=== PATIENT | female | born 1955 | race Caucasian/White ===

== ENCOUNTER → 2016-11-04 | Outpatient (CLI) | payer OTHER ==
[~2016-11-04] MED LIST: AMLO-110 PO; ASPI81TA28 PO; ATOR10TA88 PO; ATV5X PO; AUG0.05C12 TOP; BACL10TA PO; BUPR-79 PO; CLBCRM30 EXT; CLOB-65 TOP; CYAN100048 PO; EFFSR150 PO; EMLA TOP; ESTR1CRE PV; FLUT0.15 NAE; GABA-113 PO; HYDR-3124 PO; IMD/2 PO; LORA-741 PO; LSN20 PO; MECL1TAB42 PO; MELA1TAB5 PO; MELA3TAB12 PO; MIRT15TA2 PO; MIRT15TA53 PO; NRN/300 PO; NRV/5 PO; OXYC1TAB3 PO; PENT100C6 PO; POTA20TA16 PO; PRMVC PV; PROM25TA16 PO; SIME1CAP37 PO; TRIA0.5C4 TOP; TRIA0.5C9 TOP; TYLOTC500 PO
[2016-11-04 11:40] LABS: ALKALINE PHOSPHATASE 136 U/L (45-117); ALT/SGPT 15 U/L (12-78); AST/SGOT 12 U/L (15-37)
== END | disposition home or self-care (01) ==
LOC: C.LAB 10:18
PROVIDERS: ATTEND Urology
DX: N30.10 Interstitial cystitis (chronic) without hematuria (principal)

== ENCOUNTER 2016-11-06 19:06 | Emergency (ER) | payer OTHER ==
[~2016-11-06] VITALS: Ht 175.3 cm; Wt 58.9 kg
[~2016-11-06 19:06] MED LIST changes: -AMLO-110 PO; -ASPI81TA28 PO; -CLBCRM30 EXT; -EMLA TOP; -GABA-113 PO; -MELA1TAB5 PO; -MIRT15TA53 PO; -PENT100C6 PO; -PRMVC PV; -SIME1CAP37 PO; -TRIA0.5C4 TOP
[2016-11-06 19:16] VITALS: TEMP 36.8; Ht 175.3 cm; Wt 58.9 kg
[2016-11-06] MEDS ORDERED: EMLA TOP (19:35)
[2016-11-06] MEDS ORDERED: SIME1CAP37 PO (19:35)
[2016-11-06] MEDS ORDERED: GABA-113 PO (19:35)
[2016-11-06] MEDS ORDERED: PROMETHAZINE HCL INJ 25 MG/ML 1 ML VIAL IM STA (19:40)
[2016-11-06] MEDS ORDERED: HYDROmorphone INJ 2 MG/ML SYR/VIAL IM STA (19:40)
[2016-11-06] MEDS ORDERED: KETOROLAC TROMETHAMINE 60 MG/2 ML VIAL IM STA (19:40)
[2016-11-06 20:10] VITALS: BP 131/63; PULSE 76; O2SAT 98
--- NOTE | 2016-11-07 00:34 | EMERGENCY ROOM VISIT NOTE ---
ED Visit Note First contact with patient: 19:23 CHIEF COMPLAINT: Migraine headache HISTORY OF PRESENT ILLNESS: This 61-year-old female patient presented to the emergency department with a gradual onset of a severe generalized headache that started earlier today. The patient states the migraine is similar to their typical migraines. There has been associated photophobia, phonophobia, nausea and vomiting. The patient denies fever or chills recently, and there is no weakness or numbness of the extremities. There is no difficulty with speech or vision. No trauma to the head and no neck pain. The pain is severe, constant, and it is slowly increasing in severity. The patient rates the pain as sharp and 8/10. The patient has taken oxycodone without relief. This is not the worst headache of the life and is similar to previous migraines. Previous imaging studies of the brain have been normal. REVIEW OF SYSTEMS: A review of systems was performed with positives and pertinent negatives listed in the history of present illness. All other systems were reviewed and are negative. ALLERGIES: See EMR MEDICATIONS: See EMR PMH: History of chronic migraines SOCIAL HISTORY: Lives locally PHYSICAL EXAM: Vital Signs: Reviewed Nurse's notes, vital signs stable. GENERAL: White female, who appears in pain, but non toxic in appearance and in no acute distress. MENTAL STATUS: Alert, oriented, and coherent. HEENT: Normocephalic. PERRLA. EOMI. Nares patent without nuchal rigidity. Tympanic membranes pearly min without erythema or effusion bilaterally. Mucous membranes moist. NECK: Supple, no nuchal rigidity, nontender, no lymphadenopathy. HEART: Regular rhythm and normal rate without murmurs, ectopy, gallops, or rubs. LUNGS: Clear to auscultation bilaterally without wheezes, rales or rhonchi. No dullness to percussion. No accessory muscle use. No retractions. SKIN: Normal. NEUROLOGICAL: Pupils are round, equal and react to light. The optic fundi are normal and the discs are flat. The patient moves all extremities well and the gait is normal. EMERGENCY DEPARTMENT COURSE: I examined the patient. The patient is on a 2 narcotic injection per month treatment plan for their migraines. Today is her first visit of the month for treatment. The patient was given 2 mg IM Dilaudid , 25 mg IM Phenergan, and 60 mg IM Toradol per their usual protocol. The differential diagnosis includes acute intracranial bleed, meningitis, encephalitis, mass or mass effect, sinusitis, infection, tumor, headache, temporal arteritis and carbon monoxide exposure, and migraine. The patient was discharged home in stable condition with a female electronics scale tester driving. Problem List Medical Problems: (1) Abdominal pain of unknown etiology Status: Resolved (2) Anxiety State Nos Status: Chronic (3) ARF (acute renal failure) Status: Resolved (4) Chronic Pain Syndrome Status: Chronic (5) CKD (chronic kidney disease), stage III Status: Chronic (6) Classical Migraine W/O Intractable Migraine Status: Chronic (7) Depression Status: Chronic (8) Depressive Disorder Nec Status: Chronic (9) Esophageal Reflux Status: Chronic (10) Foot pain Status: Resolved (11) Headache Status: Resolved (12) HTN (hypertension) Status: Chronic (13) Hypertension Nos Status: Chronic (14) Hypokalemia Status: Resolved (15) IBS (irritable bowel syndrome) Status: Chronic (16) lysis of adhesions Status: Chronic (17) Migraine Status: Resolved (18) Migraines Status: Chronic (19) OCD (obsessive compulsive disorder) Status: Chronic (20) Tobacco abuse Status: Chronic (21) UTI (urinary tract infection) Status: Resolved Surgical Problems: (1) H/O colonoscopy Status: Chronic (2) H/O hernia repair Status: Chronic (3) H/O sinus surgery Status: Chronic (4) History of back surgery Status: Chronic (5) History of hysterectomy Status: Resolved (6) History of total abdominal hysterectomy Status: Chronic Current/Historical Medications Scheduled Acetaminophen (Tylenol), 1,000 MG PO TID Amlodipine Besylate (Amlodipine Besylate), 5 MG PO DAILY Atorvastatin (Lipitor), 10 MG PO DAILY Baclofen (Lioresal), 10 MG PO TID Betamethasone Dipropionate Aug (Diprolene Af), 1 APPLN TOP tud Bupropion (Wellbutrin Sr), 150 MG PO DAILY Clobetasol Propionate 0.05% (Temovate 0.05%), 1 APPLN TOP UD Cyanocobalamin (Vitamin B-12), 1,000 MCG PO DAILY Estrogens, Conjugated Vaginal (Premarin), 0.5 GM PV 3XWK Fluticasone Propionate (Nasal) (Flonase Allergy Relief), 1 SPRAY GINA BID Gabapentin (Neurontin), 900 MG PO HS Gabapentin (Neurontin), 300 MG PO QAM Lisinopril (Lisinopril), 20 MG PO DAILY Loperamide Hcl (Imodium), 2 MG PO PRN/UD Lorazepam (Lorazepam), 0.5 MG PO AM/HS Lorazepam (Ativan), 0.25 MG PO AFTERNOON &EVENING Melatonin-Pyridoxine (Melatonin), 10 MG PO HS Mirtazapine Soltab (Remeron Soltab), 15 MG PO HS Potassium Ext Rel (Klor-Con), 20 MEQ PO DAILY Triamcinolone Acet 0.5% (Aristocort 0.5%), Unknown Dose TOP BID Venlafaxine Hcl (Effexor Extended Rel), 300 MG PO QAM [Emla], 1 APPLN TOP UD Scheduled PRN Hydroxyzine Hcl (Atarax), 25 MG PO Q6 PRN for Itching Meclizine Hcl (Meclizine Hcl), 25 MG PO TID PRN for Dizziness or Vertigo Oxycodone Immediate Rel Tab (Roxicodone Ir), 5 MG PO Q6H PRN for Pain Promethazine HCl (Promethazine HCl), 25 MG PO Q4-6HRS PRN for Nausea or Vomiting Simethicone (Simethicone Extra Strengt 125 mg), 1 CAP PO TID PRN for gas pain Allergies Coded Allergies: Barbiturates (Verified Allergy, Severe, 09/23/16) Replaces Belladonna (Verified Allergy, Severe, 09/23/16) Dicyclomine (Verified Allergy, Severe, 09/23/16) Azithromycin (Verified Allergy, Mild, 11/06/16) Penicillins (Verified Allergy, Mild, AMOXICILLIN, 09/23/16) Phenobarbital (Verified Allergy, Mild, 09/23/16) Replaces Quinolones (Verified Allergy, Mild, 09/23/16) Nitrates, Organic (Verified Allergy, Unknown, 09/23/16) Nitrofurantoin (Verified Allergy, Unknown, 09/23/16) Nitroglycerin (Verified Allergy, Unknown, 09/23/16) Sulfa Drugs (Verified Allergy, Unknown, 09/23/16) Uncoded Allergies: ANTICHOLINERGIC (Allergy, Severe, 11/27/09) Replaces Vital Signs Date Time Temp Pulse Resp B/P Pulse Ox O2 Delivery O2 Flow Rate FiO2 11/06/16 20:10 76 131/63 98 11/06/16 19:16 36.8 92 18 137/80 97 Room Air Medications Administered Medications (Trade) Dose Ordered Sig/Micki Route Start Time Stop Time Status Last Admin Dose Admin Hydromorphone HCl (Dilaudid Inj) 2 mg NOW STAT IM 11/06/16 19:40 11/06/16 19:41 DC 11/06/16 20:05 2 MG Promethazine HCl (Phenergan Inj) 25 mg NOW STAT IM 11/06/16 19:40 11/06/16 19:41 DC 11/06/16 20:05 25 MG Ketorolac Tromethamine (Toradol Inj) 60 mg NOW STAT IM 11/06/16 19:40 11/06/16 19:41 DC 11/06/16 20:05 60 MG Departure Information Impression Primary Impression: Migraine without aura Dispostion Home / Self-Care Condition GOOD Forms HOME CARE DOCUMENTATION FORM, IMPORTANT VISIT INFORMATION Patient Instructions [facility] Additional Instructions You were seen and evaluated today on an emergency basis only. This is not a substitute for, or an effort to provide, complete comprehensive medical care. It is not possible to recognize and treat all injuries or illnesses in a single emergency department visit. For this reason it is recommended that you followup with your primary care physician or neurologist this week for ongoing care and evaluation. DO NOT drive, drink alcohol, operate machinery, or perform dangerous activities today. You were given medications in the ER that can affect your ability to safely function or operate a vehicle. Rest today in a quiet, peaceful, dark environment and get a full 8-10 hrs of sleep tonight. Avoid loud noises, smoke/smoking, alcohol, bright lights, stress, or physical exertion today to minimize the chance the headache may return. Continue current medications. Ibuprofen(Motrin, Advil) may be used for fever or pain. Use 600mg every six hours as needed. Take with food. Avoid using more than 2400mg in a 24 hour period. Do not use 2400mg per day for more than three consecutive days without physician direction. Prolonged inappropriate use can lead to stomach upset or ulcers. (AND/OR) Acetaminophen(Tylenol) may be used for fever or pain. Use 1000mg every six hours as needed. Avoid using more than 4000mg in a 24 hour period. Return to the ER for passing out, worsening headache, vision problems, neck stiffness/pain, fevers, vomiting, worsening of your condition, or as needed.
[2016-12-06] MEDS ORDERED: MELA1TAB5 PO (11:04)
[2016-12-26] MEDS ORDERED: PENT100C6 PO (10:17)
== END 2016-11-06 20:10 | disposition home or self-care (01) ==
LOC: C.EDB 19:07 → C.EDD 20:10
DX: G43.709 Chronic migraine without aura, not intractable, without status migrainosus (principal); F41.9 Anxiety disorder, unspecified; G89.4 Chronic pain syndrome; N18.3 Chronic kidney disease, stage 3 (moderate); F32.9 Major depressive disorder, single episode, unspecified; K21.9 Gastro-esophageal reflux disease without esophagitis; I12.9 Hypertensive chronic kidney disease with stage 1 through stage 4 chronic kidney disease, or unspecified chronic kidney disease; K58.9 Irritable bowel syndrome, unspecified; F42.9 Obsessive-compulsive disorder, unspecified; F17.210 Nicotine dependence, cigarettes, uncomplicated; Z87.440 Personal history of urinary (tract) infections; Z79.899 Other long term (current) drug therapy

== ENCOUNTER → 2016-11-15 | Outpatient (CLI) | payer OTHER ==
[~2016-11-15] MED LIST changes: +AMLO-110 PO; +ASPI81TA28 PO; +CLBCRM30 EXT; +EMLA TOP; +GABA-113 PO; +MELA1TAB5 PO; +MIRT15TA53 PO; +PENT100C6 PO; +PRMVC PV; +SIME1CAP37 PO; +TRIA0.5C4 TOP
== END | disposition home or self-care (01) ==
LOC: C.LAB 14:08
PROVIDERS: ATTEND Nurse Practitioner Family
DX: R39.9 Unspecified symptoms and signs involving the genitourinary system (principal); G43.709 Chronic migraine without aura, not intractable, without status migrainosus; M54.6 Pain in thoracic spine

== ENCOUNTER → 2016-11-28 | Outpatient (CLI) | payer OTHER ==
[~2016-11-28] MED LIST changes: +GADAVIST IV PRN
--- NOTE | 2016-11-28 13:35 | DIAGNOSTIC IMAGING REPORT ---
MRI THORACIC SPINE COMBO CLINICAL HISTORY: Chronic thoracic back pain. History of cord stimulator which has been removed. COMPARISON STUDY: Radiographs of the thoracic spine dated 09/06/2007. Abdominal CT dated 04/10/2006 and 06/09/2016. TECHNIQUE: MRI of the thoracic spine is performed utilizing various T1 and T2-weighted sequences in the axial and sagittal planes. Contrast-enhanced sequences are acquired following the IV administration of 6 cc of Gadavist. FINDINGS: There are mild superior endplate compression deformities seen involving T3, T5, and T7. Vertebral body height is otherwise maintained. Alignment is preserved. No retropulsed fragments are identified. Marrow signal intensity is slightly heterogeneous. No destructive bony lesion is identified. The spinous processes appear intact. No significant neural foraminal stenosis is seen throughout the thoracic spine. Small pseudomeningoceles versus nerve sheath cysts are present bilaterally at T11-T12. There is degenerative disc desiccation and mild loss of height seen throughout the thoracic spine. No disc herniation is identified. The thoracic spinal cord is normal in morphology and signal intensity. The conus medullaris terminates at the level of L1. There is T1 and T2 hypointense smoothly marginated nonenhancing material seen involving the posterior epidural space which extends from the inferior endplate of T8 to the body of T10. This measures 3.5 cm in length and causes acquired compromise of the central canal at these levels. The minimum AP canal diameter measures 7 mm. The remainder of the central canal is widely patent. The paraspinous soft tissues are within normal limits. No pleural effusion is identified. IMPRESSION: 1. No acute bony abnormality is identified. Mild chronic compression deformities are detailed above. 2. The thoracic spinal cord is normal in morphology and signal intensity. 3. There is smoothly marginated abnormal soft tissue identified involving the posterior epidural space from T8 to T10 as detailed above. This likely represents scarring/fibrosis, and causes acquired compromise of the central canal at these levels. This is likely related to the previous neurostimulator device, as the stimulator was located at this level on the 2005 examination. See above discussion. Dictated: 11/28/2016 12:13 PM Transcribed: 11/28/2016 1:34 PM Clarisa Electronically signed by: Tony Hunt M.D. 11/28/2016 1:41 PM Dictated Date/Time: 11/28/2016 12:13 PM
== END | disposition home or self-care (01) ==
LOC: C.MRI 10:27
PROVIDERS: ATTEND Anesthesiology
DX: M54.6 Pain in thoracic spine (principal); G89.29 Other chronic pain

== ENCOUNTER 2016-12-02 18:28 | Emergency (ER) | payer OTHER ==
[~2016-12-02] VITALS: Ht 176.5 cm; Wt 58.8 kg
[~2016-12-02 18:28] MED LIST changes: -AMLO-110 PO; -ASPI81TA28 PO; -CLBCRM30 EXT; -GADAVIST IV PRN; -MELA1TAB5 PO; -MIRT15TA53 PO; -PENT100C6 PO; -PRMVC PV; -TRIA0.5C4 TOP
[2016-12-02 18:47] VITALS: TEMP 37.2; Ht 176.5 cm; Wt 58.8 kg
[2016-12-02] MEDS ORDERED: HYDROmorphone INJ 2 MG/ML SYR/VIAL IM STA (19:42)
[2016-12-02] MEDS ORDERED: KETOROLAC TROMETHAMINE 60 MG/2 ML VIAL IM STA (19:42)
[2016-12-02] MEDS ORDERED: PROMETHAZINE HCL INJ 25 MG/ML 1 ML VIAL IM STA (19:42)
--- NOTE | 2016-12-02 19:49 | EMERGENCY ROOM VISIT NOTE ---
ED Visit Note First contact with patient: 19:14 CHIEF COMPLAINT: Migraine headache 2 days HISTORY OF PRESENT ILLNESS: Patient is a 61-year-old white female with past medical history significant for migraine headaches, and on a treatment plan at our facility restricting her to 2 narcotic injections per month, who presents the emergency department for evaluation of a migraine that started yesterday morning. She reports that she woke with a severe migraine around 4:00 yesterday morning. She tried Tylenol, ibuprofen and oxycodone without relief. She later noted a sore throat and swollen glands in her neck. The sister with whom she lives was diagnosed with strep throat last week. The headache persisted today, prompting her to come to the emergency department. She is states that she is scheduled for another round of Botox migraine protocol. She states she couldn't receive the injections as scheduled due to an infection. She is followed by pain management for her migraines and chronic back pain. She presently rates her discomfort a 9/10. She notes a throbbing frontal and bitemporal headache with associated nausea, photo and phonophobia. She states that this is typical of her usual migraine phenomenon. She denies any other cold or upper respiratory symptoms. No fever or chills recently. No weakness or numbness of the extremities. There is no difficulty with balance, coordination, speech or vision. No trauma to the head. No posterior neck pain or stiffness. No rashes. REVIEW OF SYSTEMS: Review of systems as per HPI. All other systems reviewed were negative. 10 systems reviewed. PMH: Electronic medical records are reviewed and summarized as above/below. See Problem List. SOCIAL HISTORY: Patient lives at home. Smoker. PHYSICAL EXAM: Vital Signs: Reviewed Nurse's notes. General Appearance: Patient is an uncomfortable-appearing 61-year-old white female who is awake and alert and laying in a darkened room in moderate distress due to her migraine. HEENT: Normocephalic, atraumatic. Pupils equal, round, reactive to light and accommodation. EOMs intact without nystagmus. Sclera are anicteric. Mild photophobia. Tympanic membranes intact, with normal landmarks. External canals are clear. Nasopharynx is clear. No sinus or dental tenderness. Examination of the posterior pharynx show no tonsillar erythema, swelling, exudate or uvular deviation. Airways pain. Mucous membranes are moist. Neck: Supple, no cervical lymphadenopathy, no meningismus Heart: Regular rate and rhythm, S1 and S2 Lungs: Clear to auscultation bilaterally, no wheezes Rales or rhonchi, no increased work of breathing Abdomen: Soft nontender nondistended. Normal active bowel sounds. No rebound. No guarding. Back: No midline tenderness to palpation. : No CVA tenderness to palpation. Skin: Warm, no diaphoresis, no rashes. Extremities: No cyanosis, clubbing, or edema Neurologic: Patient is awake alert, and oriented x 3. Cranial nerves 2-12 are grossly intact. Motor 5 out of 5 strength bilateral upper extremities and lower extremities. No gross sensory deficits. Reflexes are 2+ throughout. EMERGENCY DEPARTMENT COURSE: Rapid strep was performed and was negative. The patient was seen and evaluated as above. Her old records are reviewed. She was given Toradol 60 mg, Phenergan 25 mg and Dilaudid 2 mg IM, consistent with the treatment plan. She was told about her rapid strep, and that a backup culture is pending. She can use her [id number] medications as needed for her throat pain. This is her first injection for the month of November. She was discharged home with her sister driving. She rated her pain a 6/10 at discharge. Differential includes: acute intracranial bleed, meningitis, encephalitis, mass or mass effect, sinusitis, infection, migraine, tumor, headache, temporal arteritis, strep versus viral pharyngitis, retropharyngeal or peritonsillar abscess, among others. Problem List Medical Problems: (1) Abdominal pain of unknown etiology Status: Resolved (2) Anxiety State Nos Status: Chronic (3) ARF (acute renal failure) Status: Resolved (4) Chronic Pain Syndrome Status: Chronic (5) CKD (chronic kidney disease), stage III Status: Chronic (6) Classical Migraine W/O Intractable Migraine Status: Chronic (7) Depression Status: Chronic (8) Depressive Disorder Nec Status: Chronic (9) Esophageal Reflux Status: Chronic (10) Foot pain Status: Resolved (11) Headache Status: Resolved (12) HTN (hypertension) Status: Chronic (13) Hypertension Nos Status: Chronic (14) Hypokalemia Status: Resolved (15) IBS (irritable bowel syndrome) Status: Chronic (16) lysis of adhesions Status: Chronic (17) Migraine Status: Resolved (18) Migraines Status: Chronic (19) OCD (obsessive compulsive disorder) Status: Chronic (20) Tobacco abuse Status: Chronic (21) UTI (urinary tract infection) Status: Resolved Surgical Problems: (1) H/O colonoscopy Status: Chronic (2) H/O hernia repair Status: Chronic (3) H/O sinus surgery Status: Chronic (4) History of back surgery Status: Chronic (5) History of hysterectomy Status: Resolved (6) History of total abdominal hysterectomy Status: Chronic Current/Historical Medications Scheduled Acetaminophen (Tylenol), 1,000 MG PO TID Amlodipine Besylate (Amlodipine Besylate), 5 MG PO DAILY Atorvastatin (Lipitor), 10 MG PO DAILY Baclofen (Lioresal), 10 MG PO BID Betamethasone Dipropionate May (Diprolene Af), 1 APPLN TOP tud Bupropion (Wellbutrin Sr), 150 MG PO DAILY Clobetasol Propionate (Clobetasol Propionate Cream 0.05%), 1 APPLN EXT UD Cyanocobalamin (Vitamin B-12), 1,000 MCG PO DAILY Estrogens, Conjugated (Premarin), 1 APPLN PV 3XWK Fluticasone Propionate (Nasal) (Flonase Allergy Relief), 1 SPRAY GINA BID Gabapentin (Neurontin), 600 MG PO HS Gabapentin (Neurontin), 300 MG PO QAM Lisinopril (Lisinopril), 20 MG PO DAILY Loperamide Hcl (Imodium), 2 MG PO PRN/UD Lorazepam (Lorazepam), 0.5 MG PO AM/HS Lorazepam (Ativan), 0.25 MG PO AFTERNOON &EVENING Melatonin-Pyridoxine (Melatonin), 10 MG PO HS Potassium Ext Rel (Klor-Con), 20 MEQ PO DAILY Venlafaxine Hcl (Effexor Extended Rel), 300 MG PO QAM Scheduled PRN Hydroxyzine Hcl (Atarax), 25 MG PO Q6 PRN for Itching Meclizine Hcl (Meclizine Hcl), 25 MG PO TID PRN for Dizziness or Vertigo Oxycodone Immediate Rel Tab (Roxicodone Ir), 5 MG PO Q6H PRN for Pain Promethazine HCl (Promethazine HCl), 25 MG PO Q4-6HRS PRN for Nausea or Vomiting Simethicone (Simethicone Extra Strengt 125 mg), 1 CAP PO TID PRN for gas pain Allergies Coded Allergies: Barbiturates (Verified Allergy, Severe, 12/02/16) Replaces Belladonna (Verified Allergy, Severe, 12/02/16) Dicyclomine (Verified Allergy, Severe, 12/02/16) Azithromycin (Verified Allergy, Mild, 12/02/16) Penicillins (Verified Allergy, Mild, AMOXICILLIN, 12/02/16) Phenobarbital (Verified Allergy, Mild, 12/02/16) Replaces Quinolones (Verified Allergy, Mild, 12/02/16) Amoxicillin (Unverified Allergy, Unknown, rash, 12/02/16) Nitrates, Organic (Verified Allergy, Unknown, 12/02/16) Nitrofurantoin (Verified Allergy, Unknown, 12/02/16) Nitroglycerin (Verified Allergy, Unknown, 12/02/16) Sulfa Antibiotics (Unverified Allergy, Unknown, sulfa, 12/02/16) Sulfa Drugs (Verified Allergy, Unknown, 12/02/16) Uncoded Allergies: ANTICHOLINERGIC (Allergy, Severe, 11/27/09) Replaces PB-HYOC (Allergy, Unknown, unknown, 12/02/16) Vital Signs Date Time Temp Pulse Resp B/P Pulse Ox O2 Delivery O2 Flow Rate FiO2 12/02/16 20:24 72 18 131/71 95 12/02/16 18:47 37.2 92 18 138/59 98 Room Air Medications Administered Medications (Trade) Dose Ordered Sig/Micki Route Start Time Stop Time Status Last Admin Dose Admin Ketorolac Tromethamine (Toradol Inj) 60 mg NOW STAT IM 12/02/16 19:42 12/02/16 19:44 DC 12/02/16 20:04 60 MG Hydromorphone HCl (Dilaudid Inj) 2 mg NOW STAT IM 12/02/16 19:42 12/02/16 19:44 DC 12/02/16 20:04 2 MG Promethazine HCl (Phenergan Inj) 25 mg NOW STAT IM 12/02/16 19:42 12/02/16 19:44 DC 12/02/16 20:03 25 MG Departure Information Impression Primary Impression: Migraine Additional Impression: Acute pharyngitis Referrals Oesterling, Nate,M.D. (PCP) Patient Instructions My [facility] Additional Instructions DO NOT drive, drink alcohol, operate machinery, or perform dangerous activities today. You were given medications in the ER that can affect your ability to safely function or operate a vehicle. Rest today in a quiet, peaceful, dark environment and get a full 8-10 hrs of sleep tonight. Avoid loud noises, smoke/smoking, alcohol, bright lights, stress, or physical exertion today to minimize the chance the headache may return. Continue current medications. Tylenol and ibuprofen can help with her throat pain. Ibuprofen(Motrin, Advil) may be used for fever or pain. Use 600mg every six hours as needed. Take with food. Avoid using more than 2400mg in a 24 hour period. Do not use 2400mg per day for more than three consecutive days without physician direction. Prolonged inappropriate use can lead to stomach upset or ulcers. (AND/OR) Acetaminophen(Tylenol) may be used for fever or pain. Use 1000mg every six hours as needed. Avoid using more than 3000mg in a 24 hour period. Return to the ER for passing out, worsening headache, vision problems, neck stiffness/pain, fevers, vomiting, worsening of your condition, or as needed. Follow up with your primary physician in 2-3 days for a recheck of your current condition. We will contact you if your throat culture is positive and requires treatment with antibiotics. Problem Qualifiers
--- NOTE | 2016-12-02 19:56 | EMERGENCY ROOM VISIT NOTE ---
ED Visit Note First contact with patient: 19:14 I have seen and examined this patient with Talat Terrazas and generally agree with the treatment plan as discussed. Problem List Medical Problems: (1) Abdominal pain of unknown etiology Status: Resolved (2) Anxiety State Nos Status: Chronic (3) ARF (acute renal failure) Status: Resolved (4) Chronic Pain Syndrome Status: Chronic (5) CKD (chronic kidney disease), stage III Status: Chronic (6) Classical Migraine W/O Intractable Migraine Status: Chronic (7) Depression Status: Chronic (8) Depressive Disorder Nec Status: Chronic (9) Esophageal Reflux Status: Chronic (10) Foot pain Status: Resolved (11) Headache Status: Resolved (12) HTN (hypertension) Status: Chronic (13) Hypertension Nos Status: Chronic (14) Hypokalemia Status: Resolved (15) IBS (irritable bowel syndrome) Status: Chronic (16) lysis of adhesions Status: Chronic (17) Migraine Status: Resolved (18) Migraines Status: Chronic (19) OCD (obsessive compulsive disorder) Status: Chronic (20) Tobacco abuse Status: Chronic (21) UTI (urinary tract infection) Status: Resolved Surgical Problems: (1) H/O colonoscopy Status: Chronic (2) H/O hernia repair Status: Chronic (3) H/O sinus surgery Status: Chronic (4) History of back surgery Status: Chronic (5) History of hysterectomy Status: Resolved (6) History of total abdominal hysterectomy Status: Chronic Current/Historical Medications Scheduled Acetaminophen (Tylenol), 1,000 MG PO TID Amlodipine Besylate (Amlodipine Besylate), 5 MG PO DAILY Atorvastatin (Lipitor), 10 MG PO DAILY Baclofen (Lioresal), 10 MG PO TID Betamethasone Dipropionate Aug (Diprolene Af), 1 APPLN TOP tud Bupropion (Wellbutrin Sr), 150 MG PO DAILY Clobetasol Propionate 0.05% (Temovate 0.05%), 1 APPLN TOP UD Cyanocobalamin (Vitamin B-12), 1,000 MCG PO DAILY Estrogens, Conjugated Vaginal (Premarin), 0.5 GM PV 3XWK Fluticasone Propionate (Nasal) (Flonase Allergy Relief), 1 SPRAY GINA BID Gabapentin (Neurontin), 900 MG PO HS Gabapentin (Neurontin), 300 MG PO QAM Lisinopril (Lisinopril), 20 MG PO DAILY Loperamide Hcl (Imodium), 2 MG PO PRN/UD Lorazepam (Lorazepam), 0.5 MG PO AM/HS Lorazepam (Ativan), 0.25 MG PO AFTERNOON &EVENING Melatonin-Pyridoxine (Melatonin), 10 MG PO HS Mirtazapine Soltab (Remeron Soltab), 15 MG PO HS Potassium Ext Rel (Klor-Con), 20 MEQ PO DAILY Triamcinolone Acet 0.5% (Aristocort 0.5%), Unknown Dose TOP BID Venlafaxine Hcl (Effexor Extended Rel), 300 MG PO QAM [Emla], 1 APPLN TOP UD Scheduled PRN Hydroxyzine Hcl (Atarax), 25 MG PO Q6 PRN for Itching Meclizine Hcl (Meclizine Hcl), 25 MG PO TID PRN for Dizziness or Vertigo Oxycodone Immediate Rel Tab (Roxicodone Ir), 5 MG PO Q6H PRN for Pain Promethazine HCl (Promethazine HCl), 25 MG PO Q4-6HRS PRN for Nausea or Vomiting Simethicone (Simethicone Extra Strengt 125 mg), 1 CAP PO TID PRN for gas pain Allergies Coded Allergies: Barbiturates (Verified Allergy, Severe, 09/23/16) Replaces Belladonna (Verified Allergy, Severe, 09/23/16) Dicyclomine (Verified Allergy, Severe, 09/23/16) Azithromycin (Verified Allergy, Mild, 11/06/16) Penicillins (Verified Allergy, Mild, AMOXICILLIN, 09/23/16) Phenobarbital (Verified Allergy, Mild, 09/23/16) Replaces Quinolones (Verified Allergy, Mild, 09/23/16) Nitrates, Organic (Verified Allergy, Unknown, 09/23/16) Nitrofurantoin (Verified Allergy, Unknown, 09/23/16) Nitroglycerin (Verified Allergy, Unknown, 09/23/16) Sulfa Drugs (Verified Allergy, Unknown, 09/23/16) Uncoded Allergies: ANTICHOLINERGIC (Allergy, Severe, 11/27/09) Replaces Vital Signs Date Time Temp Pulse Resp B/P Pulse Ox O2 Delivery O2 Flow Rate FiO2 12/02/16 18:47 37.2 92 18 138/59 98 Room Air Departure Information Impression Primary Impression: Migraine Additional Impression: Acute pharyngitis Referrals Nate Shrestha M.D. (PCP) Patient Instructions [facility] Additional Instructions DO NOT drive, drink alcohol, operate machinery, or perform dangerous activities today. You were given medications in the ER that can affect your ability to safely function or operate a vehicle. Rest today in a quiet, peaceful, dark environment and get a full 8-10 hrs of sleep tonight. Avoid loud noises, smoke/smoking, alcohol, bright lights, stress, or physical exertion today to minimize the chance the headache may return. Continue current medications. Tylenol and ibuprofen can help with her throat pain. Ibuprofen(Motrin, Advil) may be used for fever or pain. Use 600mg every six hours as needed. Take with food. Avoid using more than 2400mg in a 24 hour period. Do not use 2400mg per day for more than three consecutive days without physician direction. Prolonged inappropriate use can lead to stomach upset or ulcers. (AND/OR) Acetaminophen(Tylenol) may be used for fever or pain. Use 1000mg every six hours as needed. Avoid using more than 3000mg in a 24 hour period. Return to the ER for passing out, worsening headache, vision problems, neck stiffness/pain, fevers, vomiting, worsening of your condition, or as needed. Follow up with your primary physician in 2-3 days for a recheck of your current condition. We will contact you if your throat culture is positive and requires treatment with antibiotics. Problem Qualifiers
[2016-12-02] MEDS ORDERED: PRMVC PV (19:59)
[2016-12-02] MEDS ORDERED: CLBCRM30 EXT (19:59)
[2016-12-02 20:24] VITALS: BP 131/71; PULSE 72; O2SAT 95
[2016-12-06] MEDS ORDERED: MELA1TAB5 PO (11:04)
[2016-12-26] MEDS ORDERED: PENT100C6 PO (10:17)
== END 2016-12-02 20:26 | disposition home or self-care (01) ==
LOC: C.EDB 18:29 → C.EDD 20:26
DX: G43.909 Migraine, unspecified, not intractable, without status migrainosus (principal); J02.9 Acute pharyngitis, unspecified; F17.200 Nicotine dependence, unspecified, uncomplicated; F41.9 Anxiety disorder, unspecified; F32.9 Major depressive disorder, single episode, unspecified; G89.4 Chronic pain syndrome; K21.9 Gastro-esophageal reflux disease without esophagitis; I10 Essential (primary) hypertension; K58.9 Irritable bowel syndrome, unspecified

== ENCOUNTER 2017-01-05 15:12 | Emergency (ER) | payer OTHER ==
[~2017-01-05] VITALS: Ht 175.3 cm; Wt 57.1 kg
[~2017-01-05 15:12] MED LIST changes: +CLBCRM30 EXT; -CLOB-65 TOP; -EMLA TOP; -ESTR1CRE PV; +MELA1TAB5 PO; -MIRT15TA2 PO; -NRV/5 PO; +PENT100C6 PO; +PRMVC PV; -TRIA0.5C9 TOP
[2017-01-05 15:16] VITALS: TEMP 36.9; Ht 175.3 cm; Wt 57.1 kg
[2017-01-05] MEDS ORDERED: PROMETHAZINE HCL INJ 25 MG/ML 1 ML VIAL IM STA (15:39)
[2017-01-05] MEDS ORDERED: KETOROLAC TROMETHAMINE 60 MG/2 ML VIAL IM STA (15:39)
--- NOTE | 2017-01-05 15:44 | EMERGENCY ROOM VISIT NOTE ---
ED Visit Note First contact with patient: 15:30 CHIEF COMPLAINT: Migraine headache HISTORY OF PRESENT ILLNESS: This 61-year-old female patient presented to the emergency department this afternoon with a gradual onset of a severe generalized headache that started yesterday morning. The patient states the migraine is similar to their typical migraines. There has been associated photophobia, phonophobia, nausea without vomiting. The patient denies fever or chills recently, and there is no weakness or numbness of the extremities. There is no difficulty with speech or vision. No trauma to the head and no neck pain. The pain is severe, constant, and it is slowly increasing in severity. The patient rates the pain as constant and 9/10. The patient has taken one OxyIR at 11 AM without relief of symptoms. This is not the worst headache of the life and is similar to previous migraines. Previous imaging studies of the brain have been normal. REVIEW OF SYSTEMS: A review of systems was performed with positives and pertinent negatives listed in the history of present illness. All other systems were reviewed and are negative. ALLERGIES: Multiple allergies listed above MEDICATIONS: Reviewed and discussed with the patient. PMH: Migraine headaches SOCIAL HISTORY: Patient is a 61-year-old female who lives locally. PHYSICAL EXAM: VITAL SIGNS - Vital signs and nursing notes were reviewed. GENERAL - 61-year-old female appearing her stated age who is in no acute distress. Communicates well with provider and answers questions appropriately. HEAD - Normocephalic, Atraumatic. No Harp's Sign or Raccoon's Eyes. No depressed skull fractures palpable. EYES - PERRL with EOMI bilaterally. Sclera anicteric. Palpebral conjunctiva pink and moist with no injection noted. EARS - No deformities of external structures noted on gross examination bilaterally. No pain elicited with palpation of the tragus bilaterally. External auditory canals without discharge or otorrhea. Tympanic membranes pearly min without retraction or bulging. NOSE - Midline and without cyanosis. No epistaxis or purulent drainage noted. Septum midline without deviation or septal hematoma noted. MOUTH/OROPHARYNX - Without perioral cyanosis. Buccal mucosa pink and moist and without leukoplakia. Tongue midline with equal elevation of palate bilaterally. No tonsillar hypertrophy, erythema, or exudates noted. NECK - Neck with FROM. Supple to palpation. No lymphadenopathy noted. No nuchal rigidity. LUNGS - Chest wall symmetric without accessory muscle use, intercostals retractions, or central cyanosis. Normal vesicular breath sounds CTA B/L. No wheezes, rales, or rhonchi appreciated. CARDIAC - RRR with S1/S2. No murmur, rubs, or gallops appreciated. EXTREMITIES - No pretibial edema present. +3/5 radial and dorsalis pedis pulses palpated throughout. FROM with no tremors, fasciculations, or clonus noted on PROM throughout. +5/5 strength noted in UE/LE bilaterally. NEUROLOGIC - Cranial nerves II through XII grossly intact. Sensory intact to light touch throughout. Patellar reflexes +2/4. Patient able to perform rapid alternating movements appropriately. Negative Pronator Drift. Negative finger-to -nose. PSYCH - A&Ox3 and cooperates fully with examiner. Pt is very pleasant and interacts well with examiner. EMERGENCY DEPARTMENT COURSE: I examined the patient. The patient is on a narcotic injection per month treatment plan for their migraines. The patient was given 2 mg Dilaudid, 25 mg Phenergan, and 60 mg Toradol intramuscularly per their usual protocol. The differential diagnosis includes acute intracranial bleed, meningitis, encephalitis, mass or mass effect, sinusitis, infection, tumor, headache, temporal arteritis and carbon monoxide exposure, and migraine. The patient was discharged home in stable condition with her friend driving. DIAGNOSIS: Migraine headache DISCHARGE INSTRUCTIONS & TREATMENT: You have been treated in the Emergency Department for a Headache. You have received pain medicine in the emergency department which impairs your ability to operate a vehicle. It is illegal for you to drive after receiving these medicines. For pain control, you can use the following [id number] medicines (if >12 yo): - Regular strength (325mg/tab) Tylenol (acetaminophen) 2 tabs every 4-6 hours as needed. Do not exceed 12 tablets in a 24 hour period. Avoid taking more than 4 grams (4000 mg) of Tylenol per day. This includes any other sources of acetaminophen you may take on a regular basis. - Regular strength (200 mg/tab) Advil (ibuprofen) 1-2 tabs every 4-6 hours as needed. Do not exceed a dose of 3200 mg per day. You should relax in a quiet, dark place for the rest of the day. Avoid any possible triggers including: cigarette smoke, caffeine, nicotine, chocolate, wine, beer, loud noises or music, or bright lights. You should schedule a follow-up appointment in 2-3 days with your Primary Care Provider or established Neurologist for further evaluation and treatment of your Headache. Return to the Emergency Department if your current symptoms worsen despite treatment course outlined above, or if you develop any of the following symptoms : intractable pain despite aforementioned treatment course, visual disturbances , loss of vision, unilateral weakness or facial drooping, slurring of speech, loss of coordination, or loss of consciousness. Problem List Medical Problems: (1) Abdominal pain of unknown etiology Status: Resolved (2) Anxiety State Nos Status: Chronic (3) ARF (acute renal failure) Status: Resolved (4) Chronic Pain Syndrome Status: Chronic (5) CKD (chronic kidney disease), stage III Status: Chronic (6) Classical Migraine W/O Intractable Migraine Status: Chronic (7) Depression Status: Chronic (8) Depressive Disorder Nec Status: Chronic (9) Esophageal Reflux Status: Chronic (10) Foot pain Status: Resolved (11) Headache Status: Resolved (12) HTN (hypertension) Status: Chronic (13) Hypertension Nos Status: Chronic (14) Hypokalemia Status: Resolved (15) IBS (irritable bowel syndrome) Status: Chronic (16) lysis of adhesions Status: Chronic (17) Migraine Status: Resolved (18) Migraines Status: Chronic (19) OCD (obsessive compulsive disorder) Status: Chronic (20) Tobacco abuse Status: Chronic (21) UTI (urinary tract infection) Status: Resolved Surgical Problems: (1) H/O colonoscopy Status: Chronic (2) H/O hernia repair Status: Chronic (3) H/O sinus surgery Status: Chronic (4) History of back surgery Status: Chronic (5) History of hysterectomy Status: Resolved (6) History of total abdominal hysterectomy Status: Chronic Current/Historical Medications Scheduled Acetaminophen (Tylenol), 1,000 MG PO TID Atorvastatin (Lipitor), 10 MG PO DAILY Baclofen (Lioresal), 10 MG PO BID Betamethasone Dipropionate Aug (Diprolene Af), 1 APPLN TOP tud Bupropion (Wellbutrin Sr), 150 MG PO DAILY Clobetasol Propionate (Clobetasol Propionate Cream 0.05%), 1 APPLN EXT UD Cyanocobalamin (Vitamin B-12), 1,000 MCG PO DAILY Estrogens, Conjugated (Premarin), 1 APPLN PV 3XWK Fluticasone Propionate (Nasal) (Flonase Allergy Relief), 1 SPRAY GINA BID Gabapentin (Neurontin), 600 MG PO HS Gabapentin (Neurontin), 300 MG PO QAM Lisinopril (Lisinopril), 20 MG PO DAILY Loperamide Hcl (Imodium), 2 MG PO PRN/UD Lorazepam (Lorazepam), 0.5 MG PO AM/HS Lorazepam (Ativan), 0.25 MG PO AFTERNOON &EVENING Melatonin (Kp Melatonin), 1 TAB PO HS Melatonin-Pyridoxine (Melatonin), 10 MG PO HS Pentosan Polysulfate Sodium (Elmiron), 100 MG PO BID Potassium Ext Rel (Klor-Con), 20 MEQ PO DAILY Venlafaxine Hcl (Effexor Extended Rel), 300 MG PO QAM Scheduled PRN Hydroxyzine Hcl (Atarax), 25 MG PO Q6 PRN for Itching Meclizine Hcl (Meclizine Hcl), 25 MG PO TID PRN for Dizziness or Vertigo Oxycodone Immediate Rel Tab (Roxicodone Ir), 5 MG PO Q6H PRN for Pain Promethazine HCl (Promethazine HCl), 25 MG PO Q4-6HRS PRN for Nausea or Vomiting Simethicone (Simethicone Extra Strengt 125 mg), 1 CAP PO TID PRN for gas pain Allergies Coded Allergies: Barbiturates (Verified Allergy, Severe, 12/26/16) Replaces Belladonna (Verified Allergy, Severe, 12/26/16) Dicyclomine (Verified Allergy, Severe, 12/26/16) Azithromycin (Verified Allergy, Mild, 12/26/16) Penicillins (Verified Allergy, Mild, AMOXICILLIN, 12/26/16) Phenobarbital (Verified Allergy, Mild, 12/26/16) Replaces Quinolones (Verified Allergy, Mild, 12/26/16) Amoxicillin (Unverified Allergy, Unknown, rash, 12/26/16) Nitrates, Organic (Verified Allergy, Unknown, 12/26/16) Nitrofurantoin (Verified Allergy, Unknown, 12/26/16) Nitroglycerin (Verified Allergy, Unknown, 12/26/16) Sulfa Antibiotics (Unverified Allergy, Unknown, sulfa, 12/26/16) Sulfa Drugs (Verified Allergy, Unknown, 12/26/16) Uncoded Allergies: ANTICHOLINERGIC (Allergy, Severe, 11/27/09) Replaces PB-HYOC (Allergy, Unknown, unknown, 12/02/16) Vital Signs Date Time Temp Pulse Resp B/P Pulse Ox O2 Delivery O2 Flow Rate FiO2 01/05/17 16:17 86 18 144/68 96 01/05/17 15:16 36.9 111 18 159/85 95 Room Air Medications Administered Medications (Trade) Dose Ordered Sig/Micki Route Start Time Stop Time Status Last Admin Dose Admin Hydromorphone HCl (Dilaudid Inj) 2 mg NOW ONCE IM 01/05/17 15:45 01/05/17 15:46 DC 01/05/17 16:09 2 MG Ketorolac Tromethamine (Toradol Inj) 60 mg NOW STAT IM 01/05/17 15:39 01/05/17 15:41 DC 01/05/17 16:09 60 MG Promethazine HCl (Phenergan Inj) 25 mg NOW STAT IM 01/05/17 15:39 01/05/17 15:41 DC 01/05/17 16:08 25 MG Departure Information Impression Primary Impression: Migraine Dispostion Home / Self-Care Condition GOOD Referrals Nate Shrestha M.D. (PCP) Patient Instructions ED Headache Migraine, [facility] Additional Instructions You have been treated in the Emergency Department for a Headache. You have received pain medicine in the emergency department which impairs your ability to operate a vehicle. It is illegal for you to drive after receiving these medicines. For pain control, you can use the following [id number] medicines (if >12 yo): - Regular strength (325mg/tab) Tylenol (acetaminophen) 2 tabs every 4-6 hours as needed. Do not exceed 12 tablets in a 24 hour period. Avoid taking more than 4 grams (4000 mg) of Tylenol per day. This includes any other sources of acetaminophen you may take on a regular basis. - Regular strength (200 mg/tab) Advil (ibuprofen) 1-2 tabs every 4-6 hours as needed. Do not exceed a dose of 3200 mg per day. You should relax in a quiet, dark place for the rest of the day. Avoid any possible triggers including: cigarette smoke, caffeine, nicotine, chocolate, wine, beer, loud noises or music, or bright lights. You should schedule a follow-up appointment in 2-3 days with your Primary Care Provider or established Neurologist for further evaluation and treatment of your Headache. Return to the Emergency Department if your current symptoms worsen despite treatment course outlined above, or if you develop any of the following symptoms : intractable pain despite aforementioned treatment course, visual disturbances , loss of vision, unilateral weakness or facial drooping, slurring of speech, loss of coordination, or loss of consciousness. Problem Qualifiers Primary Impression: Migraine Migraine type: other Status migrainosus presence: without status migrainosus Intractability: not intractable Qualified Codes: G43.809 - Other migraine, not intractable, without status migrainosus
[2017-01-05] MEDS ORDERED: HYDROmorphone INJ 2 MG/ML SYR/VIAL IM ONE (15:45)
[2017-01-05 16:17] VITALS: BP 144/68; PULSE 86; O2SAT 96
== END 2017-01-05 16:19 | disposition home or self-care (01) ==
LOC: C.EDB 15:14 → C.EDD 16:19
DX: G43.809 Other migraine, not intractable, without status migrainosus (principal); F17.200 Nicotine dependence, unspecified, uncomplicated; F41.9 Anxiety disorder, unspecified; G89.4 Chronic pain syndrome; N18.3 Chronic kidney disease, stage 3 (moderate); F32.9 Major depressive disorder, single episode, unspecified; K21.9 Gastro-esophageal reflux disease without esophagitis; I10 Essential (primary) hypertension; F42.9 Obsessive-compulsive disorder, unspecified

== ENCOUNTER 2017-01-20 03:40 | Emergency (ER) | payer OTHER ==
[~2017-01-20] VITALS: Ht 175.3 cm; Wt 54.0 kg
[~2017-01-20 03:40] MED LIST changes: +ATOR10TA82 PO; -ATOR10TA88 PO
[2017-01-20 03:53] VITALS: TEMP 36.6; Ht 175.3 cm; Wt 54.0 kg
[2017-01-20] MEDS ORDERED: ONDANSETRON INJ 2 MG/ML 2 ML VIAL ONE (03:57)
[2017-01-20] MEDS ORDERED: HYDROmorphone INJ 2 MG/ML SYR/VIAL IV STA (04:18)
[2017-01-20] MEDS ORDERED: SODIUM CHLORIDE 0.9% 500ML 500 ML IV STA (04:19)
[2017-01-20] MEDS ORDERED: SODIUM CHLORIDE 0.9% 1000ML 1,000 ML IV STA (04:19)
--- NOTE | 2017-01-20 04:21 | EMERGENCY ROOM VISIT NOTE ---
History Report prepared by Marcelle: Delmy Layne Under the Supervision of: Dr. Alisa Hairston D.O. First contact with patient: 03:51 Chief Complaint: ABDOMINAL PAIN Stated Complaint: ABDOMINAL PAIN Nursing Triage Summary: Patient arrives to ED via ALS transport with complaints of abdominal pain that began last night at 1900. Patient reports that she vomited twice, once at 2000 and once at 2100. Patient states that she has a history of small bowel obstruction and partial obstruction. Patient has not had a BM since noon yesterday and normally has diarrhea multiple times a day. Patient takes oxycodone/tylenol 3 times a day and has at times taken other pain medications PRN. History of Present Illness The patient is a 61 year old female who presents to the Emergency Room with complaints of constant abdominal pain for the past 11 hours. She has been experiencing nausea and has had 2 episodes of vomiting. She is vomiting liquid because she has been too nauseous to eat. She states that her abdomen feels distended and she notes diffuse abdominal pain that she rates as a 9/10 in severity. The patient states "it feels like nothing is really moving." She typically has chronic diarrhea and goes to the bathroom a lot. She has not had a bowel movement since noon yesterday. She has a history of a bowel obstruction and partial bowel obstruction. She has had multiple abdominal surgeries. The patient denies fevers and chills. She was brought to the ED by ambulance. 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 A total of 10 systems reviewed and were otherwise negative. Past Medical & Surgical Medical Problems: (1) Abdominal pain of unknown etiology (2) Anxiety State Nos (3) ARF (acute renal failure) (4) Chronic Pain Syndrome (5) CKD (chronic kidney disease), stage III (6) Classical Migraine W/O Intractable Migraine (7) Depression (8) Depressive Disorder Nec (9) Esophageal Reflux (10) Foot pain (11) Headache (12) HTN (hypertension) (13) Hypertension Nos (14) Hypokalemia (15) IBS (irritable bowel syndrome) (16) lysis of adhesions (17) Migraine (18) Migraines (19) OCD (obsessive compulsive disorder) (20) Tobacco abuse (21) UTI (urinary tract infection) Surgical Problems: (1) H/O colonoscopy (2) H/O hernia repair (3) H/O sinus surgery (4) History of back surgery (5) History of hysterectomy (6) History of total abdominal hysterectomy Family History Hypertension Social History Smoking Status: Current Every Day Smoker Alcohol Use: none Drug Use: none Marital Status: Housing Status: lives with family Occupation Status: disabled Current/Historical Medications Scheduled Acetaminophen (Tylenol), 1,000 MG PO TID Atorvastatin (Lipitor), 10 MG PO DAILY Baclofen (Lioresal), 10 MG PO BID Betamethasone Dipropionate Aug (Diprolene Af), 1 APPLN TOP tud Bupropion (Wellbutrin Sr), 150 MG PO DAILY Clobetasol Propionate (Clobetasol Propionate Cream 0.05%), 1 APPLN EXT UD Cyanocobalamin (Vitamin B-12), 1,000 MCG PO DAILY Estrogens, Conjugated (Premarin), 1 APPLN PV 3XWK Fluticasone Propionate (Nasal) (Flonase Allergy Relief), 1 SPRAY GINA BID Gabapentin (Neurontin), 600 MG PO HS Gabapentin (Neurontin), 300 MG PO QAM Lisinopril (Lisinopril), 20 MG PO DAILY Loperamide Hcl (Imodium), 2 MG PO PRN/UD Lorazepam (Lorazepam), 0.5 MG PO AM/HS Lorazepam (Ativan), 0.25 MG PO AFTERNOON &EVENING Melatonin (Kp Melatonin), 1 TAB PO HS Melatonin-Pyridoxine (Melatonin), 10 MG PO HS Pentosan Polysulfate Sodium (Elmiron), 100 MG PO BID Potassium Ext Rel (Klor-Con), 20 MEQ PO DAILY Venlafaxine Hcl (Effexor Extended Rel), 300 MG PO QAM Scheduled PRN Hydroxyzine Hcl (Atarax), 25 MG PO Q6 PRN for Itching Meclizine Hcl (Meclizine Hcl), 25 MG PO TID PRN for Dizziness or Vertigo Oxycodone Immediate Rel Tab (Roxicodone Ir), 5 MG PO Q6H PRN for Pain Promethazine HCl (Promethazine HCl), 25 MG PO Q4-6HRS PRN for Nausea or Vomiting Simethicone (Simethicone Extra Strengt 125 mg), 1 CAP PO TID PRN for gas pain Allergies Coded Allergies: Barbiturates (Verified Allergy, Severe, 01/20/17) Replaces Belladonna (Verified Allergy, Severe, 01/20/17) Dicyclomine (Verified Allergy, Severe, 01/20/17) Azithromycin (Verified Allergy, Mild, 01/20/17) Penicillins (Verified Allergy, Mild, AMOXICILLIN, 01/20/17) Phenobarbital (Verified Allergy, Mild, 01/20/17) Replaces Quinolones (Verified Allergy, Mild, 01/20/17) Amoxicillin (Unverified Allergy, Unknown, rash, 01/20/17) Nitrates, Organic (Verified Allergy, Unknown, 01/20/17) Nitrofurantoin (Verified Allergy, Unknown, 01/20/17) Nitroglycerin (Verified Allergy, Unknown, 01/20/17) Sulfa Antibiotics (Unverified Allergy, Unknown, sulfa, 01/20/17) Sulfa Drugs (Verified Allergy, Unknown, 01/20/17) Uncoded Allergies: ANTICHOLINERGIC (Allergy, Severe, 11/27/09) Replaces PB-HYOC (Allergy, Unknown, unknown, 12/02/16) Physical Exam Vital Signs Date Time Temp Pulse Resp B/P Pulse Ox O2 Delivery O2 Flow Rate FiO2 01/20/17 07:30 76 16 162/77 96 01/20/17 06:47 93 Nasal Cannula 2.0 01/20/17 06:45 76 16 141/71 89 Room Air 01/20/17 05:58 76 142/68 93 Room Air 01/20/17 03:53 36.6 104 19 188/107 99 Room Air Physical Exam HEENT: Head - normocephalic and atraumatic Pupils are equal, round, and reactive to light. Extraocular eye muscles are intact, and sclera are anicteric. Nose - moist nasal mucosa without discharge. Mouth - buccal mucosa extremely dry. Oropharynx is nonerythematous and there is no tonsillar exudate or edema noted. Neck: Supple; no JVD, nuchal rigidity, cervical lymphadenopathy. Heart: Regular rate and rhythm. There is a normal S1 and S2 with no murmurs, clicks, or gallops appreciated. Lungs: Clear to auscultation bilaterally with no wheezes, rales, or rhonchi. Abdomen: Soft, slight suprapubic abdominal pain with palpation, nondistended, with good bowel sounds. There are no palpable pulsatile masses or hepatosplenomegaly. There is no guarding, rigidity, or rebound noted. Extremities: No evidence of cyanosis, clubbing, or edema. There are easily palpable peripheral pulses. Skin: Pale, warm and dry with good turgor and no rashes. Medical Decision & Procedures ER Provider Diagnostic Interpretation: Obstruction series as interpreted by myself reveals dilated loops of small bowel , small air fluid levels concerning for a partial small bowel obstruction. CT ABDOMEN & PELVIS: Comparison 06/09/16 Prominent fluid in bowel. There are segments of mild to moderately distended small bowel and colon but no obstruction is appreciated. Other segments of bowel underdistended limiting evaluation for wall thickening. Equivocal wall thickening in the colon and small bowel versus underdistention. No perienteric inflammatory changes. Correlate for enteritis and/or colitis. Nonvisualized appendix. No right lower quadrant inflammatory process appreciated. Radiologist: Zenon Abreu MD. Laboratory Results 01/20/17 03:45 Red Blood Count 3.80, Mean Corpuscular Volume 88.2, Mean Corpuscular Hemoglobin 29.5, Mean Corpuscular Hemoglobin Concent 33.4, Mean Platelet Volume 9.7, Neutrophils (%) (Auto) 76.2, Lymphocytes (%) (Auto) 12.4, Monocytes (%) (Auto) 8.5, Eosinophils (%) (Auto) 2.2, Basophils (%) (Auto) 0.4, Neutrophils # (Auto) 10.94, Lymphocytes # (Auto) 1.78, Monocytes # (Auto) 1.22, Eosinophils # (Auto) 0.32, Basophils # (Auto) 0.06 01/20/17 03:45 Test 01/20/17 03:45 White Blood Count 14.37 K/uL (4.8-10.8) Red Blood Count 3.80 M/uL (4.2-5.4) Hemoglobin 11.2 g/dL (12.0-16.0) Hematocrit 33.5 % (37-47) Mean Corpuscular Volume 88.2 fL (80-100) Mean Corpuscular Hemoglobin 29.5 pg (25-34) Mean Corpuscular Hemoglobin Concent 33.4 g/dl (32-36) Platelet Count 605 K/uL (130-400) Mean Platelet Volume 9.7 fL (7.4-10.4) Neutrophils (%) (Auto) 76.2 % Lymphocytes (%) (Auto) 12.4 % Monocytes (%) (Auto) 8.5 % Eosinophils (%) (Auto) 2.2 % Basophils (%) (Auto) 0.4 % Neutrophils # (Auto) 10.94 K/uL (1.4-6.5) Lymphocytes # (Auto) 1.78 K/uL (1.2-3.4) Monocytes # (Auto) 1.22 K/uL (0.11-0.59) Eosinophils # (Auto) 0.32 K/uL (0-0.5) Basophils # (Auto) 0.06 K/uL (0-0.2) RDW Standard Deviation 48.5 fL (36.4-46.3) RDW Coefficient of Variation 15.0 % (11.5-14.5) Immature Granulocyte % (Auto) 0.3 % Immature Granulocyte # (Auto) 0.05 K/uL (0.00-0.02) Urine Color YELLOW Urine Appearance CLEAR (CLEAR) Urine pH 5.0 (4.5-7.5) Urine Specific Mchenry 1.005 (1.000-1.030) Urine Protein NEG (NEG) Urine Glucose (UA) NEG (NEG) Urine Ketones NEG (NEG) Urine Occult Blood NEG (NEG) Urine Nitrite NEG (NEG) Urine Bilirubin NEG (NEG) Urine Urobilinogen NEG (NEG) Urine Leukocyte Esterase NEG (NEG) Anion Gap 8.0 mmol/L (3-11) Est Creatinine Clear Calc Drug Dose 50.7 ml/min Estimated GFR () 71.7 Estimated GFR (Non- 61.8 BUN/Creatinine Ratio 9.2 (10-20) Calcium Level 8.8 mg/dl (8.5-10.1) Total Bilirubin 0.2 mg/dl (0.2-1) Direct Bilirubin < 0.1 mg/dl (0-0.2) Aspartate Amino Transf (AST/SGOT) 18 U/L (15-37) Alanine Aminotransferase (ALT/SGPT) 19 U/L (12-78) Alkaline Phosphatase 111 U/L (45-117) Total Protein 6.9 gm/dl (6.4-8.2) Albumin 3.2 gm/dl (3.4-5.0) Lipase 140 U/L (73-393) Laboratory results per my review. Medications Administered Medications (Trade) Dose Ordered Sig/Micki Route Start Time Stop Time Status Last Admin Dose Admin Hydromorphone HCl 2 mg 2 mg NOW STAT IV 01/20/17 04:18 01/20/17 04:19 DC 01/20/17 04:23 2 MG Sodium Chloride 500 ml @ 999 mls/hr Q31M STAT IV 01/20/17 04:19 01/20/17 04:49 DC 01/20/17 04:23 999 MLS/HR Sodium Chloride (Nss 1000ml) 1,000 ml @ 250 mls/hr Q4H STAT IV 01/20/17 04:19 01/20/17 08:06 DC 01/20/17 04:23 250 MLS/HR Hydromorphone HCl (Dilaudid Inj) 1 mg NOW STAT IV 01/20/17 05:50 01/20/17 05:51 DC 01/20/17 05:56 1 MG Procedure Medications Administered: Dilaudid 2 mg IV NSS 1000 ml @ 250 mls/hr IV NSS 500 ml @ 999 mls/hr IV Dilaudid 1 mg IV ED Course 0404: Past medical records reviewed. The patient was evaluated in room B2. A complete history and physical exam was performed. IV lock was initiated and labs are drawn as above. 0418: Dilaudid 2 mg IV. The patient had an obstruction series as described above. 0419: NSS 1000 ml @ 250 mls/hr IV, NSS 500 ml @ 999 mls/hr IV 0454: I reassessed the patient.. She is more comfortable after the Dilaudid. I discussed the results of her obstruction series with her and she will be going for a CT. 0550: She had recurrent discomfort. Dilaudid 1 mg IV 0632: I updated the patient on the results and treatment plan. She is feeling much better. She is going to try to eat and drink something. 0700: the patient feels much better at this time. She states that she has passed some gas. She was able to eat and drink without any difficulty. She had no further vomiting. Medical Decision The patient is a 61 year old female who presents to the ED with abdominal pain. Differential diagnosis includes SBO, closed loop bowel obstruction, colitis. Laboratory Interpretations: White count 14.3 Hemoglobin 11.2 Potassium 3.3 Normal renal function Normal LFTs Glucose 112 Lipase 140 Urine is negative The patient has a long-standing history of episodes of abdominal pain per she has had previous partial and complete bowel obstructions. Physical exam, the patient's abdomen was soft and she had bowel sounds but she was concerned about the possibility of a bowel obstruction. X-ray showed some small air-fluid levels. CT scan showed a moderate amount of fluid but no obvious obstruction. Her symptoms improved significantly. She was able to eat and drink without difficulty. Vitals were stable. Pelvic patient will be discharged home to take a bland diet. She was told to return to the emergency department if symptoms worsen. Impression Primary Impression: Diffuse abdominal pain Additional Impression: Vomiting Scribe Attestation The scribe's documentation has been prepared under my direction and personally reviewed by me in its entirety. I confirm that the note above accurately reflects all work, treatment, procedures, and medical decision making performed by me. Departure Information Referrals Nate Shrestha M.D. (PCP) Patient Instructions [facility] Problem Qualifiers Additional Impression: Vomiting Vomiting type: unspecified Vomiting Intractability: non-intractable Nausea presence: with nausea Qualified Codes: R11.2 - Nausea with vomiting, unspecified
[2017-01-20 04:41] LABS: URINE APPEARANCE CLEAR (CLEAR); URINE BILIRUBIN NEG (NEG); URINE COLOR YELLOW; URINE NITRITE NEG (NEG); URINE SPECIFIC GRAVITY 1.005 (1.000-1.030); UROBILINOGEN NEG (NEG)
[2017-01-20 04:55] LABS: MANUAL MICROSCOPIC REQUIRED? NO; REVIEW REQ? NO
[2017-01-20 04:59] LABS: ALT/SGPT 19 U/L (12-78); AST/SGOT 18 U/L (15-37); BLOOD UREA NITROGEN 9 mg/dl (7-18); BUN/CREATININE RATIO 9.2 (10-20); CALCIUM 8.8 mg/dl (8.5-10.1); CARBON DIOXIDE 22 mmol/L (21-32); CHLORIDE 110 mmol/L (98-107); CREATININE 0.98 mg/dl (0.60-1.20); GLUCOSE 112 mg/dl (70-99); POTASSIUM 3.3 mmol/L (3.5-5.1); SODIUM 140 mmol/L (136-145)
[2017-01-20 05:02] LABS: ALKALINE PHOSPHATASE 111 U/L (45-117)
[2017-01-20 05:06] LABS: BASO % 0.4 %; BASO ABS # 0.06 K/uL (0-0.2); COMPLETE YES; EOS % 2.2 %; HEMATOCRIT 33.5 % (37-47); IG% 0.3 %; LYMPH % 12.4 %; LYMPH ABS # 1.78 K/uL (1.2-3.4); MEAN CELL VOLUME 88.2 fL (80-100); MEAN CORPUSCULAR HEMOGLOBIN 29.5 pg (25-34); MEAN CORPUSCULAR HGB CONC 33.4 g/dl (32-36); MEAN PLATELET VOLUME 9.7 fL (7.4-10.4); MONO % 8.5 %; NEUT % 76.2 %; PLATELET COUNT 605 K/uL (130-400); WHITE BLOOD COUNT 14.37 K/uL (4.8-10.8)
[2017-01-20] MEDS ORDERED: OPTIRAY 320 IV PRN (05:15)
[2017-01-20] MEDS ORDERED: HYDROmorphone INJ 1 MG/ML SYR IV STA (05:50)
[2017-01-20 06:47] VITALS: O2SAT 93
[2017-01-20 07:30] VITALS: BP 162/77; PULSE 76; O2SAT 96
--- NOTE | 2017-01-20 07:34 | DIAGNOSTIC IMAGING REPORT ---
ABDOMEN 2VIEW W/PA CHEST RTN CLINICAL HISTORY: eval for sob pain. Obstruction. COMPARISON STUDY: 07/07/2016 FINDINGS: Chronic fibrotic change of the pulmonary apices. Lungs otherwise are clear. Bowel pattern is considered nonobstructive. IMPRESSION: 1. Nonobstructive abdominal bowel pattern. 2. Chronic change pulmonary apices. 3. No acute process of the chest. Electronically signed by: Alex Howe M.D. 01/20/2017 7:33 AM Dictated Date/Time: 01/20/2017 7:32 AM
--- NOTE | 2017-01-20 07:44 | DIAGNOSTIC IMAGING REPORT ---
CT SCAN OF THE ABDOMEN AND PELVIS WITH IV CONTRAST CLINICAL HISTORY: Generalized abdominal pain. COMPARISON STUDY: Abdominal CT dated 06/09/2016. TECHNIQUE: Following the IV administration of 92 cc of Optiray 320, CT scan of the abdomen and pelvis is performed from the lung bases to the proximal femora. Images are reviewed in the axial, sagittal, and coronal planes. IV contrast was administered without complication. Automated dose control exposure was utilized. CT DOSE: 367.38 mGycm FINDINGS: Lung bases: The heart is normal in size and without pericardial effusion. Advanced emphysema is noted at the lung bases. There is no airspace consolidation or pleural effusion. Dependent atelectasis is observed. Liver: The contrast-enhanced liver is normal in size, contour, and attenuation. There is no intrahepatic biliary ductal dilatation. The hepatic veins and portal veins are patent. Gallbladder: Unremarkable. Spleen: Normal in size and attenuation. Pancreas: Moderately atrophic. Adrenal glands: Unremarkable. Kidneys: The contrast enhanced kidneys are atrophic and without hydronephrosis. The kidneys enhance symmetrically. There is a truncated renal collecting system bilaterally. 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 Abdominal vasculature: The abdominal aorta is normal in course and caliber noting advanced atherosclerotic calcification. Bowel: The small bowel and colon are normal in course and caliber. There is moderate colonic fecal retention. The appendix is not clearly visualized. Peritoneum: There is no intraperitoneal free air or abdominal ascites. Lymphadenopathy: None. Pelvic viscera: The bladder is normal in appearance. The uterus is surgically absent. No adnexal lesion is seen. Skeletal structures: The skeletal structures are osteopenic. No lytic or blastic lesions are seen. IMPRESSION: 1. There are no acute infectious or inflammatory findings in the abdomen or pelvis. 2. Moderate colonic fecal retention. No bowel obstruction is seen. 3. Advanced emphysema. 4. Additional findings as above. Electronically signed by: Tony Hunt M.D. 01/20/2017 7:43 AM Dictated Date/Time: 01/20/2017 7:37 AM
== END 2017-01-20 07:30 | disposition home or self-care (01) ==
LOC: EDBD 03:40 → C.EDB 03:41
DX: R10.84 Generalized abdominal pain (principal); R11.2 Nausea with vomiting, unspecified; R19.7 Diarrhea, unspecified; F41.9 Anxiety disorder, unspecified; N18.3 Chronic kidney disease, stage 3 (moderate); G89.4 Chronic pain syndrome; F32.9 Major depressive disorder, single episode, unspecified; K21.9 Gastro-esophageal reflux disease without esophagitis; I12.9 Hypertensive chronic kidney disease with stage 1 through stage 4 chronic kidney disease, or unspecified chronic kidney disease; F42.9 Obsessive-compulsive disorder, unspecified; F17.210 Nicotine dependence, cigarettes, uncomplicated; Z87.440 Personal history of urinary (tract) infections; Z90.710 Acquired absence of both cervix and uterus; Z82.49 Family history of ischemic heart disease and other diseases of the circulatory system; Z79.899 Other long term (current) drug therapy

== ENCOUNTER 2017-01-30 21:32 | Emergency (ER) | payer OTHER ==
[~2017-01-30] VITALS: Ht 175.3 cm; Wt 56.0 kg
[2017-01-30] MEDS ORDERED: HYDROmorphone INJ 2 MG/ML SYR/VIAL IV STA (21:50)
[2017-01-30] MEDS ORDERED: ONDANSETRON INJ 2 MG/ML 2 ML VIAL IV STA (21:50)
[2017-01-30] MEDS ORDERED: SODIUM CHLORIDE 0.9% 1000ML 1,000 ML IV STA (21:50)
[2017-01-30] MEDS ORDERED: SODIUM CHLORIDE 0.9% 250ML 250 ML IV STA (21:50)
[2017-01-30 21:56] VITALS: TEMP 37.1; O2SAT 96; Ht 175.3 cm; Wt 56.0 kg
[2017-01-30] MEDS ORDERED: MIRT15TA53 PO (22:10)
[2017-01-30] MEDS ORDERED: TRIA0.5C4 TOP (22:10)
--- NOTE | 2017-01-30 22:15 | EMERGENCY ROOM VISIT NOTE ---
ED Visit Note First contact with patient: 21:35 I have seen and examined this patient with Genet Sorto and generally agree with the treatment plan as discussed. Problem List Medical Problems: (1) Abdominal pain of unknown etiology Status: Resolved (2) Anxiety State Nos Status: Chronic (3) ARF (acute renal failure) Status: Resolved (4) Chronic Pain Syndrome Status: Chronic (5) CKD (chronic kidney disease), stage III Status: Chronic (6) Classical Migraine W/O Intractable Migraine Status: Chronic (7) Depression Status: Chronic (8) Depressive Disorder Nec Status: Chronic (9) Esophageal Reflux Status: Chronic (10) Foot pain Status: Resolved (11) Headache Status: Resolved (12) HTN (hypertension) Status: Chronic (13) Hypertension Nos Status: Chronic (14) Hypokalemia Status: Resolved (15) IBS (irritable bowel syndrome) Status: Chronic (16) lysis of adhesions Status: Chronic (17) Migraine Status: Resolved (18) Migraines Status: Chronic (19) OCD (obsessive compulsive disorder) Status: Chronic (20) Tobacco abuse Status: Chronic (21) UTI (urinary tract infection) Status: Resolved Surgical Problems: (1) H/O colonoscopy Status: Chronic (2) H/O hernia repair Status: Chronic (3) H/O sinus surgery Status: Chronic (4) History of back surgery Status: Chronic (5) History of hysterectomy Status: Resolved (6) History of total abdominal hysterectomy Status: Chronic Current/Historical Medications Scheduled Atorvastatin (Lipitor), 10 MG PO DAILY Baclofen (Lioresal), 10 MG PO BID Betamethasone Dipropionate Aug (Diprolene Af), 1 APPLN TOP tud Bupropion (Wellbutrin Sr), 150 MG PO DAILY Clobetasol Propionate (Clobetasol Propionate Cream 0.05%), 1 APPLN EXT UD Cyanocobalamin (Vitamin B-12), 1,000 MCG PO DAILY Estrogens, Conjugated (Premarin), 1 APPLN PV 3XWK Gabapentin (Neurontin), 600 MG PO HS Gabapentin (Neurontin), 300 MG PO BID Lisinopril (Lisinopril), 20 MG PO DAILY Loperamide Hcl (Imodium), 2 MG PO PRN/UD Lorazepam (Lorazepam), 0.5 MG PO AM/HS Lorazepam (Ativan), 0.25 MG PO AFTERNOON &EVENING Melatonin-Pyridoxine (Melatonin), 10 MG PO HS Mirtazapine (Mirtazapine), 15 MG PO DAILY Pentosan Polysulfate Sodium (Elmiron), 100 MG PO BID Potassium Ext Rel (Klor-Con), 20 MEQ PO DAILY Triamcinolone Acet (Triamcinolone Acetonide), 1 APPLN TOP BID Venlafaxine Hcl (Effexor Extended Rel), 300 MG PO QAM Scheduled PRN Hydroxyzine Hcl (Atarax), 25 MG PO Q6 PRN for Itching Meclizine Hcl (Meclizine Hcl), 25 MG PO TID PRN for Dizziness or Vertigo Oxycodone Immediate Rel Tab (Roxicodone Ir), 5 MG PO Q6H PRN for Pain Promethazine HCl (Promethazine HCl), 25 MG PO Q4-6HRS PRN for Nausea or Vomiting Simethicone (Simethicone Extra Strengt 125 mg), 1 CAP PO TID PRN for gas pain Allergies Coded Allergies: Barbiturates (Verified Allergy, Severe, 01/20/17) Replaces Belladonna (Verified Allergy, Severe, 01/20/17) Dicyclomine (Verified Allergy, Severe, 01/20/17) Azithromycin (Verified Allergy, Mild, 01/20/17) Penicillins (Verified Allergy, Mild, AMOXICILLIN, 01/20/17) Phenobarbital (Verified Allergy, Mild, 01/20/17) Replaces Quinolones (Verified Allergy, Mild, 01/20/17) Amoxicillin (Unverified Allergy, Unknown, rash, 01/20/17) Nitrates, Organic (Verified Allergy, Unknown, 01/20/17) Nitrofurantoin (Verified Allergy, Unknown, 01/20/17) Nitroglycerin (Verified Allergy, Unknown, 01/20/17) Sulfa Antibiotics (Unverified Allergy, Unknown, sulfa, 01/20/17) Sulfa Drugs (Verified Allergy, Unknown, 01/20/17) Uncoded Allergies: ANTICHOLINERGIC (Allergy, Severe, 11/27/09) Replaces PB-HYOC (Allergy, Unknown, unknown, 12/02/16) Vital Signs Date Time Temp Pulse Resp B/P Pulse Ox O2 Delivery O2 Flow Rate FiO2 01/30/17 21:56 96 Room Air 01/30/17 21:56 37.1 95 18 178/107 96 Room Air Laboratory Results Test 01/30/17 21:42 Departure Information Referrals Nate Shrestha M.D. (PCP) Patient Instructions [facility]
[2017-01-30] MEDS ORDERED: TYLOTC500 PO (22:27)
[2017-01-30] MEDS ORDERED: ASPI81TA28 PO (22:28)
[2017-01-30 22:31] LABS: HEMATOCRIT 30.4 % (37-47); MEAN CELL VOLUME 88.1 fL (80-100); MEAN CORPUSCULAR HEMOGLOBIN 29.3 pg (25-34); MEAN CORPUSCULAR HGB CONC 33.2 g/dl (32-36); MEAN PLATELET VOLUME 9.1 fL (7.4-10.4); PLATELET COUNT 638 K/uL (130-400); RED BLOOD COUNT 3.45 M/uL (4.2-5.4); WHITE BLOOD COUNT 14.35 K/uL (4.8-10.8)
[2017-01-30 22:49] LABS: BUN/CREATININE RATIO 11.5 (10-20); CALCIUM 8.3 mg/dl (8.5-10.1); CREATININE 1.2 mg/dl (0.60-1.20); POTASSIUM 3.7 mmol/L (3.5-5.1)
[2017-01-30 22:54] LABS: ALB/GLOB RATIO 0.9 (0.9-2)
--- NOTE | 2017-01-30 22:56 | DIAGNOSTIC IMAGING REPORT ---
ABDOMEN 2VIEW W/PA CHEST RTN CLINICAL HISTORY: abd pain, ? SBO pain. Obstruction. COMPARISON STUDY: 01/20/2017 FINDINGS: The soft tissues, psoas shadows, renal outlines and intestinal gas pattern appear normal. There is no evidence for bowel obstruction. There is no evidence for free intraperitoneal air. No abnormal abdominal calcifications are seen. A frontal view of the chest was performed and is unremarkable. IMPRESSION: No acute process. No change from the prior exam. Electronically signed by: Alex Howe M.D. 01/30/2017 10:54 PM Dictated Date/Time: 01/30/2017 10:53 PM
[2017-01-30] MEDS ORDERED: HYDROmorphone INJ 0.5 MG/0.5 ML SYR IV STA (22:59)
[2017-01-30] MEDS ORDERED: SOAP SUDS ENEMA PR STA (22:59)
[2017-01-30 23:11] LABS: BASO % 0.4 %; BASO ABS # 0.06 K/uL (0-0.2); COMPLETE YES; EOS % 1.7 %; IG% 0.3 %; LYMPH % 13.9 %; MONO % 9.3 %; NEUT % 74.4 %
[2017-01-31] MEDS ORDERED: MAGNESIUM CITRATE 296 ML/BTL PO ONE (02:00)
[2017-01-31 02:08] VITALS: BP 185/112; PULSE 92; O2SAT 97
--- NOTE | 2017-01-31 04:10 | EMERGENCY ROOM VISIT NOTE ---
History First contact with patient: 21:35 Chief Complaint: ABDOMINAL PAIN Stated Complaint: AB PAIN Nursing Triage Summary: arrived via bls. ems reports patient at home today developed left lower quadrant abdominal pain. patient reports less frequent bowel movements for two days. patient has history of constipation showed on a ctr done january 20. patient is not taking any medication at home for constipation. History of Present Illness The patient is a 61 year old female who presents to the Emergency Room with complaints of left lower quadrant pain for the past few days who feels constipated. Patient is not really tried anything for her constipation. She describes the pain as cramping, ranging in severity 5 out of 10 to the lower abdomen. Patient had bowel obstructions before. Patient denies chest pain, dyspnea, fever, chills, nausea, vomiting, diarrhea, back pain, urinary symptoms. She is tolerating fluids and food. Review of Systems See HPI for pertinent positives & negatives. A total of 10 systems reviewed and were otherwise negative. Past Medical/Surgical History Medical Problems: (1) Abdominal pain of unknown etiology (2) Anxiety State Nos (3) ARF (acute renal failure) (4) Chronic Pain Syndrome (5) CKD (chronic kidney disease), stage III (6) Classical Migraine W/O Intractable Migraine (7) Depression (8) Depressive Disorder Nec (9) Esophageal Reflux (10) Foot pain (11) Headache (12) HTN (hypertension) (13) Hypertension Nos (14) Hypokalemia (15) IBS (irritable bowel syndrome) (16) lysis of adhesions (17) Migraine (18) Migraines (19) OCD (obsessive compulsive disorder) (20) Tobacco abuse (21) UTI (urinary tract infection) Surgical Problems: (1) H/O colonoscopy (2) H/O hernia repair (3) H/O sinus surgery (4) History of back surgery (5) History of hysterectomy (6) History of total abdominal hysterectomy Family History Hypertension Social History Smoking Status: Former Smoker Alcohol Use: none Drug Use: none Marital Status: Housing Status: lives with family Occupation Status: disabled Current/Historical Medications Scheduled Acetaminophen (Tylenol), 1,000 MG PO TID Aspirin (Aspirin Ec), 81 MG PO QAM Atorvastatin (Lipitor), 10 MG PO DAILY Baclofen (Lioresal), 20 MG PO QAM Betamethasone Dipropionate Aug (Diprolene Af), 1 APPLN TOP tud Bupropion (Wellbutrin Sr), 150 MG PO DAILY Clobetasol Propionate (Clobetasol Propionate Cream 0.05%), 1 APPLN EXT UD Cyanocobalamin (Vitamin B-12), 1,000 MCG PO DAILY Estrogens, Conjugated (Premarin), 1 APPLN PV 3XWK Gabapentin (Neurontin), 600 MG PO HS Gabapentin (Neurontin), 300 MG PO QAM Lisinopril (Lisinopril), 20 MG PO DAILY Loperamide Hcl (Imodium), 2 MG PO PRN/UD Lorazepam (Lorazepam), 0.5 MG PO AM/HS Lorazepam (Ativan), 0.25 MG PO AFTERNOON &EVENING Melatonin-Pyridoxine (Melatonin), 10 MG PO HS Mirtazapine (Mirtazapine), 15 MG PO DAILY Pentosan Polysulfate Sodium (Elmiron), 100 MG PO BID Potassium Ext Rel (Klor-Con), 20 MEQ PO DAILY Triamcinolone Acet (Triamcinolone Acetonide), 1 APPLN TOP BID Venlafaxine Hcl (Effexor Extended Rel), 300 MG PO QAM Scheduled PRN Hydroxyzine Hcl (Atarax), 25 MG PO Q6 PRN for Itching Meclizine Hcl (Meclizine Hcl), 25 MG PO TID PRN for Dizziness or Vertigo Oxycodone Immediate Rel Tab (Roxicodone Ir), 5 MG PO Q6H PRN for Pain Promethazine HCl (Promethazine HCl), 25 MG PO Q4-6HRS PRN for Nausea or Vomiting Simethicone (Simethicone Extra Strengt 125 mg), 1 CAP PO TID PRN for gas pain Allergies Coded Allergies: Barbiturates (Verified Allergy, Severe, 01/30/17) Replaces Belladonna (Verified Allergy, Severe, 01/30/17) Dicyclomine (Verified Allergy, Severe, 01/30/17) Azithromycin (Verified Allergy, Mild, 01/30/17) Penicillins (Verified Allergy, Mild, AMOXICILLIN, 01/30/17) Phenobarbital (Verified Allergy, Mild, 01/30/17) Replaces Quinolones (Verified Allergy, Mild, 01/30/17) Amoxicillin (Unverified Allergy, Unknown, rash, 01/30/17) Nitrates, Organic (Verified Allergy, Unknown, 01/30/17) Nitrofurantoin (Verified Allergy, Unknown, 01/30/17) Nitroglycerin (Verified Allergy, Unknown, 01/30/17) Sulfa Antibiotics (Unverified Allergy, Unknown, sulfa, 01/30/17) Sulfa Drugs (Verified Allergy, Unknown, 01/30/17) Uncoded Allergies: ANTICHOLINERGIC (Allergy, Severe, 11/27/09) Replaces PB-HYOC (Allergy, Unknown, unknown, 12/02/16) Physical Exam Vital Signs Date Time Temp Pulse Resp B/P Pulse Ox O2 Delivery O2 Flow Rate FiO2 01/31/17 02:08 92 22 185/112 97 01/30/17 23:38 78 16 147/96 96 Room Air 01/30/17 21:56 96 Room Air 01/30/17 21:56 37.1 95 18 178/107 96 Room Air Pain Rating (0-10): 5.0 Physical Exam VITALS: Vitals are noted on the nurse's note and reviewed by myself. Vital signs hypertensive GENERAL: White female, in no acute distress, nondiaphoretic, well-developed well -nourished. SKIN: The skin was without rashes, erythema, edema, or bruising. There is no tenting of the skin. Capillary reflex less than 2 seconds. HEAD: Normocephalic atraumatic. EARS: External auditory canals clear, tympanic membranes pearly min without erythema or effusion bilaterally. EYES: Pupils equal round and reactive to light and accommodation. Conjunctivae without injection, sclerae without icterus. Extraocular movements intact. NOSE: Patent, turbinates without inflammation or discharge. MOUTH: Mucous membranes moist. Pharynx without erythema or exudate. Uvula midline. Airway patent. Tongue does not deviate. NECK: Supple without nuchal rigidity. No lymphadenopathy. No thyromegaly. Cervical spine is nontender. No JVD. HEART: Regular rate and rhythm LUNGS: Clear to auscultation bilaterally without wheezes, rales or rhonchi. No dullness to percussion. No retractions or accessory muscle use. ABDOMEN: Positive bowel sounds x 4. Normal tympanic percussion. Soft, minimal tenderness to the left lower quadrant, no CVA tenderness, without masses or organomegaly. Bazzi sign negative. No guarding or rebound tenderness. MUSCULOSKELETAL: No muscle atrophy, erythema, or edema noted. NEURO: Patient was alert and oriented to person place and time. Normal sensation to light and sharp touch. No focal neurological deficits. Medical Decision & Procedures Laboratory Results 01/30/17 22:12 Red Blood Count 3.45, Mean Corpuscular Volume 88.1, Mean Corpuscular Hemoglobin 29.3, Mean Corpuscular Hemoglobin Concent 33.2, Mean Platelet Volume 9.1, Neutrophils (%) (Auto) 74.4, Lymphocytes (%) (Auto) 13.9, Monocytes (%) (Auto) 9.3, Eosinophils (%) (Auto) 1.7, Basophils (%) (Auto) 0.4, Neutrophils # (Auto) 10.66, Lymphocytes # (Auto) 2.00, Monocytes # (Auto) 1.34, Eosinophils # (Auto) 0.25, Basophils # (Auto) 0.06 01/30/17 22:12 Test 01/30/17 21:42 01/30/17 22:12 01/30/17 22:18 White Blood Count 14.35 K/uL (4.8-10.8) Red Blood Count 3.45 M/uL (4.2-5.4) Hemoglobin 10.1 g/dL (12.0-16.0) Hematocrit 30.4 % (37-47) Mean Corpuscular Volume 88.1 fL (80-100) Mean Corpuscular Hemoglobin 29.3 pg (25-34) Mean Corpuscular Hemoglobin Concent 33.2 g/dl (32-36) Platelet Count 638 K/uL (130-400) Mean Platelet Volume 9.1 fL (7.4-10.4) Neutrophils (%) (Auto) 74.4 % Lymphocytes (%) (Auto) 13.9 % Monocytes (%) (Auto) 9.3 % Eosinophils (%) (Auto) 1.7 % Basophils (%) (Auto) 0.4 % Neutrophils # (Auto) 10.66 K/uL (1.4-6.5) Lymphocytes # (Auto) 2.00 K/uL (1.2-3.4) Monocytes # (Auto) 1.34 K/uL (0.11-0.59) Eosinophils # (Auto) 0.25 K/uL (0-0.5) Basophils # (Auto) 0.06 K/uL (0-0.2) RDW Standard Deviation 49.3 fL (36.4-46.3) RDW Coefficient of Variation 15.2 % (11.5-14.5) Immature Granulocyte % (Auto) 0.3 % Immature Granulocyte # (Auto) 0.04 K/uL (0.00-0.02) Anion Gap 10.0 mmol/L (3-11) Est Creatinine Clear Calc Drug Dose 43.0 ml/min Estimated GFR () 56.1 Estimated GFR (Non- 48.4 BUN/Creatinine Ratio 11.5 (10-20) Calcium Level 8.3 mg/dl (8.5-10.1) Magnesium Level 2.0 mg/dl (1.8-2.4) Total Bilirubin 0.1 mg/dl (0.2-1) Aspartate Amino Transf (AST/SGOT) 16 U/L (15-37) Alanine Aminotransferase (ALT/SGPT) 17 U/L (12-78) Alkaline Phosphatase 106 U/L (45-117) Troponin I 0.042 ng/ml (0-0.045) Total Protein 6.0 gm/dl (6.4-8.2) Albumin 2.9 gm/dl (3.4-5.0) Globulin 3.1 gm/dl (2.5-4.0) Albumin/Globulin Ratio 0.9 (0.9-2) Bedside Lactic Acid Venous 0.75 mmol/L (0.90-1.70) Medications Administered Medications (Trade) Dose Ordered Sig/Micki Route Start Time Stop Time Status Last Admin Dose Admin Hydromorphone HCl (Dilaudid Inj) 1 mg ONE STAT IV 01/30/17 21:50 01/30/17 21:51 DC 01/30/17 22:31 1 MG Ondansetron HCl 4 mg 4 mg NOW STAT IV 01/30/17 21:50 01/30/17 21:51 DC 01/30/17 22:31 4 MG Sodium Chloride 1,000 ml @ 125 mls/hr Q8H STAT IV 01/30/17 21:50 01/31/17 02:26 DC 01/30/17 21:50 125 MLS/HR Sodium Chloride (Nss 250ml) 250 ml @ 999 mls/hr Q16M STAT IV 01/30/17 21:50 01/30/17 22:05 DC 01/30/17 21:50 999 MLS/HR Miscellaneous (Soap Suds Enema) 1 ea NOW STAT AL 01/30/17 22:59 01/30/17 23:00 DC 01/30/17 22:59 1 EA Hydromorphone HCl (Dilaudid Inj) 0.5 mg NOW STAT IV 01/30/17 22:59 01/30/17 23:00 DC 01/30/17 23:16 0.5 MG Magnesium Citrate (Citrate Of Magnesia Soln) 300 ml NOW ONCE PO 01/31/17 02:00 01/31/17 02:01 DC 01/31/17 02:03 300 ML ED Course Prior records/ancillary studies reviewed. Triage Nursing notes reviewed. Additional history obtained from EMS. The patient's history was concerning for abdominal pain. Differential diagnosis: Etiologies such as appendicitis, diverticulitis, PUD, biliary pathology, UTI, pancreatitis, obstruction, mesenteric ischemia, aortic pathology, infections, inflammatory bowel disease, renal colic, as well as others were entertained. Physical examination findings: As above. ER treatment provided: Dilaudid, Zofran, soap vikas enema, magnesium citrate On reassessment the patient felt better. Diagnostics interpreted by me: ECG: Normal sinus, normal intervals, no acute ST-T wave changes. Impression normal sinus rhythm interpreted by myself The labs revealed mild leukocytosis, stable per chart review., Mild anemia. Negative lactic acid Imaging studies: Acute abdominal series and no bowel traction per my interpretation Exam and history seem consistent with constipation. Patient had copious amounts of stool after the enema. She felt better. She is given magnesium citrate. She is advised to take this as directed. She is advised follow-up with her family care doctor in a few days or here in the ER sooner for abdominal pain, fevers, vomiting, worsening signs or symptoms or as needed. Patient had no bowel traction on x-ray imaging. She was CT scan 2 weeks ago that was unremarkable. By the evaluation outlined above emergent etiologies such as appendicitis, diverticulitis, PUD, biliary pathology, UTI, pancreatitis, obstruction, mesenteric ischemia, aortic pathology, infections, inflammatory bowel disease, renal colic, as well as others were deemed relatively unlikely. The pt informed about the findings as listed above. All questions were answered and pleased with the treatment. Return instructions were outlined and the patient was discharged in stable condition. Outpatient prescription management: Magnesium citrate Referral: The patient was referred back to their primary care physician for follow-up in 2 to 3 days for a recheck of the current condition. Medical Decision As above Impression Primary Impression: Constipation Additional Impression: Left lower quadrant pain Departure Information Dispostion Home / Self-Care Condition FAIR Forms HOME CARE DOCUMENTATION FORM, IMPORTANT VISIT INFORMATION Patient Instructions Constipation, My [facility] Additional Instructions Magnesium citrate: Drink half the bottle when you get home. If you did not have a bowel movement within 6 hours then drink the rest. Stay near a toilet. Increase your fluid and fiber intake. Rest and drink plenty of fluids as tolerated. Continue current medications. Avoid strenuous activities and anything that worsens your pain. Resume normal activities once your symptoms resolve. Return to the ER immediately for worsening or persistent abdominal pain, vomiting, fevers, chest pains, difficulty breathing, worsening of your condition , or as needed. Follow up with your primary physician in 2-3 days for a recheck of your current condition. Problem Qualifiers Primary Impression: Constipation Constipation type: unspecified constipation type Qualified Codes: K59.00 - Constipation, unspecified
== END 2017-01-31 02:08 | disposition home or self-care (01) ==
LOC: EDBD 21:32 → C.EDC 21:33
DX: K59.00 Constipation, unspecified (principal); R10.32 Left lower quadrant pain; N17.9 Acute kidney failure, unspecified; F41.9 Anxiety disorder, unspecified; G89.4 Chronic pain syndrome; G43.909 Migraine, unspecified, not intractable, without status migrainosus; F32.9 Major depressive disorder, single episode, unspecified; K21.9 Gastro-esophageal reflux disease without esophagitis; I10 Essential (primary) hypertension; K58.9 Irritable bowel syndrome, unspecified; E87.6 Hypokalemia; F42.9 Obsessive-compulsive disorder, unspecified; Z82.49 Family history of ischemic heart disease and other diseases of the circulatory system; Z87.891 Personal history of nicotine dependence; Z79.82 Long term (current) use of aspirin; Z79.899 Other long term (current) drug therapy

== ENCOUNTER 2017-04-02 17:27 | Emergency (ER) | payer OTHER ==
[~2017-04-02] VITALS: Ht 175.3 cm; Wt 57.5 kg
[~2017-04-02 17:27] MED LIST changes: +ASPI81TA28 PO; -FLUT0.15 NAE; -MELA1TAB5 PO; +MIRT15TA53 PO; +TRIA0.5C4 TOP
[2017-04-02 17:37] VITALS: TEMP 37; Ht 175.3 cm; Wt 57.5 kg
[2017-04-02] MEDS ORDERED: KETOROLAC TROMETHAMINE 60 MG/2 ML VIAL IM STA (17:51)
[2017-04-02] MEDS ORDERED: PROMETHAZINE HCL INJ 25 MG/ML 1 ML VIAL IM STA (17:51)
[2017-04-02] MEDS ORDERED: HYDROmorphone INJ 2 MG/ML SYR/VIAL IM STA (17:51)
[2017-04-02] MEDS ORDERED: FLUT0.15 NAE (18:26)
[2017-04-02] MEDS ORDERED: AMLO-110 PO (18:26)
--- NOTE | 2017-04-02 18:51 | EMERGENCY ROOM VISIT NOTE ---
ED Visit Note First contact with patient: 17:48 I have personally evaluated and examined this patient. I agree with assessment and plan of Kimberli Howe PA-C.
--- NOTE | 2017-04-02 18:52 | EMERGENCY ROOM VISIT NOTE ---
History First contact with patient: 17:48 Chief Complaint: HEADACHE Stated Complaint: MIGRAINE History of Present Illness The patient is a 62 year old female who presents to the Emergency Room with complaints of migraine headache which started approximately 6 PM last evening. The patient states that the pain is behind both eyes and in the temporal region. The patient denies any visual changes except for photosensitivity. She denies any dizziness. The patient also admits to nausea but denies any vomiting. The patient states this is typical for her migraine headaches. The patient states this is not the worst headache of her life. Review of Systems 10 system review was performed and was negative unless stated otherwise history of present illness. Past Medical/Surgical History Medical Problems: (1) Abdominal pain of unknown etiology (2) Anxiety State Nos (3) ARF (acute renal failure) (4) Chronic Pain Syndrome (5) CKD (chronic kidney disease), stage III (6) Classical Migraine W/O Intractable Migraine (7) Depression (8) Depressive Disorder Nec (9) Esophageal Reflux (10) Foot pain (11) Headache (12) HTN (hypertension) (13) Hypertension Nos (14) Hypokalemia (15) IBS (irritable bowel syndrome) (16) lysis of adhesions (17) Migraine (18) Migraines (19) OCD (obsessive compulsive disorder) (20) Tobacco abuse (21) UTI (urinary tract infection) Surgical Problems: (1) H/O colonoscopy (2) H/O hernia repair (3) H/O sinus surgery (4) History of back surgery (5) History of hysterectomy (6) History of total abdominal hysterectomy Family History Hypertension Social History Smoking Status: Current Every Day Smoker Alcohol Use: none Drug Use: none Marital Status: Housing Status: lives with family Occupation Status: disabled Current/Historical Medications Scheduled Acetaminophen (Tylenol), 1,000 MG PO TID Amlodipine (Norvasc), 5 MG PO DAILY Aspirin (Aspirin Ec), 81 MG PO QAM Atorvastatin (Lipitor), 10 MG PO DAILY Baclofen (Lioresal), 20 MG PO QAM Betamethasone Dipropionate Aug (Diprolene Af), 1 APPLN TOP tud Bupropion (Wellbutrin Sr), 150 MG PO DAILY Clobetasol Propionate (Clobetasol Propionate Cream 0.05%), 1 APPLN EXT UD Cyanocobalamin (Vitamin B-12), 1,000 MCG PO DAILY Estrogens, Conjugated (Premarin), 1 APPLN PV 3XWK Fluticasone Propionate (Nasal) (Flonase Allergy Relief), 2 SPRAYS GINA BID Gabapentin (Neurontin), 600 MG PO HS Gabapentin (Neurontin), 300 MG PO QAM Lisinopril (Lisinopril), 20 MG PO DAILY Loperamide Hcl (Imodium), 2 MG PO PRN/UD Lorazepam (Lorazepam), 0.5 MG PO AM/HS Lorazepam (Ativan), 0.25 MG PO AFTERNOON &EVENING Melatonin-Pyridoxine (Melatonin), 10 MG PO HS Mirtazapine (Mirtazapine), 15 MG PO HS Pentosan Polysulfate Sodium (Elmiron), 100 MG PO BID Potassium Ext Rel (Klor-Con), 20 MEQ PO DAILY Triamcinolone Acet (Triamcinolone Acetonide), 1 APPLN TOP BID Venlafaxine Hcl (Effexor Extended Rel), 300 MG PO QAM Scheduled PRN Hydroxyzine Hcl (Atarax), 25 MG PO Q6 PRN for Itching Oxycodone Immediate Rel Tab (Roxicodone Ir), 5 MG PO Q6H PRN for Pain Promethazine HCl (Promethazine HCl), 25 MG PO Q4-6HRS PRN for Nausea or Vomiting Simethicone (Simethicone Extra Strengt 125 mg), 1 CAP PO TID PRN for gas pain Allergies Coded Allergies: Barbiturates (Verified Allergy, Severe, 02/15/17) Replaces Belladonna (Verified Allergy, Severe, 02/15/17) Dicyclomine (Verified Allergy, Severe, 02/15/17) Azithromycin (Verified Allergy, Mild, 02/15/17) Penicillins (Verified Allergy, Mild, AMOXICILLIN, 02/15/17) Phenobarbital (Verified Allergy, Mild, 02/15/17) Replaces Quinolones (Verified Allergy, Mild, 02/15/17) Amoxicillin (Unverified Allergy, Unknown, rash, 02/15/17) Nitrates, Organic (Verified Allergy, Unknown, 02/15/17) Nitrofurantoin (Verified Allergy, Unknown, 02/15/17) Nitroglycerin (Verified Allergy, Unknown, 02/15/17) Sulfa Antibiotics (Unverified Allergy, Unknown, sulfa, 02/15/17) Sulfa Drugs (Verified Allergy, Unknown, 02/15/17) Uncoded Allergies: ANTICHOLINERGIC (Allergy, Severe, 11/27/09) Replaces PB-HYOC (Allergy, Unknown, unknown, 12/02/16) Physical Exam Vital Signs Date Time Temp Pulse Resp B/P (MAP) Pulse Ox O2 Delivery O2 Flow Rate FiO2 04/02/17 17:37 37.0 95 20 180/92 96 Room Air Physical Exam GENERAL: 62-year-old white female appears lying in a darkened room in no acute distress. MENTAL STATUS: Patient is alert and oriented x3 EYES: PERRLA. EOMs intact. EARS: Canals clear. TMs without fluid level noted. NECK: Supple, no lymphadenopathy noted. No carotid bruits noted. LUNGS: Clear auscultation without wheezes rales or rhonchi. CARDIAC: Regular rate and rhythm without murmur. Pulses is full and equal throughout. ABDOMEN: Positive bowel sounds all 4 quadrants. Soft, nontender to palpation without organomegaly or masses. NEURO:Cranial nerves two through 12 intact. Cerebellar function intact with [id number]. Fine motor intact with alternating finger motions. Medical Decision & Procedures Medications Administered Medications (Trade) Dose Ordered Sig/Micki Route Start Time Stop Time Status Last Admin Dose Admin Hydromorphone HCl (Dilaudid Inj) 2 mg NOW STAT IM 04/02/17 17:51 04/02/17 17:53 DC 04/02/17 18:02 2 MG Promethazine HCl (Phenergan Inj) 25 mg NOW STAT IM 04/02/17 17:51 04/02/17 17:53 DC 04/02/17 18:03 25 MG Ketorolac Tromethamine (Toradol Inj) 60 mg NOW STAT IM 04/02/17 17:51 04/02/17 17:53 DC 04/02/17 18:03 60 MG ED Course The patient was evaluated. The patient's EMR and medication list were reviewed. The patient's blood pressure initially was 180/92. She admitted to me that she was in her family physician's office on Monday and it was 160 over something she said and they are watching her blood pressure closely to see if they need to adjust her medications. The patient today thinks that her blood pressure is elevated due to the pain. The patient was given her normal treatment regimen for her migraines. Phenergan 25 mg IM, Toradol 30 mg IM and Dilaudid 2 mg IM. The patient was reevaluated and her blood pressure was rechecked and was 149/69. She was feeling much better. The patient was independently evaluated by Dr. Jaimes who agrees with treatment plan. The patient was discharged home in stable condition with a family member driving. Medical Decision Differential includes: Acute intracranial bleed, trauma, meningitis, encephalitis, increased intracranial pressure, mass or mass effect, facial or dental infection, temporal arteritis, CVA, TIA, acute hypertensive emergency, sinusitis, carbon monoxide exposure. The patient presented with her typical migraine headache symptoms therefore no additional diagnostic imaging was performed. Impression Primary Impression: Migraine Additional Impression: HTN (hypertension) Departure Information Dispostion Home / Self-Care Condition GOOD Referrals Nate Shrestha M.D. (PCP) Forms HOME CARE DOCUMENTATION FORM, IMPORTANT VISIT INFORMATION Patient Instructions ED Headache Migraine, [facility] Additional Instructions Go home and rest in a dark room. Follow-up in 2 days with your family physician for blood pressure recheck. Continue all medications as prescribed. Problem Qualifiers
[2017-04-02 18:58] VITALS: BP 149/69; PULSE 95; O2SAT 95
== END 2017-04-02 18:58 | disposition home or self-care (01) ==
LOC: C.EDB 17:28 → C.EDD 18:58
DX: G43.909 Migraine, unspecified, not intractable, without status migrainosus (principal); I10 Essential (primary) hypertension; F41.9 Anxiety disorder, unspecified; N19 Unspecified kidney failure; N18.3 Chronic kidney disease, stage 3 (moderate); E87.6 Hypokalemia; K58.9 Irritable bowel syndrome, unspecified; F42.9 Obsessive-compulsive disorder, unspecified; Z82.49 Family history of ischemic heart disease and other diseases of the circulatory system; F17.200 Nicotine dependence, unspecified, uncomplicated; Z79.82 Long term (current) use of aspirin; F33.41 Major depressive disorder, recurrent, in partial remission

== ENCOUNTER → 2017-05-03 | Outpatient (CLI) | payer OTHER ==
[~2017-05-03] MED LIST changes: +AMLO-110 PO; -ATOR10TA82 PO; +ATOR10TA88 PO; +FLUT0.15 NAE; -MECL1TAB42 PO
== END | disposition home or self-care (01) ==
LOC: C.PATHSPEC 15:28
PROVIDERS: ATTEND Obstetrics & Gynecology
DX: L90.0 Lichen sclerosus et atrophicus (principal)

== ENCOUNTER → 2017-05-03 | Outpatient (CLI) | payer OTHER ==
[2017-05-03 16:23] LABS: URINE APPEARANCE CLEAR (CLEAR); URINE BILIRUBIN NEG (NEG); URINE COLOR YELLOW; URINE NITRITE NEG (NEG); URINE SPECIFIC GRAVITY 1.016 (1.000-1.030); UROBILINOGEN NEG (NEG)
[2017-05-03 16:24] LABS: MANUAL MICROSCOPIC REQUIRED? NO; REVIEW REQ? NO
== END | disposition home or self-care (01) ==
LOC: C.LABSPEC 15:31
PROVIDERS: ATTEND Obstetrics & Gynecology
DX: R10.2 Pelvic and perineal pain (principal)

== ENCOUNTER 2017-05-19 13:34 | Emergency (ER) | payer OTHER ==
[~2017-05-19] VITALS: Ht 175.3 cm; Wt 56.6 kg
[2017-05-19 13:37] VITALS: Ht 175.3 cm; Wt 56.6 kg
[2017-05-19] MEDS ORDERED: PROMETHAZINE HCL INJ 25 MG/ML 1 ML VIAL IM STA (13:44)
[2017-05-19] MEDS ORDERED: KETOROLAC TROMETHAMINE 60 MG/2 ML VIAL IM STA (13:44)
[2017-05-19] MEDS ORDERED: HYDROmorphone INJ 1 MG/ML SYR IM STA (13:44)
[2017-05-19 13:56] VITALS: BP 175/95; PULSE 96; TEMP 36.6; O2SAT 96
--- NOTE | 2017-05-19 13:58 | EMERGENCY ROOM VISIT NOTE ---
History First contact with patient: 13:37 Chief Complaint: HEADACHE Stated Complaint: MIGRAINE, NAUSEA History of Present Illness The patient is a 62 year old female who presents to the Emergency Room with complaints of a migraine headache since Monday morning. The patient is well- known to our emergency department with history of chronic migraines. The patient recently completed a series of Botox injections with the [facility] without any relief. Her neurologist has also referred her to Debbie Salazar neurologist [facility] [place]. Her appointment is scheduled for October 2017. The patient reports that her migraine is frontal in nature, causing significant photophobia and phonophobia. She will usually have sensitivity to light and smell prior to migraine onset. She has had nausea and dry heaving as well. She denies any pain extending into the neck. She denies any recent head injuries, upper respiratory infections or risk of carbon monoxide exposure. Her headache is similar to all prior migraines, and this is not the worse headache of her life. She rates her discomfort a 9 out of 10. The patient reports that she usually alternates Advil and Tylenol, and also has a prescription for oxycodone 5 mg every 8 hours as needed for additional relief. The patient reports that when she gets to this stage of her migraine, the oxycodone does not help. Review of Systems 10 system review was performed and was negative except for pertinent positives and negatives as indicated in history of present illness Past Medical/Surgical History Medical Problems: (1) Abdominal pain of unknown etiology (2) Anxiety State Nos (3) ARF (acute renal failure) (4) Chronic Pain Syndrome (5) CKD (chronic kidney disease), stage III (6) Classical Migraine W/O Intractable Migraine (7) Depression (8) Depressive Disorder Nec (9) Esophageal Reflux (10) Foot pain (11) Headache (12) HTN (hypertension) (13) Hypertension Nos (14) Hypokalemia (15) IBS (irritable bowel syndrome) (16) lysis of adhesions (17) Migraine (18) Migraines (19) OCD (obsessive compulsive disorder) (20) Tobacco abuse (21) UTI (urinary tract infection) Surgical Problems: (1) H/O colonoscopy (2) H/O hernia repair (3) H/O sinus surgery (4) History of back surgery (5) History of hysterectomy (6) History of total abdominal hysterectomy Family History Hypertension Social History Smoking Status: Current Every Day Smoker Alcohol Use: none Drug Use: none Marital Status: Housing Status: lives with family Occupation Status: disabled Current/Historical Medications Scheduled Acetaminophen (Tylenol), 1,000 MG PO TID Amlodipine (Norvasc), 5 MG PO DAILY Aspirin (Aspirin Ec), 81 MG PO QAM Atorvastatin (Lipitor), 10 MG PO DAILY Baclofen (Lioresal), 20 MG PO QAM Betamethasone Dipropionate Aug (Diprolene Af), 1 APPLN TOP tud Bupropion (Wellbutrin Sr), 150 MG PO DAILY Clobetasol Propionate (Clobetasol Propionate Cream 0.05%), 1 APPLN EXT UD Cyanocobalamin (Vitamin B-12), 1,000 MCG PO DAILY Estrogens, Conjugated (Premarin), 1 APPLN PV 3XWK Fluticasone Propionate (Nasal) (Flonase Allergy Relief), 2 SPRAYS GINA BID Gabapentin (Neurontin), 600 MG PO HS Gabapentin (Neurontin), 300 MG PO QAM Lisinopril (Lisinopril), 20 MG PO DAILY Loperamide Hcl (Imodium), 2 MG PO PRN/UD Lorazepam (Lorazepam), 0.5 MG PO AM/HS Lorazepam (Ativan), 0.25 MG PO AFTERNOON &EVENING Melatonin-Pyridoxine (Melatonin), 10 MG PO HS Mirtazapine (Mirtazapine), 15 MG PO HS Pentosan Polysulfate Sodium (Elmiron), 100 MG PO BID Potassium Ext Rel (Klor-Con), 20 MEQ PO DAILY Triamcinolone Acet (Triamcinolone Acetonide), 1 APPLN TOP BID Venlafaxine Hcl (Effexor Extended Rel), 300 MG PO QAM Scheduled PRN Hydroxyzine Hcl (Atarax), 25 MG PO Q6 PRN for Itching Oxycodone Immediate Rel Tab (Roxicodone Ir), 5 MG PO Q6H PRN for Pain Promethazine HCl (Promethazine HCl), 25 MG PO Q4-6HRS PRN for Nausea or Vomiting Simethicone (Simethicone Extra Strengt 125 mg), 1 CAP PO TID PRN for gas pain Physical Exam Vital Signs Date Time Temp Pulse Resp B/P (MAP) Pulse Ox O2 Delivery O2 Flow Rate FiO2 05/19/17 13:37 36.6 96 18 175/95 96 Room Air Physical Exam CONSTITUTIONAL: Healthy and well nourished. Alert and oriented X 3 with positive affect. Patient is resting in a darkened room with sunglasses in place. HEENT: Normocephalic, atraumatic. Pupils equal, round and reactive. She is photophobic, precluding funduscopic exam. NECK: Full active range of motion without discomfort. No JVD or carotid bruits. No nuchal rigidity. RESPIRATORY: Clear to auscultation bilaterally with no wheezing, crackles, rhonchi or stridor. CARDIOVASCULAR: Regular rate and rhythm with no murmurs, rubs or gallops. MUSCULOSKELETAL: Full range of motion of all joints without discomfort. INTEGUMENTARY: No rash or other significant dermatologic conditions noted. NEUROLOGIC: No focal neurologic deficits noted. No ataxia with ambulation. Negative pronator drift. Medical Decision & Procedures ED Course Patient history and physical exam were performed. Nurse's notes were reviewed. Vital signs were reviewed, showing an elevated blood pressure 175/95. Review medical records shows that the patient is currently on a treatment plan of 2 narcotic injections per month. This is her first visit of the month. According to her usual protocol, she was administered Dilaudid 2 mg, Toradol 60 mg and Phenergan 25 mg IM. The patient requested immediate discharge home. She was instructed to rest and remain well-hydrated. She was also instructed to follow-up with her family doctor, pain clinic or Dr. Ordaz's office for further migraine management. The patient voiced understanding of all discharge instructions, and rated her headache a 7 out of 10 at the conclusion of my exam. Medical Decision She presents to the emergency department with complaint of her typical migraine headache. Based on history and physical exam, I do not suspect meningitis, CVA/ TIA, abscess, intracranial bleed, carbon monoxide poisoning or infection. Medication Reconcilliation Current Medication List: was personally reviewed by me Blood Pressure Screening Patient's blood pressure: Elevated blood pressure Blood pressure disposition: Referred to PCP Impression Primary Impression: Migraine Departure Information Dispostion Home / Self-Care Referrals Nate Shrestha M.D. (PCP) Forms HOME CARE DOCUMENTATION FORM, IMPORTANT VISIT INFORMATION Patient Instructions My [facility] Additional Instructions Rest and remain well-hydrated. Follow-up with your family doctor, pain management or Dr. Ordaz for further migraine management. Problem Qualifiers Primary Impression: Migraine Migraine type: unspecified Status migrainosus presence: without status migrainosus Intractability: not intractable Qualified Codes: G43.909 - Migraine, unspecified, not intractable, without status migrainosus
== END 2017-05-19 13:57 | disposition home or self-care (01) ==
LOC: C.EDB 13:36 → C.EDD 13:57
DX: G43.909 Migraine, unspecified, not intractable, without status migrainosus (principal); F41.9 Anxiety disorder, unspecified; N17.9 Acute kidney failure, unspecified; N18.3 Chronic kidney disease, stage 3 (moderate); F32.9 Major depressive disorder, single episode, unspecified; K21.9 Gastro-esophageal reflux disease without esophagitis; I10 Essential (primary) hypertension; E87.6 Hypokalemia; K58.9 Irritable bowel syndrome, unspecified; F42.9 Obsessive-compulsive disorder, unspecified; Z82.49 Family history of ischemic heart disease and other diseases of the circulatory system; F17.200 Nicotine dependence, unspecified, uncomplicated; Z79.82 Long term (current) use of aspirin; N30.10 Interstitial cystitis (chronic) without hematuria

== ENCOUNTER → 2017-05-19 | Outpatient (CLI) | payer OTHER ==
[2017-05-19 15:12] LABS: ALKALINE PHOSPHATASE 135 U/L (45-117); ALT/SGPT 18 U/L (12-78); AST/SGOT 15 U/L (15-37)
== END | disposition home or self-care (01) ==
LOC: C.LAB 13:16
PROVIDERS: ATTEND Urology
DX: N30.10 Interstitial cystitis (chronic) without hematuria (principal)

== ENCOUNTER 2017-06-06 19:45 | Emergency (ER) | payer OTHER ==
[~2017-06-06] VITALS: Ht 176.5 cm; Wt 59.3 kg
[2017-06-06 19:56] VITALS: TEMP 36.9; Ht 176.5 cm; Wt 59.3 kg
[2017-06-06] MEDS ORDERED: HYDROmorphone INJ 2 MG/ML SYR/VIAL IM STA (20:15)
[2017-06-06] MEDS ORDERED: PROMETHAZINE HCL INJ 25 MG/ML 1 ML VIAL IM STA (20:15)
[2017-06-06] MEDS ORDERED: KETOROLAC TROMETHAMINE 60 MG/2 ML VIAL IM STA (20:15)
--- NOTE | 2017-06-06 20:20 | EMERGENCY ROOM VISIT NOTE ---
ED Visit Note First contact with patient: 20:07 CHIEF COMPLAINT: Migraine headache HISTORY OF PRESENT ILLNESS: This 62-year-old female patient presented to the emergency department, via taxi, with a gradual onset of a severe generalized headache that started approximately 6 AM this morning. The patient states the migraine is similar to their typical migraines. There has been associated photophobia, phonophobia, nausea and vomiting. The patient denies fever or chills recently, and there is no weakness or numbness of the extremities. There is no difficulty with speech or vision. No trauma to the head and no neck pain. The pain is severe, constant, and it is slowly increasing in severity. The patient rates the pain as throbbing and 9/10. The patient has taken 15 mg oxycodone, Advil, and Tylenol without relief of the migraine. This is not the worst headache of the life and is similar to previous migraines. Previous imaging studies of the brain have been normal. REVIEW OF SYSTEMS: A 6-system review of systems was performed with positives and pertinent negatives listed in the history of present illness. All other systems were reviewed and are negative. ALLERGIES: Please see list, I did personally review the medication list with the patient. MEDICATIONS: Please see list, I did personally review the medication list with the patient. PMH: Hypertension, coronary artery disease, hyperlipidemia, anxiety, depression , migraines, allergic rhinitis, hypokalemia SOCIAL HISTORY: Lives locally with family. She denies drug, alcohol, tobacco use. PHYSICAL EXAM: Vital Signs: Reviewed Nurse's notes, vital signs stable. GENERAL : This is a 62-year-old female, who appears in pain, but non toxic in appearance and in no acute distress. MENTAL STATUS: Alert, oriented, and coherent. HEENT: Normocephalic. PERRLA. EOMI. Nares patent without nuchal rigidity. Tympanic membranes pearly min without erythema or effusion bilaterally. Mucous membranes moist. NECK: Supple, no nuchal rigidity, nontender, no lymphadenopathy. HEART: Regular rhythm and normal rate without murmurs, ectopy, gallops, or rubs. LUNGS: Clear to auscultation bilaterally without wheezes, rales or rhonchi. No dullness to percussion. No accessory muscle use. No retractions. SKIN: Normal. NEUROLOGICAL: Pupils are round, equal and react to light. The optic fundi are normal and the discs are flat. The patient moves all extremities well and the gait is normal. EMERGENCY DEPARTMENT COURSE: I examined the patient. The patient is on a 2 narcotic injection per month treatment plan for their migraines. This is the patient's first visit this month. The patient was given 60 mg Toradol IM, 25 mg Phenergan IM, 2 mg Dilaudid IM per their usual protocol. The differential diagnosis includes acute intracranial bleed, meningitis, encephalitis, mass or mass effect, sinusitis, infection, tumor, headache, temporal arteritis and carbon monoxide exposure, and migraine. The patient was discharged home in stable condition with a taxicab driving. DIAGNOSIS: Migraine headache DISCHARGE INSTRUCTIONS & TREATMENT: DO NOT drive, drink alcohol, operate machinery, or perform dangerous activities today. You were given medications in the ER that can affect your ability to safely function or operate a vehicle. Rest today in a quiet, peaceful, dark environment and get a full 8-10 hrs of sleep tonight. Avoid loud noises, smoke/smoking, alcohol, bright lights, stress, or physical exertion today to minimize the chance the headache may return. Continue current medications as prescribed. Ibuprofen(Motrin, Advil) may be used for fever or pain. Use 600mg every six hours as needed. Take with food. Avoid using more than 2400mg in a 24 hour period. Do not use 2400mg per day for more than three consecutive days without physician direction. Prolonged inappropriate use can lead to stomach upset or ulcers. (AND/OR) Acetaminophen(Tylenol) may be used for fever or pain. Use 1000mg every six hours as needed. Avoid using more than 4000mg in a 24 hour period. Return to the ER for passing out, worsening headache, vision problems, neck stiffness/pain, fevers, vomiting, worsening of your condition, or as needed. Follow-up with your neurologist and consider repeat visits with pain management for control of your migraines. Follow up with your primary physician in 2-3 days for a recheck of your current condition. Problem List Medical Problems: (1) Abdominal pain of unknown etiology Status: Resolved (2) Anxiety State Nos Status: Chronic (3) ARF (acute renal failure) Status: Resolved (4) Chronic Pain Syndrome Status: Chronic (5) CKD (chronic kidney disease), stage III Status: Chronic (6) Classical Migraine W/O Intractable Migraine Status: Chronic (7) Depression Status: Chronic (8) Depressive Disorder Nec Status: Chronic (9) Esophageal Reflux Status: Chronic (10) Foot pain Status: Resolved (11) Headache Status: Resolved (12) HTN (hypertension) Status: Chronic (13) Hypertension Nos Status: Chronic (14) Hypokalemia Status: Resolved (15) IBS (irritable bowel syndrome) Status: Chronic (16) lysis of adhesions Status: Chronic (17) Migraine Status: Resolved (18) Migraines Status: Chronic (19) OCD (obsessive compulsive disorder) Status: Chronic (20) Tobacco abuse Status: Chronic (21) UTI (urinary tract infection) Status: Resolved Surgical Problems: (1) H/O colonoscopy Status: Chronic (2) H/O hernia repair Status: Chronic (3) H/O sinus surgery Status: Chronic (4) History of back surgery Status: Chronic (5) History of hysterectomy Status: Resolved (6) History of total abdominal hysterectomy Status: Chronic Current/Historical Medications Scheduled Acetaminophen (Tylenol), 1,000 MG PO TID Amlodipine (Norvasc), 5 MG PO DAILY Aspirin (Aspirin Ec), 81 MG PO QAM Atorvastatin (Lipitor), 10 MG PO DAILY Baclofen (Lioresal), 20 MG PO QAM Betamethasone Dipropionate Aug (Diprolene Af), 1 APPLN TOP tud Bupropion (Wellbutrin Sr), 150 MG PO DAILY Clobetasol Propionate (Clobetasol Propionate Cream 0.05%), 1 APPLN EXT UD Cyanocobalamin (Vitamin B-12), 1,000 MCG PO DAILY Estrogens, Conjugated (Premarin), 1 APPLN PV 3XWK Fluticasone Propionate (Nasal) (Flonase Allergy Relief), 2 SPRAYS GINA BID Gabapentin (Neurontin), 600 MG PO HS Gabapentin (Neurontin), 300 MG PO QAM Lisinopril (Lisinopril), 20 MG PO DAILY Loperamide Hcl (Imodium), 2 MG PO PRN/UD Lorazepam (Lorazepam), 0.5 MG PO AM/HS Lorazepam (Ativan), 0.25 MG PO AFTERNOON &EVENING Melatonin-Pyridoxine (Melatonin), 10 MG PO HS Mirtazapine (Mirtazapine), 15 MG PO HS Pentosan Polysulfate Sodium (Elmiron), 100 MG PO BID Potassium Ext Rel (Klor-Con), 20 MEQ PO DAILY Triamcinolone Acet (Triamcinolone Acetonide), 1 APPLN TOP BID Venlafaxine Hcl (Effexor Extended Rel), 300 MG PO QAM Scheduled PRN Hydroxyzine Hcl (Atarax), 25 MG PO Q6 PRN for Itching Oxycodone Immediate Rel Tab (Roxicodone Ir), 5 MG PO Q6H PRN for Pain Promethazine HCl (Promethazine HCl), 25 MG PO Q4-6HRS PRN for Nausea or Vomiting Simethicone (Simethicone Extra Strengt 125 mg), 1 CAP PO TID PRN for gas pain Allergies Coded Allergies: Barbiturates (Verified Allergy, Severe, 02/15/17) Replaces Belladonna (Verified Allergy, Severe, 02/15/17) Dicyclomine (Verified Allergy, Severe, 02/15/17) Azithromycin (Verified Allergy, Mild, 02/15/17) Penicillins (Verified Allergy, Mild, AMOXICILLIN, 02/15/17) Phenobarbital (Verified Allergy, Mild, 02/15/17) Replaces Quinolones (Verified Allergy, Mild, 02/15/17) Amoxicillin (Unverified Allergy, Unknown, rash, 02/15/17) Nitrates, Organic (Verified Allergy, Unknown, 02/15/17) Nitrofurantoin (Verified Allergy, Unknown, 02/15/17) Nitroglycerin (Verified Allergy, Unknown, 02/15/17) Sulfa Antibiotics (Unverified Allergy, Unknown, sulfa, 02/15/17) Sulfa Drugs (Verified Allergy, Unknown, 02/15/17) Uncoded Allergies: ANTICHOLINERGIC (Allergy, Severe, 11/27/09) Replaces PB-HYOC (Allergy, Unknown, unknown, 12/02/16) Vital Signs Date Time Temp Pulse Resp B/P (MAP) Pulse Ox O2 Delivery O2 Flow Rate FiO2 06/06/17 19:56 36.9 76 16 148/75 97 Room Air Medications Administered Medications (Trade) Dose Ordered Sig/Micki Route Start Time Stop Time Status Last Admin Dose Admin Ketorolac Tromethamine (Toradol Inj) 60 mg NOW STAT IM 06/06/17 20:15 8/15/17 20:17 DC 06/06/17 20:48 60 MG Hydromorphone HCl (Dilaudid Inj) 2 mg NOW STAT IM 06/06/17 20:15 06/06/17 20:17 DC 06/06/17 20:48 2 MG Promethazine HCl (Phenergan Inj) 25 mg STK-MED ONCE .ROUTE 06/06/17 20:35 06/06/17 20:36 DC 06/06/17 20:48 25 MG Departure Information Impression Primary Impression: Migraine Dispostion Home / Self-Care Condition GOOD Referrals Nate Shrestha M.D. (PCP) Dede Ordaz M.D. Patient Instructions ED Headache Migraine, My [facility] Additional Instructions DO NOT drive, drink alcohol, operate machinery, or perform dangerous activities today. You were given medications in the ER that can affect your ability to safely function or operate a vehicle. Rest today in a quiet, peaceful, dark environment and get a full 8-10 hrs of sleep tonight. Avoid loud noises, smoke/smoking, alcohol, bright lights, stress, or physical exertion today to minimize the chance the headache may return. Continue current medications as prescribed. Ibuprofen(Motrin, Advil) may be used for fever or pain. Use 600mg every six hours as needed. Take with food. Avoid using more than 2400mg in a 24 hour period. Do not use 2400mg per day for more than three consecutive days without physician direction. Prolonged inappropriate use can lead to stomach upset or ulcers. (AND/OR) Acetaminophen(Tylenol) may be used for fever or pain. Use 1000mg every six hours as needed. Avoid using more than 4000mg in a 24 hour period. Return to the ER for passing out, worsening headache, vision problems, neck stiffness/pain, fevers, vomiting, worsening of your condition, or as needed. Follow-up with your neurologist and consider repeat visits with pain management for control of your migraines. Follow up with your primary physician in 2-3 days for a recheck of your current condition. Problem Qualifiers Primary Impression: Migraine Migraine type: with aura Status migrainosus presence: with status migrainosus Intractability: intractable Qualified Codes: G43.111 - Migraine with aura, intractable, with status migrainosus
[2017-06-06] MEDS ORDERED: PROMETHAZINE HCL INJ 25 MG/ML 1 ML VIAL ONE (20:35)
[2017-06-06 21:10] VITALS: BP 149/72; PULSE 70; O2SAT 93
== END 2017-06-06 21:10 | disposition home or self-care (01) ==
LOC: C.EDB 19:46 → C.EDD 21:10
DX: G43.111 Migraine with aura, intractable, with status migrainosus (principal); I25.10 Atherosclerotic heart disease of native coronary artery without angina pectoris; E78.5 Hyperlipidemia, unspecified; F41.1 Generalized anxiety disorder; F32.9 Major depressive disorder, single episode, unspecified; N18.3 Chronic kidney disease, stage 3 (moderate); I12.9 Hypertensive chronic kidney disease with stage 1 through stage 4 chronic kidney disease, or unspecified chronic kidney disease; Z87.440 Personal history of urinary (tract) infections; Z90.710 Acquired absence of both cervix and uterus; Z98.890 Other specified postprocedural states; Z79.82 Long term (current) use of aspirin; Z79.899 Other long term (current) drug therapy

== ENCOUNTER → 2017-07-21 | Outpatient (CLI) | payer OTHER ==
--- NOTE | 2017-07-21 12:13 | DIAGNOSTIC IMAGING REPORT ---
GI W/AIR SMALL BOWEL ROUTINE CLINICAL HISTORY: R10.9 abdominal pain COMPARISON STUDY: None FLUOROSCOPY TIME: 2.4 minutes. NUMBER OF FLUOROSCOPIC IMAGES: 40 FINDINGS: The patient swallowed effervescent granules and barium without difficulty. No mass lesions or ulcerations were evident within the esophagus. The gastric mucosa demonstrates prominent nodularity. This is nonspecific but may indicate lymphoid hyperplasia. Tiny polyps could appear similar. No annular gastric masses are visualized. There are no destructive lesions. The duodenal bulb appears normal. There is a duodenal diverticulum. Ligament Treitz is located in the normal anatomical position. The patient was administered Enterovue a small bowel follow-through was performed. Contrast reached the cecum within 20 minutes. There are no abnormally dilated loops of large or small bowel. There is no evidence for abnormal loop separation. Fluoroscopic spot images of the terminal ileum reveal no abnormalities. IMPRESSION: Nonspecific diffuse nodularity of the gastric mucosa. Otherwise normal study. No small bowel abnormalities identified. Electronically signed by: Gio [place] M.D. 07/21/2017 11:20 AM Dictated Date/Time: 07/21/2017 11:11 AM
== END | disposition home or self-care (01) ==
LOC: C.RAD 09:54
PROVIDERS: ATTEND Surgery
DX: R10.9 Unspecified abdominal pain (principal)

== ENCOUNTER 2017-09-07 11:10 | Emergency (ER) | payer OTHER ==
[~2017-09-07] VITALS: Ht 168.9 cm; Wt 60.1 kg
[~2017-09-07 11:10] MED LIST changes: +ATOR10TA82 PO; -ATOR10TA88 PO
[2017-09-07 11:14] VITALS: Ht 168.9 cm; Wt 60.1 kg
[2017-09-07] MEDS ORDERED: METOCLOPRAMIDE HCL INJ 5 MG/ML 2 ML VIAL IV STA (11:30)
[2017-09-07] MEDS ORDERED: DiphenhydrAMINE HCL 50 MG/ML VIAL IV STA (11:30)
[2017-09-07] MEDS ORDERED: KETOROLAC TROMETHAMINE 30 MG/ML VIAL IV STA (11:30)
[2017-09-07] MEDS ORDERED: LACTATED RINGER'S 1000ML 1,000 ML IV ONE (11:30)
[2017-09-07] MEDS ORDERED: VALPROATE SOD IV 500 MG in DEXTROSE 5% 50ML 50 ML IV ONE (12:45)
[2017-09-07] MEDS ORDERED: DEXAMETHASONE INJ 8 MG in SYRINGE 0 ML IV ONE (12:45)
[2017-09-07] MEDS ORDERED: MECL1TAB42 PO (13:31)
[2017-09-07] MEDS ORDERED: BUPR300T43 PO (13:33)
[2017-09-07] MEDS ORDERED: MAGNESIUM SULFATE 1GM / D5W 1 GM in PREMIXED IN D5W 100 ML IV STA (13:47)
[2017-09-07] MEDS ORDERED: SUMATRIPTAN SUCCINATE 6 MG/0.5 ML VIAL SQ ONE (14:00)
[2017-09-07 14:34] VITALS: BP 139/62; PULSE 73; TEMP 37.3; O2SAT 96
--- NOTE | 2017-09-07 20:08 | EMERGENCY ROOM VISIT NOTE ---
ED Visit Note First contact with patient: 11:22 CHIEF COMPLAINT: I have a migraine headache. HISTORY OF PRESENT ILLNESS: Ms. Patrick is a 62 year-old white female who ambulates into the ED accompanied by her sister complaining of a migraine headache. Historically patient reports she has a history of migraine headaches and chronic pain syndromes. She reports a gradual onset of a severe migraine headache that started approximately proximately 25 hours ago. The pain is constant and it is slowly increasing in severity. This is not the worst headache of the life and is similar to previous migraines. Currently she describes the headache as a pressure sensation/pain he'll aspect of the upper orbits. She rates the pain a 9/10. The pain is radiating back into behind the eyes. Her pain is worsened with exposure to bright lights. She has not identified any alleviating factors related to her pain. She reports she has been taking her promethazine for her associated nausea, OxyIR for her pain. Associated with her headache she reports she is very light sensitive and has been nauseated and has had 3 or 4 episodes of vomiting. She denies fevers, chills, sweats, skin eruptions, skin color changes, visual changes, hearing changes, difficulty speaking, difficulty swallowing, difficulty ambulating, coordinating body movements, upper respiratory tract symptoms, sore throats, neck pain/stiffness, cough, wheezing, shortness of breath, chest pain, abdominal pain, diarrhea, constipation, urinary symptoms, back/flank pain, extremity weakness/numbness/tingling. REVIEW OF SYSTEMS: As noted above in History of Present Illness; all body systems were reviewed with the patient and found to be negative unless noted above otherwise. PAST MEDICAL HISTORY: Chronic abdominal pain, anxiety, eczema, chronic kidney disease, depression, esophageal reflux, hypertension, hypokalemia, irritable bowel syndrome, obsessive compulsive disorder, urinary tract infections, status post unspecified hernia repair, sinus surgery, back surgery, hysterectomy. CURRENT MEDICATIONS: Medications Dose Route/Sig Max Daily Dose Days Date Category Dose Instructions Bupropion Hcl Xl (Bupropion Hcl) 300 Mg Tab 300 Mg PO DAILY 30 09/07/17 Reported Meclizine Hcl 25 Mg Tab 25 Mg PO TID 10 09/07/17 Reported Aspirin Ec (Aspirin) 81 Mg Tab 81 Mg PO QAM 01/30/17 Reported Mirtazapine 15 Mg Tab 15 Mg PO HS 01/30/17 Reported Elmiron (Pentosan Polysulfate Sodium) 100 Mg Cap 100 Mg PO BID 12/26/16 Reported Premarin (Estrogens, Conjugated) 14 Appln/30 Gm Cr 1 Appln PV 3XWK 12/02/16 Reported Clobetasol Propionate Cream 0.05% (Clobetasol Propionate) 90 Appln/30 Gm Cr 1 Appln EXT UD 12/02/16 Reported Neurontin (Gabapentin) 300 Mg Cap 300 Mg PO QAM 11/06/16 Reported Lipitor (Atorvastatin Calcium) 10 Mg Tab 10 Mg PO DAILY 09/10/16 Reported Imodium (Loperamide HCl) 2 Mg Cap 2 Mg PO PRN/UD 09/10/16 Reported TAKE 2 TABS WITH FIRST DIARRHEA EPISODE,THEN ONE TABLET AFTER EACH LOOSE BM, NO MORE THAN 8 TABLETS DAILY. Klor-Con (Potassium Chloride) 20 Meq Tabcr 20 Meq PO DAILY 06/09/16 Reported Vitamin B-12 (Cyanocobalamin) 1,000 Mcg Sub 1,000 Mcg PO DAILY 06/09/16 Reported Lioresal (Baclofen) 10 Mg Tab 20 Mg PO BID PRN 03/30/16 Reported Neurontin (Gabapentin) 300 Mg Cap 600 Mg PO HS 09/21/15 Reported Atarax (Hydroxyzine Hcl) 25 Mg Tab 25 Mg PO Q6 PRN 09/21/15 Reported Roxicodone Ir (Oxycodone HCl) 5 Mg Tab 5 Mg PO Q6H PRN 09/21/15 Reported Melatonin (Melatonin-Pyridoxine) 1 Tab Tab 10 Mg PO HS 03/13/15 Reported Promethazine HCl 25 Mg Tab 25 Mg PO Q4-6HRS PRN 06/11/14 Reported Lorazepam 0.5 Mg Tab 0.5 Mg PO TID PRN 06/11/14 Reported Effexor Extended Rel (Venlafaxine Hcl) 150 Mg Capcr 300 Mg PO QAM 06/11/14 Reported Lisinopril 20 Mg Tab 20 Mg PO DAILY 06/11/14 Reported ALLERGIES TO MEDICATIONS: Anticholinergic medications, amoxicillin, azithromycin , barbiturates, belladonna, nitrates, dicyclomine, nitrofurantoin, nitroglycerin , phenobarbital, sulfa, quinolones, nitrates,. SOCIAL HISTORY: Patient is not employed; she feels safe in her home environment ; she admits to tobacco use and denies alcohol use. PHYSICAL EXAM: Vital Signs: Date Time Temp Pulse Resp B/P (MAP) Pulse Ox O2 Delivery O2 Flow Rate FiO2 09/07/17 14:34 37.3 73 18 139/62 96 17 14:27 73 18 139/62 96 Room Air 09/07/17 11:14 37.3 80 15 161/83 98 Room Air GENERAL: 62 year-old white female in moderate distress due to pain, afebrile and hemodynamically stable. Found lying in a darkened room with sunglasses on. NEUROLOGIC: Awake, alert and oriented to person place and time. Answering questions appropriately and following commands. Her motor gait. Good hand eye coordination. Cranial nerves II through XII grossly intact. No focal motor sensory deficits. SKIN: Warm, dry and pink. No rashes, lesions or soft tissue trauma noted. HEENT: Normocephalic, atraumatic. No tenderness over the skull or face. No erythema or tenderness over the frontal or maxillary sinuses. PERRLA. EOMI without nystagmus. Sclerae white and conjunctiva pink without drainage. Funduscopic examination deferred to light sensitivity. Oral cavity is moist and pink. No obvious dental trauma or infection. Airway patent. Speech is normal and clear. No JVD. Trachea midline. NECK: Soft and supple. No tenderness through the central cervical region or cervical musculature. Meningismus or rigidity. Full range of motion of the cervical spine. THORAX: Lungs clear to auscultation and equal bilaterally with no wheezing, crackles, rhonchi or stridor and equal chest wall movements. HEART: Regular rate and rhythm with no murmurs, rubs or gallops. ABDOMEN: Soft and nontender with bowel sounds present in all quadrants; no rigidity, rebound tenderness, organomegaly or guarding. MUSCULOSKELETAL: Full range of motion of all joints without any significant discomfort and moves all extremities well on command with purpose. Distal neurovascular statuses are intact and equal bilaterally. ED COURSE: Patient is assessed as noted above. Patient's medication list was reviewed. Patient was hydrated with lactated Ringer's and initially received 30 mg of Toradol IV for pain, 10 mg of Reglan IV. On reassessment she reports her pain went from a 9/10-7/10 and she received 8 mg of Decadron and 500 mg of valproic acid. Patient was reassessed. Patient was educated about her condition and instructed on her treatment plan; she verbalized understanding and agreement with this plan. CLINICAL IMPRESSION: Migraine headache. DECISION MAKIN-year-old female who presents for evaluation of headache. She is afebrile, well appearing, and hemodynamically stable. She has no signs of a sinus, dental , or ear infection and no evidence of meningismus. She is neurologically intact. I do not suspect a headache to be secondary to a subarachnoid hemorrhage, meningitis, encephalitis, or intracranial mass lesion. DISPOSITION: Patient was discharged to home in stable condition accompanied by by her sister; prior to departure she was reassessed and subjectively reported she was feeling much better and rated her discomfort 5/10. DISCHARGE INSTRUCTIONS: Rest at home, in a quiet darkened room and allow the medication to work for the pain. Continue to follow up current treatment plan prescribed by your physician for your migraine headaches. See your own doctor in follow-up this week for continued care and treatment. Return to the emergency department as needed for worsening/uncontrolled pain, fevers, abnormal neurological symptoms, any new/concerning symptoms.
== END 2017-09-07 14:35 | disposition home or self-care (01) ==
LOC: C.EDB 11:11 → C.EDD 14:35
DX: G43.909 Migraine, unspecified, not intractable, without status migrainosus (principal); N18.9 Chronic kidney disease, unspecified; I12.9 Hypertensive chronic kidney disease with stage 1 through stage 4 chronic kidney disease, or unspecified chronic kidney disease; F32.9 Major depressive disorder, single episode, unspecified; F41.9 Anxiety disorder, unspecified; Z72.0 Tobacco use; Z87.440 Personal history of urinary (tract) infections; Z90.710 Acquired absence of both cervix and uterus; Z98.890 Other specified postprocedural states; Z79.82 Long term (current) use of aspirin; Z79.899 Other long term (current) drug therapy

== ENCOUNTER 2018-12-29 12:15 | Observation (INO) ==
[2018-12-29] MEDS ORDERED: ONDANSETRON INJ 2 MG/ML 2 ML VIAL IV STA (12:56)
[2018-12-29] MEDS ORDERED: SODIUM CHLORIDE 0.9% 1000ML 1,000 ML IV STA (12:58)
[2018-12-29 13:09] LABS: Basophils # (auto) 0.03 K/uL (0-0.2); Basophils % (auto) 0.4 %; Eosinophils # (auto) 0.13 K/uL (0-0.5); Eosinophils % (auto) 1.9 %; Hemoglobin 9.2 g/dL (12.0-16.0); Immature Granulocytes # (auto) 0.01 K/uL (0.00-0.02); Immature Granulocytes % (auto) 0.1 %; Lymphocytes # (auto) 1.59 K/uL (1.2-3.4); Lymphocytes % (auto) 23.7 %; Mean Corpuscular Hgb Conc 32.9 g/dL (32-36); Mean Corpuscular Volume 88.3 fL (80-100); Mean Platelet Volume 9.4 fL (7.4-10.4); Monocytes # (auto) 0.78 K/uL (0.11-0.59); Monocytes % (auto) 11.6 %; Neutrophils # (auto) 4.17 K/uL (1.4-6.5); Neutrophils % (auto) 62.3 %; Platelet Count 413 K/uL (130-400); RDW Coefficient of Variation 14.8 % (11.5-14.5); RDW Standard Deviation 48.6 fL (36.4-46.3); Red Blood Count 3.17 M/uL (4.2-5.4); White Blood Count 6.71 K/uL (4.8-10.8)
[2018-12-29] MEDS: HYDROmorphone INJ 1 MG/ML SYRINGE IV PRN ×2 (13:09→13:47)
[2018-12-29 13:16] LABS: Appearance Urine Clear (Clear); Color Urine Orange
[2018-12-29 13:17] LABS: Albumin Level 3.1 gm/dl (3.4-5.0); BUN Creatinine Ratio 14.4 (10-20); Calcium 8.1 mg/dl (8.5-10.1); Creatinine Clr Calc Pharmacy 46.1 ml/min; Est GFR (Non-African American) 56.1; Potassium 4.4 mmol/L (3.5-5.1)
[2018-12-29 13:18] LABS: Specific Gravity Urine 1.006 (1.000-1.030)
[2018-12-29 13:19] LABS: Protein Urine Negative (Negative)
[2018-12-29 13:20] LABS: Albumin Globulin Ratio 0.9 (0.9-2); Bilirubin,Total 0.2 mg/dl (0.2-1); Globulin 3.3 gm/dl (2.5-4.0); Total Protein 6.4 gm/dl (6.4-8.2)
[2018-12-29 13:21] LABS: Bacteria Urine Negative (Negative); RBC Urine 0-4 /hpf (0-4); WBC Urine 0-5 /hpf (0-5)
--- NOTE | 2018-12-29 13:36 | CT Scan Report ---
ABDOMEN AND PELVIS CT WITHOUT CONTRAST CT DOSE: 284.36 mGy.cm HISTORY: Generalized abdominal pain. TECHNIQUE: Multiaxial CT images of the abdomen and pelvis were performed without contrast. A dose lo wering technique was utilized adhering to the principles of ALARA. COMPARISON STUDY: Abdomen and pelvis CT 01/20/2017. FINDINGS: Emphysema within the lung bases. No pneumoperitoneum. No pneumatosis. No suspicious lytic o r blastic osseous lesions. Prior laminectomy at T11. Trace pericardial effusion. The unenhanced liver , spleen, pancreas, gallbladder, and adrenal glands are unremarkable. Duplicated bilateral renal genaro ecting systems. No renal stones. No hydronephrosis. Calcification within the left renal sinus is vasc ular. Calcified plaque within the normal caliber abdominal aorta. No retroperitoneal lymphadenopathy. The bladder is distended. Prior hysterectomy. Suboptimal evaluation for bowel pathology due to the l ack of intravenous and oral contrast. However, there is no bowel wall thickening identified. Multiple mildly dilated gas and fluid-filled loops of small bowel seen throughout the abdomen. However, no tr ansition point identified to suggest a bowel obstruction. Moderate to large amount of stool seen thro ughout the colon. The splenic flexure of the colon is gas-filled and mildly distended. IMPRESSION: 1. Moderate to large amount well-formed stool seen throughout the majority of the colon. 2. Mildly dilated gas and fluid-filled loops of small bowel. No transition point to suggest an obstru ction. The colon is also slightly distended. Therefore, this may be secondary to an ileus or possibly a gastroenteritis. 3. Distended bladder. 4. Emphysema. 5. Additional findings as described above. Electronically signed by: Festus Osman M.D. 12/29/2018 1:34 PM
--- NOTE | 2018-12-29 15:57 | History & Physical Report ---
Date of Service December 29, 2018 Assessment & Plan (1) Ileus: Likely ileus secondary to narcotic use abdominal pain and vomiting from ileus -In the ER on CT imaging: Multiple mildly dilated gas and fluid-filled loops of small bowel seen throughout the abdomen. However, no transition point identified to suggest a bowel obstruction. Moderate to large amount of stool seen throughout the colon. The splenic flexure of the colon is gas-filled and mildly distended -have discussed with patient about removing or minimizing narcotic pain medications including the 5 mg TID doses of oxycodone that she takes at home -will give senna, miralax. will give Lactulose x 1 and tap water enema -encourage ambulation as tolerated, PT/OT evaluations -keep NPO except meds and sips of water for now Chronic pain syndrome (Musculoskeletal) -have discussed with patient about removing or minimizing narcotic pain medications including the 5 mg TID doses of oxycodone that she takes at home -will substitute pain medications with IV acetaminophen 1000 mg q8 hours prn for mild pain, Toradol 15 mg IV q 6 hours for moderate pain -continue home dose or prn baclofen Mood disorders (anxiety, depression) continue venlafaxine, bupropion, gabapentin History of Migraine headache -monitor Underweight with BMI of 17.5 in adult -at this time, will not give oral nutritional supplements while NPO status -will start IV D5 1/2 normal saline for hydration and calories Hyponatremia mild hyponatremia with serum sodium 131, monitor Anemia (chronic) monitor Hgb Hypertension continue lisinopril hold off aspirin and atorvastatin while NPO Emphysema noted on CT abdomen imaging may be from prior tobacco use on awake counselor against smoking breathing on room air and no wheezing DVT ppx: SCDs Full Code Status Daughter [phone] History of Present Illness Primary Care Provider: Nate Shrestha 63 year old Female sent to Emergency Room by primary doctor office because of abdominal pain which started Monday12/26/18 during which patient had 2 episodes of vomiting with 1 episode on Monday and second episode on and since that time patient has not made a bowel movement. Patient has history of multiple abdominal surgeries in the past including hysterectomy, lysis of adhesions and takes oxycodone 3 tablets daily for chronic pain symptoms In the ER on CT imaging: Multiple mildly dilated gas and fluid-filled loops of small bowel seen throughout the abdomen. However, no transition point identified to suggest a bowel obstruction. Moderate to large amount of stool seen throughout the colon. The splenic flexure of the colon is gas-filled and mildly distended. Patient denies shortness of breath or chest pain or palpitations. denies dysuria. reports history of migraines and musculoskeletal pain. denies lightheadedness or changes in mood. denies changes in vision Denies family History of health problems Allergies Allergy/AdvReac Type Severity Reaction Status Date / Time Barbiturates Allergy Severe Verified 12/29/18 13:31 belladonna alkaloids Allergy Severe Verified 12/29/18 13:31 dicyclomine Allergy Severe Verified 12/29/18 13:31 azithromycin Allergy Mild Hives Unverified 12/29/18 13:31 mivacurium Allergy Mild Verified 12/29/18 13:31 Penicillins Allergy Mild AMOXICILLIN Verified 12/29/18 13:31 phenobarbital Allergy Mild Verified 12/29/18 13:31 Quinolones Allergy Mild Verified 12/29/18 13:31 amoxicillin Allergy Unknown rash Unverified 12/29/18 13:31 Nitrate Analogues Allergy Unknown Verified 12/29/18 13:31 nitrofurantoin Allergy Unknown Verified 12/29/18 13:31 nitroglycerin Allergy Unknown Verified 12/29/18 13:31 Sulfa (Sulfonamide Allergy Unknown sulfa Verified 12/29/18 13:31 Antibiotics) Home Medications Home Medications Medication Instructions Recorded Confirmed Type aspirin 81 mg PO DAILY 12/29/18 12/29/18 History atorvastatin [Lipitor] 10 mg PO QAM 12/29/18 12/29/18 History baclofen 20 mg PO BID PRN 12/29/18 12/29/18 History bupropion HCl [Wellbutrin XL] 300 mg PO QAM 12/29/18 12/29/18 History clobetasol 1 applic TOPICAL UD 12/29/18 12/29/18 History conjugated estrogens [Premarin] 1 applic TOPICAL 3XWK PRN 12/29/18 12/29/18 History gabapentin 300 mg PO HS 12/29/18 12/29/18 History lisinopril 20 mg PO DAILY 12/29/18 12/29/18 History loperamide 2 mg PO Q3H PRN 12/29/18 12/29/18 History lorazepam [Ativan] 0.5 mg PO TID PRN 12/29/18 12/29/18 History meclizine 25 mg PO TID 12/29/18 12/29/18 History melatonin 10 mg PO HS 12/29/18 12/29/18 History oxycodone [Roxicodone] 5 mg PO TID PRN 12/29/18 12/29/18 History pediatric multivitamin no.30 2 tab PO DAILY 12/29/18 12/29/18 History [Gummies Children Multivitamin] pentosan polysulfate sodium 100 mg PO BID 12/29/18 12/29/18 History [Elmiron] potassium chloride [Klor-Con M20] 20 meq PO DAILY 12/29/18 12/29/18 History promethazine 25 mg PO Q4H PRN 12/29/18 12/29/18 History venlafaxine [Effexor XR] 300 mg PO DAILY 12/29/18 12/29/18 History Past Med/Surg History Medical History Depression (Chronic) Migraines (Chronic) Tobacco abuse (Chronic) OCD (obsessive compulsive disorder) (Chronic) CKD (chronic kidney disease), stage III (Chronic) IBS (irritable bowel syndrome) (Chronic) HTN (hypertension) (Chronic) Surgical History History of total abdominal hysterectomy (Chronic) H/O hernia repair (Chronic) History of back surgery (Chronic) H/O colonoscopy (Chronic) H/O sinus surgery (Chronic) Family History Other Diabetes Hypertension Social History Preferred Language: Kitt[place] Feels Safe at Home: Yes Smoking Status: Current every day smoker Review of Systems All systems reviewed & are unremarkable except as noted in HPI & below Respiratory: as per Subjective / HPI Cardiovascular: as per Subjective / HPI Gastrointestinal: + abdominal pain, + bloating and + vomiting Musculoskeletal: as per Subjective / HPI Physical Exam Vital Signs (Past 24 Hours): Last Vital Signs Temp 36.9 C 12/29/18 12:19 Pulse 84 12/29/18 14:31 Resp 19 12/29/18 14:31 BP 121/61 03/09/19 14:31 Pulse Ox 93 12/29/18 14:31 Constitutional: + thin Eyes: PERRL, conjunctivae normal, anicteric sclerae EOM intact bilaterally Neck: trachea midline, no thyromegaly normal visual inspection Respiratory: normal respiratory effort, lungs clear to auscultation Cardiovascular: RRR, no murmur, no edema Gastrointestinal (Abdomen): abdomen is soft, bowel sounds are audible, no acute area of tenderness to palpation Musculoskeletal: Head/Neck/Chest: normocephalic and head atraumatic Neurologic: PERRL, EOMI, accommodation nl, no face palsy, no dysarthria CN's II-XI intact bilaterally Psychiatric: A+Ox3, euthymic affect
[2018-12-29] MEDS ORDERED: LACTULOSE SYRUP 30 GM/45 ML UDP PO STA (16:56)
[2018-12-29] MEDS ORDERED: ACETAMINOPHEN 1,000 MG/100 ML VIAL IV PRN (16:56)
[2018-12-29] MEDS ORDERED: TAP WATER ENEMA PR ONE (16:56)
[2018-12-29] MEDS ORDERED: BACLOFEN 20 MG TAB PO PRN (16:56)
[2018-12-29] MEDS: LORazepam 1 MG TAB PO PRN (18:01)
[2018-12-29] MEDS: KETOROLAC TROMETHAMINE 15 MG/ML VIAL IV PRN (18:01)
[2018-12-29] MEDS: D5W AND 1/2NSS 1,000 ML IV SCH (18:06)
--- NOTE | 2018-12-29 18:22 | Emergency Department Note ---
Entered by Solomon Garcia acting as a scribe for Porfirio Bundy MD ED Provider Note CHIEF COMPLAINT: abdominal pain HISTORY OF PRESENT ILLNESS: The patient is a 63 year old female with a history of partial and complete bowel obstruction who presents to the Emergency Room with complaints of generalized abdominal pain beginning three days ago. The patient rates her pain at 9/10. She reports that three nights ago she vomited and had diarrhea, and she has not had a bowel movement since that time. The patients recent outpatient blood work reportedly showed hemoglobin of 8.0. She reports that earlier today she took her regular oxycodone for chronic back pain and migraines. She states that she has had multiple abdominal surgeries, including one for a prior bowel obstruction. She notes that her other obstructions resolved without surgical intervention. She notes chronic right shoulder pain and knee pain from a fall last year. Pt denies LOC, headache, fevers, chills, diaphoresis, visual changes, neck pain, chest pain, breathing difficulties, melena, hematochezia, urinary symptoms, numbness, weakness, lymphadenopathy, rash, or other complaints. REVIEW OF SYSTEMS: See HPI for pertinent positives and negatives. A total of ten systems were reviewed and were otherwise negative. PMHx/PSHx: partial and complete bowel obstruction, IBS, CKD, hypertension, s/p hysterectomy, hernia repair SOCIAL HISTORY: Patient lives at home. PHYSICAL EXAM: GENERAL: Awake, alert, uncomfortable-appearing, in no distress HENT: Normocephalic, atraumatic. Oropharynx unremarkable. EYES: Normal conjunctiva. Sclera non-icteric. NECK: Inspection normal. Non-tender. Supple. No nuchal rigidity. FROM. No masses. RESPIRATORY: Clear to auscultation. No wheezes. No rales. Normal respiratory effort. CARDIAC: Normal rate. Normal rhythm. No murmurs. No rubs. Extremities warm and well perfused. Pulses equal. No JVD. GI: Soft, non-distended. Mid and upper abdominal tenderness to palpation. No rebound or guarding. No masses. RECTAL: Deferred. MUSCULOSKELETAL: Atraumatic. Chest examination reveals no tenderness. The back is symmetrical on inspection without obvious abnormality. There is no CVA ten derness to palpation. No joint edema. LOWER EXTREMITIES: Calves are equal size bilaterally and non-tender. No edema. No discoloration. NEURO: Normal sensorium. No sensory or motor deficits noted. SKIN: No rash or jaundice noted. EMERGENCY DEPARTMENT COURSE: 1255: Past medical records reviewed. The patient was evaluated in room A9A, and a complete history and physical examination were performed. 1428: I updated the patient on results and the plan for hospitalization. 1435: I consulted Jonelle Blum PA-C: [facility] Hospitalist with Dr. Murray. The patient will be reevaluated for hospitalization. MEDICAL DECISION MAKING: Prior records/ancillary studies reviewed. Triage Nursing notes reviewed and agree them. Additional history obtained from family. The patient's history was concerning for abdominal pain. Differential diagnosis: Etiologies such as obstruction, PSBO, ileus, appendicitis, diverticulitis, PUD, biliary pathology, UTI, pancreatitis, mesenteric ischemia, aortic pathology, infections, inflammatory bowel disease, renal colic, as well as others were entertained. Physical examination findings: As above. ER treatment provided: IV Zofran IV normal saline IV Dilaudid N.p.o. On reassessment the patient felt somewhat better. Diagnostics interpreted by me: The labs revealed a mild anemia on CBC. No leukocytosis. Chemistry panel was unremarkable except for borderline hypoglycemia. Imaging studies: CT scan of the abdomen pelvis revealed ileus versus P SBO. Moderate colonic stool noted. The patient has a history of partial small bowel obstruction as well as bowel obstruction. This is concerning given the findings on CT imaging. I discussed further management in the hospital. The patient was in agreement. Consultation: A consultation was placed with the [facility] hospitalist. The case was discussed and diagnostics were reviewed. The patient was evaluated in the ER for further treatment. IMPRESSION: partial small bowel obstruction, ileus PLAN: being evaluated by hospitalist ATTESTATION: The scribe's documentation has been prepared under my direction and personally reviewed by me in its entirety. I confirm that the note above accurately reflects all work, treatment, procedures, and medical decision making performed by me. Impression & Plan Partial small bowel obstruction, Ileus Past Med/Surg History Medical History Depression (Chronic) Migraines (Chronic) Tobacco abuse (Chronic) OCD (obsessive compulsive disorder) (Chronic) CKD (chronic kidney disease), stage III (Chronic) IBS (irritable bowel syndrome) (Chronic) HTN (hypertension) (Chronic) Surgical History History of total abdominal hysterectomy (Chronic) H/O hernia repair (Chronic) History of back surgery (Chronic) H/O colonoscopy (Chronic) H/O sinus surgery (Chronic) Family History Other Diabetes Hypertension Social History Preferred Language: Armenian Communication Ability: Effective 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 Beliefs That Will Affect Care: None Current Living Situation: Family Current Living Situation Comment: with daughter Other Information That Helps Us Care for You: No Feels Safe at Home: Yes Safety Concerns: Feels Safe At This Time Smoking Status: Current every day smoker Hx Alcohol Use: Yes Hx Substance Use: No Results & Data Vital Signs Vital Signs - 24 hr 12/29/18 12:19 12/29/18 13:10 12/29/18 13:56 Temperature 36.9 C Temperature Source Oral Sepsis Recent Fever Within 48 Hours No Sepsis New/Unexplained Change in Mental Status No Sepsis Action Taken by Nursing No Action Required Pulse Rate 92 H 92 H 76 Pulse Rate [Right Finger] Pulse Rate from SpO2 Sensor 80 Pulse Rhythm Regular Respiratory Rate 18 18 17 Respiratory Effort / Characteristics Non-Labored Respiratory Depth Normal Respiratory Pattern Regular Blood Pressure 147/85 H 116/61 Blood Pressure [Right Arm] Blood Pressure Mean 105 79 Blood Pressure Mean [Right Arm] Blood Pressure Position Sitting Pulse Oximetry 96 96 93 Oxygen Delivery Method Nasal Cannula Nasal Cannula Room Air 12/29/18 14:01 12/29/18 14:31 12/29/18 14:32 Temperature Temperature Source Sepsis Recent Fever Within 48 Hours Sepsis New/Unexplained Change in Mental Status Sepsis Action Taken by Nursing Pulse Rate 86 84 84 Pulse Rate [Right Finger] Pulse Rate from SpO2 Sensor 86 84 84 Pulse Rhythm Respiratory Rate 12 19 17 Respiratory Effort / Characteristics Respiratory Depth Respiratory Pattern Blood Pressure 114/68 121/61 Blood Pressure [Right Arm] Blood Pressure Mean 83 81 Blood Pressure Mean [Right Arm] Blood Pressure Position Pulse Oximetry 92 93 93 Oxygen Delivery Method Room Air Room Air 12/29/18 15:00 12/29/18 15:01 12/29/18 15:06 Temperature Temperature Source Sepsis Recent Fever Within 48 Hours Sepsis New/Unexplained Change in Mental Status Sepsis Action Taken by Nursing Pulse Rate 90 88 96 H Pulse Rate [Right Finger] Pulse Rate from SpO2 Sensor 90 87 96 H Pulse Rhythm Respiratory Rate 18 16 22 Respiratory Effort / Characteristics Respiratory Depth Respiratory Pattern Blood Pressure 139/75 143/95 H Blood Pressure [Right Arm] Blood Pressure Mean 96 111 Blood Pressure Mean [Right Arm] Blood Pressure Position Pulse Oximetry 93 91 94 Oxygen Delivery Method 12/29/18 15:30 12/29/18 15:31 12/29/18 16:00 Temperature Temperature Source Sepsis Recent Fever Within 48 Hours Sepsis New/Unexplained Change in Mental Status Sepsis Action Taken by Nursing Pulse Rate 91 H 89 87 Pulse Rate [Right Finger] Pulse Rate from SpO2 Sensor 90 89 86 Pulse Rhythm Respiratory Rate 19 17 14 Respiratory Effort / Characteristics Respiratory Depth Respiratory Pattern Blood Pressure 158/81 H Blood Pressure [Right Arm] Blood Pressure Mean 106 Blood Pressure Mean [Right Arm] Blood Pressure Position Pulse Oximetry 94 91 Oxygen Delivery Method 12/29/18 16:01 12/29/18 16:41 Temperature 36.7 C Temperature Source Oral Sepsis Recent Fever Within 48 Hours Sepsis New/Unexplained Change in Mental Status Sepsis Action Taken by Nursing Pulse Rate 86 Pulse Rate [Right Finger] 100 H Pulse Rate from SpO2 Sensor 86 Pulse Rhythm Respiratory Rate 23 18 Respiratory Effort / Characteristics Non-Labored Spontaneous Respiratory Depth Normal Respiratory Pattern Regular Blood Pressure 137/65 Blood Pressure [Right Arm] 161/71 H Blood Pressure Mean 89 Blood Pressure Mean [Right Arm] 101 Blood Pressure Position Pulse Oximetry 92 91 Oxygen Delivery Method Room Air Home Medications Current Medication List: was personally reviewed by me Laboratory Data Attestation: I reviewed the patient's lab results. Result diagrams: 12/29/18 12:45 12/29/18 12:45 Lab Results 12/29/18 12/29/18 12/29/18 Range/Units 12:45 12:45 12:45 WBC 6.71 (4.8-10.8) K/uL RBC 3.17 L (4.2-5.4) M/uL Hgb 9.2 L (12.0-16.0) g/dL Hct 28.0 L (37-47) % MCV 88.3 (80-100) fL MCH 29.0 (25-34) pg MCHC 32.9 (32-36) g/dL RDW Std Deviation 48.6 H (36.4-46.3) fL RDW Coeff of [place] 14.8 H (11.5-14.5) % Plt Count 413 H (130-400) K/uL MPV 9.4 (7.4-10.4) fL Immature Gran % (Auto) 0.1 % Neut % (Auto) 62.3 % Lymph % (Auto) 23.7 % [place] % (Auto) 11.6 % Eos % (Auto) 1.9 % Baso % (Auto) 0.4 % Immature Gran # (Auto) 0.01 (0.00-0.02) K/uL Neut # (Auto) 4.17 (1.4-6.5) K/uL Lymph # (Auto) 1.59 (1.2-3.4) K/uL [place] # (Auto) 0.78 H (0.11-0.59) K/uL Eos # (Auto) 0.13 (0-0.5) K/uL Baso # (Auto) 0.03 (0-0.2) K/uL Sodium 131 L (136-145) mmol/L Potassium 4.4 (3.5-5.1) mmol/L Chloride 103 (98-107) mmol/L Carbon Dioxide 21 (21-32) mmol/L Anion Gap 7.0 (3-11) BUN 15 (7-18) mg/dl Creatinine 1.05 (0.6-1.2) mg/dl Est Cr Clr Drug Dosing 46.1 ml/min Est GFR ( Amer) 65.0 Est GFR (Non-Af Amer) 56.1 BUN/Creatinine Ratio 14.4 (10-20) Glucose 68 L (70-99) mg/dl Calcium 8.1 L (8.5-10.1) mg/dl Total Bilirubin 0.2 (0.2-1) mg/dl AST 15 (15-37) U/L ALT 15 (12-78) U/L Alkaline Phosphatase 83 (45-117) U/L Total Protein 6.4 (6.4-8.2) gm/dl Albumin 3.1 L (3.4-5.0) gm/dl Globulin 3.3 (2.5-4.0) gm/dl Albumin/Globulin Ratio 0.9 (0.9-2) Lipase 151 (73-393) U/L Urine Color [place] Urine Appearance Clear (Clear) Urine pH (4.5-7.5) Ur Specific [place] 1.006 (1.000-1.030) Urine Protein Negative (Negative) Urine Glucose (UA) (Negative) Urine Ketones (Negative) Urine Blood (Negative) Urine Nitrite (Negative) Urine Bilirubin (Negative) Urine Urobilinogen (Negative) Ur Leukocyte Esterase (Negative) Urine RBC 0-4 (0-4) /hpf Urine WBC 0-5 (0-5) /hpf Ur Epithelial Cells 10-20 H (0-5) /lpf Urine Bacteria Negative (Negative) Administered Medications Dextrose/Sodium Chloride (D5w And 1/2nss) 1,000 mls @ 80 mls/hr IV .[id number] KANDACE Stop: 01/28/19 16:55 Last Admin: 12/29/18 18:06 Dose: 80 mls/hr Documented by: [id number] Ketorolac Tromethamine (Toradol) 15 mg IV Q6H PRN PRN Reason: Moderate Pain Stop: 01/03/19 16:55 Last Admin: 12/29/18 18:01 Dose: 15 mg Documented by: [id number] Lorazepam (Ativan) 0.5 mg PO TID PRN PRN Reason: Anxiety Stop: 01/28/19 16:55 Last Admin: 12/29/18 18:01 Dose: 0.5 mg Documented by: [id number] Discontinued Medications Hydromorphone HCl (Dilaudid) 1 mg IV Q15M PRN PRN Reason: Pain Stop: 01/12/19 12:55 Last Admin: 12/29/18 13:47 Dose: 1 mg Documented by: [id number] Admin: 12/29/18 13:09 Dose: 1 mg Documented by: [id number] Sodium Chloride (Nss 1000ml) 1,000 mls @ 125 mls/hr IV .Q8H STA Stop: 12/29/18 20:57 Last Admin: 12/29/18 13:09 Dose: 125 mls/hr Documented by: [id number] Ondansetron HCl (Zofran) 4 mg IV NOW STA Stop: 12/29/18 12:57 Last Admin: 12/29/18 13:09 Dose: 4 mg Documented by: [id number] Imaging Data Radiologist's Impression: Radiology results as stated below per my review and the radiologist's interpretation: ABDOMEN AND PELVIS CT WITHOUT CONTRAST CT DOSE: 284.36 mGy.cm HISTORY: Generalized abdominal pain. TECHNIQUE: Multiaxial CT images of the abdomen and pelvis were performed without contrast. A dose lowering technique was utilized adhering to the principles of ALARA. COMPARISON STUDY: Abdomen and pelvis CT 01/20/2017. FINDINGS: Emphysema within the lung bases. No pneumoperitoneum. No pneumatosis. No suspicious lytic or blastic osseous lesions. Prior laminectomy at T11. Trace pericardial effusion. The unenhanced liver, spleen, pancreas, gallbladder, and adrenal glands are unremarkable. Duplicated bilateral renal collecting systems. No renal stones. No hydronephrosis. Calcification within the left renal sinus is vascular. Calcified plaque within the normal caliber abdominal aorta. No retroperitoneal lymphadenopathy. The bladder is distended. Prior hysterectomy. Suboptimal evaluation for bowel pathology due to the lack of intravenous and oral contrast. However, there is no bowel wall thickening identified. Multiple mildly dilated gas and fluid-filled loops of small bowel seen throughout the abdomen. However, no transition point identified to suggest a bowel obstruction. Moderate to large amount of stool seen throughout the colon. The splenic flexure of the colon is gas-filled and mildly distended. IMPRESSION: 1. Moderate to large amount well-formed stool seen throughout the majority of the colon. 2. Mildly dilated gas and fluid-filled loops of small bowel. No transition point to suggest an obstruction. The colon is also slightly distended. Therefore, this may be secondary to an ileus or possibly a gastroenteritis. 3. Distended bladder. 4. Emphysema. 5. Additional findings as described above. Electronically signed by: Festus Osman M.D. 12/29/2018 1:34 PM Blood Pressure Blood Pressure Findings: Normal blood pressure Blood Pressure Disposition: did not require urgent referral Discharge Plan Visit Data *Final* Discharge Date/Time: 12/29/18 17:14 Chief Complaint: Abdominal Pain Stated Complaint: STOMACH PAIN - BLOATING ED Provider: Porfirio Bundy Discharge Problem: Partial small bowel obstruction, Ileus Patient Disposition: Admitted As Inpatient Discharge Instructions Interventions: ED Discharge Assessment Last Done: 12/29/18 17:14 The scribe's documentation has been prepared under my direction and personally reviewed by me in its entirety. I confirm that the note above accurately reflects all work, treatment, procedures, and medical decision making performed by me.
[2018-12-29] MEDS: POLYETHYLENE (MIRALAX) 17 GM PACK PO SCH (18:35)
[2018-12-29] MEDS: SENNA 17.6 MG/10 ML UDP PO SCH (18:36)
[2018-12-29] MEDS ORDERED: GABAPENTIN 300 MG CAP PO SCH (21:00)
[2018-12-29] MEDS: NICOTINE 21 MG/24 HR TDSY TD SCH (21:06)
[2018-12-30] MEDS: KETOROLAC TROMETHAMINE 15 MG/ML VIAL IV PRN ×2 (00:02→07:50)
[2018-12-30 07:09] LABS: Basophils # (auto) 0.04 K/uL (0-0.2); Basophils % (auto) 0.8 %; Eosinophils # (auto) 0.15 K/uL (0-0.5); Eosinophils % (auto) 2.9 %; Hematocrit (blood only) 28.3 % (37-47); Hemoglobin 9.1 g/dL (12.0-16.0); Lymphocytes # (auto) 1.19 K/uL (1.2-3.4); Lymphocytes % (auto) 22.8 %; Mean Corpuscular Hgb Conc 32.2 g/dL (32-36); Mean Corpuscular Volume 88.2 fL (80-100); Mean Platelet Volume 9.2 fL (7.4-10.4); Monocytes # (auto) 0.68 K/uL (0.11-0.59); Monocytes % (auto) 13.1 %; Neutrophils # (auto) 3.15 K/uL (1.4-6.5); Neutrophils % (auto) 60.4 %; Platelet Count 403 K/uL (130-400); RDW Standard Deviation 48.9 fL (36.4-46.3); Red Blood Count 3.21 M/uL (4.2-5.4); White Blood Count 5.21 K/uL (4.8-10.8)
[2018-12-30 07:23] LABS: Albumin Level 2.7 gm/dl (3.4-5.0); BUN Creatinine Ratio 12.9 (10-20); Calcium 7.7 mg/dl (8.5-10.1); Creatinine Clr Calc Pharmacy 57.6 ml/min; Est GFR (African American) 85.1; Est GFR (Non-African American) 73.4; Potassium 3.6 mmol/L (3.5-5.1)
[2018-12-30 07:33] LABS: Albumin Globulin Ratio 0.9 (0.9-2); Bilirubin,Total 0.2 mg/dl (0.2-1); Globulin 2.9 gm/dl (2.5-4.0); Total Protein 5.6 gm/dl (6.4-8.2)
[2018-12-30] MEDS: D5W AND 1/2NSS 1,000 ML IV SCH (07:50)
[2018-12-30] MEDS ORDERED: LISINOPRIL 20 MG TAB PO SCH (09:00)
[2018-12-30] MEDS ORDERED: BuPROPion XL 300 MG TABCR PO SCH (09:00)
[2018-12-30] MEDS ORDERED: VENLAFAXINE HCL XR 150 MG CAPXR PO SCH (09:00)
[2018-12-30] MEDS: POLYETHYLENE (MIRALAX) 17 GM PACK PO SCH (10:25)
[2018-12-30] MEDS: SENNA 17.6 MG/10 ML UDP PO SCH (10:26)
[2018-12-30] MEDS: NICOTINE 21 MG/24 HR TDSY TD SCH (10:26)
[2018-12-30] MEDS: LORazepam 1 MG TAB PO PRN (10:31)
[2018-12-30] MEDS ORDERED: LISINOPRIL 20 MG TAB PO STA (12:07)
--- NOTE | 2018-12-30 12:16 | XRay Report ---
XR abdomen 2V w PA chest CLINICAL HISTORY: rule out excess stool burden COMPARISON STUDY: 01/30/2017 FINDINGS: The soft tissues, psoas shadows, renal outlines and intestinal gas pattern appear normal. T here is no evidence for bowel obstruction. There is no evidence for free intraperitoneal air. No abno rmal abdominal calcifications are seen. A frontal view of the chest was performed and is unremarkable . Moderate stable emphysematous change. Chronic apical pleural thickening. Minimal nonobstructive ile us. IMPRESSION: 1. No acute process of the chest. 2. Minimal nonobstructive ileus. The above report was generated using voice recognition software. It may contain grammatical, syntax or spelling errors. Electronically signed by: Alex Howe M.D. 12/30/2018 12:15 PM
--- NOTE | 2018-12-30 13:56 | Hospitalist Progress Note ---
Date of Service December 30, 2018 Assessment & Plan (1) Ileus: Likely ileus secondary to narcotic use abdominal pain and vomiting from ileus -In the ER on CT imaging: Multiple mildly dilated gas and fluid-filled loops of small bowel seen throughout the abdomen. However, no transition point identified to suggest a bowel obstruction. Moderate to large amount of stool seen throughout the colon. The splenic flexure of the colon is gas-filled and mildly distended -have discussed with patient about removing or minimizing narcotic pain medications including the 5 mg TID doses of oxycodone that she takes at home -on medical bennett patient was given will give senna, miralax. Lactulose 30 ml x 1 and tap water enema; patient was NPO and on IV fluids -patient able to make bowel movements between 12/30/18 to 12/31/18; abdominal X ray shows improvement -patient can take full liquid diet for the next 2 days at home -Patient should limit or stop taking oxycodone at home to prevent ileus/constipation from recurring Patient should take bowel regimen medications of senna daily and/or with polyethylene glycol Miralax daily as needed to prevent ileus/constipation from recurring Chronic pain syndrome (Musculoskeletal) -Patient should limit or stop taking oxycodone at home to prevent ileus/constipation from recurring -continue home dose or prn baclofen -was evaluated by physical therapy and no acute mobility issues -discussed with patient that she should follow up with primary care doctor for non-narcotic pain management Mood disorders (anxiety, depression) continue venlafaxine, bupropion, gabapentin History of Migraine headache -no acute headaches Underweight with BMI of 17.5 in adult - IV D5 1/2 normal saline for hydration and calories while in hospital -Patient should take liquid diet for the next 2 days. 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 use risk reduction counselor against smoking, started on nicotine patch, and given prescription for nicotine patches breathing on room air and no wheezing DVT ppx: SCDs Full Code Status Daughter [phone] Discharge Diagnosis ileus secondary to narcotic use for chronic pain syndrome , Hypertension, Mood disorders (on medications for anxiety, depression), Underweight with BMI of 17.5 in adult, Emphysema noted on CT abdomen imaging from Tobacco use, Hyponatremia (resolved) Discharge Instructions Patient should limit or stop taking oxycodone at home to prevent ileus/constipation from recurring Patient should take bowel regimen medications of senna daily and/or with polyethylene glycol Miralax daily as needed to prevent ileus/constipation from recurring Patient should take liquid diet for the next 2 days. Patient may take BOOST nutritional supplements (can be purchased from [employer] or pharmacy) with meals to increase calories and weight gain Patient should avoid smoking and use nicotine patch instead. Patient should increase lisinopril from 20 mg daily to 40 mg daily for hypertension Follow up primary care doctor appointment 01/03/2019 2:00 PM Provider Santiago Talbot MD Department [facility] Subjective Patient was able to make bowl movements. reports that abdominal pain and bloating from before is now gone. no vomiting. no acute pain elsewhere. denies shortness of breath or headache of lightheadedness. has been ambulatory Physical Exam Vital Signs (Past 24 Hours): Last Vital Signs Temp 36.8 C 12/30/18 11:06 Pulse 101 H 12/30/18 11:06 Resp 18 12/30/18 11:06 BP 151/78 H 12/30/18 11:06 Pulse Ox 96 12/30/18 11:06 Constitutional: + thin Eyes: PERRL, conjunctivae normal, anicteric sclerae EOM intact bilaterally Neck: trachea midline, no thyromegaly normal visual inspection Respiratory: normal respiratory effort, lungs clear to auscultation Cardiovascular: RRR, no murmur, no edema Musculoskeletal: Head/Neck/Chest: normocephalic and head atraumatic Neurologic: PERRL, EOMI, accommodation nl, no face palsy, no dysarthria CN's II-XI intact bilaterally Psychiatric: A+Ox3, euthymic affect
--- NOTE | 2018-12-30 14:07 | Discharge Summary ---
Date of Service December 30, 2018 Admission HPI Per Admitting Provider 63 year old Female sent to Emergency Room by primary doctor office because of abdominal pain which started Monday12/26/18 during which patient had 2 episodes of vomiting with 1 episode on Monday and second episode on and since that time patient has not made a bowel movement. Patient has history of multiple abdominal surgeries in the past including hysterectomy, lysis of adhesions and takes oxycodone 3 tablets daily for chronic pain symptoms In the ER on CT imaging: Multiple mildly dilated gas and fluid-filled loops of small bowel seen throughout the abdomen. However, no transition point identified to suggest a bowel obstruction. Moderate to large amount of stool seen throughout the colon. The splenic flexure of the colon is gas-filled and mildly distended. Patient denies shortness of breath or chest pain or palpitations. denies dysuria. reports history of migraines and musculoskeletal pain. denies lightheadedness or changes in mood. denies changes in vision Denies family History of health problems Admission Exam Per Admitting Provider Constitutional: + thin Eyes: PERRL, conjunctivae normal, anicteric sclerae EOM intact bilaterally Neck: trachea midline, no thyromegaly normal visual inspection Respiratory: normal respiratory effort, lungs clear to auscultation Cardiovascular: RRR, no murmur, no edema Gastrointestinal (Abdomen): abdomen is soft, bowel sounds are audible, no acute area of tenderness to palpation Musculoskeletal: Head/Neck/Chest: normocephalic and head atraumatic Neurologic: PERRL, EOMI, accommodation nl, no face palsy, no dysarthria CN's II-XI intact bilaterally Psychiatric: A+Ox3, euthymic affect Principal Diagnosis ileus secondary to narcotic use for chronic pain syndrome , Hypertension, Mood disorders (on medications for anxiety, depression), Underweight with BMI of 17.5 in adult, Emphysema noted on CT abdomen imaging from Tobacco use, Hyponatremia (resolved) Discharge Exam Constitutional + thin Eyes PERRL, conjunctivae normal, anicteric sclerae EOM intact bilaterally Neck trachea midline, no thyromegaly normal visual inspection Respiratory normal respiratory effort, lungs clear to auscultation Cardiovascular RRR, no murmur, no edema Musculoskeletal Head/Neck/Chest: normocephalic and head atraumatic Neurologic PERRL, EOMI, accommodation nl, no face palsy, no dysarthria CN's II-XI intact bilaterally Psychiatric A+Ox3, euthymic affect Discharge Data Allergies Allergy/AdvReac Type Severity Reaction Status Date / Time Barbiturates Allergy Severe Verified 12/29/18 13:31 belladonna alkaloids Allergy Severe Verified 12/29/18 13:31 dicyclomine Allergy Severe Verified 12/29/18 13:31 azithromycin Allergy Mild Hives Unverified 12/29/18 13:31 mivacurium Allergy Mild Verified 12/29/18 13:31 Penicillins Allergy Mild AMOXICILLIN Verified 12/29/18 13:31 phenobarbital Allergy Mild Verified 12/29/18 13:31 Quinolones Allergy Mild Verified 12/29/18 13:31 amoxicillin Allergy Unknown rash Unverified 12/29/18 13:31 Nitrate Analogues Allergy Unknown Verified 12/29/18 13:31 nitrofurantoin Allergy Unknown Verified 12/29/18 13:31 nitroglycerin Allergy Unknown Verified 12/29/18 13:31 Sulfa (Sulfonamide Allergy Unknown sulfa Verified 12/29/18 13:31 Antibiotics) Consultations 12/29/18 14:43 ED Decision to Admit Stat Ordered Studies 12/29/18 12:56 CT abd pelvis wo con Stat Hospital Course (1) Ileus: Likely ileus secondary to narcotic use abdominal pain and vomiting from ileus -In the ER on CT imaging: Multiple mildly dilated gas and fluid-filled loops of small bowel seen throughout the abdomen. However, no transition point identified to suggest a bowel obstruction. Moderate to large amount of stool seen throughout the colon. The splenic flexure of the colon is gas-filled and mildly distended -have discussed with patient about removing or minimizing narcotic pain medications including the 5 mg TID doses of oxycodone that she takes at home -on medical bennett patient was given will give senna, miralax. Lactulose 30 ml x 1 and tap water enema; patient was NPO and on IV fluids -patient able to make bowel movements between 12/30/18 to 12/31/18; abdominal X ray shows improvement -patient can take full liquid diet for the next 2 days at home -Patient should limit or stop taking oxycodone at home to prevent ileus/constipation from recurring Patient should take bowel regimen medications of senna daily and/or with polyethylene glycol Miralax daily as needed to prevent ileus/constipation from recurring Chronic pain syndrome (Musculoskeletal) -Patient should limit or stop taking oxycodone at home to prevent ileus/constipation from recurring -continue home dose or prn baclofen -was evaluated by physical therapy and no acute mobility issues -discussed with patient that she should follow up with primary care doctor for non-narcotic pain management Mood disorders (anxiety, depression) continue venlafaxine, bupropion, gabapentin History of Migraine headache -no acute headaches Underweight with BMI of 17.5 in adult - IV D5 1/2 normal saline for hydration and calories while in hospital -Patient should take liquid diet for the next 2 days. 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, started on nicotine patch, and given prescription for nicotine patches breathing on room air and no wheezing DVT ppx: SCDs Full Code Status Daughter [phone] Discharge Diagnosis ileus secondary to narcotic use for chronic pain syndrome , Hypertension, Mood disorders (on medications for anxiety, depression), Underweight with BMI of 17.5 in adult, Emphysema noted on CT abdomen imaging from Tobacco use, Hyponatremia (resolved) Discharge Instructions Patient should limit or stop taking oxycodone at home to prevent ileus/constipation from recurring Patient should take bowel regimen medications of senna daily and/or with polyethylene glycol Miralax daily as needed to prevent ileus/constipation from recurring Patient should take liquid diet for the next 2 days. Patient may take BOOST nutritional supplements (can be purchased from [employer] or pharmacy) with meals to increase calories and weight gain Patient should avoid smoking and use nicotine patch instead. Patient should increase lisinopril from 20 mg daily to 40 mg daily for hypertension Follow up primary care doctor appointment 01/03/2019 2:00 PM Provider Santiago Talbot MD [facility] Total Time Total Time Spent Total Time Spent (In Minutes): 40 minutes Total Time Includes: Examination of the Patient, Discharge Planning and Medication Reconciliation Discharge Plan Discharge Items Patient Disposition: Home - Self-Care Reason For Visit: ILEUS Discharge Diagnosis: ileus secondary to narcotic use for chronic pain syndrome , Hypertension, Mood disorders (on medications for anxiety, depression), Underweight with BMI of 17.5 in adult, Emphysema noted on CT abdomen imaging from Tobacco use, Hyponatremia (resolved) Condition: Good Discharge Goals: Improve disease control Activity: Resume your previous activity Non-emergency contact: Primary Care Provider Call non-emergency contact if: you have any medication questions Follow-up/Referrals: Nate Shrestha [Primary Care Provider] - Diet: Full liquid Addtl Provider Instructions: Discharge Instructions Patient should limit or stop taking oxycodone at home to prevent ileus/constipation from recurring Patient should take bowel regimen medications of senna daily and/or with polyethylene glycol Miralax daily as needed to prevent ileus/constipation from recurring Patient should take liquid diet for the next 2 days. Patient may take BOOST nutritional supplements (can be purchased from supermarket or pharmacy) with meals to increase calories and weight gain Patient should avoid smoking and use nicotine patch instead. Patient should increase lisinopril from 20 mg daily to 40 mg daily for hyperten edilberto Follow up primary care doctor appointment 01/03/2019 2:00 PM Provider Santiago Talbot MD [facility] Prescriptions: New polyethylene glycol 3350 [Miralax] 17 gram Powder In Packet 17 g PO DAILY PRN (Reason: constipation) 30 Days Qty: 30 RF: 0 sennosides 8.6 mg tablet 1 tab PO DAILY 30 Days Qty: 30 RF: 0 lisinopril 20 mg Tablet 40 mg PO DAILY 30 Days Qty: 60 RF: 0 nicotine [Nicoderm CQ] 21 mg/24 hr Patch 24 Hour 21 mg Transdermal DAILY 30 Days Qty: 30 RF: 0 Continued Elmiron 100 mg capsule 100 mg PO BID RF: 0 atorvastatin [Lipitor] 10 mg tablet 10 mg PO QAM RF: 0 lisinopril 20 mg Tablet 20 mg PO DAILY RF: 0 clobetasol 0.05 % Cream 1 applic TOPICAL UD RF: 0 venlafaxine [Effexor XR] 150 mg Capsule,Extended Release 24hr 300 mg PO DAILY RF: 0 aspirin 81 mg Tablet,Delayed Release (Dr/Ec) 81 mg PO DAILY RF: 0 baclofen 20 mg Tablet 20 mg PO BID PRN (Reason: Muscle Spasm) RF: 0 potassium chloride [Klor-Con M20] 20 mEq tablet,ER particles/crystals 20 meq PO DAILY RF: 0 meclizine 25 mg tablet 25 mg PO TID RF: 0 Premarin 0.625 mg/gram Cream 1 applic topical 3XWK PRN (Reason: Skin Irritation) RF: 0 promethazine 25 mg Tablet 25 mg PO Q4H PRN (Reason: Nausea) RF: 0 gabapentin 300 mg Capsule 300 mg PO HS RF: 0 lorazepam [Ativan] 1 mg tablet 0.5 mg PO TID PRN (Reason: Anxiety) RF: 0 bupropion HCl [Wellbutrin XL] 300 mg tablet extended release 24 hr 300 mg PO QAM RF: 0 Gummies Children Multivitamin Tablet,Chewable 2 tab PO DAILY RF: 0 melatonin 10 mg Tablet 10 mg PO HS RF: 0 Discontinued loperamide 2 mg Capsule 2 mg PO Q3H PRN (Reason: Diarrhea) RF: 0 oxycodone [Roxicodone] 5 mg tablet 5 mg PO TID PRN (Reason: Pain) RF: 0 Stand-Alone Forms: Call Back Authorization, [facility] Discharge Orders: Discharge Order (Routine); Ordered 12/30/18 Ordered By: Ricardo Murrya Admission Data Admit Date/Time: 12/29/18 16:50 Attending Provider: Ricardo Murray Admit Provider: Ricardo Murray Primary Care Provider: Nate Shrestha Other Providers: Ricardo Murray Service: Medical
== END 2018-12-30 16:04 | disposition home or self-care (01) ==
LOC: 3W 12:15 → ED 12:15 → 3W 17:14

== ENCOUNTER 2019-06-24 15:40 | Inpatient (IN) ==
[2019-06-24] MEDS ORDERED: ONDANSETRON INJ 2 MG/ML 2 ML VIAL IV STA (16:00)
[2019-06-24] MEDS ORDERED: fentaNYL citrate 100 MCG/2 ML VIAL IV STA (16:00)
[2019-06-24] MEDS ORDERED: SODIUM CHLORIDE 0.9% 1000ML 1,000 ML IV ONE (16:00)
[2019-06-24 16:36] LABS: Basophils # (auto) 0.04 K/uL (0-0.2); Basophils % (auto) 0.5 %; Eosinophils # (auto) 0.04 K/uL (0-0.5); Eosinophils % (auto) 0.5 %; Hematocrit (blood only) 29.4 % (37-47); Hemoglobin 9.7 g/dL (12.0-16.0); Immature Granulocytes # (auto) 0.02 K/uL (0.00-0.02); Immature Granulocytes % (auto) 0.2 %; Lymphocytes # (auto) 1.51 K/uL (1.2-3.4); Lymphocytes % (auto) 17.6 %; Mean Corpuscular Hemoglobin 26.4 pg (25-34); Mean Corpuscular Volume 79.9 fL (80-100); Mean Platelet Volume 8.9 fL (7.4-10.4); Monocytes # (auto) 0.69 K/uL (0.11-0.59); Monocytes % (auto) 8.1 %; Neutrophils # (auto) 6.27 K/uL (1.4-6.5); Neutrophils % (auto) 73.1 %; Platelet Count 655 K/uL (130-400); RDW Standard Deviation 43.8 fL (36.4-46.3); Red Blood Count 3.68 M/uL (4.2-5.4); White Blood Count 8.57 K/uL (4.8-10.8)
[2019-06-24 16:53] LABS: BUN Creatinine Ratio 16.2 (10-20); Calcium 8.3 mg/dl (8.5-10.1); Creatinine Clr Calc Pharmacy 69.5 ml/min; Est GFR (African American) 101.9; Est GFR (Non-African American) 87.9; Magnesium 1.6 mg/dl (1.8-2.4); Potassium 4.4 mmol/L (3.5-5.1)
[2019-06-24 17:03] LABS: Troponin I 0.055 ng/ml (0-0.045)
[2019-06-24] MEDS ORDERED: HYDROmorphone INJ 1 MG/ML SYRINGE IV STA (17:08)
--- NOTE | 2019-06-24 17:30 | CT Scan Report ---
CT pelvis wo con CLINICAL HISTORY: 64 years-old Female presenting with persistent pelvic pain s/p fall 2 weeks ago. TECHNIQUE: Multidetector CT of the pelvis was performed without the use of intravenous contrast. IV c ontrast: None. One or more dose lowering techniques were used consistent with the principles of ALARA (as low as reasonably achievable), including automatic exposure control, mA or kV adjustment to christin vidual patient size, and/or use of iterative reconstruction. COMPARISON: 12/29/2018. CT DOSE (mGy.cm): The estimated cumulative dose is 660.85 mGy.cm. FINDINGS: Battery Tester Field topogram: Gaseous distended bowel. Bilateral acute appearing sacral alar fractures greater on the right. These are lateral to the neural foramina. Severe underlying osteopenia. Sacroiliac joints remain congruent. Hip joints congruent. Co mminuted fracture of the right superior and inferior pubic rami in a parasymphyseal location. This is intra-articular at the symphysis pubis articulation. No femoral neck fracture. There is also acute angulation of the sacrum in the AP direction at the level of S3 indicating a miranda sverse component of the sacral fracture. Bilateral transverse process fractures of L5 also noted. Limited evaluation of the soft tissues demonstrates gas and fluid distended small bowel. The colon is decompressed. No free fluid or gas. Atherosclerosis. No gross lymphadenopathy. Nonspecific body wall edema. No evidence of an extraperitoneal pelvic hematoma. IMPRESSION: 1. Bilateral sacral alar fractures. 2. Bilateral transverse process fractures of L5. 3. Comminuted parasymphyseal fractures of the right inferior and superior pubic rami. Electronically signed by: Erick Ribera M.D. 06/24/2019 5:29 PM
--- NOTE | 2019-06-24 17:36 | CT Scan Report ---
CT lumbar spine wo con CLINICAL HISTORY: 64 years-old Female presenting with persistent low back pain s/p fall 2 weeks ago. TECHNIQUE: Multidetector CT of the lumbar spine was performed without the use of intravenous contrast . IV contrast: None. One or more dose lowering techniques were used consistent with the principles of ALARA (as low as reasonably achievable), including automatic exposure control, mA or kV adjustment t o individual patient size, and/or use of iterative reconstruction. COMPARISON: None. CT DOSE (mGy.cm): The estimated cumulative dose is 660.85. FINDINGS: Utility Repairer topogram: Gaseous distended bowel. Normal lumbar lordosis. Osteopenia present. Vertebral bodies maintain normal height and alignment. In tervertebral disc heights preserved. Disc bulge suggested at L4-5 with mild effacement of the spinal canal. No other significant degenerative change. No evidence of osseous neural foraminal narrowing. Bilateral transverse process fractures of L5. Partially visualized bilateral sacral alar fractures. Paraspinal musculature within normal limits. Nonspecific body wall edema. Mild distention of small ana wel with fluid and gas. Atherosclerosis. IMPRESSION: 1. Bilateral transverse process fractures of L5. 2. Osteopenia. 3. Minimal degenerative change. Electronically signed by: Erick Ribera M.D. 06/24/2019 5:35 PM
[2019-06-24] MEDS ORDERED: ONDANSETRON INJ 2 MG/ML 2 ML VIAL IV PRN (19:03)
[2019-06-24] MEDS ORDERED: ACETAMINOPHEN 1,000 MG/100 ML VIAL IV SCH (19:15)
[2019-06-24] MEDS ORDERED: ACETAMINOPHEN 1000 MG/100 ML IV IV ONE (19:16)
[2019-06-24] MEDS ORDERED: KETOROLAC 30 MG/ML VIAL ONE (19:16)
--- NOTE | 2019-06-24 20:13 | History & Physical Report ---
Date of Service June 24, 2019 Assessment & Plan (1) Pelvic fracture: Bilateral sacral alar fractures Will order Toradol 30 mg every 6 hours as needed, Ofirmev 1000 mg every 8 hours Orthopedic consultation Physical therapy consultation Pain management service consultation given recent history of ileus related to chronic oxycodone use Bilateral transverse process fracture L5 Will order orthopedic spine consultation Hyponatremia, likely secondary to dehydration We will give IV normal saline next Check PRP every 6 hours Mild troponin elevation Patient no signs of ischemia or infarct Check troponins serially Echocardiogram Hypertension Continue lisinopril Chronic pain syndrome Oxycodone 5 mg every X hours as needed at home Continue this for now, pain management consultation placed Depression and anxiety Continue usual medications Including lorazepam as needed Anemia , chronic Stable, hemoglobin at baseline DVT prophylaxis Lovenox when okay with surgery CODE STATUS full code per patient Disposition May need inpatient rehab History of Present Illness 64-year-old female with history of hypertension, chronic pain syndrome, depression anxiety, hyponatremia, anemia, emphysema presenting with pelvic pain. Patient was recently admitted to [facility] on December 2018 for ileus secondary to narcotics. Patient reports that she had one twice around 10 days ago while walking in her house in the middle of the night. Able to get up after falling but then developed pelvic pain mostly in bilateral groin region. She reports to have had an x-ray performed through her primary care physician which did not reveal any fractures. She uses her usual PRN oxycodone, Advil, Tylenol with no significant relief. She returns to the ER for persistent, progressive pain. At the ER, CAT scan of the pelvis did reveal bilateral sacroiliac fractures. Also showed bilateral transverse process fractures of L5 Sodium 127 Troponin 0 0.055 She has received fentanyl, and Dilaudid at the ED. On exam patient still having significant pain mostly in bilateral inguinal region. Denies chest pain shortness of breath palpitations dizziness headaches. Denies other symptoms Primary Care Provider: Nate Shrestha MD Allergies Allergy/AdvReac Type Severity Reaction Status Date / Time Barbiturates Allergy Severe Verified 12/29/18 13:31 belladonna alkaloids Allergy Severe Verified 12/29/18 13:31 dicyclomine Allergy Severe Verified 12/29/18 13:31 azithromycin Allergy Mild Hives Unverified 12/29/18 13:31 mivacurium Allergy Mild Verified 12/29/18 13:31 Penicillins Allergy Mild AMOXICILLIN Verified 12/29/18 13:31 phenobarbital Allergy Mild Verified 12/29/18 13:31 Quinolones Allergy Mild Verified 12/29/18 13:31 amoxicillin Allergy Unknown rash Unverified 12/29/18 13:31 Nitrate Analogues Allergy Unknown Verified 12/29/18 13:31 nitrofurantoin Allergy Unknown Verified 12/29/18 13:31 nitroglycerin Allergy Unknown Verified 12/29/18 13:31 Sulfa (Sulfonamide Allergy Unknown sulfa Verified 12/29/18 13:31 Antibiotics) Home Medications Home Medications Medication Instructions Recorded Confirmed Type Elmiron 100 mg PO BID 12/29/18 06/24/19 History Premarin 1 applic TOPICAL 3XWK PRN 12/29/18 06/24/19 History aspirin 81 mg PO DAILY 12/29/18 06/24/19 History atorvastatin [Lipitor] 10 mg PO QAM 12/29/18 06/24/19 History bupropion HCl [Wellbutrin XL] 300 mg PO QAM 12/29/18 06/24/19 History gabapentin 300 mg PO HS 12/29/18 06/24/19 History lorazepam [Ativan] 0.5 mg PO Q8H PRN 12/29/18 06/24/19 History meclizine 25 mg PO TID PRN 12/29/18 06/24/19 History melatonin 10 mg PO HS 12/29/18 06/24/19 History potassium chloride [Klor-Con M20] 20 meq PO DAILY 12/29/18 06/24/19 History promethazine 25 mg PO .Q4-6HRS PRN 12/29/18 06/24/19 History venlafaxine [Effexor XR] 300 mg PO QAM 12/29/18 06/24/19 History baclofen 10 mg PO BID PRN 06/24/19 06/24/19 History benzonatate 100 mg PO TID PRN 06/24/19 06/24/19 History diclofenac sodium 4 g TOPICAL QID PRN 06/24/19 06/24/19 History lisinopril 40 mg PO DAILY 06/24/19 06/24/19 History loperamide See Rx Instructions .ROUTE 06/24/19 06/24/19 History .COMPLEX PRN MDD 16 MG/DAY oxycodone 5 mg PO Q6H PRN 06/24/19 06/24/19 History ropinirole 0.25 mg PO HS 06/24/19 06/24/19 History simethicone 125 mg PO TID PRN 06/24/19 06/24/19 History Past Med/Surg History Medical History Depression (Chronic) Migraines (Chronic) Tobacco abuse (Chronic) OCD (obsessive compulsive disorder) (Chronic) CKD (chronic kidney disease), stage III (Chronic) IBS (irritable bowel syndrome) (Chronic) HTN (hypertension) (Chronic) Surgical History History of total abdominal hysterectomy (Chronic) H/O hernia repair (Chronic) History of back surgery (Chronic) H/O colonoscopy (Chronic) H/O sinus surgery (Chronic) Family History Other Diabetes Hypertension Social History Preferred Language: Croatian Communication Ability: Effective Gold Plater Required: No Beliefs That Will Affect Care: None Current Living Situation: Family Current Living Situation Comment: with daughter Feels Safe at Home: Yes Smoking Status: Current every day smoker Tobacco Type: cigarettes ; Cigarettes Per Day: 20 ; Hx Alcohol Use: Yes Alcohol type: wine Hx Substance Use: No Review of Systems Review of Systems: All systems reviewed & are unremarkable except as noted in HPI & below Physical Exam Physical Exam: General- oriented x 3, uncomfortable secondary to pain, speaks in sentences with no effort or accessory muscle use Head- atraumatic Eyes- PERRL, EOMI, anicteric ENT- oropharynx clear Neck- supple, no JVD, no adenopathy, no thyromegaly; carotids +2/2, no bruits appreciated Lungs- clear to auscultation bilaterally, no rales/wheezes Heart- normal rate, regular rhythm; no murmur, no gallop, no rub appreciated Abdomen- normal bowel sounds, nondistended, soft, nontender, no masses or hepatosplenomegaly Back-no erythema/hematoma/warmth/tenderness Extremities- no pretibial edema, no calf tenderness; peripheral pulses intact Neuro- alert, oriented x 3; CN 2-12 grossly intact; motor 5/5 bilaterally;sensation 100% on all extremities; no other gross focal neurologic deficits Skin- warm & dry Results & Data Vital Signs (Past 12 Hours) Vital Signs Temp Pulse Resp BP Pulse Ox 06/24/19 18:30 110 H 13 131/78 91 06/24/19 18:00 110 H 13 148/90 H 93 06/24/19 17:30 111 H 16 135/75 91 06/24/19 15:40 36.9 C 115 H 18 141/78 H 99 Laboratory Results Laboratory Results - last 24 hr 06/24/19 06/24/19 16:28 16:28 WBC 8.57 RBC 3.68 L Hgb 9.7 L Hct 29.4 L MCV 79.9 L MCH 26.4 MCHC 33.0 RDW Std Deviation 43.8 RDW Coeff of Rock 15.0 H Plt Count 655 H MPV 8.9 Immature Gran % (Auto) 0.2 Neut % (Auto) 73.1 Lymph % (Auto) 17.6 [place] % (Auto) 8.1 Eos % (Auto) 0.5 Baso % (Auto) 0.5 Immature Gran # (Auto) 0.02 Neut # (Auto) 6.27 Lymph # (Auto) 1.51 [place] # (Auto) 0.69 H Eos # (Auto) 0.04 Baso # (Auto) 0.04 Sodium 127 L Potassium 4.4 Chloride 98 Carbon Dioxide 20 L Anion Gap 10.0 BUN 12 Creatinine 0.72 Est Cr Clr Drug Dosing 69.5 Est GFR ( Amer) 101.9 Est GFR (Non-Af Amer) 87.9 BUN/Creatinine Ratio 16.2 Glucose 87 Calcium 8.3 L Magnesium 1.6 L Troponin I 0.055 H* Code Status & VTE Plan Code Status Full code per patient VTE Prophylaxis Plan VTE Prophylaxis will be ordered: Yes (1) Pelvic fracture Encounter type: initial encounter Fracture alignment: without disruption of pelvic ring Fracture type: closed Pelvic bone location: multiple parts Qualified Code(s): S32.82XA - Multiple fractures of pelvis without disruption of pelvic ring, initial encounter for closed fracture
[2019-06-24] MEDS ORDERED: MECLIZINE HCL 25 MG TAB PO PRN (21:02)
[2019-06-24] MEDS ORDERED: BENZONATATE 100 MG CAPSULE PO PRN (21:02)
[2019-06-24] MEDS ORDERED: KETOROLAC 30 MG/ML VIAL IV PRN (21:02)
[2019-06-24] MEDS ORDERED: BACLOFEN 10 MG TAB PO PRN (21:02)
[2019-06-24] MEDS ORDERED: OXYCODONE HCL IR 5 MG TAB (IMMEDIATE RELEASE) PO PRN (21:02)
[2019-06-24] MEDS ORDERED: KETOROLAC 30 MG/ML VIAL IV STA (21:02)
[2019-06-24] MEDS: PROMETHAZINE HCL 25 MG TAB PO PRN (21:56)
[2019-06-24] MEDS: PENTOSAN POLYSULFATE SODIUM 100 MG CAP PO SCH (21:56)
[2019-06-24] MEDS: SODIUM CHLORIDE 0.9% 1000ML 1,000 ML IV SCH (21:57)
[2019-06-24] MEDS: GABAPENTIN 300 MG CAP PO SCH (21:57)
[2019-06-24] MEDS ORDERED: CALCIUM CARBONATE 500 MG CHEWABLE TAB PO PRN (22:23)
[2019-06-24] MEDS: MoRPHine SULFATE 4 MG/ML 1 ML CARP\\VIAL IV PRN (23:07)
[2019-06-25 00:19] LABS: BUN Creatinine Ratio 14.8 (10-20); Calcium 7.5 mg/dl (8.5-10.1); Creatinine Clr Calc Pharmacy 59.6 ml/min; Est GFR (African American) 84.5; Est GFR (Non-African American) 72.9
[2019-06-25 00:25] LABS: Troponin I 0.076 ng/ml (0-0.045)
[2019-06-25] MEDS: LORazepam 1 MG TAB PO PRN (00:28)
[2019-06-25] MEDS ORDERED: MAGNESIUM SULFATE / D5W 1 GM/100 ML BAG IV ONE (00:34)
[2019-06-25] MEDS: MAGNESIUM SULFATE / D5W 1 GM/100 ML BAG IV SCH ×2 (01:07→02:06)
[2019-06-25] MEDS: CALCIUM CARBONATE 500 MG CHEWABLE TAB PO PRN ×3 (03:27→16:56)
[2019-06-25] MEDS: PROMETHAZINE HCL 25 MG TAB PO PRN ×3 (04:36→17:00)
[2019-06-25] MEDS: HYDROCODONE/ACETAMOPHEN 5/325MG TAB PO PRN ×4 (05:29→21:40)
[2019-06-25 06:40] LABS: BUN Creatinine Ratio 18.1 (10-20); Calcium 8.3 mg/dl (8.5-10.1); Creatinine Clr Calc Pharmacy 65.8 ml/min; Est GFR (African American) 93.9; Potassium 4.1 mmol/L (3.5-5.1)
[2019-06-25 06:47] LABS: Troponin I 0.058 ng/ml (0-0.045)
[2019-06-25 06:51] LABS: Appearance Urine Clear (Clear); Bilirubin Urine Negative (Negative); Blood Urine Negative (Negative); Color Urine Yellow; Glucose Urine UA Negative (Negative); Ketones Urine Negative (Negative); Leukocyte Esterase Urine Negative (Negative); Nitrite Urine Negative (Negative); Protein Urine Negative (Negative); Specific Gravity Urine 1.023 (1.000-1.030); Urobilinogen Urine Negative (Negative); pH Urine 5.5 (4.5-7.5)
--- NOTE | 2019-06-25 07:16 | Emergency Department Note ---
Entered by Dorota Dumas acting as a scribe for ED Provider Note Name: Nena Patrick Age: 64 Arrives Via: Ambulance Informant: Patient CC: Fall HPI: A 64 year old female arrives for evaluation of a fall beginning 2.5 weeks ago. The patient reports she has had multiple falls beginning 2.5 weeks ago the the most recent being 1.5 weeks ago. Pt saw PCP for falls and had an xray done which showed a possible sacral fracture. Pt states she is unable to control pain with current medications at home. She takes oxycodone for chronic back pain. She last took 5 mg oxycodone and Ativan at 0600 this morning. She has nausea and difficulty sleeping but denies any chest pain, SOB, vomiting, diarrhea, fevers, or chills. ROS: See above HPI for pertinent positives & negatives. A total of 10 systems reviewed and were otherwise negative. Past Medical History: Depression. Migraines. Tobacco abuse. OCD. CKD. IBS. HTN. Past Surgical History: Total abdominal hysterectomy. Hernia repair. Back surgery. Colonscopy. Family History: Diabetes. HTN Social History: Lives with daughter. Current every day smoker Home Medications: 81 mg aspirin. Lipitor. Baclofen. Wellbutrin. Elmiron. Gabapentin. Meclizine. Melatonin. Potassium chloride. Premarin. Promethazine. Effexor. Allergies Barbiturates. Belladonna alkaloids. Dicyclomine. Azithromycin. Mivacurium. Penicillins. Phenobarbital. Quinolones. Amoxicillin. Nitrate analogues. Nitrofurantoin. Nitroglycerin. Sulfa Physical: Vitals: BP 141/78, P 115, R 18, O2 99%, Temp 98.4 Exam: GENERAL: Patient is tired and chronically unwell appearing and in moderate distress. Cachectic. Anxious appearing. EYES: No scleral icterus, unremarkable pupils. ENT: Mucous membranes moist, no nasal congestion. NECK: No masses appreciated, no meningismus, trachea is midline. RESPIRATORY: No dyspnea. Clear to auscultation and equal bilaterally. No wheeze, no rhonchi. CARDIOVASCULAR: Tachy. No murmurs, rubs, gallops appreciated. GASTROINTESTINAL: Abdomen soft, non-tender, no peritonitis. Bowel sounds positive. No masses appreciated. BACK: No midline tenderness, no CVA tenderness EXTREMITIES: Normal motion all extremities, no cyanosis, no edema. NEUROLOGIC: Alert and oriented, no acute motor or sensory deficits, no focal weakness, cranial nerves grossly intact. SKIN: No rash, no jaundice, no diaphoresis. ED Course: Prior Medical Record, Triage/Nursing Notes, Medications, Allergies reviewed by Me Vital Signs: reviewed and remarkable for tachycardia Labs: Reviewed and remarkable for hyponatremia, elevated trop Interventions: saline lock, nss bolus 1 L IV, fentanyl 75mcg IV, dilaudid 1mg IV Imaging: Radiology results as stated below per my review and the radiologist's interpretation: CT lumbar spine wo con CLINICAL HISTORY: 64 years-old Female presenting with persistent low back pain s/p fall 2 weeks ago. TECHNIQUE: Multidetector CT of the lumbar spine was performed without the use of intravenous contrast. IV contrast: None. One or more dose lowering techniques were used consistent with the principles of ALARA (as low as reasonably achievable), including automatic exposure control, mA or kV adjustment to in dividual patient size, and/or use of iterative reconstruction. COMPARISON: None. CT DOSE (mGy.cm): The estimated cumulative dose is 660.85. FINDINGS: [employer] topogram: Gaseous distended bowel. Normal lumbar lordosis. Osteopenia present. Vertebral bodies maintain normal height and alignment. Intervertebral disc heights preserved. Disc bulge suggested at L4-5 with mild effacement of the spinal canal. No other significant degenerative change. No evidence of osseous neural foraminal narrowing. Bilateral transverse process fractures of L5. Partially visualized bilateral sacral alar fractures. Paraspinal musculature within normal limits. Nonspecific body wall edema. Mild distention of small bowel with fluid and gas. Atherosclerosis. IMPRESSION: 1. Bilateral transverse process fractures of L5. 2. Osteopenia. 3. Minimal degenerative change. Electronically signed by: Erick Ribera M.D. 06/24/2019 5:[address] pelvis wo con CLINICAL HISTORY: 64 years-old Female presenting with persistent pelvic pain s/p fall 2 weeks ago. TECHNIQUE: Multidetector CT of the pelvis was performed without the use of intravenous contrast. IV contrast: None. One or more dose lowering techniques were used consistent with the principles of ALARA (as low as reasonably achievable), including automatic exposure control, mA or kV adjustment to individual patient size, and/or use of iterative reconstruction. COMPARISON: 12/29/2018. CT DOSE (mGy.cm): The estimated cumulative dose is 660.85 mGy.cm. FINDINGS: [employer] topogram: Gaseous distended bowel. Bilateral acute appearing sacral alar fractures greater on the right. These are lateral to the neural foramina. Severe underlying osteopenia. Sacroiliac joints remain congruent. Hip joints congruent. Comminuted fracture of the right superior and inferior pubic rami in a parasymphyseal location. This is intra- articular at the symphysis pubis articulation. No femoral neck fracture. There is also acute angulation of the sacrum in the AP direction at the level of S3 indicating a transverse component of the sacral fracture. Bilateral transverse process fractures of L5 also noted. Limited evaluation of the soft tissues demonstrates gas and fluid distended small bowel. The colon is decompressed. No free fluid or gas. Atherosclerosis. No gross lymphadenopathy. Nonspecific body wall edema. No evidence of an extraperitoneal pelvic hematoma. IMPRESSION: 1. Bilateral sacral alar fractures. 2. Bilateral transverse process fractures of L5. 3. Comminuted parasymphyseal fractures of the right inferior and superior pubic rami. Electronically signed by: Erick Ribera M.D. 06/24/2019 5:29 PM EKG: Per My Interpretation: Indication Weakness: Sinus tach 113 bpm qtc 474 without ectopy nor ischemia. Similar to EKG Jan 30, 2017 Blood pressure: 141/78 Elevated - Further management by hospitalist Course: 1556: Past medical records reviewed. The patient was evaluated in room C1. A complete history and physical exam was performed. 1708: I checked on the patient at this time. She did not have improvement of her pain with fentanyl. She is requesting a stronger pain medication. 1800: I checked on the patient at this time. She is doing well and agreeable to the treatment plan. Consults: 1745: I discussed the patients case with Dr. Zepeda, [facility] Hospitalist. He will further evaluate the patient. Disposition: Being evaluated by hospitalist Prescriptions: none. Differentials: Contusion, sciatica, fracture, dislocation, electrolyte abnormality, infection, amongst others. Medical Decision Making: Frail/cachectic 64 yr old female with persistent pelvic and hip pain following multiple falls over last few weeks. She relates fals to weakness and problems with her feet. She is clearly dehydrated on arrival with tachycardia and admits poor oral intake recently. Given 1 L NSS bolus. Na is 127 down from 137 previous time she was here which explains weakness. Already has had outpatient imaging without clear cause of pelvic pain thus went ahead with CT lumbar/pelvis revealing multiple TP, pelvic fractures. No clear indication for emergent surgery and given she has been walking on this for last few days/weeks I doubt that she requires emergent transfer to trauma center. She was kept comfortable with IV narcotics. Given multiple issues, persistent weakness and these findings I feel that she would benefit from hospitalization and medical service consulted. Patient agreeable to plan and feeling much better at this time. Impression: Pelvic fracture Lumbar transverse process fracture Generalized weakness Hyponatremia Dehydration The scribe's documentation has been prepared under my direction and personally reviewed by me in its entirety. I confirm that the note above accurately reflects all work, treatment, procedures, and medical decision making performed by me. Silverio Jaimes MD Impression & Plan Pelvic fracture, Lumbar transverse process fracture, Generalized weakness, Hyponatremia, Dehydration Past Med/Surg History Medical History Depression (Chronic) Migraines (Chronic) Tobacco abuse (Chronic) OCD (obsessive compulsive disorder) (Chronic) CKD (chronic kidney disease), stage III (Chronic) IBS (irritable bowel syndrome) (Chronic) HTN (hypertension) (Chronic) Surgical History History of total abdominal hysterectomy (Chronic) H/O hernia repair (Chronic) History of back surgery (Chronic) H/O colonoscopy (Chronic) H/O sinus surgery (Chronic) Family History Other Diabetes Hypertension Social History Preferred Language: Egyptian Communication Ability: Effective 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: No Beliefs That Will Affect Care: None Current Living Situation: Family Current Living Situation Comment: daughter Feels Safe at Home: Yes Safety Concerns: Feels Safe At This Time Smoking Status: Current every day smoker Tobacco Type: cigarettes ; Cigarettes Per Day: 1 pack ; Hx Alcohol Use: Yes Alcohol type: wine Hx Substance Use: No Results & Data Vital Signs Vital Signs - 24 hr 06/24/19 15:40 06/24/19 17:30 06/24/19 18:00 Temperature 36.9 C Temperature Source Oral Sepsis Recent Fever Within 48 Hours No Sepsis New/Unexplained Change in Mental Status No Sepsis Action Taken by Nursing No Action Required Pulse Rate 115 H 111 H 110 H Pulse Rate from SpO2 Sensor 112 H 110 H Pulse Rhythm Regular Respiratory Rate 18 16 13 Respiratory Effort / Characteristics Non-Labored Respiratory Depth Normal Respiratory Pattern Regular Blood Pressure 141/78 H 135/75 148/90 H Blood Pressure Mean 99 95 109 Pulse Oximetry 99 91 93 Oxygen Delivery Method Room Air Room Air Room Air 06/24/19 18:30 Temperature Temperature Source Sepsis Recent Fever Within 48 Hours Sepsis New/Unexplained Change in Mental Status Sepsis Action Taken by Nursing Pulse Rate 110 H Pulse Rate from SpO2 Sensor 111 H Pulse Rhythm Respiratory Rate 13 Respiratory Effort / Characteristics Respiratory Depth Respiratory Pattern Blood Pressure 131/78 Blood Pressure Mean 95 Pulse Oximetry 91 Oxygen Delivery Method Room Air Home Medications Current Medication List: was personally reviewed by me Laboratory Data Attestation: I reviewed the patient's lab results. Result diagrams: 06/24/19 16:28 06/25/19 05:53 Lab Results 06/24/19 06/24/19 Range/Units 16:28 16:28 WBC 8.57 (4.8-10.8) K/uL RBC 3.68 L (4.2-5.4) M/uL Hgb 9.7 L (12.0-16.0) g/dL Hct 29.4 L (37-47) % MCV 79.9 L (80-100) fL MCH 26.4 (25-34) pg MCHC 33.0 (32-36) g/dL RDW Std Deviation 43.8 (36.4-46.3) fL RDW Coeff of [place] 15.0 H (11.5-14.5) % Plt Count 655 H (130-400) K/uL MPV 8.9 (7.4-10.4) fL Immature Gran % (Auto) 0.2 % Neut % (Auto) 73.1 % Lymph % (Auto) 17.6 % [place] % (Auto) 8.1 % Eos % (Auto) 0.5 % Baso % (Auto) 0.5 % Immature Gran # (Auto) 0.02 (0.00-0.02) K/uL Neut # (Auto) 6.27 (1.4-6.5) K/uL Lymph # (Auto) 1.51 (1.2-3.4) K/uL [place] # (Auto) 0.69 H (0.11-0.59) K/uL Eos # (Auto) 0.04 (0-0.5) K/uL Baso # (Auto) 0.04 (0-0.2) K/uL Sodium 127 L (136-145) mmol/L Potassium 4.4 (3.5-5.1) mmol/L Chloride 98 (98-107) mmol/L Carbon Dioxide 20 L (21-32) mmol/L Anion Gap 10.0 (3-11) BUN 12 (7-18) mg/dl Creatinine 0.72 (0.6-1.2) mg/dl Est Cr Clr Drug Dosing 69.5 ml/min Est GFR ( Amer) 101.9 Est GFR (Non-Af Amer) 87.9 BUN/Creatinine Ratio 16.2 (10-20) Glucose 87 (70-99) mg/dl Calcium 8.3 L (8.5-10.1) mg/dl Magnesium 1.6 L (1.8-2.4) mg/dl Troponin I 0.055 H* (0-0.045) ng/ml Administered Medications Hydrocodone Bitart/Acetaminophen ([place] 5/325) 1 tab PO Q4H PRN PRN Reason: Pain Stop: 07/08/19 22:20 Last Admin: 06/25/19 05:29 Dose: 1 tab Documented by: [id number] Calcium Carbonate (Tums) 500 mg PO QID PRN PRN Reason: Heartburn Stop: 07/25/19 07:59 Last Admin: 06/25/19 03:27 Dose: 500 mg Documented by: [id number] Gabapentin (Neurontin) 300 mg PO HS KANDACE Stop: 07/24/19 21:01 Last Admin: 06/24/19 21:57 Dose: 300 mg Documented by: [id number] Sodium Chloride (Nss 1000ml) 1,000 mls @ 60 mls/hr IV .[id number] KANDACE Stop: 07/24/19 21:01 Last Infusion: 06/25/19 00:26 Dose: 50 mls/hr Documented by: [id number] Admin: 06/24/19 21:57 Dose: 80 mls/hr Documented by: [id number] Ketorolac Tromethamine (Toradol) 30 mg IV Q6H PRN PRN Reason: Pain Stop: 06/29/19 21:01 Last Admin: 06/24/19 21:52 Dose: 30 mg Documented by: [id number] Lorazepam (Ativan) 0.5 mg PO Q8H PRN PRN Reason: Anxiety Stop: 07/24/19 21:01 Last Admin: 06/25/19 00:28 Dose: 0.5 mg Documented by: [id number] Morphine Sulfate (Morphine Sulfate) 4 mg IV Q4H PRN PRN Reason: Pain Stop: 07/08/19 22:20 Last Admin: 06/24/19 23:07 Dose: 4 mg Documented by: [id number] Pentosan Polysulfate Sodium (Elmiron) 100 mg PO BID KANDACE Stop: 07/24/19 21:01 Last Admin: 06/24/19 21:56 Dose: 100 mg Documented by: [id number] Promethazine HCl (Phenergan) 25 mg PO .Q4-6HRS PRN PRN Reason: Nausea And Vomiting Stop: 07/24/19 21:01 Last Admin: 06/25/19 04:36 Dose: 25 mg Documented by: [id number] Admin: 06/24/19 21:56 Dose: 25 mg Documented by: [id number] Discontinued Medications Acetaminophen (Ofirmev) Confirm Administered Dose 1,000 mg IV .STK-MED ONE Stop: 06/24/19 19:17 Last Admin: 06/24/19 19:22 Dose: 1,000 mg Documented by: [id number] Calcium Carbonate (Tums) 500 mg PO Q6H PRN PRN Reason: Heartburn Stop: 07/24/19 22:22 Last Admin: 06/24/19 23:18 Dose: 500 mg Documented by: [id number] Fentanyl Citrate (Fentanyl Citrate) 75 mcg IV NOW STA Stop: 06/24/19 16:01 Last Admin: 06/24/19 16:36 Dose: 75 mcg Documented by: [id number] Hydromorphone HCl (Dilaudid) 1 mg IV NOW STA Stop: 06/24/19 17:09 Last Admin: 06/24/19 17:12 Dose: 1 mg Documented by: [id number] Sodium Chloride (Nss 1000ml) 1,000 mls @ 999 mls/hr IV .Q1H1M ONE Stop: 06/24/19 17:00 Last Infusion: 06/24/19 17:39 Dose: 0 mls/hr Documented by: [id number] Admin: 06/24/19 16:35 Dose: 999 mls/hr Documented by: [id number] Acetaminophen (Ofirmev) 1,000 mg in 100 mls @ 400 mls/hr IV Q8H KANDACE Stop: 07/24/19 19:14 Last Admin: 06/24/19 21:37 Dose: Not Given Documented by: [id number] Magnesium Sulfate/Dextrose (Magnesium Sulfate / D5w) 1 gm in 100 mls @ 100 mls/hr IV ONE ONE Stop: 06/25/19 01:33 Last Admin: 06/25/19 00:58 Dose: Not Given Documented by: [id number] Magnesium Sulfate/Dextrose (Magnesium Sulfate / D5w) 1 gm in 100 mls @ 100 mls/hr IV Q1H KANDACE Stop: 06/25/19 02:35 Last Infusion: 06/25/19 03:07 Dose: 0 mls/hr Documented by: [id number] Admin: 06/25/19 02:06 Dose: 100 mls/hr Documented by: [id number] Infusion: 06/25/19 02:06 Dose: 100 mls/hr Documented by: [id number] Admin: 06/25/19 01:07 Dose: 100 mls/hr Documented by: [id number] Ketorolac Tromethamine (Toradol) Confirm Administered Dose 30 mg .ROUTE .STK-MED ONE Stop: 06/24/19 19:17 Last Admin: 06/24/19 19:21 Dose: 30 mg Documented by: [id number] Ondansetron HCl (Zofran) 4 mg IV NOW STA Stop: 06/24/19 16:01 Last Admin: 06/24/19 16:36 Dose: 4 mg Documented by: [id number] Imaging Data Radiologist's Impression: Radiology results as stated below per my review and the radiologist's interpretation: CT lumbar spine wo con CLINICAL HISTORY: 64 years-old Female presenting with persistent low back pain s/p fall 2 weeks ago. TECHNIQUE: Multidetector CT of the lumbar spine was performed without the use of intravenous contrast. IV contrast: None. One or more dose lowering techniques were used consistent with the principles of ALARA (as low as reasonably achievable), including automatic exposure control, mA or kV adjustment to individual patient size, and/or use of iterative reconstruction. COMPARISON: None. CT DOSE (mGy.cm): The estimated cumulative dose is 660.85. FINDINGS: [employer] Driver topogram: Gaseous distended bowel. Normal lumbar lordosis. Osteopenia present. Vertebral bodies maintain normal height and alignment. Intervertebral disc heights preserved. Disc bulge suggested at L4-5 with mild effacement of the spinal canal. No other significant degenerative change. No evidence of osseous neural foraminal narrowing. Bilateral transverse process fractures of L5. Partially visualized bilateral sacral alar fractures. Paraspinal musculature within normal limits. Nonspecific body wall edema. Mild distention of small bowel with fluid and gas. Atherosclerosis. IMPRESSION: 1. Bilateral transverse process fractures of L5. 2. Osteopenia. 3. Minimal degenerative change. Electronically signed by: Erick Ribera M.D. 06/24/2019 5:[address] pelvis wo con CLINICAL HISTORY: 64 years-old Female presenting with persistent pelvic pain s/p fall 2 weeks ago. TECHNIQUE: Multidetector CT of the pelvis was performed without the use of intravenous contrast. IV contrast: None. One or more dose lowering techniques were used consistent with the principles of ALARA (as low as reasonably a chievable), including automatic exposure control, mA or kV adjustment to individual patient size, and/or use of iterative reconstruction. COMPARISON: 12/29/2018. CT DOSE (mGy.cm): The estimated cumulative dose is 660.85 mGy.cm. FINDINGS: [employer] Driver topogram: Gaseous distended bowel. Bilateral acute appearing sacral alar fractures greater on the right. These are lateral to the neural foramina. Severe underlying osteopenia. Sacroiliac joints remain congruent. Hip joints congruent. Comminuted fracture of the right superior and inferior pubic rami in a parasymphyseal location. This is intra-articular at the symphysis pubis articulation. No femoral neck fracture. There is also acute angulation of the sacrum in the AP direction at the level of S3 indicating a transverse component of the sacral fracture. Bilateral transverse process fractures of L5 also noted. Limited evaluation of the soft tissues demonstrates gas and fluid distended small bowel. The colon is decompressed. No free fluid or gas. Atherosclerosis. No gross lymphadenopathy. Nonspecific body wall edema. No evidence of an extrap eritoneal pelvic hematoma. IMPRESSION: 1. Bilateral sacral alar fractures. 2. Bilateral transverse process fractures of L5. 3. Comminuted parasymphyseal fractures of the right inferior and superior pubic rami. Electronically signed by: Erick Ribera M.D. 06/24/2019 5:29 PM Blood Pressure Blood Pressure Findings: Elevated blood pressure Blood Pressure Disposition: elevated BP felt to be situational Discharge Plan Visit Data *Final* Discharge Date/Time: 06/24/19 20:40 Chief Complaint: Fall Stated Complaint: LOWER BACK PAIN, HIP PAIN ED Provider: Silverio Jaimes Discharge Problem: Pelvic fracture, Lumbar transverse process fracture, Generalized weakness, Hyponatremia, Dehydration Patient Disposition: Admitted As Inpatient Discharge Instructions Interventions: ED Discharge Assessment Last Done: 06/24/19 20:40 Discharge Problem: Pelvic fracture Qualifiers: Encounter type: initial encounter Pelvic bone location: multiple parts Fracture type: closed Fracture alignment: without disruption of pelvic ring Qualified Code(s): S32.82XA - Multiple fractures of pelvis without disruption of pelvic ring, initial encounter for closed fracture Lumbar transverse process fracture Qualifiers: Encounter type: initial encounter Fracture type: closed Qualified Code(s): S32.009A - Unspecified fracture of unspecified lumbar vertebra, initial encounter for closed fracture The scribe's documentation has been prepared under my direction and personally reviewed by me in its entirety. I confirm that the note above accurately reflects all work, treatment, procedures, and medical decision making performed by me.
[2019-06-25] MEDS: MoRPHine SULFATE 4 MG/ML 1 ML CARP\\VIAL IV PRN ×4 (07:44→20:51)
[2019-06-25] MEDS: PENTOSAN POLYSULFATE SODIUM 100 MG CAP PO SCH ×2 (07:44→20:55)
[2019-06-25] MEDS: LISINOPRIL 40 MG TAB PO SCH (07:45)
[2019-06-25] MEDS: ATORVASTATIN 10 MG TAB PO SCH (07:45)
[2019-06-25] MEDS: VENLAFAXINE HCL XR 150 MG CAPXR PO SCH (07:46)
[2019-06-25] MEDS: DOCUSATE SODIUM/SENNA 50/8.6MG TAB PO SCH (07:46)
[2019-06-25] MEDS: POTASSIUM CHLORIDE 20 MEQ TABCR PO SCH (07:46)
[2019-06-25] MEDS: BuPROPion XL 300 MG TABCR PO SCH (07:46)
[2019-06-25] MEDS ORDERED: Nursing to Pharmacy Communication ONE (08:42)
[2019-06-25] MEDS ORDERED: BACLOFEN 10 MG TAB PO PRN (09:42)
[2019-06-25] MEDS ORDERED: METHYLNALTREXONE BROMIDE 12 MG/0.6 ML VIAL SQ PRN (10:00)
[2019-06-25] MEDS: SODIUM CHLORIDE 0.9% 1000ML 1,000 ML IV SCH (11:58)
[2019-06-25 12:28] LABS: BUN Creatinine Ratio 17.7 (10-20); Creatinine Clr Calc Pharmacy 71.3 ml/min; Est GFR (African American) 103.6; Est GFR (Non-African American) 89.4; Potassium 4.6 mmol/L (3.5-5.1)
--- NOTE | 2019-06-25 16:03 | Pain Management Consultation ---
Date of Consultation June 25, 2019 Assessment & Plan (1) Pelvic fracture: 1. Recommend utilization of an LSO brace while out of bed. Consult was placed for orthotics 2. No changes to opiate medication regimen were made. Patient may continue to receive her chronic opiates through her outpatient prescriber and appears comfortable on exam. 3. Recommend increase of baclofen to every 6 hours. Orders are written 4. Recommend utilization of Dulcolax, Colace, MiraLAX as primary bowel regimen. Consider utilization of Relistor every 2 days should these measures fail. 5. Thank you for this consult. please call with any questions Encounter type: initial encounter Fracture alignment: without disruption of pelvic ring Fracture type: closed Pelvic bone location: multiple parts Qualified Code(s): S32.82XA - Multiple fractures of pelvis without disruption of pelvic ring, initial encounter for closed fracture (2) Lumbar transverse process fracture: Encounter type: initial encounter Fracture type: closed Qualified Code(s): S32.009A - Unspecified fracture of unspecified lumbar vertebra, initial encounter for closed fracture (3) Generalized weakness: (4) OCD (obsessive compulsive disorder): (5) Depression: History of Present Illness Attending Physician: Farooq Zepeda MD History of Present Illness 64-year-old female status post a fall with bilateral L5 transverse process fractures and pubic rami fractures. Patient states she was walking in her dining room and fell backwards. She denies any significant discomfort while lying in bed but reports that she has pain with any activity. She denies any bowel or bladder incontinence, motor weakness, footdrop, fever, chills, and or night sweats. Pain is predominantly over bilateral buttock with radiation into the groin characterized as sharp and stabbing.. She denies significant pain at her lumbosacral junction. Pain is 8 out of 10 constant and alleviated somewhat with her chronic opiate dosing. Consult for orthopedics has been placed but have not yet seen the patient. Patient denies having an LSO brace at home. The patient has a long-standing history of opiate dependence and was admitted in December 2018 for ileus. She denies other side effects from her medication including current constipation or mental sedation. Allergies Allergy/AdvReac Type Severity Reaction Status Date / Time Barbiturates Allergy Severe Unknown Verified 06/25/19 09:47 belladonna alkaloids Allergy Severe Unknown Verified 06/25/19 09:47 dicyclomine Allergy Severe Unknown Verified 06/25/19 09:47 azithromycin Allergy Mild Hives Unverified 12/29/18 13:31 mivacurium Allergy Mild Unknown Verified 06/25/19 09:47 Penicillins Allergy Mild AMOXICILLIN Verified 12/29/18 13:31 phenobarbital Allergy Mild Unknown Verified 06/25/19 09:47 Quinolones Allergy Mild Unknown Verified 06/25/19 09:47 amoxicillin Allergy Unknown rash Unverified 12/29/18 13:31 Nitrate Analogues Allergy Unknown Unknown Verified 06/25/19 09:47 nitrofurantoin Allergy Unknown Unknown Verified 06/25/19 09:47 nitroglycerin Allergy Unknown Unknown Verified 06/25/19 09:47 Sulfa (Sulfonamide Allergy Unknown sulfa Verified 12/29/18 13:31 Antibiotics) Home Medications Home Medications Medication Instructions Recorded Confirmed Type Elmiron 100 mg PO BID 12/29/18 06/24/19 History Premarin 1 applic TOPICAL 3XWK PRN 12/29/18 06/24/19 History aspirin 81 mg PO DAILY 12/29/18 06/24/19 History atorvastatin [Lipitor] 10 mg PO QAM 12/29/18 06/24/19 History bupropion HCl [Wellbutrin XL] 300 mg PO QAM 12/29/18 06/24/19 History gabapentin 300 mg PO 12/29/18 06/24/19 History lorazepam [Ativan] 0.5 mg PO Q8H PRN 12/29/18 06/24/19 History meclizine 25 mg PO TID PRN 12/29/18 06/24/19 History melatonin 10 mg PO 12/29/18 06/24/19 History potassium chloride [Klor-Con M20] 20 meq PO DAILY 12/29/18 06/24/19 History promethazine 25 mg PO .Q4-6HRS PRN 12/29/18 06/24/19 History venlafaxine [Effexor XR] 300 mg PO QAM 12/29/18 06/24/19 History baclofen 10 mg PO BID PRN 06/24/19 06/24/19 History benzonatate 100 mg PO TID PRN 06/24/19 06/24/19 History diclofenac sodium 4 g TOPICAL QID PRN 06/24/19 06/24/19 History lisinopril 40 mg PO DAILY 06/24/19 06/24/19 History loperamide See Rx Instructions .ROUTE 06/24/19 06/24/19 History .COMPLEX PRN MDD 16 MG/DAY oxycodone 5 mg PO Q6H PRN 06/24/19 06/24/19 History ropinirole 0.25 mg PO HS 06/24/19 06/24/19 History simethicone 125 mg PO TID PRN 06/24/19 06/24/19 History Patient History Medical History Depression (Chronic) Migraines (Chronic) Tobacco abuse (Chronic) OCD (obsessive compulsive disorder) (Chronic) CKD (chronic kidney disease), stage III (Chronic) IBS (irritable bowel syndrome) (Chronic) HTN (hypertension) (Chronic) Surgical History History of total abdominal hysterectomy (Chronic) H/O hernia repair (Chronic) History of back surgery (Chronic) H/O colonoscopy (Chronic) H/O sinus surgery (Chronic) Family History Other Diabetes Hypertension Social History Preferred Language: Polish Communication Ability: Effective Cottrell Operator Required: No Beliefs That Will Affect Care: None Current Living Situation: Family Current Living Situation Comment: daughter Feels Safe at Home: Yes Safety Concerns: Feels Safe At This Time Smoking Status: Current every day smoker Tobacco Type: cigarettes ; Cigarettes Per Day: 1 pack ; Hx Alcohol Use: Yes Alcohol type: wine Hx Substance Use: No Physical Exam Physical Exam: Constitutional: Well-developed, well-nourished, healthy- appearing, thin and slightly frail Psych: Awake, alert, and oriented 3 with normal affect and mood. Recent memory appears grossly intact Eyes: Pupils are equally round and reactive to light with normal size pupils, eyelids appear normal Ear, nose, mouth, and throat: Moist nasal and oral membranes, lips and tongues appear normal, no external ear abnormalities are noted Neck: The trachea is midline without deviation and no thyromegaly is noted Respiratory: Normal respiratory effort without distress, no audible wheezes or rhonchi CV: Normal S1 and S2 Chest: Deferred GI/abdomen: Non-tender and soft Musculoskeletal: Head is normocephalic and atraumatic, gait was not observed Lumbar: Lordotic curve: Slight decrease of lumbar lordosis Range of motion is decreased in all planes secondary to pain Tenderness: Minimally tender over the axial midline and only noted at the lumbosacral junction Facet provocation: Negative bilaterally Straight leg raise: Negative bilaterally Step-off injuries: None Strength: Strength is equal bilaterally with 5 out of 5 strength in all planes Sensation of lower extremities: Intact bilaterally Deep tendon reflexes: Rated at 1+ in bilateral L4 and S1 Myofascial spasm: Moderate appreciable spasm. No discrete trigger points noted Greater trochanters: Nontender bilaterally Sacroiliac joints: Moderately tender bilaterally left equal to right Fabere and Gaens[place]: Did not test secondary to sacral insufficiency fractures Pathologic reflexes noted: None Skin: No rashes, lesions, ulcers, or induration noted Neuro: No nystagmus noted, the tongue is midline, the patient is able to rotate their head bilaterally : Deferred Results Diagnostic Review CT: reports reviewed and findings discussed with patient CT Findings: [place], [place] [phone] CT Scan Report Patient: MAGI URBINA Date: 06/24/19 MR#: [id number]: OLIVER BAJWA 622 Acct ID:[id number]: Date: [address] [place] [address] Zip: [place] [address] Age: 64Location: ED Sex: F Room/Bed: Att Phy: Diagnosis: LOWER BACK PAIN, HIP PAIN Nory Phy: Nate Shrestha MDService Date: 06/24/19 Fam Phy: Interpreting Phy: Erick Ribera MD Admit Phy: Ordering Phy: Silverio Jaimes M.D. cc: ~ CT pelvis wo con CLINICAL HISTORY: 64 years-old Female presenting with persistent pelvic pain s/p fall 2 weeks ago. TECHNIQUE: Multidetector CT of the pelvis was performed without the use of intravenous contrast. IV contrast: None. One or more dose lowering techniques were used consistent with the principles of ALARA (as low as reasonably achievable), including automatic exposure control, mA or kV adjustment to individual patient size, and/or use of iterative reconstruction. COMPARISON: 12/29/2018. CT DOSE (mGy.cm): The estimated cumulative dose is 660.85 mGy.cm. FINDINGS: Manager Nuclear topogram: Gaseous distended bowel. Bilateral acute appearing sacral alar fractures greater on the right. These are lateral to the neural foramina. Severe underlying osteopenia. Sacroiliac joints remain congruent. Hip joints congruent. Comminuted fracture of the right superior and inferior pubic rami in a parasymphyseal location. This is intra- articular at the symphysis pubis articulation. No femoral neck fracture. There is also acute angulation of the sacrum in the AP direction at the level of S3 indicating a transverse component of the sacral fracture. Bilateral transverse process fractures of L5 also noted. Limited evaluation of the soft tissues demonstrates gas and fluid distended small bowel. The colon is decompressed. No free fluid or gas. Atherosclerosis. No gross lymphadenopathy. Nonspecific body wall edema. No evidence of an extraperitoneal pelvic hematoma. IMPRESSION: 1. Bilateral sacral alar fractures. 2. Bilateral transverse process fractures of L5. 3. Comminuted parasymphyseal fractures of the right inferior and superior pubic rami. Patient: MAGI URBINA RAdmit Date: 06/24/19 MR#: [id number]: [address] Acct ID:[id number]: Date: [address] [place] [address] Zip: [place] [address] Age: 64Location: ED Sex: F Room/Bed: Att Phy: Diagnosis: LOWER BACK PAIN, HIP PAIN Nory Phy: Nate Shrestha MDService Date: 06/24/19 Fam Phy: Interpreting Phy: Erick Ribera MD Admit Phy: Ordering Phy: Silverio Jaimes M.D. cc: ~ CT lumbar spine wo con CLINICAL HISTORY: 64 years-old Female presenting with persistent low back pain s/p fall 2 weeks ago. TECHNIQUE: Multidetector CT of the lumbar spine was performed without the use of intravenous contrast. IV contrast: None. One or more dose lowering techniques were used consistent with the principles of ALARA (as low as reasonably achievable), including automatic exposure control, mA or kV adjustment to individual patient size, and/or use of iterative reconstruction. COMPARISON: None. CT DOSE (mGy.cm): The estimated cumulative dose is 660.85. FINDINGS: Manager Nuclear topogram: Gaseous distended bowel. Normal lumbar lordosis. Osteopenia present. Vertebral bodies maintain normal height and alignment. Intervertebral disc heights preserved. Disc bulge suggested at L4-5 with mild effacement of the spinal canal. No other significant degenerative change. No evidence of osseous neural foraminal narrowing. Bilateral transverse process fractures of L5. Partially visualized bilateral sacral alar fractures. Paraspinal musculature within normal limits. Nonspecific body wall edema. Mild distention of small bowel with fluid and gas. Atherosclerosis. IMPRESSION: 1. Bilateral transverse process fractures of L5. 2. Osteopenia. 3. Minimal degenerative change.
--- NOTE | 2019-06-25 17:15 | Nephrology Consultation ---
Date of Consultation June 25, 2019 Assessment & Plan (1) Hyponatremia: -for 1800 labs >> added serum osms, urine osms, rd urine Na, mag, TSH; suspect she may have multifactorial hyponatremia and may have more SIADH type picture in setting of nsaid and other meds like venlafaxine, bupropion. 1800 labs show unchanged sNa at 127; then with serum osms 258, urine osms similar and Saurav 15; also with mild elevation in tsh -NS rate now 50 mL hourly>>based on these labs will stop NS -FR 1.8L for now -strict I/O -recheck bmp w/ am labs along free t4 -goal sNa for AM is 132 -work where possible to minimize nsaids in pain mgt; follow pain mgt recs Present on Admission?: Yes (2) Pelvic fracture: multiple fractures including BL sacral alar frxs, L5 BL transverse process fractures -per ortho and pain mgt Present on Admission?: Yes History of Present Illness Reason for Consultation: hyponatremia Requesting Physician: Dr Zepeda Attending Physician: Farooq Zpeeda MD History of Present Illness 64 y/o F admitted last evening w/ BL sacral alar fractures whom I'm asked to see for hyponatremia. PMH includes HTN, chronic hyponatremia, chronic pain syndrome, depression/anxiety/OCD, CKD 3, active tobacco abuse, interstitial cystitis, emphysema; [facility] admission 12/2018 for ileus from narcotics. no hyponatremia noted on OP labs from spring 2016-spring 2018, though she has had mild hyponatremia as low as sNa high 120s/low 130s intermittently on [facility] labs. baseline creatinine is 1.1-1.2, for eGFR 45-55 generally. however in [facility] including today no renal insufficiency. She was walking around her house in the dark about a week back and fell; then had BL groin pain immediatley on getting up. her presenting sodium was 127 yesterday at 1630; improved to 130 by [place] but then dropped again to 127 this am. She has had 2.2 L fluid in, including 2L IV; and 430 mL UOP. She is not currently on FR. She is getting NS at 80 ml/hr which was dropped early today to 50 mL /hr. Denies pain or N; struggling to eat her supper. Allergies Allergy/AdvReac Type Severity Reaction Status Date / Time Barbiturates Allergy Severe Unknown Verified 06/25/19 09:47 belladonna alkaloids Allergy Severe Unknown Verified 06/25/19 09:47 dicyclomine Allergy Severe Unknown Verified 06/25/19 09:47 azithromycin Allergy Mild Hives Unverified 12/29/18 13:31 mivacurium Allergy Mild Unknown Verified 06/25/19 09:47 Penicillins Allergy Mild AMOXICILLIN Verified 12/29/18 13:31 phenobarbital Allergy Mild Unknown Verified 06/25/19 09:47 Quinolones Allergy Mild Unknown Verified 06/25/19 09:47 amoxicillin Allergy Unknown rash Unverified 12/29/18 13:31 Nitrate Analogues Allergy Unknown Unknown Verified 06/25/19 09:47 nitrofurantoin Allergy Unknown Unknown Verified 06/25/19 09:47 nitroglycerin Allergy Unknown Unknown Verified 06/25/19 09:47 Sulfa (Sulfonamide Allergy Unknown sulfa Verified 12/29/18 13:31 Antibiotics) Home Medications Home Medications Medication Instructions Recorded Confirmed Type Elmiron 100 mg PO BID 12/29/18 06/24/19 History Premarin 1 applic TOPICAL 3XWK PRN 12/29/18 06/24/19 History aspirin 81 mg PO DAILY 12/29/18 06/24/19 History atorvastatin [Lipitor] 10 mg PO QAM 12/29/18 06/24/19 History bupropion HCl [Wellbutrin XL] 300 mg PO QAM 12/29/18 06/24/19 History gabapentin 300 mg PO HS 12/29/18 06/24/19 History lorazepam [Ativan] 0.5 mg PO Q8H PRN 12/29/18 06/24/19 History meclizine 25 mg PO TID PRN 12/29/18 06/24/19 History melatonin 10 mg PO HS 12/29/18 06/24/19 History potassium chloride [Klor-Con M20] 20 meq PO DAILY 12/29/18 06/24/19 History promethazine 25 mg PO .Q4-6HRS PRN 12/29/18 06/24/19 History venlafaxine [Effexor XR] 300 mg PO QAM 12/29/18 06/24/19 History baclofen 10 mg PO BID PRN 06/24/19 06/24/19 History benzonatate 100 mg PO TID PRN 06/24/19 06/24/19 History diclofenac sodium 4 g TOPICAL QID PRN 06/24/19 06/24/19 History lisinopril 40 mg PO DAILY 06/24/19 06/24/19 History loperamide See Rx Instructions .ROUTE 06/24/19 06/24/19 History .COMPLEX PRN MDD 16 MG/DAY oxycodone 5 mg PO Q6H PRN 06/24/19 06/24/19 History ropinirole 0.25 mg PO HS 06/24/19 06/24/19 History simethicone 125 mg PO TID PRN 06/24/19 06/24/19 History Patient History Medical History Depression (Chronic) Migraines (Chronic) Tobacco abuse (Chronic) OCD (obsessive compulsive disorder) (Chronic) CKD (chronic kidney disease), stage III (Chronic) IBS (irritable bowel syndrome) (Chronic) HTN (hypertension) (Chronic) Surgical History History of total abdominal hysterectomy (Chronic) H/O hernia repair (Chronic) History of back surgery (Chronic) H/O colonoscopy (Chronic) H/O sinus surgery (Chronic) Family History Other Diabetes Hypertension Social History Preferred Language: Tajik Communication Ability: Effective Milk 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 Beliefs That Will Affect Care: None Current Living Situation: Family Current Living Situation Comment: daughter Feels Safe at Home: Yes Safety Concerns: Feels Safe At This Time Smoking Status: Current every day smoker Tobacco Type: cigarettes ; Cigarettes Per Day: 1 pack ; Hx Alcohol Use: Yes Alcohol type: wine Hx Substance Use: No Review of Systems Review of Systems: All systems reviewed & are unremarkable except as noted in HPI & below Gastrointestinal: no abdominal pain and no vomiting Neurologic: as per Subjective / HPI and + gait abnormality; no generalized weakness, no seizure-like activity and no confusion Physical Exam Constitutional: well developed and + thin; no acute distress Eyes: EOM intact bilaterally ENMT: Ears: no external ear abnormality Nose: no external nose abnormality Mouth: + dry oral mucous membranes lip licking/ dry mouth frequently moistens/clenches lips Neck: no nuchal rigidity Respiratory: normal respiratory effort Auscultation: + diminished lung sounds Cardiovascular: Rate/Rhythm: regular rhythm and + tachycardic Extremities: no edema Gastrointestinal (Abdomen): Inspection/Auscultation: normal bowel sounds Percussion/Palpation: abdomen soft; abdomen nontender Musculoskeletal: Extremities: strength 5/5 throughout Skin: no rashes, warm and dry Neurologic: ceja, fluent speech, no tremor Psychiatric: A+Ox3, euthymic affect Results & Data Vital Signs (Past 12 Hours) Vital Signs Temp Pulse Pulse Resp BP Pulse Ox 06/25/19 15:11 36.4 C L 93 H 18 113/72 90 06/25/19 11:32 36.7 C 74 18 132/87 95 06/25/19 09:48 107 H 06/25/19 07:04 36.5 C 107 H 16 150/86 H 90 Laboratory Results Abnormal lab results 06/24/19 06/25/19 06/25/19 Range/Units 23:43 05:53 11:51 Sodium 130 L 129 L 127 L (136-145) mmol/L Chloride 97 L (98-107) mmol/L Carbon Dioxide 20 L (21-32) mmol/L Calcium 7.5 L 8.3 L 8.0 L (8.5-10.1) mg/dl Troponin I 0.076 H* 0.058 H* (0-0.045) ng/ml Diagnostic Findings CT pelvis non con 1. Bilateral sacral alar fractures. 2. Bilateral transverse process fractures of L5. 3. Comminuted parasymphyseal fractures of the right inferior and superior pubic rami. CT L spine non con 1. Bilateral transverse process fractures of L5. 2. Osteopenia. 3. Minimal degenerative change. (1) Pelvic fracture Encounter type: initial encounter Fracture alignment: without disruption of pelvic ring Fracture type: closed Pelvic bone location: multiple parts Qualified Code(s): S32.82XA - Multiple fractures of pelvis without disruption of pelvic ring, initial encounter for closed fracture
--- NOTE | 2019-06-25 17:17 | Hospitalist Progress Note ---
Date of Service June 25, 2019 Assessment & Plan (1) Pelvic fracture: Bilateral sacral alar fractures Toradol 30 mg every 6 hours as needed, Ofirmev 1000 mg every 8 hours Orthopedic consultation: Pending Physical therapy consultation: Pending Pain management service consultation given recent history of ileus related to chronic oxycodone use: Recommend to continue usual oxycodone, LSO brace, daily bowel regimen, may use Relistor if needed Bilateral transverse process fracture L5 orthopedic spine consultation ordered Hyponatremia, likely secondary to dehydration Multifactorial, secondary to volume depletion, SIADH from pain, question from psych meds Sodium on admission is 127 IV fluid NSS given Sodium remains at 127 Repeat PRP at 6 PM, will consult nephrology for further recommendations Mild troponin elevation Patient without signs of ischemia or infarct Troponin remained flat 0.05- 0.07 - 0.05 Echocardiogram ordered Hypertension Continue lisinopril Chronic pain syndrome Oxycodone 5 mg every X hours as needed at home Continue this for now, pain management consultation placed Management per #1 Depression and anxiety Continue usual medications Including lorazepam as needed Anemia , chronic Stable, hemoglobin at baseline DVT prophylaxis Lovenox 40mg hines CODE STATUS full code per patient Disposition May need inpatient rehab Subjective Follow-up for bilateral sacral alar fractures, ambulatory dysfunction Seen resting in bed, comfortable, no distress States she still has significant pain on pelvic area today, relieved with PRN analgesics Denies any other pain in her body No problems with bowel movement, episodes of urinary retention observed by staff certified nurse midwife Denies headache, dizziness, shortness of breath, chest pain, palpitations, dizziness Denies any symptoms Review of Systems Review of Systems: All systems reviewed & are unremarkable except as noted in HPI & below Physical Exam Physical Exam: General- oriented x 2, not in distress, speaks in sentences with no effort or accessory muscle use Eyes- anicteric Neck- no JVD Lungs- clear breath sounds bilaterally, no rales/wheezes Heart- normal rate, regular rhythm; no murmurs Abdomen- normal bowel sounds, nondistended, soft, nontender Extremities- no pretibial edema, no calf tenderness Neuro- alert, oriented x 3; no gross focal neurologic deficits Skin- warm & dry Results & Data Vital Signs (Past 12 Hours) Vital Signs Temp Pulse Pulse Resp BP Pulse Ox 06/25/19 15:11 36.4 C L 93 H 18 113/72 90 06/25/19 11:32 36.7 C 74 18 132/87 95 06/25/19 09:48 107 H 06/25/19 07:04 36.5 C 107 H 16 150/86 H 90 Laboratory Results Laboratory Results - last 24 hr 06/24/19 06/25/19 06/25/19 23:43 05:53 06:21 Sodium 130 L 129 L Potassium 4.0 4.1 Chloride 97 L 99 Carbon Dioxide 24 22 Anion Gap 9.0 8.0 BUN 12 14 Creatinine 0.84 0.77 Est Cr Clr Drug Dosing 59.6 65.8 Est GFR ( Amer) 84.5 93.9 Est GFR (Non-Af Amer) 72.9 81.0 BUN/Creatinine Ratio 14.8 18.1 Glucose 86 96 Calcium 7.5 L 8.3 L Total Creatine Kinase 82 Troponin I 0.076 H* 0.058 H* Urine Color Yellow Urine Appearance Clear Urine pH 5.5 Ur Specific [place] 1.023 Urine Protein Negative Urine Glucose (UA) Negative Urine Ketones Negative Urine Blood Negative Urine Nitrite Negative Urine Bilirubin Negative Urine Urobilinogen Negative Ur Leukocyte Esterase Negative 06/25/19 11:51 Sodium 127 L Potassium 4.6 Chloride 98 Carbon Dioxide 20 L Anion Gap 9.0 BUN 13 Creatinine 0.71 Est Cr Clr Drug Dosing 71.3 Est GFR ( Amer) 103.6 Est GFR (Non-Af Amer) 89.4 BUN/Creatinine Ratio 17.7 Glucose 91 Calcium 8.0 L Total Creatine Kinase Troponin I Urine Color Urine Appearance Urine pH Ur Specific [place] Urine Protein Urine Glucose (UA) Urine Ketones Urine Blood Urine Nitrite Urine Bilirubin Urine Urobilinogen Ur Leukocyte Esterase (1) Pelvic fracture Encounter type: initial encounter Fracture alignment: without disruption of pelvic ring Fracture type: closed Pelvic bone location: multiple parts Qualified Code(s): S32.82XA - Multiple fractures of pelvis without disruption of pelvic ring, initial encounter for closed fracture
--- NOTE | 2019-06-25 17:23 | Orthopedic Consultation ---
Date of Consultation June 25, 2019 History of Present Illness Reason for Consultation: Low back and pelvic pain Attending Physician: Farooq Zepeda MD History of Present Illness This is a 64-year-old female that apparently fell at home several days ago and had incapacitating pelvic and back pain. She been using a walker to ambulate about her home. Denies any radicular pain denies any numbness or tingling to the lower extremities. She states the pain is quite limiting in nature though since she is been admitted it has improved. Allergies Allergy/AdvReac Type Severity Reaction Status Date / Time Barbiturates Allergy Severe Unknown Verified 06/25/19 09:47 belladonna alkaloids Allergy Severe Unknown Verified 06/25/19 09:47 dicyclomine Allergy Severe Unknown Verified 06/25/19 09:47 azithromycin Allergy Mild Hives Unverified 12/29/18 13:31 mivacurium Allergy Mild Unknown Verified 06/25/19 09:47 Penicillins Allergy Mild AMOXICILLIN Verified 12/29/18 13:31 phenobarbital Allergy Mild Unknown Verified 06/25/19 09:47 Quinolones Allergy Mild Unknown Verified 06/25/19 09:47 amoxicillin Allergy Unknown rash Unverified 12/29/18 13:31 Nitrate Analogues Allergy Unknown Unknown Verified 06/25/19 09:47 nitrofurantoin Allergy Unknown Unknown Verified 06/25/19 09:47 nitroglycerin Allergy Unknown Unknown Verified 06/25/19 09:47 Sulfa (Sulfonamide Allergy Unknown sulfa Verified 12/29/18 13:31 Antibiotics) Home Medications Home Medications Medication Instructions Recorded Confirmed Type Elmiron 100 mg PO BID 12/29/18 06/24/19 History Premarin 1 applic TOPICAL 3XWK PRN 12/29/18 06/24/19 History aspirin 81 mg PO DAILY 12/29/18 06/24/19 History atorvastatin [Lipitor] 10 mg PO QAM 12/29/18 06/24/19 History bupropion HCl [Wellbutrin XL] 300 mg PO QAM 12/29/18 06/24/19 History gabapentin 300 mg PO HS 12/29/18 06/24/19 History lorazepam [Ativan] 0.5 mg PO Q8H PRN 12/29/18 06/24/19 History meclizine 25 mg PO TID PRN 12/29/18 06/24/19 History melatonin 10 mg PO HS 12/29/18 06/24/19 History potassium chloride [Klor-Con M20] 20 meq PO DAILY 12/29/18 06/24/19 History promethazine 25 mg PO .Q4-6HRS PRN 12/29/18 06/24/19 History venlafaxine [Effexor XR] 300 mg PO QAM 12/29/18 06/24/19 History baclofen 10 mg PO BID PRN 06/24/19 06/24/19 History benzonatate 100 mg PO TID PRN 06/24/19 06/24/19 History diclofenac sodium 4 g TOPICAL QID PRN 06/24/19 06/24/19 History lisinopril 40 mg PO DAILY 06/24/19 06/24/19 History loperamide See Rx Instructions .ROUTE 06/24/19 06/24/19 History .COMPLEX PRN MDD 16 MG/DAY oxycodone 5 mg PO Q6H PRN 06/24/19 06/24/19 History ropinirole 0.25 mg PO HS 06/24/19 06/24/19 History simethicone 125 mg PO TID PRN 06/24/19 06/24/19 History Patient History Medical History Depression (Chronic) Migraines (Chronic) Tobacco abuse (Chronic) OCD (obsessive compulsive disorder) (Chronic) CKD (chronic kidney disease), stage III (Chronic) IBS (irritable bowel syndrome) (Chronic) HTN (hypertension) (Chronic) Surgical History History of total abdominal hysterectomy (Chronic) H/O hernia repair (Chronic) History of back surgery (Chronic) H/O colonoscopy (Chronic) H/O sinus surgery (Chronic) Family History Other Diabetes Hypertension Social History Preferred Language: Bangladeshi Communication Ability: Effective Product Safety Technician Required: No Beliefs That Will Affect Care: None Current Living Situation: Family Current Living Situation Comment: daughter Feels Safe at Home: Yes Safety Concerns: Feels Safe At This Time Smoking Status: Current every day smoker Tobacco Type: cigarettes ; Cigarettes Per Day: 1 pack ; Hx Alcohol Use: Yes Alcohol type: wine Hx Substance Use: No Physical Exam Physical Exam: On exam she is able to sit up in bed with relative comfort. She is regional strength testing. Sensory is intact to the lower extremities. Results & Data Vital Signs (Past 12 Hours) Vital Signs Temp Pulse Pulse Resp BP Pulse Ox 06/25/19 15:11 36.4 C L 93 H 18 113/72 90 06/25/19 11:32 36.7 C 74 18 132/87 95 06/25/19 09:48 107 H 06/25/19 07:04 36.5 C 107 H 16 150/86 H 90
[2019-06-25] MEDS ORDERED: POLYETHYLENE (MIRALAX) 17 GM PACK PO SCH (17:30)
[2019-06-25] MEDS: ENOXAPARIN INJ 40 MG/0.4 ML SYR SQ SCH (18:09)
[2019-06-25] MEDS: POLYETHYLENE (MIRALAX) 17 GM PACK PO SCH (18:10)
[2019-06-25 18:54] LABS: Calcium 8.2 mg/dl (8.5-10.1); Creatinine Clr Calc Pharmacy 68.4 ml/min; Est GFR (African American) 98.5; Magnesium 2.1 mg/dl (1.8-2.4); Potassium 4.3 mmol/L (3.5-5.1)
[2019-06-25 19:05] LABS: Thyroid Stimulating Hormone 6.52 uIu/ml (0.300-4.500)
--- NOTE | 2019-06-25 19:28 | Orthopedic Consultation ---
Date of Consultation June 25, 2019 Assessment & Plan (1) Pelvic fracture: No surgical intervention indicated at this time. Conservative treatment including partial WB RLE, ambulatory assist with walker, pain control, PT/OT, will need follow up XRs in 2 weeks, please call the office to schedule appt with myself, . Thank you for the consultation. History of Present Illness Reason for Consultation: B/L sacral and right inf/sup pubic rami fx Attending Physician: Farooq Zepeda MD History of Present Illness The patient is a 64 year old female with recent history of mechanical fall 10 days prior to today's encounter. The patient was seen at [facility] ED secondary to increasing persistent pain with ambulation. On CT pelvis it she was noted to have b/l sacral ala fx and right sup/inf pubic rami fx. The patient was admitted for further inpatient observation and mgnt for ambulatory dysfunction and pain control. The patient denies hitting head or LOC. Denies numbness or tingling to b/L LE. Currently complaining of right groin pain and generalized pain in her back with ambulation. Allergies Allergy/AdvReac Type Severity Reaction Status Date / Time Barbiturates Allergy Severe Unknown Verified 06/25/19 09:47 belladonna alkaloids Allergy Severe Unknown Verified 06/25/19 09:47 dicyclomine Allergy Severe Unknown Verified 06/25/19 09:47 azithromycin Allergy Mild Hives Unverified 12/29/18 13:31 mivacurium Allergy Mild Unknown Verified 06/25/19 09:47 Penicillins Allergy Mild AMOXICILLIN Verified 12/29/18 13:31 phenobarbital Allergy Mild Unknown Verified 06/25/19 09:47 Quinolones Allergy Mild Unknown Verified 06/25/19 09:47 amoxicillin Allergy Unknown rash Unverified 12/29/18 13:31 Nitrate Analogues Allergy Unknown Unknown Verified 06/25/19 09:47 nitrofurantoin Allergy Unknown Unknown Verified 06/25/19 09:47 nitroglycerin Allergy Unknown Unknown Verified 06/25/19 09:47 Sulfa (Sulfonamide Allergy Unknown sulfa Verified 12/29/18 13:31 Antibiotics) Home Medications Home Medications Medication Instructions Recorded Confirmed Type Elmiron 100 mg PO BID 12/29/18 06/24/19 History Premarin 1 applic TOPICAL 3XWK PRN 12/29/18 06/24/19 History aspirin 81 mg PO DAILY 12/29/18 06/24/19 History atorvastatin [Lipitor] 10 mg PO QAM 12/29/18 06/24/19 History bupropion HCl [Wellbutrin XL] 300 mg PO QAM 12/29/18 06/24/19 History gabapentin 300 mg PO HS 12/29/18 06/24/19 History lorazepam [Ativan] 0.5 mg PO Q8H PRN 12/29/18 06/24/19 History meclizine 25 mg PO TID PRN 12/29/18 06/24/19 History melatonin 10 mg PO HS 12/29/18 06/24/19 History potassium chloride [Klor-Con M20] 20 meq PO DAILY 12/29/18 06/24/19 History promethazine 25 mg PO .Q4-6HRS PRN 12/29/18 06/24/19 History venlafaxine [Effexor XR] 300 mg PO QAM 12/29/18 06/24/19 History baclofen 10 mg PO BID PRN 06/24/19 06/24/19 History benzonatate 100 mg PO TID PRN 06/24/19 06/24/19 History diclofenac sodium 4 g TOPICAL QID PRN 06/24/19 06/24/19 History lisinopril 40 mg PO DAILY 06/24/19 06/24/19 History loperamide See Rx Instructions .ROUTE 06/24/19 06/24/19 History .COMPLEX PRN MDD 16 MG/DAY oxycodone 5 mg PO Q6H PRN 06/24/19 06/24/19 History ropinirole 0.25 mg PO HS 06/24/19 06/24/19 History simethicone 125 mg PO TID PRN 06/24/19 06/24/19 History Patient History Medical History Depression (Chronic) Migraines (Chronic) Tobacco abuse (Chronic) OCD (obsessive compulsive disorder) (Chronic) CKD (chronic kidney disease), stage III (Chronic) IBS (irritable bowel syndrome) (Chronic) HTN (hypertension) (Chronic) Surgical History History of total abdominal hysterectomy (Chronic) H/O hernia repair (Chronic) History of back surgery (Chronic) H/O colonoscopy (Chronic) H/O sinus surgery (Chronic) Family History Other Diabetes Hypertension Social History Preferred Language: Pashto Communication Ability: Effective Environmental Permitting Specialist Required: No Beliefs That Will Affect Care: None Current Living Situation: Family Current Living Situation Comment: daughter Feels Safe at Home: Yes Safety Concerns: Feels Safe At This Time Smoking Status: Current every day smoker Tobacco Type: cigarettes ; Cigarettes Per Day: 1 pack ; Hx Alcohol Use: Yes Alcohol type: wine Hx Substance Use: No Review of Systems Review of Systems: All systems reviewed & are unremarkable except as noted in HPI & below Constitutional: as per Subjective / HPI Physical Exam Physical Exam: RLE NVSI +EHL/FHL/TA/GS SILT grossly, +2 DP pulse, compartments soft NT, pain in growin with ROM of hip. LLE NVSI +EHL/FHL/TA/GS SILT grossly, +2 DP pulse, compartments soft NT Constitutional: WD/WN, vitals as above Results & Data Vital Signs (Past 12 Hours) Vital Signs Temp Pulse Pulse Resp BP BP Pulse Ox 06/25/19 19:08 36.5 C 104 H 18 116/71 97 06/25/19 15:11 36.4 C L 93 H 18 113/72 90 06/25/19 11:32 36.7 C 74 18 132/87 95 06/25/19 09:[address] pelvis wo con CLINICAL HISTORY: 64 years-old Female presenting with persistent pelvic pain s/p fall 2 weeks ago. TECHNIQUE: Multidetector CT of the pelvis was performed without the use of intravenous contrast. IV contrast: None. One or more dose lowering techniques were used consistent with the principles of ALARA (as low as reasonably achievable), including automatic exposure control, mA or kV adjustment to individual patient size, and/or use of iterative reconstruction. COMPARISON: 12/29/2018. CT DOSE (mGy.cm): The estimated cumulative dose is 660.85 mGy.cm. FINDINGS: Rn Cardiovascular topogram: Gaseous distended bowel. Bilateral acute appearing sacral alar fractures greater on the right. These are lateral to the neural foramina. Severe underlying osteopenia. Sacroiliac joints remain congruent. Hip joints congruent. Comminuted fracture of the right superior and inferior pubic rami in a parasymphyseal location. This is intra- articular at the symphysis pubis articulation. No femoral neck fracture. There is also acute angulation of the sacrum in the AP direction at the level of S3 indicating a transverse component of the sacral fracture. Bilateral transverse process fractures of L5 also noted. Limited evaluation of the soft tissues demonstrates gas and fluid distended small bowel. The colon is decompressed. No free fluid or gas. Atherosclerosis. No gross lymphadenopathy. Nonspecific body wall edema. No evidence of an extraperitoneal pelvic hematoma. IMPRESSION: 1. Bilateral sacral alar fractures. 2. Bilateral transverse process fractures of L5. 3. Comminuted parasymphyseal fractures of the right inferior and superior pubic rami. (1) Pelvic fracture Encounter type: initial encounter Fracture alignment: without disruption of pelvic ring Fracture type: closed Pelvic bone location: multiple parts Qualified Code(s): S32.82XA - Multiple fractures of pelvis without disruption of pelvic ring, initial encounter for closed fracture
[2019-06-25] MEDS: GABAPENTIN 300 MG CAP PO SCH (20:54)
[2019-06-26] MEDS: MoRPHine SULFATE 4 MG/ML 1 ML CARP\\VIAL IV PRN ×5 (01:31→18:52)
[2019-06-26] MEDS: LORazepam 1 MG TAB PO PRN (01:34)
[2019-06-26 08:18] LABS: Calcium 7.8 mg/dl (8.5-10.1); Creatinine Clr Calc Pharmacy 76.4 ml/min; Est GFR (African American) 106.9; Est GFR (Non-African American) 92.2
[2019-06-26 08:21] LABS: T4 Free Thyroxine 1.06 ng/dl (0.8-1.6)
[2019-06-26] MEDS: VENLAFAXINE HCL XR 150 MG CAPXR PO SCH (08:52)
[2019-06-26] MEDS: LISINOPRIL 40 MG TAB PO SCH (08:52)
[2019-06-26] MEDS: BuPROPion XL 300 MG TABCR PO SCH (08:53)
[2019-06-26] MEDS: ATORVASTATIN 10 MG TAB PO SCH (08:53)
[2019-06-26] MEDS: DOCUSATE SODIUM/SENNA 50/8.6MG TAB PO SCH (08:53)
[2019-06-26] MEDS: PENTOSAN POLYSULFATE SODIUM 100 MG CAP PO SCH ×2 (08:53→20:13)
[2019-06-26] MEDS: POTASSIUM CHLORIDE 20 MEQ TABCR PO SCH (08:54)
[2019-06-26] MEDS: POLYETHYLENE (MIRALAX) 17 GM PACK PO SCH (08:55)
[2019-06-26] MEDS: HYDROCODONE/ACETAMOPHEN 5/325MG TAB PO PRN ×3 (08:57→20:52)
[2019-06-26] MEDS ORDERED: POLYETHYLENE (MIRALAX) 17 GM PACK PO SCH (09:00)
--- NOTE | 2019-06-26 14:46 | Hospitalist Progress Note ---
Date of Service June 26, 2019 Assessment & Plan (1) Pelvic fracture: Bilateral sacral alar fractures Toradol 30 mg every 6 hours as needed, IV Tylenol 1000 mg every 8 hours Orthopedic consultation: Appreciate input and recommendation. 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, question from psych meds Sodium on admission is 127 IV fluid NSS given Sodium remains at 127 Sodium level went up to 131 today that is 06/26 Mild troponin elevation Patient without signs of ischemia or infarct Troponin remained flat 0.05- 0.07 - 0.05 Echocardiogram : Mildly dilated LV chamber size with mild concentric LVH, severely reduced LV systolic function with severe global hypokinesis with EF of 15 to 20%, grade 2 diastolic dysfunction, right ventricular cavity is normal with reduced RV systolic function by TA PSC, moderate mitral regurgitation, mild tricuspid regurgitation and a small circumferential peritoneal effusion without hemodynamic significance Toradol has been discontinued Cardiology consulted Hypertension Continue lisinopril Chronic pain syndrome Oxycodone 5 mg every X hours as needed at home Continue this for now, pain management consultation placed Management per #1 Depression and anxiety Continue usual medications Including lorazepam as needed Anemia , chronic Stable, hemoglobin at baseline DVT prophylaxis Lovenox 40mg hines CODE STATUS full code per patient Disposition May need inpatient rehab Subjective 06/26 Patient was seen and examined in medical telemetry She has been complaining of more pain in the pelvis especially during physical therapy She wants to have more pain medications He denies any symptoms of shortness of breath and/or chest pain at rest Review of Systems Review of Systems: All systems reviewed and are unremarkable except as noted below Cardiovascular: no chest pain and no dyspnea Musculoskeletal: Pain in the pelvis with movements of the hip joints and lower extremities Physical Exam Physical Exam: Lying in bed with some pain in the pelvis Constitutional: well developed, well nourished, + acute distress (Pain in the right groin and pelvisc area) and + thin Eyes: PERRL, conjunctivae normal, anicteric sclerae EOM intact bilaterally ENMT: external ear and nose normal, oropharynx normal Ears: no external ear abnormality Nose: no external nose abnormality Mouth: + dry oral mucous membranes Neck: trachea midline, no thyromegaly no nuchal rigidity Respiratory: normal respiratory effort; no respiratory distress Auscultation: + diminished lung sounds Cardiovascular: Rate/Rhythm: regular rhythm and + tachycardic Extremities: no edema Gastrointestinal (Abdomen): Inspection/Auscultation: normal bowel sounds Percussion/Palpation: abdomen soft; abdomen nontender Musculoskeletal: Extremities: strength 5/5 throughout Pelvic pain with movement of the hip joints Skin: no rashes, warm and dry Neurologic: moves all extremities; no focal motor deficits Psychiatric: A+Ox3, euthymic affect Results & Data Vital Signs (Past 12 Hours) Vital Signs Temp Pulse Pulse Resp BP BP Pulse Ox 06/26/19 11:43 36.8 C 101 H 18 107/64 90 06/26/19 07:36 36.8 C 74 18 102/69 93 06/26/19 07:07 90 06/26/19 04:11 36.6 C 91 H 18 113/72 94 Laboratory Results BMP 06/25/19 06/26/19 18:00 07:12 Sodium 127 L 131 L Potassium 4.3 4.0 Chloride 98 104 Carbon Dioxide 21 21 BUN 13 11 Creatinine 0.74 0.67 Glucose 77 71 Calcium 8.2 L 7.8 L Medications Administered Current Inpatient Medications Hydrocodone Bitart/Acetaminophen ([place]re[place] 5/325) 1 tab PO Q4H PRN PRN Reason: Pain Stop: 07/08/19 22:20 Last Admin: 06/26/19 08:57 Dose: 1 tab Documented by: Atorvastatin Calcium (Lipitor) 10 mg PO [facility] Stop: 07/25/19 08:59 Last Admin: 06/26/19 08:53 Dose: 10 mg Documented by: Baclofen (Lioresal) 10 mg PO Q6H PRN PRN Reason: Muscle Spasm Stop: 07/24/19 21:01 Last Admin: 06/25/19 16:22 Dose: 10 mg Documented by: Benzonatate (Tessalon Perle) 100 mg PO TID PRN PRN Reason: Cough Stop: 07/24/19 21:01 Bupropion HCl (Well[facility]Xl) [facility] Stop: 07/25/19 08:59 Last Admin: 06/26/19 08:53 Dose: 300 mg Documented by: Calcium Carbonate (Tums) 500 mg PO QID PRN PRN Reason: Heartburn Stop: 07/25/19 07:59 Last Admin: 06/25/19 16:56 Dose: 500 mg Documented by: Enoxaparin Sodium (Lovenox) 40 mg SQ Q24H [facility]ACE Stop: 07/25/19 17:29 Last Admin: 06/25/19 18:09 Dose: 40 mg Documented by: Gabapentin (Neurontin) 300 mg PO HS K[facility]ACE Stop: 07/24/19 21:01 Last Admin: 06/25/19 20:54 Dose: 300 mg Documented by: Ketorolac Tromethamine (Toradol) 30 mg IV Q6H PRN PRN Reason: Pain Stop: 06/29/19 21:01 Last Admin: 06/24/19 21:52 Dose: 30 mg Documented by: Lisinopril (Zestril) 40 mg PO DAILY K[facility]ACE Stop: 07/25/19 08:59 Last Admin: 06/26/19 08:52 Dose: 40 mg Documented by: Lorazepam (Ativan) 0.5 mg PO Q8H PRN PRN Reason: Anxiety Stop: 07/24/19 21:01 Last Admin: 06/26/19 01:34 Dose: 0.5 mg Documented by: Meclizine HCl (Antivert) 25 mg PO TID PRN PRN Reason: Dizziness Stop: 07/24/19 21:01 Methylnaltrexone Alcalde (Relistor) 12 mg SQ Q2D PRN; Protocol PRN Reason: Constipation Stop: 07/25/19 09:59 Morphine Sulfate (Morphine Sulfate) 4 mg IV Q4H PRN PRN Reason: Pain Stop: 07/08/19 22:20 Last Admin: 06/26/19 14:45 Dose: 4 mg Documented by: Pentosan Polysulfate Sodium (Elmiron) 100 mg PO BID K[facility]ACE Stop: 07/24/19 21:01 Last Admin: 06/26/19 08:53 Dose: 100 mg Documented by: Polyethylene Glycol (Miralax Powder Packet) 17 gm PO DAILY K[facility]ACE Stop: 07/25/19 17:59 Last Admin: 06/26/19 08:55 Dose: 17 gm Documented by: Potassium Chloride (Klor-Con M20) 20 meq PO DAILY KANDACE Stop: 07/25/19 08:59 Last Admin: 06/26/19 08:54 Dose: 20 meq Documented by: Promethazine HCl (Phenergan) 25 mg PO .Q4-6HRS PRN PRN Reason: Nausea And Vomiting Stop: 07/24/19 21:01 Last Admin: 06/25/19 17:00 Dose: 25 mg Documented by: Senna/Docusate Sodium (Senokot S) 1 tab PO QAM [facility] Stop: 07/25/19 08:59 Last Admin: 06/26/19 08:53 Dose: 1 tab Documented by: Venlafaxine HCl (Effexor Extended Release) 300 mg PO QAM [facility] Stop: 07/25/19 08:59 Last Admin: 06/26/19 08:52 Dose: 300 mg Documented by: (1) Pelvic fracture Encounter type: initial encounter Fracture alignment: without disruption of pelvic ring Fracture type: closed Pelvic bone location: multiple parts Qualified Code(s): S32.82XA - Multiple fractures of pelvis without disruption of pelvic ring, initial encounter for closed fracture
[2019-06-26 16:36] LABS: BUN Creatinine Ratio 13.9 (10-20); Calcium 7.8 mg/dl (8.5-10.1); Creatinine Clr Calc Pharmacy 71.1 ml/min; Est GFR (African American) 101.9; Est GFR (Non-African American) 87.9; Potassium 4.4 mmol/L (3.5-5.1)
--- NOTE | 2019-06-26 17:30 | Nephrology Progress Note ---
Date of Service June 26, 2019 Assessment & Plan (1) Hyponatremia: -improved to 132 this am. suspect she has multifactorial hyponatremia with more SIADH type picture in setting of nsaid and other meds like venlafaxine, bupropion. but now w/ profound systolic HF > cardiology suspects catecholamine induced [employer] -check CXR to eval fluid status -cont to hold IVF -eventually may need FR and diuretics but defer for now to cardiology on this -recheck bmp in am -nsaids now on hold; follow cardiology and pain mgt recs (2) Pelvic fracture: multiple fractures including BL sacral alar frxs, L5 BL transverse process fractures -per ortho and pain mgt Subjective had TTE for elevated troponin>> EF 15-20% w/ mild concentric LVH, severely reduced LV and reduced RV function - cardiology c/s pending endorses severe home stressors but states these will improve in next few mos Review of Systems Review of Systems: All systems reviewed & are unremarkable except as noted in HPI & below Constitutional: + fatigue Eyes: no worsening vision Ear, Nose, Mouth, Throat: no dry mouth Respiratory: no cough, no dyspnea and no dyspnea on exertion Cardiovascular: no chest pain, no palpitations, no lightheadedness and no edema Gastrointestinal: + early satiety; no abdominal pain and no change in bowel habits Genitourinary: no dysuria, no urinary frequency and no urinary hesitancy Musculoskeletal: + back pain and + joint pain states pelvis pain uncontrolled, "I need something stronger" Endocrine: + fatigue Hematologic / Lymphatic: no easy bleeding Physical Exam Constitutional: well developed and + thin; no acute distress on RA Eyes: EOM intact bilaterally ENMT: Ears: no external ear abnormality Nose: no external nose abnormality Mouth: + dry oral mucous membranes Neck: no nuchal rigidity Respiratory: normal respiratory effort Auscultation: + diminished lung sounds Cardiovascular: Rate/Rhythm: regular rhythm and + tachycardic Extremities: no edema Gastrointestinal (Abdomen): Inspection/Auscultation: normal bowel sounds Percussion/Palpation: abdomen soft; abdomen nontender Musculoskeletal: Extremities: strength 5/5 throughout Skin: no rashes, warm and dry Neurologic: ceja, fluent speech no tremor Psychiatric: A+Ox3, euthymic affect Results & Data Vital Signs (Past 12 Hours) Vital Signs Temp Pulse Pulse Resp BP BP Pulse Ox 06/26/19 15:10 36.9 C 106 H 18 110/66 92 06/26/19 11:43 36.8 C 101 H 18 107/64 90 06/26/19 07:36 36.8 C 74 18 102/69 93 06/26/19 07:07 90 Laboratory Results Abnormal lab results 06/25/19 06/25/19 06/25/19 Range/Units 18:00 18:00 18:15 Sodium 127 L (136-145) mmol/L Osmolality 258 L (280-300) mOsm/kg Calcium 8.2 L (8.5-10.1) mg/dl TSH 6.520 H (0.300-4.500) uIu/ml Urine Osmolality 279 L (500-800) mOsm/kg 06/26/19 06/26/19 Range/Units 07:12 16:10 Sodium 131 L 132 L (136-145) mmol/L Osmolality (280-300) mOsm/kg Calcium 7.8 L 7.8 L (8.5-10.1) mg/dl TSH (0.300-4.500) uIu/ml Urine Osmolality (500-800) mOsm/kg (1) Pelvic fracture Encounter type: initial encounter Fracture alignment: without disruption of pelvic ring Fracture type: closed Pelvic bone location: multiple parts Qualified Code(s): S32.82XA - Multiple fractures of pelvis without disruption of pelvic ring, initial encounter for closed fracture
--- NOTE | 2019-06-26 18:05 | Consultation Report ---
DATE OF CONSULTATION: 06/24/2019 CONSULTATION REQUESTED BY: Dr. Brunner. REASON FOR CONSULTATION: Reduced LV systolic function. HISTORY OF PRESENT ILLNESS: Ms. Patrick is a very anxious 64-year-old woman who presented to [facility] on 06/24/2019 with complaints of worsening pain. The patient reports that she had a mechanical fall in the first week of May at home. She states that she was walking to the bathroom in the middle of the night and mechanically fell. She was initially seen by her primary care physician who found compression fracture and was continued on her home pain regimen. She states the pain worsened to the point where she could not stand it and came into the Emergency Room on 06/24/2019. The patient also notes that she has been having significant pain to the point where she is not able to sleep at night. She states that she will sleep for 1-hour max and then wake up and does not really sleep much at all. She states that she has also been going through significant amount of mental distress lately, stating that her daughter is currently incarcerated for a crime she did not commit and this has understandably been causing her a great deal of distress. Upon arrival to [facility], she was treated for her pain and a troponin level was drawn in the Emergency Room for some reason and it was mildly elevated and routine echocardiogram was performed. Echocardiogram showed severely reduced LV systolic function and cardiology consultation was requested. The patient denies any cardiac symptoms in the recent past, specifically, denied experiencing any chest pain, shortness of breath, palpitations, lightheadedness, dizziness, or syncope. She states all of her discomfort is in her back and hips and again she states that she is under a great deal of stress. Upon further questioning, she admits that she has seen a psychologist in the past but found that talking about her stress and anxiety was only more troublesome for her and she did not find counseling beneficial. PAST SURGICAL HISTORY: 1. Colonoscopies. 2. Upper endoscopy. 3. Exploratory laparotomy with 3 abdominal wall adhesions. 4. Back surgeries. 5. Sinus surgery. 6. Total abdominal hysterectomy. 7. Hernia repair. MEDICAL ILLNESSES: 1. Chronic pain. 2. OCD. 3. Chronic tobacco abuse. 4. History of drug-induced ileus. 5. Chronic migraines. 6. Major depression. 7. Anxiety. 8. Stage III chronic kidney disease. FAMILY HISTORY: Noncontributory. SOCIAL HISTORY: The patient is a lifelong smoker and smokes half pack a day. Denies any alcohol or recreational drug use. She is and she is not employed, currently on disability. REVIEW OF SYSTEMS: As per HPI, all other review of systems reviewed and negative at this time. ALLERGIES: 1. BARBITURATES. 2. BELLADONNA. 3. DICYCLOMINE. 4. AZITHROMYCIN. 5. ____. 6. PENICILLIN. 7. PHENOBARBITAL. 8. QUINOLONES. 9. AMOXICILLIN. 10. NITRATE ANALOGUES. 11. NITROFURANTOIN. 12. NITROGLYCERIN. 13. SULFA. MEDICATIONS AN OUTPATIENT: 1. Oxycodone p.r.n. 2. Lipitor 10 mg daily. 3. Ativan. 4. Requip. 5. Iron sulfate. 6. Baclofen. 7. Effexor. 8. Wellbutrin. 9. Lisinopril 40 mg daily. 10. Neurontin. 11. Aspirin 81 mg daily. PHYSICAL EXAMINATION: VITALS: Temperature 36.8, pulse 74, respiratory rate 12, blood pressure 102/69. GENERAL: Awake, alert, oriented x3 in no acute distress. HEENT: Normocephalic, atraumatic. Pupils equal, round, reactive to light and accommodation. Extraocular muscles intact. Anicteric sclerae. Moist mucous membranes. NECK: No JVD, no bruit. CARDIOVASCULAR: Regular. Positive S4. Normal S1 and S2. No S3. A 3/6 holosystolic ejection murmur greatest at the left sternal border, midclavicular line with radiation to the left axilla. No rubs. PULMONARY: Poor air movement bilaterally, but no rales, rhonchi, or wheezing. ABDOMEN: Bowel sounds x4, soft. No rebound, guarding, tenderness. No organomegaly. EXTREMITIES: No clubbing, cyanosis or edema. +2 pedal pulses bilaterally. SKIN: Warm and dry. TEST RESULTS: A 2D echocardiogram was read as mildly dilated LV chamber size with mild concentric LVH, severely reduced LV systolic function with severe global hypokinesis, EF 15-20%. Grade 2 diastolic dysfunction, normal RV chamber size with reduced RV systolic function by TAPSE. Moderate mitral regurgitation, mild tricuspid regurgitation, small circumferential pericardial effusion without hemodynamic significance. LABORATORY STUDIES OF SIGNIFICANCE: 0.05, followed by 0.07, followed by 0.06. IMPRESSION: 1. Newly discovered biventricular failure, highly suspicious for catecholamine-induced cardiomyopathy. 2. Chronic pain with lumbar compression fracture and pelvic fracture. 3. Tobacco abuse. 4. Anxiety. 5. Depression. RECOMMENDATIONS: It is my pleasure to see Ms. Patrick in consultation today. 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 I will decrease her lisinopril from 40 to 20 mg daily and start metoprolol tartrate 12.5 mg b.i.d. to see if she tolerates. I will also take the liberty of requesting psychiatric evaluation to help adjust her anxiety medications. Given her lack of symptoms and current clinical status, I do not believe an ischemic evaluation is necessary as an inpatient and will complete with Lexiscan nuclear stress test as an outpatient. The patient is in agreement with the above plan.
[2019-06-26] MEDS: ENOXAPARIN INJ 40 MG/0.4 ML SYR SQ SCH (18:52)
[2019-06-26] MEDS: GABAPENTIN 300 MG CAP PO SCH (20:13)
[2019-06-26] MEDS: CALCIUM CARBONATE 500 MG CHEWABLE TAB PO PRN (20:14)
[2019-06-26] MEDS ORDERED: CALCIUM CARBONATE 500 MG CHEWABLE TAB PO PRN (20:19)
[2019-06-27] MEDS: MoRPHine SULFATE 4 MG/ML 1 ML CARP\\VIAL IV PRN ×3 (00:41→17:19)
[2019-06-27 07:18] LABS: Basophils # (auto) 0.02 K/uL (0-0.2); Basophils % (auto) 0.2 %; Eosinophils % (auto) 1.2 %; Hematocrit (blood only) 26.3 % (37-47); Hemoglobin 8.5 g/dL (12.0-16.0); Immature Granulocytes # (auto) 0.01 K/uL (0.00-0.02); Immature Granulocytes % (auto) 0.1 %; Lymphocytes # (auto) 0.81 K/uL (1.2-3.4); Lymphocytes % (auto) 9.9 %; Mean Corpuscular Hemoglobin 26.5 pg (25-34); Mean Corpuscular Hgb Conc 32.3 g/dL (32-36); Mean Corpuscular Volume 81.9 fL (80-100); Mean Platelet Volume 9.1 fL (7.4-10.4); Monocytes # (auto) 0.84 K/uL (0.11-0.59); Monocytes % (auto) 10.2 %; Neutrophils # (auto) 6.42 K/uL (1.4-6.5); Neutrophils % (auto) 78.4 %; Platelet Count 600 K/uL (130-400); RDW Coefficient of Variation 15.3 % (11.5-14.5); RDW Standard Deviation 45.6 fL (36.4-46.3); Red Blood Count 3.21 M/uL (4.2-5.4)
[2019-06-27 07:53] LABS: BUN Creatinine Ratio 14.3 (10-20); Calcium 7.8 mg/dl (8.5-10.1); Creatinine Clr Calc Pharmacy 81.2 ml/min; Est GFR (African American) 109.1; Est GFR (Non-African American) 94.1; Magnesium 1.9 mg/dl (1.8-2.4); Potassium 4.1 mmol/L (3.5-5.1)
[2019-06-27] MEDS: LISINOPRIL 20 MG TAB PO SCH (08:52)
[2019-06-27] MEDS: POTASSIUM CHLORIDE 20 MEQ TABCR PO SCH (08:52)
[2019-06-27] MEDS: PENTOSAN POLYSULFATE SODIUM 100 MG CAP PO SCH ×2 (08:52→20:13)
[2019-06-27] MEDS: ATORVASTATIN 10 MG TAB PO SCH (08:52)
[2019-06-27] MEDS: BuPROPion XL 300 MG TABCR PO SCH ×2 (08:53→09:08)
[2019-06-27] MEDS: VENLAFAXINE HCL XR 150 MG CAPXR PO SCH (08:53)
[2019-06-27] MEDS: POLYETHYLENE (MIRALAX) 17 GM PACK PO SCH (08:54)
[2019-06-27] MEDS: DOCUSATE SODIUM/SENNA 50/8.6MG TAB PO SCH (08:54)
[2019-06-27] MEDS ORDERED: METOPROLOL TARTRATE 25 MG TAB PO SCH ×2 (09:00→21:00)
[2019-06-27] MEDS: HYDROCODONE/ACETAMOPHEN 5/325MG TAB PO PRN ×2 (10:33→20:10)
--- NOTE | 2019-06-27 10:56 | Hospitalist Progress Note ---
Date of Service June 27, 2019 Assessment & Plan (1) Pelvic fracture: Bilateral sacral alar fractures Toradol 30 mg every 6 hours as needed, IV Tylenol 1000 mg every 8 hours Orthopedic consultation: Appreciate input and recommendation. No surgical intervention Physical therapy consultation: Ongoing Pain management service consultation given recent history of ileus related to chronic oxycodone use: Recommend to continue usual oxycodone, LSO brace, daily bowel regimen, may use Relistor if needed No additional pain medications prescribed PT recommended home Oral pain medications have been increased Likely be discharged today Bilateral transverse process fracture L5 orthopedic spine consultation ordered Conservative management Hyponatremia, likely secondary to dehydration Multifactorial, secondary to volume depletion, SIADH from pain, question from psych meds Sodium on admission is 127 IV fluid NSS given Sodium remains at 127 Sodium level went up to 131 today that is 06/26 Sodium level has been almost normal to 133 on 06/27 Mild troponin elevation Patient without signs of ischemia or infarct Troponin remained flat 0.05- 0.07 - 0.05 Echocardiogram : Mildly dilated LV chamber size with mild concentric LVH, severely reduced LV systolic function with severe global hypokinesis with EF of 15 to 20%, grade 2 diastolic dysfunction, right ventricular cavity is normal with reduced RV systolic function by TA PSC, moderate mitral regurgitation, mild tricuspid regurgitation and a small circumferential peritoneal effusion without hemodynamic significance Toradol has been discontinued Cardiology consulted-appreciate input and recommendation Hypertension Continue lisinopril Chronic pain syndrome Oxycodone 5 mg every X hours as needed at home Continue this for now, pain management consultation placed Management per #1 Depression and anxiety Continue usual medications Including lorazepam as needed Appreciate psychiatric input and recommendation Anemia , chronic Stable, hemoglobin at baseline DVT prophylaxis Lovenox 40mg hines CODE STATUS full code per patient Disposition Likely discharge home this afternoon (2) Cardiomyopathy: Echo:Echocardiogram : Mildly dilated LV chamber size with mild concentric LVH, severely reduced LV systolic function with severe global hypokinesis with EF of 15 to 20%, grade 2 diastolic dysfunction, right ventricular cavity is normal with reduced RV systolic function by TA PSC, moderate mitral regurgita tion, mild tricuspid regurgitation and a small circumferential peritoneal effusion without hemodynamic significance 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 Appreciate cardiology input and recommendation Small dose of beta-beatriz added Will have Randall as an outpatient Subjective 06/26 Patient was seen and examined in medical telemetry She has been complaining of more pain in the pelvis especially during physical therapy She wants to have more pain medications He denies any symptoms of shortness of breath and/or chest pain at rest 06/27 The patient was seen and examined in medical floor She has been complaining of ongoing back pain and pain in the groin She has been feeling better compared with yesterday Denies any cardiac symptoms Review of Systems Review of Systems: All systems reviewed and are unremarkable except as noted below Musculoskeletal: + back pain (Without any radiation of pain) No significant pain with movements of the lower extremities including the hip joints Neurologic: Alert, awake and oriented x3. Physical Exam Physical Exam: Lying in bed comfortably Constitutional: well developed, well nourished, + ill appearing and + thin; no acute distress Eyes: PERRL, conjunctivae normal, anicteric sclerae EOM intact bilaterally ENMT: external ear and nose normal, oropharynx normal Ears: no external ear abnormality Nose: no external nose abnormality Mouth: + dry oral mucous membranes Neck: trachea midline, no thyromegaly no nuchal rigidity Respiratory: normal respiratory effort; no respiratory distress Auscultation: + diminished lung sounds Cardiovascular: Rate/Rhythm: regular rhythm and + tachycardic Extremities: no edema Gastrointestinal (Abdomen): Inspection/Auscultation: normal bowel sounds Percussion/Palpation: abdomen soft; abdomen nontender Musculoskeletal: Extremities: strength 5/5 throughout Skin: no rashes, warm and dry Neurologic: moves all extremities; no focal motor deficits Psychiatric: A+Ox3, euthymic affect Mood: + depressed mood and + anxious mood Lymphatic: no cervical or axillary lymphadenopathy Results & Data Vital Signs (Past 12 Hours) Vital Signs Temp Pulse Pulse Resp BP BP Pulse Ox 06/27/19 07:34 36.8 C 78 20 127/78 96 06/27/19 07:15 103 H 06/27/19 04:18 36.8 C 95 H 18 117/71 93 06/27/19 00:36 106 H 06/26/19 23:27 36.7 C 103 H 20 116/70 95 Laboratory Results Short CBC 06/27/19 Range/Units 06:55 WBC 8.20 (4.8-10.8) K/uL Hgb 8.5 L (12.0-16.0) g/dL Hct 26.3 L (37-47) % Plt Count 600 H (130-400) K/uL BMP 06/26/19 06/27/19 16:10 06:55 Sodium 132 L 133 L Potassium 4.4 4.1 Chloride 104 106 Carbon Dioxide 21 22 BUN 10 9 Creatinine 0.72 0.63 Glucose 78 81 Calcium 7.8 L 7.8 L Medications Administered Current Inpatient Medications Hydrocodone Bitart/Acetaminophen ([place] 5/325) 2 tab PO Q4H PRN PRN Reason: Pain Stop: 07/08/19 22:20 Last Admin: 06/27/19 10:33 Dose: 2 tab Documented by: Atorvastatin Calcium (Lipitor) 10 mg PO QAM [facility] Stop: 07/25/19 08:59 Last Admin: 06/27/19 08:52 Dose: 10 mg Documented by: Baclofen (Lioresal) 10 mg PO Q6H PRN PRN Reason: Muscle Spasm Stop: 07/24/19 21:01 Last Admin: 06/25/19 16:22 Dose: 10 mg Documented by: Benzonatate (Tessalon Perle) 100 mg PO TID PRN PRN Reason: Cough Stop: 07/24/19 21:01 Bupropion HCl (Wellbutrin-Xl) 300 mg PO QAM [facility] Stop: 07/25/19 08:59 Last Admin: 06/27/19 09:08 Dose: Not Given Documented by: Calcium Carbonate (Tums) 1,000 mg PO QID PRN PRN Reason: Heartburn Stop: 07/25/19 07:59 Last Admin: 06/26/19 20:48 Dose: 1,000 mg Documented by: Enoxaparin Sodium (Lovenox) 40 mg SQ Q24H [facility] Stop: 07/25/19 17:29 Last Admin: 06/26/19 18:52 Dose: 40 mg Documented by: Gabapentin (Neurontin) 300 mg PO HS [facility] Stop: 07/24/19 21:01 Last Admin: 06/26/19 20:13 Dose: 300 mg Documented by: Ketorolac Tromethamine (Toradol) 30 mg IV Q6H PRN PRN Reason: Pain Stop: 06/29/19 21:01 Last Admin: 06/24/19 21:52 Dose: 30 mg Documented by: Lisinopril (Zestril) 20 mg PO DAILY [facility] Stop: 07/27/19 08:59 Last Admin: 06/27/19 08:52 Dose: 20 mg Documented by: Lorazepam (Ativan) 0.5 mg PO Q8H PRN PRN Reason: Anxiety Stop: 07/24/19 21:01 Last Admin: 06/26/19 01:34 Dose: 0.5 mg Documented by: Meclizine HCl (Antivert) 25 mg PO TID PRN PRN Reason: Dizziness Stop: 07/24/19 21:01 Methylnaltrexone [place] (Relistor) 12 mg SQ Q2D PRN; Protocol PRN Reason: Constipation Stop: 07/25/19 09:59 Metoprolol Tartrate (Lopressor) 12.5 mg PO BID [facility] Stop: 07/27/19 08:59 Last Admin: 06/27/19 08:51 Dose: 12.5 mg Documented by: Morphine Sulfate (Morphine Sulfate) 4 mg IV Q4H PRN PRN Reason: Pain Stop: 07/08/19 22:20 Last Admin: 06/27/19 07:45 Dose: 4 mg Documented by: Pentosan Polysulfate Sodium (Elmiron) 100 mg PO BID [facility] Stop: 07/24/19 21:01 Last Admin: 06/27/19 08:52 Dose: 100 mg Documented by: Polyethylene Glycol (Miralax Powder Packet) 17 gm PO DAILY [facility] Stop: 07/25/19 17:59 Last Admin: 06/27/19 08:54 Dose: 17 gm Documented by: Potassium Chloride (Klor-Con M20) 20 meq PO DAILY [facility] Stop: 07/25/19 08:59 Last Admin: 06/27/19 08:52 Dose: 20 meq Documented by: Promethazine HCl (Phenergan) 25 mg PO .Q4-6HRS PRN PRN Reason: Nausea And Vomiting Stop: 07/24/19 21:01 Last Admin: 06/25/19 17:00 Dose: 25 mg Documented by: Senna/Docusate Sodium ([facility]okot S) [facility] [place]: 07/25/19 08:59 Last Admin: 06/27/19 08:54 Dose: 1 tab Documented by: Venlafaxine HCl (Effexor Extended Release) 300 mg PO QAM [facility] Stop: 07/25/19 08:59 Last Admin: 06/27/19 08:53 Dose: 300 mg Documented by: (1) Pelvic fracture Encounter type: initial encounter Fracture alignment: without disruption of pelvic ring Fracture type: closed Pelvic bone location: multiple parts Qualified Code(s): S32.82XA - Multiple fractures of pelvis without disruption of pelvic ring, initial encounter for closed fracture
[2019-06-27] MEDS: LORazepam 1 MG TAB PO PRN ×2 (11:42→21:16)
--- NOTE | 2019-06-27 13:07 | Psychiatric Consultation ---
Date of Consultation June 27, 2019 Impression / Recommendations (1) Generalized anxiety disorder: -Continue venlafaxine XR 300 mg daily, gabapentin 300 mg at bedtime, and lorazepam 0.5 hours every 8 hours as needed. -Add buspirone 5 mg 3 times daily for adjunctive treatment of anxiety. This will likely need titrated further as an outpatient. Reviewed risks, benefits, and side effects with the patient. If this is ineffective, consider titrating gabapentin further. -Patient agreed to referral for outpatient therapy which will be facilitated by the liaison nurse, likely to [facility] in [place]. -I will ask the liaison to ensure her records are sent to her PCP, Dr. Shrestha, who is prescribing her psychotropic medications. Thank you for the consult, and please call with any further questions. Present on Admission?: Yes Risk Factors Assessment Do You Have Access To A Gun?: No Psych History Identifying Data 64-year-old female with a history of anxiety treated by her PCP who is hospitalized for pelvic and L5 fractures after a fall. Psychiatry was consulted for anxiety. Chief Complaint "I fell". History of Present Illness Patient has been hospitalized since 191 after a fall causing bilateral sacroiliac and bilateral transverse process L5 fractures. She has been seen by pain management, nephrology, orthopedics, and cardiology, who requested a psychiatric consult for anxiety. She has an anxiety disorder managed by her PCP with venlafaxine XR 300 mg daily (which she has been taking since 1993), gabapentin 300 mg at bedtime, and lorazepam 0.5 mg 3 times daily as needed. She reports sleep disruption due to pain, and multiple stressors including that her daughter is incarcerated for a crime she did not commit. Cardiology ordered an echocardiogram which showed cardiomyopathy thought to be due to increased catecholamines from ongoing pain, insomnia, and emotional distress. On my assessment, she reports chronic pain since a hysterectomy in 1993, which is 1 of her main stressors. Pain has been worse since her fall 2 weeks ago, disrupting sleep and causing worsening mood. She reports chronic anxiety, feeling on edge and worried much of the time, difficulty controlling the worry, exacerbated by pain. She denies current depressive symptoms, and describes herself as a "happy person." She denies thoughts of harming herself or anyone else, symptoms of OCD, eating disorder, PTSD, and psychotic symptoms. Past Psychiatric History Previous Psych History: History of treatment at [facility] about a year and a half ago, but did not feel her therapist was a good fit. Current Psychiatric Diagnosis: Generalized anxiety disorder Outpatient Services: PCP, Dr. Shrestha, prescribed psychotropic medications Previous Psych Admissions: [facility] 1994 Do You Have Access To A Gun?: No History of Previous Suicide Attempt: No Past Medication Trials: Wellbutrin XL Allergies Allergy/AdvReac Type Severity Reaction Status Date / Time Barbiturates Allergy Severe Unknown Verified 06/25/19 09:47 belladonna alkaloids Allergy Severe Unknown Verified 06/25/19 09:47 dicyclomine Allergy Severe Unknown Verified 06/25/19 09:47 azithromycin Allergy Mild Hives Unverified 12/29/18 13:31 mivacurium Allergy Mild Unknown Verified 06/25/19 09:47 Penicillins Allergy Mild AMOXICILLIN Verified 12/29/18 13:31 phenobarbital Allergy Mild Unknown Verified 06/25/19 09:47 Quinolones Allergy Mild Unknown Verified 06/25/19 09:47 amoxicillin Allergy Unknown rash Unverified 12/29/18 13:31 Nitrate Analogues Allergy Unknown Unknown Verified 06/25/19 09:47 nitrofurantoin Allergy Unknown Unknown Verified 06/25/19 09:47 nitroglycerin Allergy Unknown Unknown Verified 06/25/19 09:47 Sulfa (Sulfonamide Allergy Unknown sulfa Verified 12/29/18 13:31 Antibiotics) Home Medications Home Medications Medication Instructions Recorded Confirmed Type Elmiron 100 mg PO BID 12/29/18 06/24/19 History Premarin 1 applic TOPICAL [id number] PRN 12/29/18 06/24/19 History aspirin 81 mg PO DAILY 12/29/18 06/24/19 History atorvastatin [Lipitor] 10 mg PO QAM 12/29/18 06/24/19 History bupropion HCl [Wellbutrin XL] 300 mg PO QAM 12/29/18 06/24/19 History gabapentin 300 mg PO HS 12/29/18 06/24/19 History lorazepam [Ativan] 0.5 mg PO Q8H PRN 12/29/18 06/24/19 History meclizine 25 mg PO TID PRN 12/29/18 06/24/19 History melatonin 10 mg PO HS 12/29/18 06/24/19 History potassium chloride [Klor-Con M20] 20 meq PO DAILY 12/29/18 06/24/19 History promethazine 25 mg PO .Q4-6HRS PRN 12/29/18 06/24/19 History venlafaxine [Effexor XR] 300 mg PO QAM 12/29/18 06/24/19 History baclofen 10 mg PO BID PRN 06/24/19 06/24/19 History benzonatate 100 mg PO TID PRN 06/24/19 06/24/19 History diclofenac sodium 4 g TOPICAL QID PRN 06/24/19 06/24/19 History lisinopril 40 mg PO DAILY 06/24/19 06/24/19 History loperamide See Rx Instructions .ROUTE 06/24/19 06/24/19 History .COMPLEX PRN MDD 16 MG/DAY oxycodone 5 mg PO Q6H PRN 06/24/19 06/24/19 History ropinirole 0.25 mg PO HS 06/24/19 06/24/19 History simethicone 125 mg PO TID PRN 06/24/19 06/24/19 History Family History Denies any family history Substance Abuse History Chronic opiates for pain, but denies misuse/abuse of this or other substances. Personal History Beliefs That Will Affect Care: None Patient History Medical History Depression (Chronic) Migraines (Chronic) Tobacco abuse (Chronic) OCD (obsessive compulsive disorder) (Chronic) CKD (chronic kidney disease), stage III (Chronic) IBS (irritable bowel syndrome) (Chronic) HTN (hypertension) (Chronic) Surgical History History of total abdominal hysterectomy (Chronic) H/O hernia repair (Chronic) History of back surgery (Chronic) H/O colonoscopy (Chronic) H/O sinus surgery (Chronic) Family History Other Diabetes Hypertension Social History Preferred Language: Sinhala Communication Ability: Effective 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 Eye Contact: good eye contact Motor Behavior: no abnormal motor movements Speech: normal rate/rhythm/volume of speech Affect: + anxious affect "Okay." Thought Process: goal directed thought process Thought Co ntent: reality based without delusions Suicidal Thoughts: denies suicidal thoughts Homicidal Thoughts: denies homicidal thoughts Hallucinations: no auditory hallucinations and no visual hallucinations Cognition: recent memory grossly intact, attention grossly intact and language grossly intact Insight: + fair insight Judgement: + fair judgement Vital Signs (Past 24 Hours): Last Vital Signs Temp 36.9 C 06/27/19 11:48 Pulse 74 06/27/19 11:48 Resp 20 06/27/19 11:48 BP 108/60 06/27/19 11:48 Pulse Ox 98 06/27/19 11:48 Review of Systems All systems reviewed & are unremarkable except as noted in HPI & below Chronic pain Results & Data Medications Administered Hydrocodone Bitart/Acetaminophen ([place] 5/325) 2 tab PO Q4H PRN PRN Reason: Pain Stop: 07/08/19 22:20 Last Admin: 06/27/19 10:33 Dose: 2 tab Documented by: [id number] Admin: 06/26/19 20:52 Dose: 2 tab Documented by: [id number] Atorvastatin Calcium (Lipitor) 10 mg PO [facility] Stop: 07/25/19 08:59 Last Admin: 06/27/19 08:52 Dose: 10 mg Documented by: [id number] Admin: 06/26/19 08:53 Dose: 10 mg Documented by: [id number] Admin: 06/25/19 07:45 Dose: 10 mg Documented by: [id number] Baclofen (Lioresal) 10 mg PO Q6H PRN PRN Reason: Muscle Spasm Stop: 07/24/19 21:01 Last Admin: 06/25/19 16:22 Dose: 10 mg Documented by: [id number] Bupropion HCl (Wellbutrin-Xl) 300 mg PO [facility] Stop: 07/25/19 08:59 Last Admin: 06/27/19 09:08 Dose: Not Given Documented by: [id number] Admin: 06/26/19 08:53 Dose: 300 mg Documented by: [id number] Admin: 06/25/19 07:46 Dose: 300 mg Documented by: [id number] Calcium Carbonate (Tums) 1,000 mg PO QID PRN PRN Reason: Heartburn Stop: 07/25/19 07:59 Last Admin: 06/26/19 20:48 Dose: 1,000 mg Documented by: [id number] Enoxaparin Sodium (Lovenox) 40 mg SQ Q24H [facility] Stop: 07/25/19 17:29 Last Admin: 06/26/19 18:52 Dose: 40 mg Documented by: [id number] Admin: 06/25/19 18:09 Dose: 40 mg Documented by: [id number] Gabapentin (Neurontin) 300 mg PO HS [facility] Stop: 07/24/19 21:01 Last Admin: 06/26/19 20:13 Dose: 300 mg Documented by: [id number] Admin: 06/25/19 20:54 Dose: 300 mg Documented by: [id number] Admin: 06/24/19 21:57 Dose: 300 mg Documented by: [id number] Ketorolac Tromethamine (Toradol) 30 mg IV Q6H PRN PRN Reason: Pain Stop: 06/29/19 21:01 Last Admin: 06/24/19 21:52 Dose: 30 mg Documented by: [id number] Lisinopril (Zestril) 20 mg PO DAILY [facility] Stop: 07/27/19 08:59 Last Admin: 06/27/19 08:52 Dose: 20 mg Documented by: [id number] Lorazepam (Ativan) 0.5 mg PO Q8H PRN PRN Reason: Anxiety Stop: 07/24/19 21:01 Last Admin: 06/27/19 11:42 Dose: 0.5 mg Documented by: [id number] Admin: 06/26/19 01:34 Dose: 0.5 mg Documented by: [id number] Admin: 06/25/19 00:28 Dose: 0.5 mg Documented by: [id number] Metoprolol Tartrate (Lopressor) 12.5 mg PO BID [facility] Stop: 07/27/19 08:59 Last Admin: 06/27/19 08:51 Dose: 12.5 mg Documented by: [id number] Morphine Sulfate (Morphine Sulfate) 4 mg IV Q4H PRN PRN Reason: Pain Stop: 07/08/19 22:20 Last Admin: 06/27/19 07:45 Dose: 4 mg Documented by: [id number] Admin: 06/27/19 00:41 Dose: 4 mg Documented by: [id number] Admin: 06/26/19 18:52 Dose: 4 mg Documented by: [id number] Admin: 06/26/19 14:45 Dose: 4 mg Documented by: [id number] Admin: 06/26/19 10:45 Dose: 4 mg Documented by: [id number] Admin: 06/26/19 06:29 Dose: 4 mg Documented by: [id number] Admin: 06/26/19 01:31 Dose: 4 mg Documented by: [id number] Admin: 06/25/19 20:51 Dose: 4 mg Documented by: [id number] Admin: 06/25/19 17:00 Dose: 4 mg Documented by: [id number] Admin: 06/25/19 11:54 Dose: 4 mg Documented by: [id number] Admin: 06/25/19 07:44 Dose: 4 mg Documented by: [id number] Admin: 06/24/19 23:07 Dose: 4 mg Documented by: [id number] Pentosan Polysulfate Sodium (Elmiron) 100 mg PO BID [facility] Stop: 07/24/19 21:01 Last Admin: 06/27/19 08:52 Dose: 100 mg Documented by: [id number] Admin: 06/26/19 20:13 Dose: 100 mg Documented by: [id number] Admin: 06/26/19 08:53 Dose: 100 mg Documented by: [id number] Admin: 06/25/19 20:55 Dose: 100 mg Documented by: [id number] Admin: 06/25/19 07:44 Dose: 100 mg Documented by: [id number] Admin: 06/24/19 21:56 Dose: 100 mg Documented by: [id number] Polyethylene Glycol (Miralax Powder Packet) 17 gm PO DAILY [facility] Stop: 07/25/19 17:59 Last Admin: 06/27/19 08:54 Dose: 17 gm Documented by: [id number] Admin: 06/26/19 08:55 Dose: 17 gm Documented by: [id number] Admin: 06/25/19 18:10 Dose: 17 gm Documented by: [id number] Potassium Chloride (Klor-Con M20) 20 meq PO DAILY [facility] Stop: 07/25/19 08:59 Last Admin: 06/27/19 08:52 Dose: 20 meq Documented by: [id number] Admin: 06/26/19 08:54 Dose: 20 meq Documented by: [id number] Admin: 06/25/19 07:46 Dose: 20 meq Documented by: [id number] Promethazine HCl (Phenergan) 25 mg PO .Q4-6HRS PRN PRN Reason: Nausea And Vomiting Stop: 07/24/19 21:01 Last Admin: 06/25/19 17:00 Dose: 25 mg Documented by: [id number] Admin: 06/25/19 11:58 Dose: 25 mg Documented by: [id number] Admin: 06/25/19 04:36 Dose: 25 mg Documented by: [id number] Admin: 06/24/19 21:56 Dose: 25 mg Documented by: [id number] Senna/Docusate Sodium ([facility]okot S) [facility]: 07/25/19 08:59 Last Admin: 06/27/19 08:54 Dose: 1 tab Documented by: [id number] Admin: 06/26/19 08:53 Dose: 1 tab Documented by: [id number] Admin: 06/25/19 07:46 Dose: 1 tab Documented by: [id number] Venlafaxine HCl (Effexor Extended Release) 300 mg PO QAM [facility] Stop: 07/25/19 08:59 Last Admin: 06/27/19 08:53 Dose: 300 mg Documented by: [id number] Admin: 06/26/19 08:52 Dose: 300 mg Documented by: [id number] Admin: 06/25/19 07:46 Dose: 300 mg Documented by: [id number]
--- NOTE | 2019-06-27 17:14 | Cardiology Progress Note ---
Date of Service June 27, 2019 Assessment & Plan (1) Cardiomyopathy: newly discovered completely asymptomatic from a cardiac standpoint and given global hypokinesis, ischemia would be a less likely cause patient under a great deal of emotional and physical stress particularly the last few weeks fits with catecholamine (aka Takotsubo cardiomyopathy) given lack of symptoms, will defer ischemic work up to outpatient setting and allow for her pain to be controlled now my office will schedule Lexiscan nuclear stress as an outpatient pt's bp and hr tolerating addition of beta beatriz will increase dose and change to evidence based beta beatriz in AM cont ALEN don't believe she would tolerate aldosterone antagonism at this time and no role for loop diuretics currently patient in agreement with above plan (2) Mitral regurgitation: will follow Subjective Pt seen and examined, states that her back/pelvic pain much better controlled today. Continues to deny chest pain, sob, palpitations, lightheadedness or dizziness. tele reviewed: sinus rhythm without arrhythmia or significant ectopy. Review of Systems Review of Systems: All systems reviewed & are unremarkable except as noted in HPI & below Physical Exam Physical Exam: General: Awake, alert and oriented x 3. No acute distress. HEENT: Normocephalic, atraumatic. Pupils equal, round and reactive to light and accommodation. Extraocular muscles are intact. Anicteric sclera. Moist mucous membranes. Neck: No JVD. No bruit. Cardiovascular: Regular. Positive S-4. Normal S-1 and S-2. No S-3. 3/6 holosystolic ejection murmur, left sternal border, mid-clavicular line with radiation to the axilla. No rubs. Pulmonary: Clear to auscultation bilaterally. No rales, rhonchi, or wheezing. Abdomen: Bowel sounds x 4, soft. No rebound, guarding or tenderness. No organomegaly. Extremities: No clubbing, cyanosis or edema. +2 pedal pulses bilaterally. Skin: Warm and dry. Results & Data Vital Signs (Past 12 Hours) Vital Signs Temp Pulse Pulse Resp BP Pulse Ox 06/27/19 15:22 36.9 C 89 20 118/86 98 06/27/19 15:16 37.1 C 83 16 148/88 H 96 06/27/19 11:48 36.9 C 74 20 108/60 98 06/27/19 07:34 36.8 C 78 20 127/78 96 06/27/19 07:15 103 H
[2019-06-27] MEDS: ENOXAPARIN INJ 40 MG/0.4 ML SYR SQ SCH (17:26)
[2019-06-27] MEDS: GABAPENTIN 300 MG CAP PO SCH (20:16)
[2019-06-27] MEDS: PROMETHAZINE HCL 25 MG TAB PO PRN (23:23)
[2019-06-28 07:02] LABS: BUN Creatinine Ratio 16.6 (10-20); Calcium 8.2 mg/dl (8.5-10.1); Creatinine Clr Calc Pharmacy 63.9 ml/min; Est GFR (African American) 85.8; Magnesium 1.9 mg/dl (1.8-2.4); Potassium 4.7 mmol/L (3.5-5.1)
[2019-06-28] MEDS: HYDROCODONE/ACETAMOPHEN 5/325MG TAB PO PRN (07:44)
[2019-06-28] MEDS: PENTOSAN POLYSULFATE SODIUM 100 MG CAP PO SCH (08:40)
[2019-06-28] MEDS: ATORVASTATIN 10 MG TAB PO SCH (08:40)
[2019-06-28] MEDS: LISINOPRIL 20 MG TAB PO SCH (08:41)
[2019-06-28] MEDS: POTASSIUM CHLORIDE 20 MEQ TABCR PO SCH (08:41)
[2019-06-28] MEDS: DOCUSATE SODIUM/SENNA 50/8.6MG TAB PO SCH (08:41)
[2019-06-28] MEDS: POLYETHYLENE (MIRALAX) 17 GM PACK PO SCH (08:43)
[2019-06-28] MEDS: MoRPHine SULFATE 4 MG/ML 1 ML CARP\\VIAL IV PRN (08:46)
[2019-06-28] MEDS ORDERED: METOPROLOL SUCC 50MG EXT REL TAB PO SCH (09:00)
[2019-06-28] MEDS ORDERED: BuPROPion XL 150 MG TABCR PO SCH (09:00)
[2019-06-28] MEDS: VENLAFAXINE HCL XR 150 MG CAPXR PO SCH (09:09)
[2019-06-28] MEDS: LORazepam 1 MG TAB PO PRN (10:17)
--- NOTE | 2019-06-28 13:29 | Hospitalist Progress Note ---
Date of Service June 28, 2019 Assessment & Plan (1) Pelvic fracture: Bilateral sacral alar fractures Toradol 30 mg every 6 hours as needed, IV Tylenol 1000 mg every 8 hours Orthopedic consultation: Appreciate input and recommendation. No surgical intervention Physical therapy consultation: Ongoing Pain management service consultation given recent history of ileus related to chronic oxycodone use: Recommend to continue usual oxycodone, LSO brace, daily bowel regimen, may use Relistor if needed No additional pain medications prescribed PT recommended home Oral pain medications have been increased Pain is controlled at rest Discussed with the social service and the patient She will be discharged this afternoon Bilateral transverse process fracture L5 orthopedic spine consultation ordered Conservative management Hyponatremia, likely secondary to dehydration Multifactorial, secondary to volume depletion, SIADH from pain, question from psych meds Sodium on admission is 127 IV fluid NSS given Sodium remains at 127 Sodium level went up to 131 today that is 06/26 Sodium level has been almost normal to 133 on 06/27 and one 06/28 Mild troponin elevation Patient without signs of ischemia or infarct Troponin remained flat 0.05- 0.07 - 0.05 Echocardiogram : Mildly dilated LV chamber size with mild concentric LVH, severely reduced LV systolic function with severe global hypokinesis with EF of 15 to 20%, grade 2 diastolic dysfunction, right ventricular cavity is normal with reduced RV systolic function by TA PSC, moderate mitral regurgitation, mild tricuspid regurgitation and a small circumferential peritoneal effusion without hemodynamic significance Toradol has been discontinued Cardiology consulted-appreciate input and recommendation Hypertension Continue lisinopril Chronic pain syndrome Oxycodone 5 mg every X hours as needed at home Continue this for now, pain management consultation placed Management per #1 Depression and anxiety Continue usual medications Including lorazepam as needed Appreciate psychiatric input and recommendation We will advise outpatient psychiatric follow-up Anemia , chronic Stable, hemoglobin at baseline DVT prophylaxis Lovenox 40mg hines CODE STATUS full code per patient Disposition Likely discharge home this afternoon (2) Cardiomyopathy: Echo:Echocardiogram : Mildly dilated LV chamber size with mild concentric LVH, severely reduced LV systolic function with severe global hypokinesis with EF of 15 to 20%, grade 2 diastolic dysfunction, right ventricular cavity is normal with reduced RV systolic function by TA PSC, moderate mitral regurgitation, mild tricuspid regurgitation and a small circumferential peritoneal effusion without hemodynamic significance 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 Appreciate cardiology input and recommendation Small dose of beta-beartiz added Will have Lexiscan as an outpatient Beta-beatriz doses have been increased and the patient is tolerating well 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 Beta-beatriz has been prescribed Cardiology office will schedule for outpatient nuclear stress scan Subjective 06/26 Patient was seen and examined in medical telemetry She has been complaining of more pain in the pelvis especially during physical therapy She wants to have more pain medications He denies any symptoms of shortness of breath and/or chest pain at rest 06/27 The patient was seen and examined in medical floor She has been complaining of ongoing back pain and pain in the groin She has been feeling better compared with yesterday Denies any cardiac symptoms 06/28 The patient was seen and examined in medical telemetry unit She has been feeling a lot better today Complaint history of some abdominal pain without nausea and/or vomiting or abdominal distention Her pain seems to be reasonably controlled Review of Systems Review of Systems: All systems reviewed and are unremarkable except as noted below Constitutional: + weakness Musculoskeletal: + back pain (Without any radiation of pain) No significant pain with movements of the lower extremities including the hip joints Neurologic: Alert, awake and oriented x3. Physical Exam Physical Exam: Lying in bed comfortably. Anxious and also depressed Constitutional: + ill appearing and + thin; no acute distress Eyes: PERRL, conjunctivae normal, anicteric sclerae EOM intact bilaterally ENMT: external ear and nose normal, oropharynx normal Ears: no external ear abnormality Nose: no external nose abnormality Mouth: + dry oral mucous membranes Neck: trachea midline, no thyromegaly no nuchal rigidity Respiratory: normal respiratory effort; no respiratory distress Auscultation: + diminished lung sounds Cardiovascular: Rate/Rhythm: regular rhythm and + tachycardic Extremities: no edema Gastrointestinal (Abdomen): Inspection/Auscultation: normal bowel sounds Percussion/Palpation: abdomen soft; abdomen nontender Musculoskeletal: Extremities: strength 5/5 throughout Skin: no rashes, warm and dry Neurologic: moves all extremities; no focal motor deficits Psychiatric: A+Ox3, euthymic affect Mood: + depressed mood and + anxious mood Lymphatic: no cervical or axillary lymphadenopathy Results & Data Vital Signs (Past 12 Hours) Vital Signs Temp Pulse Pulse Resp BP BP Pulse Ox 06/28/19 11:37 36.3 C L 76 20 111/71 95 06/28/19 07:45 88 06/28/19 07:23 36.6 C 103 H 18 131/86 92 06/28/19 04:00 36.6 C 83 21 109/77 96 Laboratory Results BMP 06/28/19 05:59 Sodium 133 L Potassium 4.7 Chloride 104 Carbon Dioxide 19 L BUN 14 D Creatinine 0.83 Glucose 101 H Calcium 8.2 L Medications Administered Current Inpatient Medications Hydrocodone Bitart/Acetaminophen ([place] 5/325) 2 tab PO Q4H PRN PRN Reason: Pain Stop: 07/08/19 22:20 Last Admin: 06/28/19 07:44 Dose: 2 tab Documented by: Atorvastatin Calcium (Lipitor) 10 mg PO QAM [facility] Stop: 07/25/19 08:59 Last Admin: 06/28/19 08:40 Dose: 10 mg Documented by: Baclofen (Lioresal) 10 mg PO Q6H PRN PRN Reason: Muscle Spasm Stop: 07/24/19 21:01 Last Admin: 06/25/19 16:22 Dose: 10 mg Documented by: Benzonatate (Tessalon Perle) 100 mg PO TID PRN PRN Reason: Cough Stop: 07/24/19 21:01 Bupropion HCl ([facility]rin-Xl) [facility] Stop: 07/28/19 08:59 Last Admin: 06/28/19 08:41 Dose: 150 mg Documented by: Buspirone HCl (Buspar) 5 mg PO TID [facility] Stop: 07/27/19 13:59 Last Admin: 06/28/19 08:41 Dose: 5 mg Documented by: Calcium Carbonate (Tums) 1,000 mg PO QID PRN PRN Reason: Heartburn Stop: 07/25/19 07:59 Last Admin: 06/26/19 20:48 Dose: 1,000 mg Documented by: Enoxaparin Sodium (Lovenox) 40 mg SQ Q24H [facility] Stop: 07/25/19 17:29 Last Admin: 06/27/19 17:26 Dose: Not Given Documented by: Gabapentin (Neurontin) 300 mg PO HS [facility] Stop: 07/24/19 21:01 Last Admin: 06/27/19 20:16 Dose: 300 mg Documented by: Ketorolac Tromethamine (Toradol) 30 mg IV Q6H PRN PRN Reason: Pain Stop: 06/29/19 21:01 Last Admin: 06/24/19 21:52 Dose: 30 mg Documented by: Lisinopril (Zestril) 20 mg PO DAILY [facility] Stop: 07/27/19 08:59 Last Admin: 06/28/19 08:41 Dose: 20 mg Documented by: Lorazepam (Ativan) 0.5 mg PO Q8H PRN PRN Reason: Anxiety Stop: 07/24/19 21:01 Last Admin: 06/28/19 10:17 Dose: 0.5 mg Documented by: Meclizine HCl (Antivert) 25 mg PO TID PRN PRN Reason: Dizziness Stop: 07/24/19 21:01 Methylnaltrexone Victoria (Relistor) 12 mg SQ Q2D PRN; Protocol PRN Reason: Constipation Stop: 07/25/19 09:59 Metoprolol Succinate (Toprol Xl) 50 mg PO QAM [facility] Stop: 07/28/19 08:59 Last Admin: 06/28/19 08:40 Dose: 50 mg Documented by: Morphine Sulfate (Morphine Sulfate) 4 mg IV Q4H PRN PRN Reason: Pain Stop: 07/08/19 22:20 Last Admin: 06/28/19 08:46 Dose: 4 mg Documented by: Pentosan Polysulfate Sodium (Elmiron) 100 mg PO BID [facility] Stop: 07/24/19 21:01 Last Admin: 06/28/19 08:40 Dose: 100 mg Documented by: Polyethylene Glycol (Miralax Powder Packet) 17 gm PO DAILY [facility] Stop: 07/25/19 17:59 Last Admin: 06/28/19 08:43 Dose: Not Given Documented by: Potassium Chloride (Klor-Con M20) 20 meq PO DAILY [facility] Stop: 07/25/19 08:59 Last Admin: 06/28/19 08:41 Dose: 20 meq Documented by: Promethazine HCl (Phenergan) 25 mg PO .Q4-6HRS PRN PRN Reason: Nausea And Vomiting Stop: 07/24/19 21:01 Last Admin: 06/27/19 23:23 Dose: 25 mg Documented by: Senna/Docusate Sodium (Senokot S) 1 tab PO QAM [facility] Stop: 07/25/19 08:59 Last Admin: 06/28/19 08:41 Dose: 1 tab Documented by: Venlafaxine HCl (Effexor Extended Release) 300 mg PO QAM [facility] Stop: 07/25/19 08:59 Last Admin: 06/28/19 09:09 Dose: 300 mg Documented by: (1) Pelvic fracture Encounter type: initial encounter Fracture alignment: without disruption of pelvic ring Fracture type: closed Pelvic bone location: multiple parts Qualified Code(s): S32.82XA - Multiple fractures of pelvis without disruption of pelvic ring, initial encounter for closed fracture
--- NOTE | 2019-06-28 16:39 | Cardiology Progress Note ---
Date of Service June 28, 2019 Assessment & Plan (1) Cardiomyopathy: newly discovered completely asymptomatic from a cardiac standpoint and given global hypokinesis, ischemia would be a less likely cause patient under a great deal of emotional and physical stress particularly the last few weeks fits with catecholamine (aka Takotsubo cardiomyopathy) given lack of symptoms, will defer ischemic work up to outpatient setting and allow for her pain to be controlled now my office will schedule Lexiscan nuclear stress as an outpatient tolerating addition of metoprolol cont ALEN don't believe she would tolerate aldosterone antagonism at this time and no role for loop diuretics currently patient in agreement with above plan my office will arrange f/u with me in 1 month (2) Mitral regurgitation: will follow Subjective Pt seen and examined, states that her back/pelvic pain much better controlled today. Continues to deny chest pain, sob, palpitations, lightheadedness or dizziness. tele reviewed: sinus rhythm without arrhythmia or significant ectopy. Review of Systems Review of Systems: All systems reviewed & are unremarkable except as noted in HPI & below Physical Exam Physical Exam: General: Awake, alert and oriented x 3. No acute distress. HEENT: Normocephalic, atraumatic. Pupils equal, round and reactive to light and accommodation. Extraocular muscles are intact. Anicteric sclera. Moist mucous membranes. Neck: No JVD. No bruit. Cardiovascular: Regular. Positive S-4. Normal S-1 and S-2. No S-3. No murmurs or rubs. Pulmonary: Clear to auscultation B/L. No rales, rhonchi or wheezing Abdomen: Bowel sounds x 4, soft. No rebound, guarding or tenderness. No organomegaly. Extremities: No clubbing, cyanosis or edema. +2 pedal pulses bilaterally. Skin: Warm and dry. Results & Data Vital Signs (Past 12 Hours) Vital Signs Temp Pulse Pulse Resp BP BP Pulse Ox 06/28/19 14:16 36.3 C L 76 20 111/71 131/86 95 06/28/19 11:37 36.3 C L 76 20 111/71 95 06/28/19 07:45 88 06/28/19 07:23 36.6 C 103 H 18 131/86 92
--- NOTE | 2019-06-29 09:07 | Discharge Summary ---
Date of Service June 29, 2019 Admission HPI Per Admitting Provider Patient has been hospitalized since 191 after a fall causing bilateral sacroiliac and bilateral transverse process L5 fractures. She has been seen by pain management, nephrology, orthopedics, and cardiology, who requested a psychiatric consult for anxiety. She has an anxiety disorder managed by her PCP with venlafaxine XR 300 mg daily (which she has been taking since 1993), gabapentin 300 mg at bedtime, and lorazepam 0.5 mg 3 times daily as needed. She reports sleep disruption due to pain, and multiple stressors including that her daughter is incarcerated for a crime she did not commit. Cardiology ordered an echocardiogram which showed cardiomyopathy thought to be due to increased catecholamines from ongoing pain, insomnia, and emotional distress. On my assessment, she reports chronic pain since a hysterectomy in 1993, which is 1 of her main stressors. Pain has been worse since her fall 2 weeks ago, disrupting sleep and causing worsening mood. She reports chronic anxiety, feeling on edge and worried much of the time, difficulty controlling the worry, exacerbated by pain. She denies current depressive symptoms, and describes herself as a "happy person." She denies thoughts of harming herself or anyone else, symptoms of OCD, eating disorder, PTSD, and psychotic symptoms. Admission Exam Per Admitting Provider Acute blood loss anemia on chronic anemia, Mobitz type II second-degree AV block status post permanent pacemaker placement, strepto bovis bacteremia, outpatient colonoscopy is planned Principal Diagnosis Fall with a pelvic fracture, catecholamine induced/Takotsubo cardiomyopathy and generalized anxiety disorder Discharge Exam Constitutional WD/WN, vitals as above + ill appearing and + thin; no acute distress Eyes PERRL, conjunctivae normal, anicteric sclerae EOM intact bilaterally ENMT external ear and nose normal, oropharynx normal Ears: no external ear abnormality Nose: no external nose abnormality Mouth: + dry oral mucous membranes Neck trachea midline, no thyromegaly no nuchal rigidity Respiratory normal respiratory effort; no respiratory distress Auscultation: + diminished lung sounds Cardiovascular Rate/Rhythm: regular rhythm and + tachycardic Extremities: no edema Gastrointestinal (Abdomen) Inspection/Auscultation: normal bowel sounds Percussion/Palpation: abdomen soft; abdomen nontender Musculoskeletal Extremities: strength 5/5 throughout Skin no rashes, warm and dry Neurologic moves all extremities; no focal motor deficits Psychiatric A+Ox3, euthymic affect Mood: + depressed mood and + anxious mood Lymphatic no cervical or axillary lymphadenopathy Discharge Data Allergies Allergy/AdvReac Type Severity Reaction Status Date / Time Barbiturates Allergy Severe Unknown Verified 06/25/19 09:47 belladonna alkaloids Allergy Severe Unknown Verified 06/25/19 09:47 dicyclomine Allergy Severe Unknown Verified 06/25/19 09:47 azithromycin Allergy Mild Hives Unverified 12/29/18 13:31 mivacurium Allergy Mild Unknown Verified 06/25/19 09:47 Penicillins Allergy Mild AMOXICILLIN Verified 12/29/18 13:31 phenobarbital Allergy Mild Unknown Verified 06/25/19 09:47 Quinolones Allergy Mild Unknown Verified 06/25/19 09:47 amoxicillin Allergy Unknown rash Unverified 12/29/18 13:31 Nitrate Analogues Allergy Unknown Unknown Verified 06/25/19 09:47 nitrofurantoin Allergy Unknown Unknown Verified 06/25/19 09:47 nitroglycerin Allergy Unknown Unknown Verified 06/25/19 09:47 Sulfa (Sulfonamide Allergy Unknown sulfa Verified 12/29/18 13:31 Antibiotics) Consultations 06/24/19 17:45 ED Decision to Admit Stat 06/24/19 21:02 Consult Orthopedic Surgery Routine Consult Orthopedic Surgery Routine 06/25/19 07:33 Consult Pain Management Routine 06/25/19 15:28 Consult Nephrology Routine 06/26/19 09:49 Consult Cardiology Routine 06/26/19 17:06 Consult Psychiatry Routine Ordered Studies 06/24/19 16:00 CT lumbar spine wo con Stat CT pelvis wo con Stat Hospital Course (1) Pelvic fracture: Bilateral sacral alar fractures Toradol 30 mg every 6 hours as needed, IV Tylenol 1000 mg every 8 hours Orthopedic consultation: Appreciate input and recommendation. No surgical intervention Physical therapy consultation: Ongoing Pain management service consultation given recent history of ileus related to chronic oxycodone use: Recommend to continue usual oxycodone, LSO brace, daily bowel regimen, may use Relistor if needed No additional pain medications prescribed PT recommended home Oral pain medications have been increased Pain is controlled at rest Discussed with the social service and the patient She will be discharged this afternoon Bilateral transverse process fracture L5 orthopedic spine consultation ordered Conservative management Hyponatremia, likely secondary to dehydration Multifactorial, secondary to volume depletion, SIADH from pain, question from psych meds Sodium on admission is 127 IV fluid NSS given Sodium remains at 127 Sodium level went up to 131 today that is 06/26 Sodium level has been almost normal to 133 on 06/27 and one 06/28 Mild troponin elevation Patient without signs of ischemia or infarct Troponin remained flat 0.05- 0.07 - 0.05 Echocardiogram : Mildly dilated LV chamber size with mild concentric LVH, severely reduced LV systolic function with severe global hypokinesis with EF of 15 to 20%, grade 2 diastolic dysfunction, right ventricular cavity is normal with reduced RV systolic function by TA PSC, moderate mitral regurgitation, mild tricuspid regurgitation and a small circumferential peritoneal effusion without hemodynamic significance Toradol has been discontinued Cardiology consulted-appreciate input and recommendation Hypertension Continue lisinopril Chronic pain syndrome Oxycodone 5 mg every X hours as needed at home Continue this for now, pain management consultation placed Management per #1 Depression and anxiety Continue usual medications Including lorazepam as needed Appreciate psychiatric input and recommendation We will advise outpatient psychiatric follow-up Anemia , chronic Stable, hemoglobin at baseline DVT prophylaxis Lovenox 40mg hines CODE STATUS full code per patient Disposition Likely discharge home this afternoon (2) Cardiomyopathy: Echo:Echocardiogram : Mildly dilated LV chamber size with mild concentric LVH, severely reduced LV systolic function with severe global hypokinesis with EF of 15 to 20%, grade 2 diastolic dysfunction, right ventricular cavity is normal with reduced RV systolic function by TA PSC, moderate mitral regurgitation, mild tricuspid regurgitation and a small circumferential perit lo effusion without hemodynamic significance 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 Appreciate cardiology input and recommendation Small dose of beta-beatriz added Will have Lexiscan as an outpatient Beta-beatriz doses have been increased and the patient is tolerating well 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 Beta-beatriz has been prescribed Cardiology office will schedule for outpatient nuclear stress scan Total Time Total Time Spent Total Time Spent (In Minutes): 35 minutes Total Time Includes: Examination of the Patient, Discharge Planning, Medication Reconciliation and Communication With Other Providers Discharge Plan Discharge Items Patient Disposition: Home - Self-Care Reason For Visit: PELVIC FRACTURE, HYPONATREMIA Discharge Diagnosis: Fall with a pelvic fracture, catecholamine induced/Takotsubo cardiomyopathy and generalized anxiety disorder Condition: Fair Discharge Goals: Decrease discomfort, Improve disease control and Improve function Activity: Per 'Additional Instructions' section Activity Comment: As per PT instructions Non-emergency contact: Primary Care Provider Call non-emergency contact if: you have any medication questions and your symptoms worsen Follow-up/Referrals: [facility] [Outside] (Nena will be placed on waiting list for a therapist at [facility] in [place]. they will call her when an appointment is available.) Nate Shrestha MD [Primary Care Provider] - 07/03/19 11:05 am ([facility] cardiology office will call with an appointment. Will need to have an appointment with your psychiatrist as an outpatient.) Diet: Heart Healthy Addtl Provider Instructions: Please take precaution to avoid falls New medications: Buspirone 5 mg 3 times daily Hydrocodone/acetaminophen; 1 tab every 4 hourly as needed Metoprolol succinate 50 mg daily morning Change medication Bupropion is decreased to 150 mg from 300 mg in the morning Lisinopril has been decreased to 20 mg daily Prescriptions: New buspirone 5 mg Tablet 5 mg PO TID 30 Days Qty: 90 RF: 0 metoprolol succinate 50 mg Tablet Extended Release 24 Hr 50 mg PO QAM 30 Days Qty: 30 RF: 0 hydrocodone-acetaminophen [Chandler] 5-325 mg Tablet 1 tab PO Q4H PRN (Reason: pain) 5 Days Qty: 20 RF: 0 lisinopril 20 mg Tablet 20 mg PO DAILY 30 Days Qty: 30 RF: 0 bupropion HCl 150 mg Tablet Extended Release 24 Hr 150 mg PO QAM 30 Days Qty: 30 RF: 0 Continued ropinirole 0.25 mg tablet 0.25 mg PO HS RF: 0 oxycodone 5 mg tablet 5 mg PO Q6H PRN (Reason: Pain) RF: 0 baclofen 10 mg tablet 10 mg PO BID PRN (Reason: Muscle Spasm) RF: 0 benzonatate 100 mg capsule 100 mg PO TID PRN (Reason: Cough) RF: 0 diclofenac sodium 1 % gel 4 g topical QID PRN (Reason: Pain) RF: 0 loperamide 2 mg Capsule See Rx Instructions .ROUTE .COMPLEX MDD 16 MG/DAY PRN (Reason: Diarrhea) RF: 0 simethicone 125 mg Tablet,Chewable 125 mg PO TID PRN (Reason: Gas Pain/Abdomen) RF: 0 Elmiron 100 mg capsule 100 mg PO BID RF: 0 atorvastatin [Lipitor] 10 mg tablet 10 mg PO QAM RF: 0 venlafaxine [Effexor XR] 150 mg Capsule,Extended Release 24hr 300 mg PO QAM RF: 0 aspirin 81 mg Tablet,Delayed Release (Dr/Ec) 81 mg PO DAILY RF: 0 potassium chloride [Klor-Con M20] 20 mEq tablet,ER particles/crystals 20 meq PO DAILY RF: 0 meclizine 25 mg tablet 25 mg PO TID PRN (Reason: Dizziness) RF: 0 Premarin 0.625 mg/gram Cream 1 applic topical 3XWK PRN (Reason: Urethral Pain) RF: 0 promethazine 25 mg Tablet 25 mg PO .Q4-6HRS PRN (Reason: Nausea And Vomiting) RF: 0 gabapentin 300 mg Capsule 300 mg PO HS RF: 0 lorazepam [Ativan] 1 mg tablet 0.5 mg PO Q8H PRN (Reason: Anxiety) RF: 0 melatonin 10 mg Tablet 10 mg PO HS RF: 0 Discontinued lisinopril 40 mg tablet 40 mg PO DAILY RF: 0 bupropion HCl [Wellbutrin XL] 300 mg tablet extended release 24 hr 300 mg PO QAM RF: 0 Stand-Alone Forms: [facility] Discharge Orders: Discharge Order (Routine); Ordered 06/28/19 Ordered By: Renny Brunner Admission Data Admit Date/Time: 06/24/19 19:58 Attending Provider: Renny Brunner Admit Provider: Farooq Zepeda Primary Care Provider: Nate Shrestha Other Providers: Farooq Zepeda ; Matthew Bojorquez ; Jr Fink ; Devan Avalos ; Elizabeth Son ; Chriss Tesfaye ; Jessi Arnold Service: Telemetry Medical Other Interventions: Discharge Summary Assessment (RN) Last Done: 06/28/19 14:16 DC Date/Time DO NOT enter until pt leaves facility: 06/28/19 15:35
== END 2019-06-28 15:35 | disposition home or self-care (01) | DRG 552 ==
LOC: ED 15:40 → 2N 19:58 → SUATTDRO 19:58 → 2N 20:40

== ENCOUNTER 2019-07-02 19:46 | Inpatient (IN) ==
[2019-07-02] MEDS ORDERED: SODIUM CHLORIDE 0.9% 1000ML 1,000 ML IV SCH (20:00)
--- NOTE | 2019-07-02 20:15 | XRay Report ---
XR chest 1V portable CLINICAL HISTORY: weakness COMPARISON STUDY: 12/30/2018 FINDINGS: The heart is enlarged. There is aortic tortuosity/ectasia. There is no overt failure. There is no focal pulmonary consolidation. There are no significant pleural effusions. The study is rotate d.[ IMPRESSION: 1. Rotated study 2. Cardiomegaly, a finding which is new when compared with the preceding study 3. No evidence of failure. No evidence of focal pulmonary consolidation Electronically signed by: Gio Colorado M.D. 07/02/2019 8:14 PM
[2019-07-02 20:26] LABS: Basophils # (auto) 0.01 K/uL (0-0.2); Basophils % (auto) 0.1 %; Eosinophils # (auto) 0.04 K/uL (0-0.5); Eosinophils % (auto) 0.5 %; Hematocrit (blood only) 24.7 % (37-47); Immature Granulocytes # (auto) 0.04 K/uL (0.00-0.02); Immature Granulocytes % (auto) 0.5 %; Lymphocytes # (auto) 1.58 K/uL (1.2-3.4); Lymphocytes % (auto) 17.9 %; Mean Corpuscular Hemoglobin 26.1 pg (25-34); Mean Corpuscular Hgb Conc 32.4 g/dL (32-36); Mean Corpuscular Volume 80.5 fL (80-100); Mean Platelet Volume 9.8 fL (7.4-10.4); Monocytes # (auto) 1.03 K/uL (0.11-0.59); Monocytes % (auto) 11.7 %; Neutrophils # (auto) 6.13 K/uL (1.4-6.5); Neutrophils % (auto) 69.3 %; Nucleated RBC # (auto) 0.23 K/uL (0-0); Nucleated RBC % (auto) 2.7 %; Platelet Count 742 K/uL (130-400); RDW Coefficient of Variation 15.7 % (11.5-14.5); RDW Standard Deviation 46.2 fL (36.4-46.3); Red Blood Count 3.07 M/uL (4.2-5.4); White Blood Count 8.83 K/uL (4.8-10.8)
[2019-07-02 20:52] LABS: Echinocytes 1+; Polychromasia 1+
[2019-07-02 21:06] LABS: Albumin Level 2.5 gm/dl (3.4-5.0); BUN Creatinine Ratio 25.9 (10-20); Calcium 8.1 mg/dl (8.5-10.1); Creatinine Clr Calc Pharmacy 47.1 ml/min; Est GFR (African American) 60.4; Est GFR (Non-African American) 52.1; Potassium 4.7 mmol/L (3.5-5.1)
[2019-07-02] MEDS ORDERED: SODIUM CHLORIDE 0.9% 250 ML IV PRN (21:15)
[2019-07-02 21:24] LABS: Albumin Globulin Ratio 0.9 (0.9-2); Bilirubin,Total 0.3 mg/dl (0.2-1); Creatine Kinase MB 12.7 ng/ml (0.5-3.6); Globulin 2.7 gm/dl (2.5-4.0); Thyroid Stimulating Hormone 5.85 uIu/ml (0.300-4.500); Total Protein 5.2 gm/dl (6.4-8.2); Troponin I 0.047 ng/ml (0-0.045)
[2019-07-02 21:44] LABS: T4 Free Thyroxine 1.23 ng/dl (0.8-1.6)
--- NOTE | 2019-07-02 22:09 | CT Scan Report ---
CT head/brain wo con CLINICAL HISTORY: Acute change in mental status COMPARISON STUDY: No previous studies for comparison. TECHNIQUE: Axial CT of the brain is performed from the vertex to the skull base. IV contrast was not administered for this examination. A dose lowering technique was utilized adhering to the principles of ALARA. CT DOSE: 1458.88 mGy.cm FINDINGS: No intra or extra-axial mass lesions are visualized. There is no CT evidence of acute cortical infarc tion. There is no evidence of midline shift. There is no acute hemorrhage. No calvarial fractures ar e visualized. There are patchy white matter hypodensities likely on a small vessel basis. There is a more focal whi te matter hypodensity within the right centrum semiovale, possibly representing an old deep white mat ter infarct. There is no evidence of pathologic ventricular dilatation. There is no evidence of acute sinusitis IMPRESSION: No acute intracranial findings Electronically signed by: Gio Colorado M.D. 07/02/2019 10:07 PM
[2019-07-02] MEDS ORDERED: PANTOprazole 80 MG in DEXTROSE 5% 100 ML IV STA (23:30)
[2019-07-03 00:27] LABS: Appearance Urine Clear (Clear); Bilirubin Urine Negative (Negative); Blood Urine Negative (Negative); Color Urine Yellow; Glucose Urine UA Negative (Negative); Ketones Urine Trace (Negative); Leukocyte Esterase Urine Negative (Negative); Nitrite Urine Negative (Negative); Protein Urine Negative (Negative); Specific Gravity Urine 1.023 (1.000-1.030); Urobilinogen Urine Negative (Negative)
--- NOTE | 2019-07-03 00:46 | Emergency Department Note ---
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 She notes that she was recently discharged from the hospital after a fall. The patient complains of difficulty having a BM, decreased appetite, and abdominal pain. She denies any vomiting and hematochezia. The patient notes that she was given a tap-water enema, and it provided some relief. HPI limited secondary to altered mental status. Home Medications Home Medications Medication Instructions Recorded Confirmed Type aspirin [Aspir-81] 81 mg PO DAILY 07/02/19 07/02/19 History atorvastatin [Lipitor] 10 mg PO DAILY 07/02/19 07/02/19 History baclofen 10 mg PO BID PRN 07/02/19 07/02/19 History benzonatate [Tessalon Perles] 100 mg PO TID PRN 07/02/19 07/02/19 History betamethasone dipropionate 1 applic TOPICAL .BID UD PRN 07/02/19 07/02/19 History bupropion HCl [Wellbutrin XL] 150 mg PO DAILY 07/02/19 07/02/19 History buspirone 5 mg PO TID 07/02/19 07/02/19 History conjugated estrogens [Premarin] 0 mg VAGINAL [id number] PRN 07/02/19 07/02/19 History diclofenac sodium [Voltaren] 4 g TOPICAL UD PRN 07/02/19 07/02/19 History food supplemt, lactose-reduced 1 ea PO BID 07/02/19 07/02/19 History [Ensure] gabapentin 300 mg PO HS 07/02/19 07/02/19 History hydrocodone-acetaminophen [[place]] 1 tab PO Q4 PRN 07/02/19 07/02/19 History lisinopril 20 mg PO DAILY 07/02/19 07/02/19 History loperamide [Imodium A-D] 1 - 2 mg PO UD 07/02/19 07/02/19 History lorazepam [Ativan] 0.5 mg PO Q8 PRN 07/02/19 07/02/19 History meclizine 25 mg PO TID PRN 07/02/19 07/02/19 History metoprolol succinate [Toprol XL] 50 mg PO DAILY 07/02/19 07/02/19 History oxycodone [Roxicodone] 5 mg PO Q6 PRN 07/02/19 07/02/19 History pentosan polysulfate sodium 100 mg PO BID 07/02/19 07/02/19 History [[place]miron] potassium chloride [Klor-Con M20] 20 meq PO DAILY 07/02/19 07/02/19 History promethazine 25 mg PO .Q4-6HRS PRN 07/02/19 07/02/19 History ropinirole [Requip] 0.25 mg PO HS 07/02/19 07/02/19 History simethicone 125 mg PO TID PRN 07/02/19 07/02/19 History venlafaxine [Effexor XR] 300 mg PO QAM 07/02/19 07/02/19 History Allergies Allergy/AdvReac Type Severity Reaction Status Date / Time Barbiturates Allergy Severe Unknown Verified 07/02/19 21:17 belladonna alkaloids Allergy Severe Unknown Verified 07/02/19 21:17 dicyclomine Allergy Severe Unknown Verified 07/02/19 21:17 azithromycin Allergy Mild Hives Unverified 07/02/19 21:17 mivacurium Allergy Mild Unknown Verified 07/02/19 21:17 Penicillins Allergy Mild AMOXICILLIN Verified 07/02/19 21:17 phenobarbital Allergy Mild Unknown Verified 07/02/19 21:17 Quinolones Allergy Mild Unknown Verified 07/02/19 21:17 amoxicillin Allergy Unknown rash Unverified 07/02/19 21:17 Nitrate Analogues Allergy Unknown Unknown Verified 07/02/19 21:17 nitrofurantoin Allergy Unknown Unknown Verified 06/25/19 09:47 nitroglycerin Allergy Unknown Unknown Verified 06/25/19 09:47 Sulfa (Sulfonamide Allergy Unknown sulfa Verified 12/29/18 13:31 Antibiotics) Past Med/Surg History Medical History Depression (Chronic) Migraines (Chronic) Tobacco abuse (Chronic) OCD (obsessive compulsive disorder) (Chronic) CKD (chronic kidney disease), stage III (Chronic) IBS (irritable bowel syndrome) (Chronic) HTN (hypertension) (Chronic) Surgical History History of total abdominal hysterectomy (Chronic) H/O hernia repair (Chronic) History of back surgery (Chronic) H/O colonoscopy (Chronic) H/O sinus surgery (Chronic) Family History Other Diabetes Hypertension Social History Preferred Language: [place]er Communication Ability: Effective Waste Handling Technician Required: No Beliefs That Will Affect Care: None Current Living Situation: Family Current Living Situation Comment: lives with dtr Feels Safe at Home: Yes Safety Concerns: Feels Safe At This Time Smoking Status: Current every day smoker Tobacco Type: cigarettes ; Cigarettes Per Day: 20 ; Do You Dip or Chew Tobacco: No ; Second Hand Exposure: No ; Tobacco Cessation Education Requested by Patient: No Hx Alcohol Use: Yes Alcohol type: wine Hx Substance Use: No Review of Systems See HPI for pertinent positives & negatives. Other (ROS limited secondary to AMS) Physical Exam Vital Signs Vital Signs - 24 hr 07/02/19 19:58 07/02/19 20:00 07/02/19 20:13 Temperature 36.7 C Temperature Source Oral Sepsis Recent Fever Within 48 Hours No Sepsis Action Taken by Nursing No Action Required Pulse Rate 73 Pulse Rate from SpO2 Sensor 71 Respiratory Rate 18 Respiratory Effort / Characteristics Non-Labored Respiratory Depth Normal Blood Pressure 116/72 116/72 Blood Pressure Mean 86 86 Pulse Oximetry 99 99 91 Oxygen Delivery Method Room Air Room Air 07/02/19 20:16 07/02/19 21:00 07/02/19 21:39 Temperature Temperature Source Sepsis Recent Fever Within 48 Hours Sepsis Action Taken by Nursing Pulse Rate 73 75 Pulse Rate from SpO2 Sensor 73 76 Respiratory Rate 20 15 Respiratory Effort / Characteristics Respiratory Depth Blood Pressure 120/71 122/81 Blood Pressure Mean 87 94 Pulse Oximetry 100 98 Oxygen Delivery Method Room Air 07/02/19 22:04 07/02/19 22:31 07/02/19 23:00 Temperature Temperature Source Sepsis Recent Fever Within 48 Hours Sepsis Action Taken by Nursing Pulse Rate 71 70 67 Pulse Rate from SpO2 Sensor 71 71 68 Respiratory Rate 15 16 18 Respiratory Effort / Characteristics Respiratory Depth Blood Pressure 124/79 119/63 119/71 Blood Pressure Mean 94 81 87 Pulse Oximetry 99 98 98 Oxygen Delivery Method 07/02/19 23:30 07/03/19 00:00 Temperature Temperature Source Sepsis Recent Fever Within 48 Hours Sepsis Action Taken by Nursing Pulse Rate 88 Pulse Rate from SpO2 Sensor 74 Respiratory Rate 23 23 Respiratory Effort / Characteristics Respiratory Depth Blood Pressure 113/76 113/76 Blood Pressure Mean 88 Pulse Oximetry 98 98 Oxygen Delivery Method Room Air GENERAL: Awake, alert, cachectic appearance on exam, in no acute distress, appears confused HENT: Normocephalic, atraumatic. Oropharynx unremarkable. EYES: Normal conjunctiva. Sclera non-icteric. NECK: Supple. No nuchal rigidity. FROM. No JVD. RESPIRATORY: Clear to auscultation. CARDIAC: Regular rate, normal rhythm. Extremities warm and well perfused. Pulses equal. ABDOMEN: Soft, non-distended. No tenderness to palpation. No rebound or guarding. No masses. RECTAL: Deferred. MUSCULOSKELETAL: Chest examination reveals no tenderness. The back is symmetrical on inspection without obvious abnormality. There is no CVA tenderness to palpation. No joint edema. LOWER EXTREMITIES: Calves are equal size bilaterally and non-tender. No edema. No discoloration. NEURO: Normal sensorium. No sensory or motor deficits noted. SKIN: No rash or jaundice noted. Course 1950: The patient was evaluated in room C09. A complete history and physical exam was performed. \ 2046: I reevaluated the patient, and she was stable. 2131: I spoke with Dr. Truong, Debbie hospitalist, about the patients case. He will further evaluate the patient. Consultations Consultation #1: I spoke with Dr. Truong, Debbie hospitalist, about the patients case. He will further evaluate the patient. Time: 21:32 Administered Medications Acetaminophen (Tylenol) 650 mg PO Q4H PRN PRN Reason: Pain or Fever Stop: 08/02/19 01:08 Last Admin: 07/08/19 10:07 Dose: 650 mg Documented by: [id number] Admin: 07/07/19 20:02 Dose: 650 mg Documented by: [id number] Admin: 07/04/19 00:21 Dose: 650 mg Documented by: [id number] Atorvastatin Calcium (Lipitor) 10 mg PO DAILY KANDACE Stop: 08/02/19 08:59 Last Admin: 07/05/19 07:42 Dose: 10 mg Documented by: [id number] Admin: 07/04/19 16:13 Dose: 10 mg Documented by: [id number] Admin: 07/03/19 10:05 Dose: 10 mg Documented by: [id number] Bupropion HCl (Wellbutrin-Xl) 150 mg PO DAILY KANDACE Stop: 08/02/19 08:59 Last Admin: 07/08/19 07:41 Dose: 150 mg Documented by: [id number] Admin: 07/07/19 07:50 Dose: 150 mg Documented by: [id number] Admin: 07/06/19 08:03 Dose: 150 mg Documented by: [id number] Admin: 07/05/19 07:43 Dose: 150 mg Documented by: [id number] Admin: 07/04/19 16:13 Dose: 150 mg Documented by: [id number] Admin: 07/03/19 10:04 Dose: 150 mg Documented by: [id number] Ferrous Sulfate (Feosol) 325 mg PO Q48H KANDACE Stop: 08/02/19 08:59 Last Admin: 07/07/19 07:49 Dose: 325 mg Documented by: [id number] Admin: 07/05/19 07:49 Dose: 325 mg Documented by: [id number] Admin: 07/03/19 10:05 Dose: 325 mg Documented by: [id number] Gabapentin (Neurontin) 200 mg PO HS KANDACE Stop: 08/07/19 20:59 Last Admin: 07/08/19 21:42 Dose: 200 mg Documented by: [id number] Lisinopril (Zestril) 20 mg PO DAILY KANDACE Stop: 08/02/19 08:59 Last Admin: 07/06/19 08:03 Dose: 20 mg Documented by: [id number] Admin: 07/05/19 07:43 Dose: 20 mg Documented by: [id number] Admin: 07/04/19 16:14 Dose: 20 mg Documented by: [id number] Admin: 07/03/19 10:05 Dose: 20 mg Documented by: [id number] Lorazepam (Ativan) 0.5 mg PO Q8 PRN PRN Reason: Anxiety Stop: 08/02/19 01:08 Last Admin: 07/08/19 17:48 Dose: 0.5 mg Documented by: [id number] Admin: 07/08/19 10:11 Dose: 0.5 mg Documented by: [id number] Admin: 07/07/19 17:47 Dose: 0.5 mg Documented by: [id number] Admin: 07/07/19 07:54 Dose: 0.5 mg Documented by: [id number] Admin: 07/06/19 15:16 Dose: 0.5 mg Documented by: [id number] Admin: 07/05/19 19:36 Dose: 0.5 mg Documented by: [id number] Admin: 07/05/19 07:42 Dose: 0.5 mg Documented by: [id number] Admin: 07/04/19 22:57 Dose: 0.5 mg Documented by: [id number] Admin: 07/04/19 03:53 Dose: 0.5 mg Documented by: [id number] Admin: 07/03/19 01:58 Dose: 0.5 mg Documented by: [id number] Metoprolol Succinate (Toprol Xl) 50 mg PO DAILY KANDACE Stop: 08/02/19 08:59 Last Admin: 07/08/19 07:41 Dose: 50 mg Documented by: [id number] Admin: 07/07/19 07:50 Dose: 50 mg Documented by: [id number] Admin: 07/06/19 08:04 Dose: 50 mg Documented by: [id number] Admin: 07/05/19 07:42 Dose: 50 mg Documented by: [id number] Admin: 07/04/19 16:13 Dose: 50 mg Documented by: [id number] Admin: 07/03/19 10:05 Dose: 50 mg Documented by: [id number] Pantoprazole Sodium (Protonix) 40 mg PO QAM KANDACE Stop: 08/04/19 08:59 Last Admin: 07/08/19 07:41 Dose: 40 mg Documented by: [id number] Admin: 07/07/19 07:50 Dose: 40 mg Documented by: [id number] Admin: 07/06/19 08:04 Dose: 40 mg Documented by: [id number] Admin: 07/04/19 16:14 Dose: 40 mg Documented by: [id number] Polyethylene Glycol (Miralax Powder Packet) 17 gm PO DAILY PRN PRN Reason: Constipation Stop: 08/02/19 01:08 Last Admin: 07/05/19 07:47 Dose: 17 gm Documented by: [id number] Ropinirole HCl (Requip) 0.25 mg PO HS [facility] Stop: 08/02/19 20:59 Last Admin: 07/08/19 21:42 Dose: 0.25 mg Documented by: [id number] Admin: 07/07/19 19:59 Dose: 0.25 mg Documented by: [id number] Admin: 07/06/19 19:47 Dose: 0.25 mg Documented by: [id number] Admin: 07/05/19 19:38 Dose: 0.25 mg Documented by: [id number] Admin: 07/04/19 19:34 Dose: 0.25 mg Documented by: [id number] Admin: 07/03/19 19:24 Dose: 0.25 mg Documented by: [id number] Simethicone (Mylicon) 120 mg PO TID PRN PRN Reason: GAS/BLOATING Last Admin: 07/05/19 21:10 Dose: 120 mg Documented by: [id number] Venlafaxine HCl (Effexor Extended Release) [facility] [place] Stop: 08/02/19 08:59 Last Admin: 07/08/19 07:41 Dose: 300 mg Documented by: [id number] Admin: 07/07/19 07:50 Dose: 300 mg Documented by: [id number] Admin: 07/06/19 08:04 Dose: 300 mg Documented by: [id number] Admin: 07/05/19 07:42 Dose: 300 mg Documented by: [id number] Admin: 07/04/19 16:13 Dose: 300 mg Documented by: [id number] Admin: 07/03/19 10:05 Dose: 300 mg Documented by: [id number] Discontinued Medications Hydrocodone Bitart/Acetaminophen ([place] 5/325) 1 tab PO Q4 PRN PRN Reason: Pain Stop: 07/17/19 01:08 Last Admin: 07/03/19 01:58 Dose: 1 tab Documented by: [id number] Hydrocodone Bitart/Acetaminophen ([place] 5/325) 1 tab PO TID PRN PRN Reason: Pain Stop: 07/17/19 01:08 Last Admin: 07/08/19 18:34 Dose: 1 tab Documented by: [id number] Admin: 07/08/19 12:00 Dose: 1 tab Documented by: [id number] Admin: 07/07/19 23:26 Dose: 1 tab Documented by: [id number] Admin: 07/07/19 15:19 Dose: 1 tab Documented by: [id number] Admin: 07/07/19 06:49 Dose: 1 tab Documented by: [id number] Admin: 07/06/19 08:09 Dose: 1 tab Documented by: [id number] Admin: 07/05/19 19:36 Dose: 1 tab Documented by: [id number] Admin: 07/05/19 01:38 Dose: 1 tab Documented by: [id number] Admin: 07/04/19 18:05 Dose: 1 tab Documented by: [id number] Admin: 07/04/19 12:08 Dose: 1 tab Documented by: [id number] Admin: 07/04/19 03:53 Dose: 1 tab Documented by: [id number] Admin: 07/03/19 19:23 Dose: 1 tab Documented by: [id number] Admin: 07/03/19 10:03 Dose: 1 tab Documented by: [id number] Ergocalciferol (Vitamin D2) 50,000 units PO ONCE ONE Stop: 07/07/19 10:16 Last Admin: 07/07/19 11:50 Dose: 50,000 units Documented by: [id number] Gabapentin (Neurontin) 300 mg PO HS KANDACE Stop: 08/02/19 20:59 Last Admin: 07/07/19 19:59 Dose: 300 mg Documented by: [id number] Admin: 07/06/19 19:47 Dose: 300 mg Documented by: [id number] Admin: 07/05/19 19:37 Dose: 300 mg Documented by: [id number] Admin: 07/04/19 19:34 Dose: 300 mg Documented by: [id number] Admin: 07/03/19 19:24 Dose: 300 mg Documented by: [id number] Sodium Chloride (Nss 1000ml) 1,000 mls @ 999 mls/hr IV .Q1H1M KANDACE Stop: 07/02/19 21:00 Last Infusion: 07/02/19 21:46 Dose: 0 mls/hr Documented by: [id number] Admin: 07/02/19 20:18 Dose: 999 mls/hr Documented by: [id number] Pantoprazole Sodium 80 mg/ (Dextrose) 120 mls @ 480 mls/hr IV NOW STA Stop: 07/02/19 23:44 Last Infusion: 07/03/19 02:00 Dose: 0 mls/hr Documented by: [id number] Admin: 07/03/19 01:18 Dose: 480 mls/hr Documented by: [id number] Pantoprazole Sodium 40 mg/ (Dextrose) 100 mls @ 20 mls/hr IV Q5H KANDACE Stop: 08/01/19 23:29 Last Infusion: 07/04/19 19:45 Dose: 0 mls/hr Documented by: [id number] Admin: 07/04/19 12:09 Dose: 20 mls/hr Documented by: [id number] Infusion: 07/04/19 11:15 Dose: 20 mls/hr Documented by: [id number] Admin: 07/04/19 06:15 Dose: 20 mls/hr Documented by: [id number] Infusion: 07/04/19 05:21 Dose: 20 mls/hr Documented by: [id number] Admin: 07/04/19 00:21 Dose: 20 mls/hr Documented by: [id number] Infusion: 07/04/19 00:21 Dose: 20 mls/hr Documented by: [id number] Admin: 07/03/19 19:28 Dose: 20 mls/hr Documented by: [id number] Infusion: 07/03/19 19:28 Dose: 20 mls/hr Documented by: [id number] Admin: 07/03/19 15:16 Dose: 20 mls/hr Documented by: [id number] Infusion: 07/03/19 15:04 Dose: 20 mls/hr Documented by: [id number] Admin: 07/03/19 10:04 Dose: 20 mls/hr Documented by: [id number] Infusion: 07/03/19 10:04 Dose: 20 mls/hr Documented by: [id number] Admin: 07/03/19 06:31 Dose: 20 mls/hr Documented by: [id number] Infusion: 07/03/19 06:31 Dose: 20 mls/hr Documented by: [id number] Admin: 07/03/19 02:01 Dose: 20 mls/hr Documented by: [id number] Sodium Chloride (Nss 1000ml) 1,000 mls @ 40 mls/hr IV .Q24H KANDACE Stop: 08/02/19 01:08 Last Infusion: 07/03/19 06:31 Dose: 0 mls/hr Documented by: [id number] Admin: 07/03/19 02:01 Dose: 40 mls/hr Documented by: [id number] Furosemide 20 mg/ Syringe 2 mls @ 4 mls/min IV ONE ONE Stop: 07/03/19 02:01 Last Admin: 07/03/19 05:20 Dose: 4 mls/min Documented by: [id number] Dextrose/Sodium Chloride (D5w And Nss) 1,000 mls @ 50 mls/hr IV .Q20H KANDACE Stop: 08/02/19 06:14 Last Infusion: 07/03/19 18:37 Dose: 0 mls/hr Documented by: [id number] Admin: 07/03/19 06:27 Dose: 50 mls/hr Documented by: [id number] Magnesium Sulfate/Dextrose (Magnesium Sulfate / D5w) 1 gm in 100 mls @ 100 mls/hr IV 1000 ONE Stop: 07/03/19 10:59 Last Infusion: 07/03/19 12:21 Dose: 0 mls/hr Documented by: [id number] Admin: 07/03/19 11:05 Dose: 100 mls/hr Documented by: [id number] Ioversol (Optiray 320 100ml) 100 ml IV ONCE PRN PRN Reason: Interaction Checking Stop: 07/07/19 02:47 Last Admin: 07/03/19 02:49 Dose: 92 ml Documented by: [id number] Lidocaine HCl (Xylocaine 2%) Confirm Administered Dose 2 ml INFIL .STK-MED ONE Stop: 07/04/19 13:25 Last Admin: 07/04/19 19:32 Dose: Not Given Documented by: [id number] Pantoprazole Sodium (Protonix) 40 mg PO NOW ONE Stop: 07/05/19 11:01 Last Admin: 07/05/19 10:51 Dose: 40 mg Documented by: [id number] Phenylephrine HCl (Wes-Synephrine 500mcg/5ml) Confirm Administered Dose 100 mcg .ROUTE .STK-MED ONE Stop: 07/04/19 13:25 Last Admin: 07/04/19 19:32 Dose: Not Given Documented by: [id number] Potassium Chloride (Klor-Con M20) 20 meq PO DAILY KANDACE Stop: 08/02/19 08:59 Last Admin: 07/06/19 08:03 Dose: 20 meq Documented by: [id number] Admin: 07/05/19 07:43 Dose: 20 meq Documented by: [id number] Admin: 07/04/19 16:14 Dose: 20 meq Documented by: [id number] Admin: 07/03/19 10:05 Dose: 20 meq Documented by: [id number] Propofol (Diprivan) Confirm Administered Dose 200 mg IV .STK-MED ONE Stop: 07/04/19 13:25 Last Admin: 07/04/19 19:32 Dose: Not Given Documented by: [id number] Sodium Bicarbonate (Sodium Bicarbonate 8.4%) 50 meq IV NOW STA Stop: 07/03/19 07:01 Last Admin: 07/03/19 08:05 Dose: Not Given Documented by: [id number] Medical Decision Making Differential Diagnosis Etiologies such as metabolic, infection, hypoglycemia, electrolyte abnormalities, cardiac sources, intracerebral event, toxicologic, neurologic, as well as others were entertained. Medical Records Attestation: I reviewed the patient's medical records. Home Medications Current Medication List: was personally reviewed by me Laboratory Data Attestation: I reviewed the patient's lab results. Result diagrams: 07/08/19 06:28 07/08/19 06:28 Lab Results 07/02/19 07/02/19 07/02/19 Range/Units 20:18 20:18 21:26 WBC 8.83 (4.8-10.8) K/uL RBC 3.07 L (4.2-5.4) M/uL Hgb 8.0 L (12.0-16.0) g/dL Hct 24.7 L (37-47) % MCV 80.5 (80-100) fL MCH 26.1 (25-34) pg MCHC 32.4 (32-36) g/dL RDW Std Deviation 46.2 (36.4-46.3) fL RDW Coeff of [place] 15.7 H (11.5-14.5) % Plt Count 742 H (130-400) K/uL MPV 9.8 (7.4-10.4) fL Immature Gran % (Auto) 0.5 % Neut % (Auto) 69.3 % Lymph % (Auto) 17.9 % [place] % (Auto) 11.7 % Eos % (Auto) 0.5 % Baso % (Auto) 0.1 % Immature Gran # (Auto) 0.04 H (0.00-0.02) K/uL Neut # (Auto) 6.13 (1.4-6.5) K/uL Lymph # (Auto) 1.58 (1.2-3.4) K/uL [place] # (Auto) 1.03 H (0.11-0.59) K/uL Eos # (Auto) 0.04 (0-0.5) K/uL Baso # (Auto) 0.01 (0-0.2) K/uL Absolute Nucleated RBC 0.23 H (0-0) K/uL Nucleated RBC % (auto) 2.7 % Polychromasia 1+ Echinocytes 1+ Sodium 133 L (136-145) mmol/L Potassium 4.7 (3.5-5.1) mmol/L Chloride 105 (98-107) mmol/L Carbon Dioxide 18 L (21-32) mmol/L Anion Gap 10.0 (3-11) BUN 29 H (7-18) mg/dl Creatinine 1.11 (0.6-1.2) mg/dl Est Cr Clr Drug Dosing 47.1 ml/min Est GFR ( Amer) 60.4 Est GFR (Non-Af Amer) 52.1 BUN/Creatinine Ratio 25.9 H (10-20) Glucose 74 (70-99) mg/dl Calcium 8.1 L (8.5-10.1) mg/dl Total Bilirubin 0.3 (0.2-1) mg/dl AST 90 H (15-37) U/L ALT 69 (12-78) U/L Alkaline Phosphatase 325 H (45-117) U/L Total Creatine Kinase 253 H (26-192) U/L CK-MB (CK-2) 12.7 H (0.5-3.6) ng/ml CK/CKMB % Calc 5.0 H (0-3.0) Troponin I 0.047 H* (0-0.045) ng/ml NT-Pro-B Natriuret Pep > 72053 H (0-900) pg/ml Total Protein 5.2 L (6.4-8.2) gm/dl Albumin 2.5 L (3.4-5.0) gm/dl Globulin 2.7 (2.5-4.0) gm/dl Albumin/Globulin Ratio 0.9 (0.9-2) TSH 5.850 H (0.300-4.500) uIu/ml Free T4 1.23 (0.8-1.6) ng/dl Blood Type Antibody Screen Antibody Identification Antibody ID Comment Crossmatch 07/02/19 Range/Units 21:26 WBC (4.8-10.8) K/uL RBC (4.2-5.4) M/uL Hgb (12.0-16.0) g/dL Hct (37-47) % MCV (80-100) fL MCH (25-34) pg MCHC (32-36) g/dL RDW Std Deviation (36.4-46.3) fL RDW Coeff of [place] (11.5-14.5) % Plt Count (130-400) K/uL MPV (7.4-10.4) fL Immature Gran % (Auto) % Neut % (Auto) % Lymph % (Auto) % [place] % (Auto) % Eos % (Auto) % Baso % (Auto) % Immature Gran # (Auto) (0.00-0.02) K/uL Neut # (Auto) (1.4-6.5) K/uL Lymph # (Auto) (1.2-3.4) K/uL [place] # (Auto) (0.11-0.59) K/uL Eos # (Auto) (0-0.5) K/uL Baso # (Auto) (0-0.2) K/uL Absolute Nucleated RBC (0-0) K/uL Nucleated RBC % (auto) % Polychromasia Echinocytes Sodium (136-145) mmol/L Potassium (3.5-5.1) mmol/L Chloride (98-107) mmol/L Carbon Dioxide (21-32) mmol/L Anion Gap (3-11) BUN (7-18) mg/dl Creatinine (0.6-1.2) mg/dl Est Cr Clr Drug Dosing ml/min Est GFR ( Amer) Est GFR (Non-Af Amer) BUN/Creatinine Ratio (10-20) Glucose (70-99) mg/dl Calcium (8.5-10.1) mg/dl Total Bilirubin (0.2-1) mg/dl AST (15-37) U/L ALT (12-78) U/L Alkaline Phosphatase (45-117) U/L Total Creatine Kinase (26-192) U/L CK-MB (CK-2) (0.5-3.6) ng/ml CK/CKMB % Calc (0-3.0) Troponin I (0-0.045) ng/ml NT-Pro-B Natriuret Pep (0-900) pg/ml Total Protein (6.4-8.2) gm/dl Albumin (3.4-5.0) gm/dl Globulin (2.5-4.0) gm/dl Albumin/Globulin Ratio (0.9-2) TSH (0.300-4.500) uIu/ml Free T4 (0.8-1.6) ng/dl Blood Type A Positive Antibody Screen POSITIVE A Antibody Identification Anti-Fya Antibody ID Comment Crossmatch See Detail Imaging Data Radiologist's Impression: Radiology results as stated below per my review and the radiologist's interpretation: CT head/brain wo con CLINICAL HISTORY: Acute change in mental status COMPARISON STUDY: No previous studies for comparison. TECHNIQUE: Axial CT of the brain is performed from the vertex to the skull base. IV contrast was not administered for this examination. A dose lowering technique was utilized adhering to the principles of ALARA. CT DOSE: 1458.88 mGy.cm FINDINGS: No intra or extra-axial mass lesions are visualized. There is no CT evidence of acute cortical infarction. There is no evidence of midline shift. There is no acute hemorrhage. No calvarial fractures are visualized. There are patchy white matter hypodensities likely on a small vessel basis. 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 There is no evidence of pathologic ventricular dilatation. There is no evidence of acute sinusitis IMPRESSION: No acute intracranial findings Electronically signed by: Gio Colorado M.D. 07/02/2019 10:07 PM XR chest 1V portable CLINICAL HISTORY: weakness COMPARISON STUDY: 12/30/2018 FINDINGS: The heart is enlarged. There is aortic tortuosity/ectasia. There is no overt failure. There is no focal pulmonary consolidation. There are no significant pleural effusions. The study is rotated.[ IMPRESSION: 1. Rotated study 2. Cardiomegaly, a finding which is new when compared with the preceding study 3. No evidence of failure. No evidence of focal pulmonary consolidation Electronically signed by: Gio Colorado M.D. 07/02/2019 8:14 PM ECG Data Attestation: I personally reviewed and interpreted this ECG as follows: Indication: altered mental status Rate (beats per minute): 72 Rhythm: normal sinus Findings: + other (normal EKG); no ST depression and no ST elevation Blood Pressure Blood Pressure Findings: Normal blood pressure Blood Pressure Disposition: did not require urgent referral MDM Narrative This is a 64-year-old female who presents emergency department complaining of weakness. I will note that the patient's hemoglobin is 8.0. Her troponin is also elevated. Due to the ischemia from the troponin the patient was typed and screened for 2 units packed red blood cells. I did discuss the case with the hospitalist service who agreed to admit the patient. Patient was in agreement with the treatment plan Impression & Plan Anemia, CKD (chronic kidney disease), stage III, Elevated troponin Discharge Plan Visit Data *Final* Discharge Date/Time: 07/03/19 00:00 Chief Complaint: Weakness Stated Complaint: WEAKNESS ED Provider: Raul Villaseñor Discharge Problem: Anemia, CKD (chronic kidney disease), stage III, Elevated troponin Patient Disposition: Admitted As Inpatient Discharge Instructions Interventions: ED Discharge Assessment Last Done: 07/03/19 00:00 Discharge Problem: Anemia Qualifiers: Anemia type: unspecified type Qualified Code(s): D64.9 - Anemia, unspecified The scribe's documentation has been prepared under my direction and personally reviewed by me in its entirety. I confirm that the note above accurately re flects all work, treatment, procedures, and medical decision making performed by me.
[2019-07-03] MEDS ORDERED: SODIUM CHLORIDE 0.9% 250 ML IV PRN (01:09)
[2019-07-03] MEDS ORDERED: BENZONATATE 100 MG CAPSULE PO PRN (01:09)
[2019-07-03] MEDS ORDERED: SODIUM CHLORIDE 0.9% 1000ML 1,000 ML IV SCH (01:09)
[2019-07-03] MEDS ORDERED: MECLIZINE HCL 25 MG TAB PO PRN (01:09)
[2019-07-03] MEDS ORDERED: ONDANSETRON INJ 2 MG/ML 2 ML VIAL IV PRN (01:09)
[2019-07-03] MEDS ORDERED: POLYETHYLENE (MIRALAX) 17 GM PACK PO PRN (01:09)
[2019-07-03] MEDS ORDERED: HYDROCODONE/ACETAMOPHEN 5/325MG TAB PO PRN (01:09)
[2019-07-03] MEDS ORDERED: SIMETHICONE 80 MG CHEW PO PRN (01:09)
[2019-07-03] MEDS: LORazepam 0.5 MG TAB PO PRN (01:58)
[2019-07-03] MEDS ORDERED: FUROSEMIDE 20 MG in SYRINGE 0 ML IV ONE (02:00)
[2019-07-03] MEDS: PANTOprazole 40 MG in DEXTROSE 5% 100 ML IV SCH ×5 (02:01→19:28)
[2019-07-03 02:37] LABS: Base Excess ABG -8.7 mEq/L (-9-1.8); HCO3 ABG 14 mmol/L (19-24); Oxygen Saturation ABG 97.1 % (90-95); PCO2 ABG 20 mmHg (35-46); PO2 ABG 96 mm/Hg (80-95); pH ABG 7.47 (7.35-7.45)
[2019-07-03 02:40] LABS: Allen Test POS (Pos)
[2019-07-03] MEDS ORDERED: IOVERSOL 100ml IV PRN (02:48)
--- NOTE | 2019-07-03 02:50 | History and Physical Report ---
DATE OF ADMISSION: 07/02/2019 CHIEF COMPLAINT: Confusion, weakness, in the ER, found to be Hemoccult positive. HISTORY OF PRESENT ILLNESS: A 64-year-old female with past medical history significant for hypertension, chronic pain syndrome, depression, anxiety, history of hyponatremia, anemia, emphysema, was recently admitted. She has a history of possible ileus secondary to narcotics in December 2018, was recently on 06/24/2019 admitted for pelvic pain and found to have bilateral sacral ala fractures and right transverse process fracture of L5, was found to have hyponatremia, sodium of 127 and hospital stay was complicated by having mild elevated troponin for which echo was done which showed EF of around 15-20% and grade 2 diastolic dysfunction, moderate mitral regurgitation, small circumferential pericardial effusion, and at that time, cardiology was consulted and a small dose of beta beatriz was added and the patient was planned for outpatient Lexiscan. The daughter says the cardiology wanted to add low dose Lopressor, 12.5 Lopressor, but she was discharged on Toprol-XL 50 mg. She also has chronic pain and pain management was consulted and Recommend to continue usual oxycodone, LSO brace, daily bowel regimen, may use Relistor if needed. Also seen by psychiatry for anxiety, depression and advised to continue venlafaxine XR 300 mg daily, gabapentin 300 mg at bedtime, and lorazepam 0.5 hours every 8 hours as needed.and Added buspirone 5 mg 3 times daily for adjunctive treatment of anxiety.wellbutrin dose was decreased. Did ok in therapy and was discharged to her daughter's house couple of days ago. Daughter says that since she came home a couple of hours later, she was getting confused, she has poor appetite, not at all eating. She cannot hold things. She is ambulating. She is pushing herself to ambulate with walker. She is constipated. She has only a small amount of bowel sounds and today the bowel movement is dark color, and seems to be hallucinating, so she brought her here and daughter is very concerned that the patient might had stroke and slo request to check for any infection. The patient is alert and awake, oriented to name and place. Could tell month, but could not tell the year, says it is 2017. The patient denies any headache, no blurred visions, no cough, no fever, but she says she has nausea, don't feel like eating. Denies chest pain, shortness of breath. She states she feels constipated and she says her urine is somewhat dark. Denies any burning micturition, no swelling in the legs, no rash seen. Hemodynamics are stable. Her hemoglobin was found to be 8 ,trending down from 9 to 8.5 last admission. Her Hemoccult done in the ER was positive, so we are called for admission and also BNP greater than 3500 and troponin 0.047, total creatinine kinase 253, alkaline phosphatase of 325. CT of the head is unremarkable. ALLERGIES: BARBITURATES, BELLADONNA, ALKALOIDS, DICYCLOMINE, AZITHROMYCIN, MIVACURIUM, PENICILLIN, PHENOBARBITAL, QUINOLONE, AMOXICILLIN, NITRATE ANALOGUES, NITROFURANTOIN, NITROGLYCERIN, SULFA ANTIBIOTICS. PAST MEDICAL HISTORY: As mentioned above. PAST SURGICAL HISTORY: Colonoscopy, EGDs,surgery for bowel adhesion, sinus surgery, total abdominal hysterectomy with removal of tubes, umbilical hernia repair. MEDICATIONS: The patient was discharged on buspirone 5 mg p.o. t.i.d., Toprol-XL 50 mg p.o. daily, Percocet 1 tablet p.o. q. 4 hours p.r.n., lisinopril 20 mg p.o. daily, bupropion 150 mg p.o. daily, ropinirole 0.5 mg p.o. at bedtime, baclofen 10 mg p.o. b.i.d. p.r.n., benzonatate 100 mg p.o. t.i.d. p.r.n., diclofenac sodium 4 grams topical q.i.d. p.r.n., loperamide 2 mg p.r.n., simethicone 125 mg p.o. t.i.d. p.r.n., Elmiron 200 mg p.o. b.i.d., Lipitor 10 mg p.o. q.a.m., Effexor XR 150 mg p.o. daily, Effexor XR 300 mg p.o. a.m., aspirin 81 mg p.o. daily, potassium chloride 20 mEq p.o. daily, meclizine 25 mg p.o. t.i.d. p.r.n., Premarin 3 times a week p.r.n., promethazine 25 mg p.o. q. 6 hours p.r.n., gabapentin 300 mg p.o. at bedtime, Ativan 0.5 mg p.o. t.i.d. p.r.n., melatonin 10 mg p.o. at bedtime. FAMILY HISTORY: Significant for: Mother has hypertension and neurological disorder. Father has stroke. Maternal grandmother had stroke. SOCIAL HISTORY: Currently living with her daughter. Smokes half pack a day for about 40 years. No alcohol use. No drug use. REVIEW OF SYMPTOMS: As per HPI. Rest of the review of systems difficult to obtain as patine is hard of hearing and oriented to name and place only. PHYSICAL EXAMINATION: GENERAL: The patient is old and frail, somewhat slow to answer questions and hard of hearing. VITAL SIGNS: Temperature 36.7, pulse 67, respiratory rate 18, blood pressure 119/71, oxygen 98% room air. HEENT: No pallor, no icterus. Pupils equal, round, reactive to light. NECK: No JVD, no neck masses, no carotid bruits. CARDIOVASCULAR: S1, S2 heard, regular rate and rhythm, no murmur, no gallop. RESPIRATORY SYSTEM: Normal AP diameter. No accessory muscle use. No wheezing, no rales. ABDOMEN: Soft, bowel sounds present. Mild abdominal discomfort. No guarding, no rigidity. No distention. CENTRAL NERVOUS SYSTEM: Alert and awake, oriented to name and place only. Hard of hearing. Obeys simple commands. Moves extremities. EXTREMITIES: No edema, no erythema. LABORATORY DATA: WBC 8.8, hemoglobin 8, hematocrit 24.7, platelets 742. Sodium 133, potassium 4.7, chloride 105, bicarbonate 18, BUN 29, creatinine 1.1, serum glucose 74, calcium 8.1, total bilirubin 0.3, AST 19, ALT 16, alkaline phosphatase 325, total creatinine kinase 253, troponin I 0.04, BNP greater than 35,000. TSH 5.8, free T4 1.2. IMAGING: Chest x-ray: No acute findings. CT of the head, no acute intracranial findings. EKG: Normal sinus rhythm, rate of 72, no acute ST changes seen. ASSESSMENT AND PLAN: This is a 64-year-old female who was recently in the hospital for fall and bilateral sacral ala fractures and bilateral transverse process fracture of L5, treated conservatively, also found to have cardiomyopathy, EF of 15-20%, but discharged home, comes back because of confusion at home, poor appetite, dropping things, weakness. In the ER, she was found to have hemoglobin of 8 and Hemoccult positive. 1. Anemia, acute on chronic. Hemoglobin 8, hemoglobin was ranging from 9.5 to 8.5 last admission. Hemoccult is positive, thrombocytosis. Starting on Protonix drip, 2 units of PRBCs. Keep her n.p.o. Gentle fluids, normal saline at 40 mL per hour and consult GI in a.m. for any procedures. 2. Generalized weakness, confusion. Family is worried about stroke. CT of the head is unremarkable. Mostly, her confusion could be polypharmacy. We will rule out infection with urinalysis and blood cultures, rule out any intracranial findings with MRI scan. If no improvement or if any concerns, we will consult neurology. We will also check vitamin B12 levels and thiamine levels. We will monitor on tele floor. 3. History of hyponatremia, thought to be from volume depletion, SIADH. Today, sodium is 133. Getting gentle fluids. We will monitor the labs. 4. History of chronic systolic congestive heart failure, ejection fraction of only 15-20%, on last echo 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. Needs followup. Not on any diuretics. Getting gentle fluids. We will monitor for any volume overload. 5. Mild elevation of troponin. We will follow serial troponins. Consider doing echo again. There is a plan for outpatient Lexiscan nuclear stress. 6. Chronic pain syndrome. We will hold Percocet for now or reduce the dose. 7. History of depression and anxiety. Continue Ativan as needed and venlafaxine XR and bupropion. Last admission, was started on buspirone, which we will hold for now as the patient is little more confused. 8. Elevated LFTs, alkaline phosphatase elevated, and hepatic congestion, we will follow the CAT scan of the abdomen and pelvis. 9. Deep venous thrombosis prophylaxis, sequential compression devices for now. 10. Disposition: Closely monitor in tele floor. Level 1 full code. Addendum: During prbc transfusion became diaphoretic tachycardia. Transfusion stopped and transfusion reaction labs obtained. Hb 8.8 in a labs. Also ABG shows patinet is metabolic acidosis and hyperventilating. Possible starvation ketosis. Will change fluids to d5ns@50ml/hr Consulted nephrology for further recommendations. MTDD
[2019-07-03] MEDS ORDERED: D5W AND NSS 1,000 ML IV SCH (06:15)
[2019-07-03 06:35] LABS: Basophils # (auto) 0.01 K/uL (0-0.2); Basophils % (auto) 0.1 %; Eosinophils # (auto) 0.02 K/uL (0-0.5); Eosinophils % (auto) 0.2 %; Hematocrit (blood only) 27.8 % (37-47); Hemoglobin 8.8 g/dL (12.0-16.0); Immature Granulocytes # (auto) 0.04 K/uL (0.00-0.02); Immature Granulocytes % (auto) 0.5 %; Lymphocytes # (auto) 0.96 K/uL (1.2-3.4); Lymphocytes % (auto) 11.7 %; Mean Corpuscular Hemoglobin 25.7 pg (25-34); Mean Corpuscular Hgb Conc 31.7 g/dL (32-36); Mean Corpuscular Volume 81.3 fL (80-100); Mean Platelet Volume 9.8 fL (7.4-10.4); Monocytes # (auto) 0.78 K/uL (0.11-0.59); Monocytes % (auto) 9.5 %; Neutrophils # (auto) 6.38 K/uL (1.4-6.5); Nucleated RBC # (auto) 0.29 K/uL (0-0); Nucleated RBC % (auto) 3.6 %; Platelet Count 733 K/uL (130-400); RDW Coefficient of Variation 15.7 % (11.5-14.5); Red Blood Count 3.42 M/uL (4.2-5.4); White Blood Count 8.19 K/uL (4.8-10.8)
[2019-07-03 06:37] LABS: Allen Test Pos (Pos); HCO3 ABG 13 mmol/L (19-24); Oxygen Saturation ABG 98.5 % (90-95); PCO2 ABG 24 mmHg (35-46); PO2 ABG 126 mm/Hg (80-95); pH ABG 7.36 (7.35-7.45)
--- NOTE | 2019-07-03 06:47 | CT Scan Report ---
CT abd pelvis IV con only CT DOSE: 263.27 mGy.cm HISTORY: Pain. Nausea. elevated lft, poor appetite TECHNIQUE: Multiaxial CT images of the abdomen and pelvis were performed following the use of intrave nous contrast. A dose lowering technique was utilized adhering to the principles of ALARA. COMPARISON STUDY: 06/09/2016 FINDINGS: A right pleural effusion. Left lung base is considered clear. Mild cardiomegaly. Heterogene ous liver with a slightly nodular outer contour. Possibly developing sclerotic change most be conside red. The kidneys are atrophied. Cortical cold thickness is considerably diminished. No evidence for hydron ephrosis. Spleen is unremarkable. Pancreas shows moderate fatty replacement. Slight wall edema of all components of the colon as well as small bowel. Trace amount of pleural flui d in the cul-de-sac. Trace amount of body wall anasarca. Bilateral sacral insufficiency fractures are noted. There are interval findings of a fracture of the right symphysis pubis. IMPRESSION: 1. Development of a right pleural effusion. 2. Trace abdominal and pelvic ascites with findings suggesting developing hepatic cirrhosis. 3. Atrophy of the kidneys. 4. Mild diffuse wall edematous change of the small bowel as well as colon consistent with a diffuse e nterocolitis 5. No evidence for obstruction or free air. 6. Developing mild body wall anasarca. 7. Interval development of a fracture of the right symphysis pubis. 8. Pre-existing or subacute sacral insufficiency fractures. The above report was generated using voice recognition software. It may contain grammatical, syntax or spelling errors. Electronically signed by: Alex Howe M.D. 07/03/2019 6:46 AM
[2019-07-03 06:52] LABS: Albumin Level 2.3 gm/dl (3.4-5.0); BUN Creatinine Ratio 25.6 (10-20); Bilirubin Direct 0.1 mg/dl (0-0.2); Calcium 7.9 mg/dl (8.5-10.1); Creatinine Clr Calc Pharmacy 45.9 ml/min; Est GFR (African American) 63.1; Est GFR (Non-African American) 54.4; Magnesium 1.7 mg/dl (1.8-2.4); Potassium 4.8 mmol/L (3.5-5.1)
[2019-07-03] MEDS ORDERED: SODIUM BICARB 8.4% INJ 50 MEQ/50 ML SYR IV STA (07:00)
[2019-07-03 07:01] LABS: Bilirubin,Total 0.3 mg/dl (0.2-1); Total Protein 4.9 gm/dl (6.4-8.2); Troponin I 0.048 ng/ml (0-0.045)
[2019-07-03 07:11] LABS: Blood Urine Negative (Negative)
[2019-07-03 07:11] LABS: Echinocytes 1+; Polychromasia 1+
--- NOTE | 2019-07-03 07:20 | Magnetic Resonance Report ---
MRI OF THE BRAIN WITHOUT CONTRAST CLINICAL HISTORY: Confusion. COMPARISON STUDY: Head CT July 02, 2019. TECHNIQUE: Utilizing a 1.5 Dara magnet and dedicated coil, multiplanar, multiecho imaging of the bra in was performed without IV contrast. FINDINGS: Exam is mildly compromised by motion artifact. There are no foci of restricted diffusion to suggest acute infarct. No acute intracranial hemorrhage, midline shift or mass effect is present. Br ain volume is normal for age. Basilar cisterns are patent. There are no extra-axial collections. Whit e matter T2 hyperintense foci suggest small vessel disease. No intracranial masses are identified on this unenhanced exam. Calvarial signal is normal. Ventricular system is unremarkable. IMPRESSION: 1. No acute intracranial findings. 2. Exam mildly compromised by motion artifact. 3. White matter T2 hyperintense foci which are nonspecific but favor small vessel disease. Electronically signed by: Bernabe Kothari M.D. 07/03/2019 7:19 AM
--- NOTE | 2019-07-03 09:01 | Nephrology Consultation ---
Date of Consultation July 03, 2019 Assessment & Plan (1) Mixed acid base balance disorder: She was at first alkalemic and then on next abg during concern for transfusion reaction she had normal arterial pH. Primary underlying disorder is respiratory alkalosis, ? related to catacholamines or anxiety or dyspnea during transfusion or other drivers of tachypnea -Would have expected compensation for this chronic (eg, > than a 6-8 hours duration) drop of 7-8 mg/dL bicarbonate >> she dropped C02 more than this and w/ + AG (corrected for albumin 2.3) so also underlying anion gap metabolic acidosis also present: possibly inappropriate compensation for the alkalosis or underlying ketoacidosis related to poor po intake (ketonuria noted) >>>orders in for the following: >check lactate and beta hydroxybutyrate w/ next labs which should also repeat BMP >>some improvement in bicarb but still low at midday with elevated ketoacids >> metabolic ketoacidosis -check ASA and tylenol level > both low/wnl -low threshold to repeat ABG if sudden clinical status changes warrant, christy given her behavior/dminished MS w/ pain meds Present on Admission?: Yes History of Present Illness Reason for Consultation: acid/base disorder Requesting Physician: Dr Truong Attending Physician: Farooq Zepeda MD History of Present Illness 64 y/o F whom I'm asked to evaluate for acid base disorder was admitted overnight for confusion/generalized weakness and acute on chronic anemia w/ heme positive stool. Pt was recently admitted here from 06/24-06/29 after a fall w/ multiple pelvic fractures and found to have multiple acute medical issues including acute on chronic anemia and catecholamine induced cardiomyopathy and ongoing issues with generalized anxiety disorder. [employer] was at last admission for OP work up; cardiology did not feel that aldosterone antagonism or loop diuretics were indicated at last admission. her family brought her back to hospital b/c of concern about MS changes and very poor po intake. Had heme + stool on presentation and hgb 8.0. she had one unit pRBC. She had 2 ABG overnight > one at 0200 on RA 7.47/ 20/ 96/ 14 and another at 0630 on 3LNC 7.36/ 24/ 126/ 13. The second ABG was obtained d/t concerns about transfusion reaction> she became dyspneic, diaphoretic, and had c/o flank pain. Allergies Allergy/AdvReac Type Severity Reaction Status Date / Time Barbiturates Allergy Severe Unknown Verified 07/02/19 21:17 belladonna alkaloids Allergy Severe Unknown Verified 07/02/19 21:17 dicyclomine Allergy Severe Unknown Verified 07/02/19 21:17 azithromycin Allergy Mild Hives Unverified 07/02/19 21:17 mivacurium Allergy Mild Unknown Verified 07/02/19 21:17 Penicillins Allergy Mild AMOXICILLIN Verified 07/02/19 21:17 phenobarbital Allergy Mild Unknown Verified 07/02/19 21:17 Quinolones Allergy Mild Unknown Verified 07/02/19 21:17 amoxicillin Allergy Unknown rash Unverified 07/02/19 21:17 Nitrate Analogues Allergy Unknown Unknown Verified 07/02/19 21:17 nitrofurantoin Allergy Unknown Unknown Verified 06/25/19 09:47 nitroglycerin Allergy Unknown Unknown Verified 06/25/19 09:47 Sulfa (Sulfonamide Allergy Unknown sulfa Verified 12/29/18 13:31 Antibiotics) Home Medications Home Medications Medication Instructions Recorded Confirmed Type aspirin [Aspir-81] 81 mg PO DAILY 07/02/19 07/02/19 History atorvastatin [Lipitor] 10 mg PO DAILY 07/02/19 07/02/19 History baclofen 10 mg PO BID PRN 07/02/19 07/02/19 History benzonatate [Tessalon Perles] 100 mg PO TID PRN 07/02/19 07/02/19 History betamethasone dipropionate 1 applic TOPICAL .BID UD PRN 07/02/19 07/02/19 History bupropion HCl [Wellbutrin XL] 150 mg PO DAILY 07/02/19 07/02/19 History buspirone 5 mg PO TID 07/02/19 07/02/19 History conjugated estrogens [Premarin] 0 mg VAGINAL 3XWK PRN 07/02/19 07/02/19 History diclofenac sodium [Voltaren] 4 g TOPICAL UD PRN 07/02/19 07/02/19 History food supplemt, lactose-reduced 1 ea PO BID 07/02/19 07/02/19 History [Ensure] gabapentin 300 mg PO HS 07/02/19 07/02/19 History hydrocodone-acetaminophen [[place]] 1 tab PO Q4 PRN 07/02/19 07/02/19 History lisinopril 20 mg PO DAILY 07/02/19 07/02/19 History loperamide [Imodium A-D] 1 - 2 mg PO UD 07/02/19 07/02/19 History lorazepam [Ativan] 0.5 mg PO Q8 PRN 07/02/19 07/02/19 History meclizine 25 mg PO TID PRN 07/02/19 07/02/19 History metoprolol succinate [Toprol XL] 50 mg PO DAILY 07/02/19 07/02/19 History oxycodone [Roxicodone] 5 mg PO Q6 PRN 07/02/19 07/02/19 History pentosan polysulfate sodium 100 mg PO BID 07/02/19 07/02/19 History [Elmiron] potassium chloride [Klor-Con M20] 20 meq PO DAILY 07/02/19 07/02/19 History promethazine 25 mg PO .Q4-6HRS PRN 07/02/19 07/02/19 History ropinirole [Requip] 0.25 mg PO HS 07/02/19 07/02/19 History simethicone 125 mg PO TID PRN 07/02/19 07/02/19 History venlafaxine [Effexor XR] 300 mg PO QAM 07/02/19 07/02/19 History Patient History Medical History Depression (Chronic) Migraines (Chronic) Tobacco abuse (Chronic) OCD (obsessive compulsive disorder) (Chronic) CKD (chronic kidney disease), stage III (Chronic) IBS (irritable bowel syndrome) (Chronic) HTN (hypertension) (Chronic) Surgical History History of total abdominal hysterectomy (Chronic) H/O hernia repair (Chronic) History of back surgery (Chronic) H/O colonoscopy (Chronic) H/O sinus surgery (Chronic) Family History Other Diabetes Hypertension Social History Preferred Language: Swedish Communication Ability: Effective Mail Carrier And Clerk Required: No Beliefs That Will Affect Care: None Current Living Situation: Family Current Living Situation Comment: lives with dtr Feels Safe at Home: Yes Safety Concerns: Feels Safe At This Time Smoking Status: Current every day smoker Tobacco Type: cigarettes ; Cigarettes Per Day: 20 ; Do You Dip or Chew Tobacco: No ; Second Hand Exposure: No ; Tobacco Cessation Education Requested by Patient: No Hx Alcohol Use: Yes Alcohol type: wine Hx Substance Use: No Review of Systems Review of Systems: Unobtainable due to cognitive status limited by cognit loly status/ pt just had pain med Constitutional: + weakness; no malaise Respiratory: no dyspnea Cardiovascular: no chest pain and no edema Gastrointestinal: no abdominal pain and no vomiting Physical Exam Constitutional: well developed, + cachectic and + frail appearing; not in distress sitting on side of bed on 4L 02NC exhaling w/ puffed cheeks not tachypneic appropriate but limited responses / hx Eyes: EOM intact bilaterally ENMT: Ears: no external ear abnormality Nose: no external nose abnormality Mouth: + dry oral mucous membranes Neck: no nuchal rigidity Respiratory: normal respiratory effort Auscultation: + diminished lung sounds and + crackles (BL bases) Cardiovascular: Rate/Rhythm: regular rate and regular rhythm Extremities: + edema (2+ BL ankle) Gastrointestinal (Abdomen): Inspection/Auscultation: normal bowel sounds Percussion/Palpation: abdomen soft; abdomen nontender Musculoskeletal: Extremities: strength 5/5 throughout Skin: no rashes, warm and dry Neurologic: sitting up on side of bed, oriented to self and place but MS not appropriate Psychiatric: Orientation: alert, oriented to person and oriented to place Eye Contact: + fair eye contact Insight: + limited insight Judgement: + limited judgement Results & Data Vital Signs (Past 12 Hours) Vital Signs Temp Pulse Pulse Resp BP BP Pulse Ox 07/03/19 07:03 36.3 C L 65 17 130/81 97 07/03/19 05:53 36.9 C 73 20 121/75 88 L 07/03/19 04:57 36.6 C 64 18 128/78 99 07/03/19 04:39 87 07/03/19 04:30 67 16 126/76 99 07/03/19 04:12 36.5 C 64 16 129/77 99 07/03/19 03:55 36.3 C L 64 16 122/74 93 07/03/19 03:28 36.5 C 75 18 113/78 94 07/03/19 00:05 36.4 C L 85 22 127/84 99 07/03/19 00:00 88 23 113/76 98 07/02/19 23:30 23 113/76 98 07/02/19 23:00 67 18 119/71 98 07/02/19 22:31 70 16 119/63 98 07/02/19 22:04 71 15 124/79 99 07/02/19 21:39 75 15 122/81 98 07/02/19 21:00 73 20 120/71 100 Laboratory Results 07/03/19 06:13 07/03/19 12:23
[2019-07-03] MEDS ORDERED: MAGNESIUM SULFATE / D5W 1 GM/100 ML BAG IV ONE (10:00)
[2019-07-03] MEDS: HYDROCODONE/ACETAMOPHEN 5/325MG TAB PO PRN ×2 (10:03→19:23)
[2019-07-03] MEDS: BuPROPion XL 150 MG TABCR PO SCH (10:04)
[2019-07-03] MEDS: VENLAFAXINE HCL XR 150 MG CAPXR PO SCH (10:05)
[2019-07-03] MEDS: POTASSIUM CHLORIDE 20 MEQ TABCR PO SCH (10:05)
[2019-07-03] MEDS: ATORVASTATIN 10 MG TAB PO SCH (10:05)
[2019-07-03] MEDS: FERROUS SULFATE 325 MG TAB PO SCH (10:05)
[2019-07-03] MEDS: METOPROLOL SUCC 50MG EXT REL TAB PO SCH (10:05)
[2019-07-03] MEDS: LISINOPRIL 20 MG TAB PO SCH (10:05)
[2019-07-03 12:58] LABS: BUN Creatinine Ratio 24.5 (10-20); Calcium 8.2 mg/dl (8.5-10.1); Creatinine Clr Calc Pharmacy 43.5 ml/min; Est GFR (African American) 59.1; Potassium 4.8 mmol/L (3.5-5.1)
[2019-07-03 13:05] LABS: Beta-Hydroxybutyrate 7.49 mg/dl (0.2-2.81); Troponin I 0.049 ng/ml (0-0.045)
[2019-07-03 13:11] LABS: Salicylate 2.3 mg/dl (2.8-20)
--- NOTE | 2019-07-03 16:48 | Gastrointestinal Consultation ---
Date of Consultation July 03, 2019 Assessment & Plan (1) Anemia: Pt is a 64 y/o female seen for anemia, heme positive stools. She is not having twin s/s of GI bleeding. Hx of chronic anemia on iron but per daughter pt doens't always take iron and also doens't like to eat meat. CT scan w possible enterocolitis and suspected liver cirrhosis. Last EGD/Colonoscopy in 2017 unremarkable. - Will obtain stool cx, Cdiff if having diarrhea - Monitor H/H closely - Discussed possible endoscopic evaluations w pt's daughter. We can start w EGD evaluation and eventually outpt colonoscopy. Daughter will think over this and let me know tomorrow. - ? cirrhosis. Can plan for workup once her acute issues (confusion, volume overload, anemia) are resolved (2) Heme positive stool: Supervising Physician Co-Signing Physician Notes I performed a history and physical examination of the patient, including specifically on physical exam - soft, nontender abdomen. I have discussed the patient's management with Marilu. Please refer to the nurse practitioner's note for the documented findings and plan of care. 64 female patient with anemia but no overt GI bleeding now. ? Liver cirrhosis, BUN elevated. Recommend EGD now and colonoscopy as OP. Will schedule if family agrees. History of Present Illness Reason for Consultation: Anemia, GI bleeding Requesting Physician: Dr. Martin Truong Attending Physician: Dr. Faina Hanson History of Present Illness Pt is a 64 y/o female who was brought to ED yesterday by daughter for confusion, decreased appetite, having repetitive speech. Initially suspected to have stroke but Brain MRI negative. She did have elevated Troponin, BNP and known hx low EF 15-20%. GI consulted for anemia - H/H 06/18, and GI bleeding (hemoccult positive). She was started on PRBC transfusion last night but had bilateral back pain, transfusion stopped for suspected transfusion reaction. H/H this AM 8.06/18. She answers questions slightly, still quite confused. I spoke w her daughter Jamee. Per Jamee, pt did not have any signs of GI bleeding - no n/v, hematemesis, dark tarry stools or rectal bleeding. She did have constipation a few days prior to admission and needed enema. Last BM prior to admission, brown stools. Jamee also noted pt doesn't eat meat and also doesn't always take her iron supplements. Pt had CT abd/pelvis on admission which showed R pleural effusion, trace abd/pelvis ascites, possible hepatic cirrhosis, edematous changes of small and large bowels consistent w diffuse enterocolitis, no obstruction or free air; + anasarca, R symphysis pubis fracture, sacral fractures. Hx of EGD and colonoscopy in 2017 which was unremarkable. Allergies Allergy/AdvReac Type Severity Reaction Status Date / Time Barbiturates Allergy Severe Unknown Verified 07/02/19 21:17 belladonna alkaloids Allergy Severe Unknown Verified 07/02/19 21:17 dicyclomine Allergy Severe Unknown Verified 07/02/19 21:17 azithromycin Allergy Mild Hives Unverified 07/02/19 21:17 mivacurium Allergy Mild Unknown Verified 07/02/19 21:17 Penicillins Allergy Mild AMOXICILLIN Verified 07/02/19 21:17 phenobarbital Allergy Mild Unknown Verified 07/02/19 21:17 Quinolones Allergy Mild Unknown Verified 07/02/19 21:17 amoxicillin Allergy Unknown rash Unverified 07/02/19 21:17 Nitrate Analogues Allergy Unknown Unknown Verified 07/02/19 21:17 nitrofurantoin Allergy Unknown Unknown Verified 06/25/19 09:47 nitroglycerin Allergy Unknown Unknown Verified 06/25/19 09:47 Sulfa (Sulfonamide Allergy Unknown sulfa Verified 12/29/18 13:31 Antibiotics) Home Medications Home Medications Medication Instructions Recorded Confirmed Type aspirin [Aspir-81] 81 mg PO DAILY 07/02/19 07/02/19 History atorvastatin [Lipitor] 10 mg PO DAILY 07/02/19 07/02/19 History baclofen 10 mg PO BID PRN 07/02/19 07/02/19 History benzonatate [Tessalon Perles] 100 mg PO TID PRN 07/02/19 07/02/19 History betamethasone dipropionate 1 applic TOPICAL .BID UD PRN 07/02/19 07/02/19 History bupropion HCl [Wellbutrin XL] 150 mg PO DAILY 07/02/19 07/02/19 History buspirone 5 mg PO TID 07/02/19 07/02/19 History conjugated estrogens [Premarin] 0 mg VAGINAL [id number] PRN 07/02/19 07/02/19 History diclofenac sodium [Voltaren] 4 g TOPICAL UD PRN 07/02/19 07/02/19 History food supplemt, lactose-reduced 1 ea PO BID 07/02/19 07/02/19 History [Ensure] gabapentin 300 mg PO HS 07/02/19 07/02/19 History hydrocodone-acetaminophen [[place]] 1 tab PO Q4 PRN 07/02/19 07/02/19 History lisinopril 20 mg PO DAILY 07/02/19 07/02/19 History loperamide [Imodium A-D] 1 - 2 mg PO UD 07/02/19 07/02/19 History lorazepam [Ativan] 0.5 mg PO Q8 PRN 07/02/19 07/02/19 History meclizine 25 mg PO TID PRN 07/02/19 07/02/19 History metoprolol succinate [Toprol XL] 50 mg PO DAILY 07/02/19 07/02/19 History oxycodone [Roxicodone] 5 mg PO Q6 PRN 07/02/19 07/02/19 History pentosan polysulfate sodium 100 mg PO BID 07/02/19 07/02/19 History [Elmiron] potassium chloride [Klor-Con M20] 20 meq PO DAILY 07/02/19 07/02/19 History promethazine 25 mg PO .Q4-6HRS PRN 07/02/19 07/02/19 History ropinirole [Requip] 0.25 mg PO HS 07/02/19 07/02/19 History simethicone 125 mg PO TID PRN 07/02/19 07/02/19 History venlafaxine [Effexor XR] 300 mg PO QAM 07/02/19 07/02/19 History Patient History Medical History Depression (Chronic) Migraines (Chronic) Tobacco abuse (Chronic) OCD (obsessive compulsive disorder) (Chronic) CKD (chronic kidney disease), stage III (Chronic) IBS (irritable bowel syndrome) (Chronic) HTN (hypertension) (Chronic) Surgical History History of total abdominal hysterectomy (Chronic) H/O hernia repair (Chronic) History of back surgery (Chronic) H/O colonoscopy (Chronic) H/O sinus surgery (Chronic) Family History Other Diabetes Hypertension Social History Preferred Language: Gambian Communication Ability: Effective Trailer Technician Required: No Beliefs That Will Affect Care: None Current Living Situation: Family Current Living Situation Comment: lives with dtr Feels Safe at Home: Yes Safety Concerns: Feels Safe At This Time Smoking Status: Current every day smoker Tobacco Type: cigarettes ; Cigarettes Per Day: 20 ; Do You Dip or Chew Tobacco: No ; Second Hand Exposure: No ; Tobacco Cessation Education Requested by Patient: No Hx Alcohol Use: Yes Alcohol type: wine Hx Substance Use: No Review of Systems Review of Systems: Limited due to mental status. Pt denies any pain, n/v. Physical Exam Constitutional: + ill appearing, + thin, well groomed, cooperative and comfortable Eyes: PERRL, conjunctivae normal, anicteric sclerae ENMT: external ear and nose normal, oropharynx normal Respiratory: no respiratory distress and does not use accessory muscles Auscultation: + diminished lung sounds Cardiovascular: RRR, no murmur, no edema Gastrointestinal (Abdomen): normal bowel sounds, soft, nontender, no hepatosplenomegaly Skin: no rashes, warm and dry no jaundice Psychiatric: A+Ox3, euthymic affect Lymphatic: no lymphedema Results & Data Vital Signs (Past 12 Hours) Vital Signs Temp Pulse Pulse Pulse Resp BP BP 07/03/19 15:26 36.4 C L 89 19 126/82 07/03/19 10:53 36.4 C L 67 20 144/82 H 07/03/19 07:03 36.3 C L 65 17 130/81 07/03/19 05:53 36.9 C 73 20 121/75 07/03/19 04:57 36.6 C 64 18 128/78 Pulse Ox 07/03/19 15:26 93 07/03/19 10:53 98 07/03/19 07:03 97 07/03/19 05:53 88 L 07/03/19 04:57 99
--- NOTE | 2019-07-03 18:38 | Consultation Report ---
DATE OF CONSULTATION: 07/03/2019 CONSULTATION REQUESTED BY: Dr. Truong. REASON FOR CONSULTATION: Recently diagnosed cardiomyopathy. HISTORY OF PRESENT ILLNESS: Ms. Patrick is a very pleasant yet medically complex 64-year-old woman who I recently met a week ago when she was hospitalized for pain management and found to have a new cardiomyopathy. 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 She presented to [facility] on 07/02/2019, brought in by her daughter who is reporting that she seemed to be confused. Her daughter states that she has not been eating at all since discharge and she is now very weak. She is not able to ambulate or even hold things. Her daughter was very concerned that she had a stroke and seemed to possibly be hallucinating as well. She also had a reportedly very dark bowel movement. Upon arrival to the Emergency Department, hemoglobin had trended down to 8 and was Hemoccult positive. BNP was significantly elevated as well as her LFTs. Clinically, the patient seems very confused and is nowhere near as alert as she was on discharge on the . She answers questions, but poorly and drifts off to sleep during conversation. When asked about eating, she states that she does not eat much. She is a vegan. When I asked her what her normal breakfast is, she states dry toast and when I asked her what a normal dinner for her would be, she trailed off to sleep. She currently denies any chest pain, shortness of breath, palpitations, lightheadedness, dizziness, or syncope. It appears that she has been taking her metoprolol succinate since discharge, she received it this a.m. and has remained hemodynamically stable. PAST SURGICAL HISTORY: 1. Colonoscopies. 2. Upper endoscopy. 3. Exploratory laparotomy with 3 abdominal wall adhesions. 4. Back surgery. 5. Sinus surgery. 6. Total abdominal hysterectomy. 7. Hernia repair. 8. Chronic pain. 9. Recent lumbar compression fracture and pelvic fracture with newly discovered pubic ramus fracture as well. 10. OCD. 11. Chronic tobacco abuse. 12. History of drug-induced ileus. 13. Chronic migraines. 14. Major depression. 15. Anxiety. 16. Stage III chronic kidney disease. 17. Newly discovered biventricular systolic failure. FAMILY HISTORY: Noncontributory. SOCIAL HISTORY: The patient is a lifelong smoker and smokes half a pack a day. Denies any alcohol or recreational drug use. She is and she is not currently employed. Currently on disability. She resides with her daughter. REVIEW OF SYSTEMS: As per HPI, all other review of systems reviewed and negative at this time. ALLERGIES: 1. BARBITURATES. 2. BELLADONNA. 3. DICYCLOMINE. 4. AZITHROMYCIN. 5. MIVACURIUM. 6. PENICILLIN. 7. PHENOBARBITAL. 8. QUINOLONES. 9. AMOXICILLIN. 10. NITRATE ANALOGS. 11. NITROGLYCERIN. 12. NITROFURANTOIN. 13. SULFA. MEDICATIONS AN OUTPATIENT: 1. Aspirin 81 mg daily. 2. Atorvastatin 10 mg daily. 3. Metoprolol succinate 50 mg daily. 4. Baclofen. 5. Wellbutrin. 6. Buspirone. 7. Topical Voltaren. 8. Gabapentin. 9. Percocet. 10. Lisinopril 20 mg daily. 11. Ativan p.r.n. 12. Meclizine. 13. Oxycodone. 14. Potassium chloride. 15. Requip. 16. Effexor. PHYSICAL EXAMINATION: VITALS: Temperature 36.4, pulse 89, respiratory rate 12, blood pressure 126/82. GENERAL: Lethargic and drifting to sleep during conversation but responsive to verbal stimuli, not answering questions appropriately. No acute distress, very cachectic in appearance. HEENT: Normocephalic, atraumatic. Pupils equal, round, reactive to light and accommodation. Extraocular muscles intact. Anicteric sclerae. Moist mucous membranes. NECK: No JVD, no bruit. CARDIOVASCULAR: Regular. Positive S4. Normal S1 and S2. No S3. A 3/6 holosystolic ejection murmur greatest at the left sternal border midclavicular line with radiation to the left axilla. No rubs. PULMONARY: Clear except for scant crackles on the right base only. No rhonchi or wheezing. ABDOMEN: Bowel sounds x4, soft. No rebound, guarding, tenderness. No organomegaly. EXTREMITIES: No clubbing, cyanosis or edema. +2 pedal pulses bilaterally. SKIN: Warm and dry. TEST RESULTS: Brain MRI showed no acute intracranial findings. Exam is mildly compromised by motion artifact, white matter T2 hyperintense foci which are nonspecific but favor small vessel disease. LABORATORY STUDIES OF SIGNIFICANCE: White count of 8.2, hemoglobin 8.8 after receiving partial transfusion, it was stopped prematurely due to questionable reaction, platelet count of 733. Blood gas upon presentation 7.47, CO2 of 20, PaO2 of 96, bicarbonate of 14, O2 sat of 97%. Sodium 134, potassium 4.8, BUN 28, creatinine 1.1, magnesium of 1.7. Troponin of 0.05 x2. Beta hydroxybutyrate significantly elevated at 7.5. IMPRESSION: 1. Newly discovered biventricular systolic failure with questionable catecholamine-induced given the clinical setting. Outpatient ischemic workup not yet completed. 2. Change in mental status. 3. Newly discovered pubic ramus fracture with recent pelvis and lumbar compression fractures. 4. Chronic pain, on chronic narcotics. 5. Malnutrition and questionable starvation. 6. Respiratory alkalosis. 7. Anemia with questionable transfusion reaction. 8. Tobacco abuse. RECOMMENDATIONS: It was my pleasure to see Mrs. Patrick in consultation today. From a cardiac standpoint, I really do not see any new acute cardiac component to her decompensation. Ideally, I would like to complete her ischemic workup as soon as possible. However, given her current clinical state with lack of active cardiac symptoms, I believe the most prudent course of action will be to first stabilize her medically and then complete ischemic workup at that time. In the meantime, she is tolerating evidence based beta beatriz along with ALEN inhibitor. She was not examined as significantly volume overloaded, so I see no role for loop diuretics at this time. Ideally, given the newly found cardiomyopathy, I would like to see her hemoglobin above 9, if possible. Otherwise, I will defer further medical management to the primary team along with Nephrology and GI. I will be happy to follow the patient during her hospital stay.
[2019-07-03] MEDS: GABAPENTIN 300 MG CAP PO SCH (19:24)
[2019-07-03] MEDS: ROPINIROLE HCL 0.25 MG TABLET PO SCH (19:24)
--- NOTE | 2019-07-03 20:12 | Hospitalist Progress Note ---
Date of Service July 03, 2019 Assessment & Plan (1) Anemia: (2) Heme positive stool: Hemoglobin on admission [address] scan w possible enterocolitis and suspected liver cirrhosis PRBC transfusion stopped after 2 hrs when pt developed SOB and diaphoresis Hemoglobin this morning 8.5 Gastro on board Plan for EGD in am, but daughter does not decide yet if she wants her to proceed with EGD Continue Protonix drip Will make NPO after midnight Continue Monitor H/H Encephalopathy Altered Mental Status Mostly related to medications CT head/MRI head showed no acute intracranial findings Pt is on [place] q4hr, oxycodone, gabapentin, Lorazepam, Bupropion, Baclofen, Bus pirone, Requip and Venlafaxine Discussed with daughter about the medication list Daughter said that her mother has been taking the narcotic and benzo for years I told her this morning her mother was barely able to keep her eyes open I explained to her that the oxycodone on hold and the hydrocodone was decreased to q6hr, but she was not too happy about that Buspar has been on hold since that was the newest med started recently Mental status back to her baseline Generalized weakness Mostly due to polypharmacy Fall precaution Pt refused to go to inpatient rehab PT/OT History of hyponatremia Total Sodium on admission 133 Nephrology on board Monitor BMP Cardiomyopathy Newly discovered biventricular systolic failure Last ECHO showed EF 15-20% (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 Troponin trending showed no significant elevation EKG showed no ischemic changes Denies any chest pain Continue monitor in tele Chronic pain syndrome. has been taking oxycodone for years recently prescribed adding [place] drug prescription monitoring program reviewed: Hydrocodone filled on 06/28 and oxycodone filled on 06/14 Will hold Oxycodone for now Continue gabapentin and baclofen Malnutrition Pt is a vegetarian BMI 18.3 Reviewed her weight for the last 2 to 3 years, her weight has been the same Daughter insisted to start TPN and to discharge home on it Does not seem to meet criteria for TPN Discussed complication with daughter such as infection, thrombophlebitis and embolism fron the picc line, fluid overload, electrolyte imbalance, re-feeding s yndrome Consult nutrition Boost adding Will discuss with major case detective to see if pt will qualify for TPN Depression and anxiety. Pt is very anxious Continue Ativan as needed and venlafaxine XR and bupropion. Last admission was started on buspirone, which placed on hold Elevated LFTs/alkaline phosphatase elevated CT abdomen and pelvis showed Trace abdominal and pelvic ascites with findings suggesting developing hepatic cirrhosis. Mild diffuse wall edematous change of the small bowel as well as colon consistent with a diffuse enterocolitis GI on board Monitor LFT DVT px on SCDs Disposition Continue monitor in tele Subjective Pt was seen and examined Sitting in chair with no distress her mental status is back to her baseline Pt is very anxious and does not want to stay in the hospital Case discussed with daughter and telling her mother to silence when she tried to talk to express that she does not want to stay in the hospital Daughter wants her mother to discharge home with TPN because she is a vegetarian and has a poor appetite Daughter also does not want her mother pain med and benzo to decrease I explained to her that her mother is on so many meds that can alter her mental status She said that i don't need to tell her that because 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 Pt wants to go home tomorrow Daughter does not want her mother to proceed to any scope for the low hemoglobin and positive heme Pt denies any chest pain, palpitation, dizziness and SOB Physical Exam Physical Exam: General- No acute distress Head- atraumatic Eyes- PERRL, EOMI, ENT- oropharynx clear Neck- supple, no JVD Lungs- clear to auscultation Heart- regular rhythm; no murmur Abdomen- normal bowel sounds, soft, nontender Extremities- no calf tenderness, +edema Neuro- alert, oriented x 3; PERRL, EOMI; no facial palsy; no dysarthria Skin- warm & dry Results & Data Vital Signs (Past 12 Hours) Vital Signs Temp Pulse Resp BP Pulse Ox 07/03/19 19:28 36.5 C 65 20 109/68 100 07/03/19 15:26 36.4 C L 89 19 126/82 93 07/03/19 10:53 36.4 C L 67 20 144/82 H 98
[2019-07-04] MEDS: ACETAMINOPHEN 325 MG TAB PO PRN (00:21)
[2019-07-04] MEDS: PANTOprazole 40 MG in DEXTROSE 5% 100 ML IV SCH ×3 (00:21→12:09)
[2019-07-04] MEDS: LORazepam 0.5 MG TAB PO PRN ×2 (03:53→22:57)
[2019-07-04] MEDS: HYDROCODONE/ACETAMOPHEN 5/325MG TAB PO PRN ×3 (03:53→18:05)
[2019-07-04 07:01] LABS: Hematocrit (blood only) 25.6 % (37-47); Hemoglobin 8.2 g/dL (12.0-16.0); Mean Corpuscular Volume 81.3 fL (80-100); Mean Platelet Volume 9.7 fL (7.4-10.4); Nucleated RBC # (auto) 0.45 K/uL (0-0); Nucleated RBC % (auto) 5.6 %; Platelet Count 667 K/uL (130-400); RDW Coefficient of Variation 15.7 % (11.5-14.5); RDW Standard Deviation 46.3 fL (36.4-46.3); Red Blood Count 3.15 M/uL (4.2-5.4); White Blood Count 8.08 K/uL (4.8-10.8)
[2019-07-04 07:35] LABS: BUN Creatinine Ratio 24.1 (10-20); Calcium 8.1 mg/dl (8.5-10.1); Creatinine Clr Calc Pharmacy 46.5 ml/min; Est GFR (African American) 63.1; Est GFR (Non-African American) 54.4; Potassium 4.1 mmol/L (3.5-5.1)
[2019-07-04 09:26] LABS: Albumin Level 2.4 gm/dl (3.4-5.0); Bilirubin Direct 0.1 mg/dl (0-0.2); Bilirubin,Total 0.2 mg/dl (0.2-1); Total Protein 4.8 gm/dl (6.4-8.2)
--- NOTE | 2019-07-04 10:40 | History & Physical Bridge Note ---
Date of Service July 04, 2019 History & Physical Bridge Note I have examined the patient, reviewed the History & Physical and in the interval since the performance of the History & Physical I have noted the following changes of clinical significance: no changes noted Pt now alert, oriented x 3. H/H stable w/o twin s/s of GI bleeding. Discussed possible endoscopic evaluation for anemia with pt and daughter (on phone). Pt and daughter agreeable to at least EGD today. She is currently NPO VS, labs reviewed. Exam: - AAOx3, in NAD - Diminished bases on lungs, no respiratory distress - + heart murmur 3/6, no gallops - Abd soft, non tender, hypoactive bowel sounds GI will give recs after EGD is completed. Supervising Physician Co-Signing Physician Notes I performed a history and physical examination of the patient, including specifically on physical exam - soft, nontender abdomen. I have discussed the patient's management with Marilu. Please refer to the nurse practitioner's note for the documented findings and plan of care. EGD today, patient and her daughter agreed.
--- NOTE | 2019-07-04 13:04 | Anesthesiology Consultation ---
Date of Service July 04, 2019 CHF Anemia CKD HTN Smoker Assessment & Plan (1) Encounter for pre-operative examination: Chart Review Chart Review: Acceptable Risk for Surgery and Patient NOT seen in Pre Admission Testing Consults Requested none ASA ASA4 Proposed Anesthesia Anesthesia Type: MAC Risk / Benefits Reviewed With: PT / POA / Parent / Guardian, Accepts Plan and Informed Consent Obtained History Surgery Operation Date: 07/04/19 10:00 Proposed Procedures p Esophagogastroduodenoscopy Dr Hanson - Faina Hanson MD Height/Weight Height: 5 ft 9 in Weight: 56.2 kg Allergies Allergy/AdvReac Type Severity Reaction Status Date / Time Barbiturates Allergy Severe Unknown Verified 07/02/19 21:17 belladonna alkaloids Allergy Severe Unknown Verified 07/02/19 21:17 dicyclomine Allergy Severe Unknown Verified 07/02/19 21:17 azithromycin Allergy Mild Hives Unverified 07/02/19 21:17 mivacurium Allergy Mild Unknown Verified 07/02/19 21:17 Penicillins Allergy Mild AMOXICILLIN Verified 07/02/19 21:17 phenobarbital Allergy Mild Unknown Verified 07/02/19 21:17 Quinolones Allergy Mild Unknown Verified 07/02/19 21:17 amoxicillin Allergy Unknown rash Unverified 07/02/19 21:17 Nitrate Analogues Allergy Unknown Unknown Verified 07/02/19 21:17 nitrofurantoin Allergy Unknown Unknown Verified 06/25/19 09:47 nitroglycerin Allergy Unknown Unknown Verified 06/25/19 09:47 Sulfa (Sulfonamide Allergy Unknown sulfa Verified 12/29/18 13:31 Antibiotics) Medications Home Medications Medication Instructions Recorded Confirmed Last Taken aspirin [Aspir-81] 81 mg PO DAILY 07/02/19 07/02/19 Unknown atorvastatin [Lipitor] 10 mg PO DAILY 07/02/19 07/02/19 Unknown baclofen 10 mg PO BID PRN 07/02/19 07/02/19 Unknown benzonatate [Tessalon Perles] 100 mg PO TID PRN 07/02/19 07/02/19 Unknown betamethasone dipropionate 1 applic TOPICAL .BID UD PRN 07/02/19 07/02/19 Unknown bupropion HCl [Wellbutrin XL] 150 mg PO DAILY 07/02/19 07/02/19 Unknown buspirone 5 mg PO TID 07/02/19 07/02/19 Unknown conjugated estrogens [Premarin] 0 mg VAGINAL [id number] PRN 07/02/19 07/02/19 Unknown diclofenac sodium [Voltaren] 4 g TOPICAL UD PRN 07/02/19 07/02/19 Unknown food supplemt, lactose-reduced 1 ea PO BID 07/02/19 07/02/19 Unknown [Ensure] gabapentin 300 mg PO HS 07/02/19 07/02/19 Unknown hydrocodone-acetaminophen [[place]] 1 tab PO Q4 PRN 07/02/19 07/02/19 Unknown lisinopril 20 mg PO DAILY 07/02/19 07/02/19 Unknown loperamide [Imodium A-D] 1 - 2 mg PO UD 07/02/19 07/02/19 Unknown lorazepam [Ativan] 0.5 mg PO Q8 PRN 07/02/19 07/02/19 Unknown meclizine 25 mg PO TID PRN 07/02/19 07/02/19 Unknown metoprolol succinate [Toprol XL] 50 mg PO DAILY 07/02/19 07/02/19 Unknown oxycodone [Roxicodone] 5 mg PO Q6 PRN 07/02/19 07/02/19 Unknown pentosan polysulfate sodium 100 mg PO BID 07/02/19 07/02/19 Unknown [Elmiron] potassium chloride [Klor-Con M20] 20 meq PO DAILY 07/02/19 07/02/19 Unknown promethazine 25 mg PO .Q4-6HRS PRN 07/02/19 07/02/19 Unknown ropinirole [Requip] 0.25 mg PO HS 07/02/19 07/02/19 Unknown simethicone 125 mg PO TID PRN 07/02/19 07/02/19 Unknown venlafaxine [Effexor XR] 300 mg PO QAM 07/02/19 07/02/19 Unknown Active Medications Generic Name Dose Route Start Last Admin Trade Name Freq PRN Reason Stop Dose Admin Acetaminophen 650 mg 07/03/19 01:09 07/04/19 00:21 Tylenol PO 08/02/19 01:08 650 mg Q4H PRN Administration Pain or Fever Hydrocodone Bitart/Acetaminophen 1 tab 07/03/19 09:38 07/04/19 12:08 [place] 5/325 PO 07/17/19 01:08 1 tab TID PRN Administration Pain Atorvastatin Calcium 10 mg 07/03/19 09:00 07/03/19 10:05 Lipitor PO 08/02/19 08:59 10 mg DAILY KANDACE Administration Bupropion HCl 150 mg 07/03/19 09:00 07/03/19 10:04 Wellbutrin-Xl PO 08/02/19 08:59 150 mg DAILY KANDACE Administration Ferrous Sulfate 325 mg 07/03/19 09:00 07/03/19 10:05 Feosol PO 08/02/19 08:59 325 mg Q48H KANDACE Administration Gabapentin 300 mg 07/03/19 21:00 07/03/19 19:24 Neurontin PO 08/02/19 20:59 300 mg HS KANDACE Administration Pantoprazole Sodium 40 mg/ 100 mls @ 20 mls/hr 07/02/19 23:30 07/04/19 12:09 Dextrose IV 08/01/19 23:29 20 mls/hr Q5H KANDACE Administration Ioversol 100 ml 07/03/19 02:48 07/03/19 02:49 Optiray 320 100ml IV 07/07/19 02:47 92 ml ONCE PRN Administration Interaction Checking Lisinopril 20 mg 07/03/19 09:00 07/03/19 10:05 Zestril PO 08/02/19 08:59 20 mg DAILY KANDACE Administration Lorazepam 0.5 mg 07/03/19 01:09 07/04/19 03:53 Ativan PO 08/02/19 01:08 0.5 mg Q8 PRN Administration Anxiety Metoprolol Succinate 50 mg 07/03/19 09:00 07/03/19 10:05 Toprol Xl PO 08/02/19 08:59 50 mg DAILY KANDACE Administration Potassium Chloride 20 meq 07/03/19 09:00 07/03/19 10:05 Klor-Con M20 PO 08/02/19 08:59 20 meq DAILY KANDACE Administration Ropinirole HCl 0.25 mg 07/03/19 21:00 07/03/19 19:24 Requip PO 08/02/19 20:59 0.25 mg HS KANDACE Administration Venlafaxine HCl 300 mg 07/03/19 09:00 07/03/19 10:05 Effexor Extended Release PO 08/02/19 08:59 300 mg QAM KANDACE Administration NPO Date Last Intake of Fluids: 07/04/19 Date Last Intake of Solids: 07/03/19 Past Medical History Medical History Depression (Chronic) Migraines (Chronic) Tobacco abuse (Chronic) OCD (obsessive compulsive disorder) (Chronic) CKD (chronic kidney disease), stage III (Chronic) IBS (irritable bowel syndrome) (Chronic) HTN (hypertension) (Chronic) Exercise / Class Metabolic Activity II 4-5 Yardwork/Stairs/Walk up hill Past Family History Family History Other Diabetes Hypertension Past Surgical History Surgical History History of total abdominal hysterectomy (Chronic) H/O hernia repair (Chronic) History of back surgery (Chronic) H/O colonoscopy (Chronic) H/O sinus surgery (Chronic) Past Anesthesia History No Hx of Anesthesia Complications and No Family Hx of Anesthesia Complications History of PONV No Hx of PONV and No Hx of Motion Sickness Social History Smoking Status: Current every day smoker tobacco type: cigarettes Smoking cigarettes per day: 20 Do You Dip or Chew Tobacco: No Hx Alcohol Use: Yes Alcohol type: wine alcohol intake frequency: a few times a month Hx Substance Use: No Physical Exam Vital Signs Last Vital Signs Temp 36.4 C L 07/04/19 12:57 Pulse 64 07/04/19 12:57 Resp 18 07/04/19 12:57 BP 133/85 07/04/19 12:57 Pulse Ox 98 07/04/19 12:57 ENMT Mouth: no dentition abnormality Thyromental Distance: > or= 3.5 Finger Breadths Mallampati Class: II Neck normal visual inspection Respiratory normal respiratory effort Auscultation: lungs clear to auscultation bilaterally Cardiovascular Rate/Rhythm: regular rate and regular rhythm Psychiatric Orientation: alert Testing Laboratory Results 07/04/19 06:37 07/04/19 06:37 Urine Color Yellow 07/02/19 23:55 Urine Appearance Clear (Clear) 07/02/19 23:55 Urine pH 5.0 (4.5-7.5) 07/02/19 23:55 Ur Specific [place] 1.023 (1.000-1.030) 07/02/19 23:55 Urine Protein Negative (Negative) 07/02/19 23:55 Urine Glucose (UA) Negative (Negative) 07/02/19 23:55 Urine Ketones Trace (Negative) H 07/02/19 23:55 Urine Nitrite Negative (Negative) 07/02/19 23:55 Ur Leukocyte Esterase Negative (Negative) 07/02/19 23:55 Blood Type A Positive 07/02/19 21:26 Antibody Screen POSITIVE A 07/02/19 21:26 07/03/19 01:56 Aerobic Blood Culture - Preliminary Blood No growth in Aerobic bottle after 24 hours. Anaerobic Blood Culture - Preliminary No growth in Anaerobic bottle after 24 hours. 07/03/19 01:50 Aerobic Blood Culture - Preliminary Blood No growth in Aerobic bottle after 24 hours. Anaerobic Blood Culture - Preliminary No growth in Anaerobic bottle after 24 hours.
[2019-07-04] MEDS ORDERED: PHENYLEPHRINE 100MCG/ML 5ML SYR ONE (13:24)
[2019-07-04] MEDS ORDERED: LIDOCAINE HCL 2% 2 ML VIAL/AMP(20MG/ML) INFIL ONE (13:24)
[2019-07-04] MEDS ORDERED: PROPOFOL IV EMULSION 10 MG/ML 20 ML VIAL IV ONE (13:24)
--- NOTE | 2019-07-04 13:31 | GI REPORT ---
Patient Name: Nena Patrick Procedure Date: 07/04/2019 1:04 PM Date of : 1955 Admit Type: Inpatient Age: 64 Gender: Female Attending MD: Faina Hanson MD Procedure: Upper GI endoscopy Providers: Faina Hanson MD Referring MD: Nate CARCAMO Indications: Anemia Medicines: Propofol per Anesthesia Complications: No immediate complications. Estimated Blood Loss: Estimated blood loss: none. Procedure: Pre-Anesthesia Assessment: - Prior to the procedure, a History and Physical was performed, and patient medications and allergies were reviewed. The patient is competent. The risks and benefits of the procedure and the sedation options and risks were discussed with the patient. All questions were answered and informed consent was obtained. Patient identification and proposed procedure were verified by the physician and the nurse in the procedure room. Mental Status Examination: alert and oriented. Airway Examination: normal oropharyngeal airway and neck mobility. Respiratory Examination: clear to auscultation. CV Examination: normal. ASA Grade Assessment: III - A patient with severe systemic disease. After reviewing the risks and benefits, the patient was deemed in satisfactory condition to undergo the procedure. The anesthesia plan was to use monitored anesthesia care (MAC). Immediately prior to administration of medications, the patient was re-assessed for adequacy to receive sedatives. The heart rate, respiratory rate, oxygen saturations, blood pressure, adequacy of pulmonary ventilation, and response to care were monitored throughout the procedure. The physical status of the patient was re-assessed after the procedure. After obtaining informed consent, the endoscope was passed under direct vision. Throughout the procedure, the patient's blood pressure, pulse, and oxygen saturations were monitored continuously. The Endoscope was introduced through the mouth, and advanced to the second part of duodenum. The upper GI endoscopy was accomplished without difficulty. The patient tolerated the procedure well. Findings: LA Grade A (one or more mucosal breaks less than 5 mm, not extending between tops of 2 mucosal folds) esophagitis with no bleeding was found at the gastroesophageal junction. Biopsies were taken with a cold forceps for histology. Verification of patient identification for the specimen was done by the physician and nurse using the patient's name and date. A medium-sized hiatal hernia was present. Mildly erythematous mucosa was found in the gastric body. Biopsies were taken with a cold forceps for Helicobacter pylori testing. Scalloped mucosa was found in the duodenal bulb and scalloped mucosa was found in the second portion of the duodenum. Biopsies for histology were taken with a cold forceps for evaluation of celiac disease. Impression: - LA Grade A reflux esophagitis. Biopsied. - Medium-sized hiatal hernia. - Erythematous mucosa in the gastric body. Biopsied. - Duodenal mucosal changes seen, suspicious for celiac disease. Biopsied. Recommendation: - [facility]. - Await pathology results. - Check Celiac panel. - PO PPI for 2 months. - Perform a colonoscopy as outpatient.. Faina Hanson MD 07/04/2019 1:31:42 PM This report has been signed electronically. Note Initiated On: 07/04/2019 1:04 PM Number of Addenda: 0 I attest to the content of the Intraoperative Record and orders documented therein, exceptions below {[id number]}
--- NOTE | 2019-07-04 14:11 | Anesthesiology Progress Note ---
Date of Service July 04, 2019 Anesthesia Post Procedure Vital Signs Vital Signs: Temp Pulse Pulse Resp BP Pulse Ox 07/04/19 13:50 58 L 16 138/95 100 07/04/19 13:35 60 16 133/73 100 07/04/19 13:20 36.9 C 58 L 16 151/89 H 100 07/04/19 12:57 36.4 C L 64 18 133/85 98 07/04/19 12:28 37.0 C 66 18 125/63 93 07/04/19 10:30 83 07/04/19 07:28 36.7 C 61 20 136/81 100 07/04/19 03:35 36.7 C 72 18 123/76 98 07/03/19 23:03 36.6 C 60 18 110/67 98 07/03/19 19:28 36.5 C 65 20 109/68 100 07/03/19 15:26 36.4 C L 89 19 126/82 93 Pain Intensity Bilateral Foot: Pain Intensity: 8 Transfer of Care Handoff Completed per policy Notes Mental Status: alert / awake / arousable Patient Amnestic to Procedure: Yes Nausea / Vomiting: adequately controlled Pain: adequately controlled Airway Patency, RR, SpO2: stable & adequate BP & HR: stable & adequate Hydration State: stable & adequate Anesthetic Complications: no major complications apparent
--- NOTE | 2019-07-04 14:21 | Hospitalist Progress Note ---
Date of Service July 04, 2019 Assessment & Plan (1) Anemia: (2) Heme positive stool: Hemoglobin on admission [address] scan w possible enterocolitis and suspected liver cirrhosis PRBC transfusion stopped after 2 hrs when pt developed SOB and diaphoresis Hemoglobin this morning 8.2 Gastro on board S/P EGD done today showed LA Grade A reflux esophagitis. Erythematous mucosa in the gastric body. Duodenal mucosa changes seen, suspicious for celiac disease Protonix drip changed to oral PPI daily for 2 months Check for celiac panel Will need outpatient colonoscopy Will resume previous diet Toxic Encephalopathy Altered Mental Status Mostly related to medications CT head/MRI head showed no acute intracranial findings Pt is on [place] q4hr, oxycodone, gabapentin, Lorazepam, Bupropion, Baclofen, Buspirone, Requip and Venlafaxine Discussed with daughter about the medication list during the admission course Daughter said that her mother has been taking the narcotic and benzo for years I told her this morning her mother was barely able to keep her eyes open I explained to her that the oxycodone on hold and the hydrocodone was decreased to q6hr, but she was not too happy about that Buspar has been on hold since that was the newest med started recently Mental status back to her baseline Generalized weakness Mostly due to polypharmacy Fall precaution Pt refused to go to inpatient rehab PT/OT History of hyponatremia Total Sodium on admission 133 Nephrology on board Monitor BMP Cardiomyopathy Newly discovered biventricular systolic failure Last ECHO showed EF 15-20% (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 Troponin trending showed no significant elevation EKG showed no ischemic changes Denies any chest pain Continue monitor in tele Chronic pain syndrome. has been taking oxycodone for years recently prescribed adding norco [place] drug prescription monitoring program reviewed: Hydrocodone filled on 06/28 and oxycodone filled on 06/14 Will hold Oxycodone for now Continue gabapentin and baclofen Underweight Possible related to poor intake vs GI etiology Pt is a vegetarian BMI 18.3 Reviewed her weight for the last 2 to 3 years, her weight has been the same Daughter insisted to start TPN and to discharge home on it Does not meet criteria for TPN Discussed complication with daughter such as infection, thrombophlebitis and embolism fron the picc line, fluid overload, electrolyte imbalance, re-feeding syndrome Consult nutrition - Continue Boost supplement operation manager checked if pt would qualify for TPN- that was denied TPN will not be a good option for her since that will increase the risk of fluid overload- Cardiology agreed as well Depression and anxiety. Pt is very anxious Continue Ativan as needed and venlafaxine XR and bupropion. Last admission was started on buspirone, which placed on hold Elevated LFTs/alkaline phosphatase elevated CT abdomen and pelvis showed Trace abdominal and pelvic ascites with findings suggesting developing hepatic cirrhosis. Mild diffuse wall edematous change of the small bowel as well as colon consistent with a diffuse enterocolitis GI on board LFT worsening today Continue monitor LFT DVT px on SCDs Disposition Continue monitor in tele Subjective Pt was seen and examined Sitting in chair with no distress Pt looks much awake and sharp today She said that she feels much better Denies any chest pain, palpitation, dizziness and SOB Physical Exam Physical Exam: General- No acute distress Head- atraumatic Eyes- PERRL, EOMI, ENT- oropharynx clear Neck- supple, no JVD Lungs- clear to auscultation Heart- regular rhythm; no murmur Abdomen- normal bowel sounds, soft, nontender Extremities- no calf tenderness, +edema Neuro- alert, oriented x 3; PERRL, EOMI; no facial palsy; no dysarthria Skin- warm & dry Results & Data Vital Signs (Past 12 Hours) Vital Signs Temp Pulse Pulse Resp BP Pulse Ox 07/04/19 13:50 58 L 16 138/95 100 07/04/19 13:35 60 16 133/73 100 07/04/19 13:20 36.9 C 58 L 16 151/89 H 100 07/04/19 12:57 36.4 C L 64 18 133/85 98 07/04/19 12:28 37.0 C 66 18 125/63 93 07/04/19 10:30 83 07/04/19 07:28 36.7 C 61 20 136/81 100 07/04/19 03:35 36.7 C 72 18 123/76 98
[2019-07-04] MEDS: BuPROPion XL 150 MG TABCR PO SCH (16:13)
[2019-07-04] MEDS: ATORVASTATIN 10 MG TAB PO SCH (16:13)
[2019-07-04] MEDS: VENLAFAXINE HCL XR 150 MG CAPXR PO SCH (16:13)
[2019-07-04] MEDS: METOPROLOL SUCC 50MG EXT REL TAB PO SCH (16:13)
[2019-07-04] MEDS: POTASSIUM CHLORIDE 20 MEQ TABCR PO SCH (16:14)
[2019-07-04] MEDS: PANTOprazole 40 MG TAB PO SCH (16:14)
[2019-07-04] MEDS: LISINOPRIL 20 MG TAB PO SCH (16:14)
[2019-07-04] MEDS: FERROUS SULFATE 325 MG TAB PO SCH (16:14)
--- NOTE | 2019-07-04 16:20 | Nephrology Progress Note ---
Date of Service July 04, 2019 Assessment & Plan (1) Mixed acid base balance disorder: On presentation she was at first alkalemic and then on next abg during concern for transfusion reaction she had normal arterial pH. Suspect now trending more to starvation ketosis; still verging on BRIANDA, and w/ emerging low Na, ongoing acidosis. Do not feel ABG indicated to more firmly establish above acidosis unless she suddenly develops other indications Do not believe that bicarb pills or infusion would help here; she simply needs to eat Could consider one or two doses of lasix 10-20 mg IV for R pleural effusion after transfusion if worsening respiratory status Subjective seen on rounds this am at 0830; c/o severe pelvic pain. no sob. still minimal po but states will try to get better Review of Systems Review of Systems: All systems reviewed & are unremarkable except as noted in HPI & below Physical Exam Constitutional: well developed, + cachectic and + frail appearing; not in distress not doing puffed cheek breathing like she had been yesterday on exam Eyes: EOM intact bilaterally ENMT: Ears: no external ear abnormality Nose: no external nose abnormality Mouth: + dry oral mucous membranes Neck: no nuchal rigidity Respiratory: normal respiratory effort Auscultation: + diminished lung sounds and + crackles (R base) Cardiovascular: Rate/Rhythm: regular rate and regular rhythm Extremities: + edema (trace - 1+ BL ankle) Gastrointestinal (Abdomen): Inspection/Auscultation: normal bowel sounds Pe rcussion/Palpation: abdomen soft; abdomen nontender Musculoskeletal: Extremities: strength 5/5 throughout Skin: no rashes, warm and dry Psychiatric: Orientation: alert, oriented to person and oriented to place Eye Contact: + fair eye contact Insight: + limited insight Judgement: + limited judgement Results & Data Vital Signs (Past 12 Hours) Vital Signs Temp Pulse Pulse Resp BP Pulse Ox 07/04/19 15:51 36.4 C L 65 20 148/90 H 93 07/04/19 13:50 58 L 16 138/95 100 07/04/19 13:35 60 16 133/73 100 07/04/19 13:20 36.9 C 58 L 16 151/89 H 100 07/04/19 12:57 36.4 C L 64 18 133/85 98 07/04/19 12:28 37.0 C 66 18 125/63 93 07/04/19 10:30 83 09/12/19 07:28 36.7 C 61 20 136/81 100 Laboratory Results 07/04/19 06:37 07/04/19 06:37
[2019-07-04] MEDS: GABAPENTIN 300 MG CAP PO SCH (19:34)
[2019-07-04] MEDS: ROPINIROLE HCL 0.25 MG TABLET PO SCH (19:34)
[2019-07-05] MEDS: HYDROCODONE/ACETAMOPHEN 5/325MG TAB PO PRN ×2 (01:38→19:36)
[2019-07-05 06:48] LABS: Hemoglobin 8.9 g/dL (12.0-16.0); Mean Corpuscular Hemoglobin 26.1 pg (25-34); Mean Corpuscular Hgb Conc 31.8 g/dL (32-36); Mean Corpuscular Volume 82.1 fL (80-100); Mean Platelet Volume 9.9 fL (7.4-10.4); Nucleated RBC # (auto) 0.46 K/uL (0-0); Nucleated RBC % (auto) 5.2 %; Platelet Count 766 K/uL (130-400); RDW Coefficient of Variation 15.9 % (11.5-14.5); RDW Standard Deviation 46.7 fL (36.4-46.3); Red Blood Count 3.41 M/uL (4.2-5.4); White Blood Count 8.81 K/uL (4.8-10.8)
[2019-07-05 07:20] LABS: Albumin Level 2.7 gm/dl (3.4-5.0); BUN Creatinine Ratio 22.3 (10-20); Creatinine Clr Calc Pharmacy 55.3 ml/min; Est GFR (African American) 77.8; Est GFR (Non-African American) 67.1; Potassium 4.5 mmol/L (3.5-5.1)
[2019-07-05 07:23] LABS: Bilirubin,Total 0.3 mg/dl (0.2-1); Globulin 2.8 gm/dl (2.5-4.0); Total Protein 5.5 gm/dl (6.4-8.2)
[2019-07-05] MEDS: VENLAFAXINE HCL XR 150 MG CAPXR PO SCH (07:42)
[2019-07-05] MEDS: LORazepam 0.5 MG TAB PO PRN ×2 (07:42→19:36)
[2019-07-05] MEDS: METOPROLOL SUCC 50MG EXT REL TAB PO SCH (07:42)
[2019-07-05] MEDS: ATORVASTATIN 10 MG TAB PO SCH (07:42)
[2019-07-05] MEDS: BuPROPion XL 150 MG TABCR PO SCH (07:43)
[2019-07-05] MEDS: POTASSIUM CHLORIDE 20 MEQ TABCR PO SCH (07:43)
[2019-07-05] MEDS: LISINOPRIL 20 MG TAB PO SCH (07:43)
[2019-07-05] MEDS: FERROUS SULFATE 325 MG TAB PO SCH (07:49)
[2019-07-05] MEDS ORDERED: PANTOprazole 40 MG TAB PO ONE (11:00)
--- NOTE | 2019-07-05 11:41 | Gastroenterology Progress Note ---
Date of Service July 05, 2019 Assessment & Plan (1) Anemia: Pt is a 64 y/o female seen for anemia, heme positive stools. She is not having twin s/s of GI bleeding. Hx of chronic anemia on iron but per daughter pt doens't always take iron and also doens't like to eat meat. CT scan w pos sible enterocolitis and suspected liver cirrhosis. Last EGD/Colonoscopy in 2017 unremarkable. EGD performed on 07/04 showed LA grade A reflux esophagitis, medium hiatal hernia, erythematous gastric mucosa, duodenal mucosal changes suspicious for celiac. Bx of stomach and duodenum obtain, pending, Celiac serologies pending. - F/U celiac serologies - Protonix 40mg daily x 2 months then once daily - Colonoscopy in outpt setting - Elevated LFTs: nodular appearing liver in CT. Plan to hold statin drug, and obtain serologies to r/o AIH, hereditary liver diseases, acute hepatitis infections. Eventually will need OP f/u in GI clinic and plan for possible Fibroscan - No contraindication for DC home from Gi standpoint (2) Heme positive stool: Supervising Physician Co-Signing Physician Notes I performed a history and physical examination of the patient, including specifically on physical exam - soft, nontender abdomen. I have discussed the patient's management with Marilu. Please refer to the nurse practitioner's note for the documented findings and plan of care. Colonoscopy as OP. Follow up in GI office for Liver disease w/u. Recall if needed. Subjective Pt feels overall well, denies any CP, SOB, mild epigastric tenderness, but tolerating diet well w/o n/v. Passing flatus. H/H stable. Review of Systems Review of Systems: All systems reviewed & are unremarkable except as noted in HPI & below Physical Exam Constitutional: + thin, well groomed, cooperative and comfortable Eyes: PERRL, conjunctivae normal, anicteric sclerae ENMT: external ear and nose normal, oropharynx normal Respiratory: normal respiratory effort, lungs clear to auscultation Cardiovascular: RRR, no murmur, no edema Gastrointestinal (Abdomen): normal bowel sounds, soft, nontender, no hepatosplenomegaly Skin: no rashes, warm and dry no jaundice Psychiatric: A+Ox3, euthymic affect Lymphatic: no lymphedema Results & Data Vital Signs (Past 12 Hours) Vital Signs Temp Pulse Pulse Resp BP Pulse Ox 07/05/19 11:02 36.5 C 64 16 134/90 97 07/05/19 08:01 36.3 C L 76 18 146/95 H 93 07/05/19 07:30 78 07/05/19 03:24 36.4 C L 74 17 138/89 95 07/05/19 00:29 36.4 C L 71 18 114/73 98
[2019-07-05 13:27] LABS: Ferritin 35.4 ng/ml (8-388)
[2019-07-05 13:31] LABS: Hepatitis B Surface Ab Quant < 3.10 mIU/mL (>or=10mIU/mL Immune); Hepatitis B Surface Antibody Non-Immune
[2019-07-05 13:42] LABS: Hepatitis B Surface Antigen Neg (Neg)
--- NOTE | 2019-07-05 15:04 | Nephrology Progress Note ---
Date of Service July 05, 2019 Assessment & Plan (1) Starvation ketoacidosis: On presentation she was at first alkalemic and then on next abg during concern for transfusion reaction she had normal arterial pH. Suspect now trending more to starvation ketosis; w/ emerging low Na, ongoing acidosis. Also borderline BRIANDA w/ baseline sCreat 0.7; EGD results noted > esophagitis/gastritis; bxs sent for celiac Do not feel ABG indicated to more firmly establish above acidosis unless she suddenly develops other indications Do not believe that bicarb pills or infusion would help here; she simply needs to eat Could consider one or two doses of lasix 10-20 mg IV for R pleural effusion if w orsening respiratory status - but today would hold off on that since her 02 requirement is down/ on RA and already w/ borderline BRIANDA After d/c if acidosis persistent, consider sodium bicarb tabs at that time; recommend bmp w/in one week of hospital d/c; recommend f/u w/ next available provider CKD clinic nearest her home Will sign off; pls call if ? Present on Admission?: Yes Subjective seen on rounds 1335 approx. pain controlled, breathing ok and on RA now. has back brace. denies constipation/diarrhea; struggling to take po but states is doing Review of Systems Review of Systems: All systems reviewed & are unremarkable except as noted in HPI & below Physical Exam Constitutional: well developed, + cachectic and + frail appearing; not in distress lying in bed on RA, HOB raised Eyes: EOM intact bilaterally ENMT: Ears: no external ear abnormality Nose: no external nose abnormality Mouth: + dry oral mucous membranes Neck: no nuchal rigidity Respiratory: normal respiratory effort Auscultation: + diminished lung soun ds (R base) and + crackles (R base) Cardiovascular: Rate/Rhythm: regular rate and regular rhythm Extremities: + edema (trace BL ankle) Gastrointestinal (Abdomen): Inspection/Auscultation: normal bowel sounds Percussion/Palpation: abdomen soft; abdomen nontender Musculoskeletal: Extremities: strength 5/5 throughout Skin: no rashes, warm and dry Psychiatric: Orientation: alert, oriented to person and oriented to place Eye Contact: + fair eye contact Insight: + limited insight Judgement: + limited judgement Results & Data Vital Signs (Past 12 Hours) Vital Signs Temp Pulse Pulse Resp BP Pulse Ox 07/05/19 11:02 36.5 C 64 16 134/90 97 07/05/19 08:01 36.3 C L 76 18 146/95 H 93 07/05/19 07:30 78 07/05/19 03:24 36.4 C L 74 17 138/89 95 Laboratory Results 07/05/19 06:14 07/05/19 06:14
--- NOTE | 2019-07-05 16:03 | Hospitalist Progress Note ---
Date of Service July 05, 2019 Assessment & Plan (1) Anemia: (2) Heme positive stool: Hemoglobin on admission [address] scan w possible enterocolitis and suspected liver cirrhosis PRBC transfusion stopped after 2 hrs when pt developed SOB and diaphoresis Hemoglobin this morning 8.9 Gastro on board S/P EGD done today showed LA Grade A reflux esophagitis. Erythematous mucosa in the gastric body. Duodenal mucosa changes seen, suspicious for celiac disease Protonix drip changed to oral PPI daily for 2 months Celiac panel pending Will need outpatient colonoscopy (GI will arrange for that) Tolerated diet Toxic Encephalopathy Altered Mental Status Mostly related to medications CT head/MRI head showed no acute intracranial findings Pt is on [place] q4hr, oxycodone, gabapentin, Lorazepam, Bupropion, Baclofen, Buspirone, Requip and Venlafaxine Discussed with daughter about the medication list during the admission course Daughter said that her mother has been taking the narcotic and benzo for years I told her this morning her mother was barely able to keep her eyes open I explained to her that the oxycodone on hold and the hydrocodone was decreased to q6hr, but she was not too happy about that Buspar has been on hold since that was the newest med started recently Mental status back to her baseline Generalized weakness Mostly due to polypharmacy Fall precaution Pt refused to go to inpatient rehab Will do home health services with PT/OT on discharge History of hyponatremia Total Sodium on admission 133 Nephrology on board Case discussed with nephrology recommended to encourage patient to increase oral intake Check BMP within 1 week Follow up with nephrology Dr. 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 Troponin trending showed no significant elevation EKG showed no ischemic changes Denies any chest pain Continue monitor in tele Chronic pain syndrome. has been taking oxycodone for years recently prescribed adding norco [place] drug prescription monitoring program reviewed: Hydrocodone filled on 06/28 and oxycodone filled on 06/14 Will hold Oxycodone for now Continue gabapentin and baclofen Underweight Possible related to poor intake vs GI etiology Pt is a vegetarian BMI 18.3 Reviewed her weight for the last 2 to 3 years, her weight has been the same Daughter insisted to start TPN and to discharge home on it Does not meet criteria for TPN Discussed complication with daughter such as infection, thrombophlebitis and embolism fron the picc line, fluid overload, electrolyte imbalance, re-feeding syndrome Consult nutrition - Continue Boost supplement manager product management checked if pt would qualify for TPN- that was denied TPN will not be a good option for her since that will increase the risk of fluid overload- Cardiology agreed as well Depression and anxiety. Pt is very anxious Continue Ativan as needed and venlafaxine XR and bupropion. Last admission was started on buspirone, which placed on hold Elevated LFTs/alkaline phosphatase elevated CT abdomen and pelvis showed Trace abdominal and pelvic ascites with findings suggesting developing hepatic cirrhosis. Mild diffuse wall edematous change of the small bowel as well as colon consistent with a diffuse enterocolitis GI on board LFT slightly elevated Continue monitor LFT Statin on hold DVT px on SCDs Disposition refused to go to rehab Daughter does not want to take her home yet Will transfer to medical Subjective Pt was seen and examined Lying in bed with no distress Pt continues to refuse to go to rehab She would like to go home today Spoke to protective services case worker that placed order for home health services where she can benefit for therapy Denies any chest pain, palpitation, dizziness and SOB Physical Exam Physical Exam: General- No acute distress Head- atraumatic Eyes- PERRL, EOMI, ENT- oropharynx clear Neck- supple, no JVD Lungs- clear to auscultation Heart- regular rhythm; no murmur Abdomen- normal bowel sounds, soft, nontender Extremities- no calf tenderness, +edema Neuro- alert, oriented x 3; PERRL, EOMI; no facial palsy; no dysarthria Skin- warm & dry Results & Data Vital Signs (Past 12 Hours) Vital Signs Temp Pulse Pulse Resp BP Pulse Ox 07/05/19 11:02 36.5 C 64 16 134/90 97 07/05/19 08:01 36.3 C L 76 18 146/95 H 93 07/05/19 07:30 78
[2019-07-05] MEDS: GABAPENTIN 300 MG CAP PO SCH (19:37)
[2019-07-05] MEDS: ROPINIROLE HCL 0.25 MG TABLET PO SCH (19:38)
[2019-07-06] MEDS: POTASSIUM CHLORIDE 20 MEQ TABCR PO SCH (08:03)
[2019-07-06] MEDS: LISINOPRIL 20 MG TAB PO SCH (08:03)
[2019-07-06] MEDS: BuPROPion XL 150 MG TABCR PO SCH (08:03)
[2019-07-06] MEDS: METOPROLOL SUCC 50MG EXT REL TAB PO SCH (08:04)
[2019-07-06] MEDS: PANTOprazole 40 MG TAB PO SCH (08:04)
[2019-07-06] MEDS: VENLAFAXINE HCL XR 150 MG CAPXR PO SCH (08:04)
[2019-07-06] MEDS: HYDROCODONE/ACETAMOPHEN 5/325MG TAB PO PRN (08:09)
[2019-07-06 10:46] LABS: Albumin Globulin Ratio 0.9 (0.9-2); Albumin Level 2.8 gm/dl (3.4-5.0); Bilirubin,Total 0.4 mg/dl (0.2-1); Calcium 8.7 mg/dl (8.5-10.1); Creatinine Clr Calc Pharmacy 48.9 ml/min; Est GFR (African American) 65.3; Est GFR (Non-African American) 56.3; Globulin 3.2 gm/dl (2.5-4.0); Potassium 5.3 mmol/L (3.5-5.1)
[2019-07-06] MEDS: LORazepam 0.5 MG TAB PO PRN (15:16)
--- NOTE | 2019-07-06 16:28 | Hospitalist Progress Note ---
Date of Service July 06, 2019 Assessment & Plan (1) Anemia: (2) Heme positive stool: Hemoglobin on admission [address] scan w possible enterocolitis and suspected liver cirrhosis PRBC transfusion stopped after 2 hrs when pt developed SOB and diaphoresis Hemoglobin stable at 8.9 Gastro on board S/P EGD done today showed LA Grade A reflux esophagitis. Erythematous mucosa in the gastric body. Duodenal mucosa changes seen, suspicious for celiac disease Protonix drip changed to oral PPI daily for 2 months Celiac panel pending Will need outpatient colonoscopy (GI will arrange for that) Tolerated diet Toxic Encephalopathy Altered Mental Status Mostly related to medications CT head/MRI head showed no acute intracranial findings Pt is on [place] q4hr, oxycodone, gabapentin, Lorazepam, Bupropion, Baclofen, Buspirone, Requip and Venlafaxine Discussed with daughter about the medication list during the admission course Daughter said that her mother has been taking the narcotic and benzo for years I told her this morning her mother was barely able to keep her eyes open I explained to her that the oxycodone on hold and the hydrocodone was decreased to q6hr, but she was not too happy about that Buspar has been on hold since that was the newest med started recently Mental status back to her baseline Generalized weakness Mostly due to polypharmacy Fall precaution Daughter does not feel comfortable to take her home Refused to go to rehab in the past, but agreed to go to rehab History of hyponatremia Total Sodium on admission 133 Nephrology on board Case discussed with nephrology recommended to encourage patient to increase oral intake Check BMP within 1 week Follow up with nephrology Dr. 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 Troponin trending showed no significant elevation EKG showed no ischemic changes Denies any chest pain Continue monitor in tele Chronic pain syndrome. has been taking oxycodone for years recently prescribed adding norco [place] drug prescription monitoring program reviewed: Hydrocodone filled on 06/28 and oxycodone filled on 06/14 Will hold Oxycodone for now Continue gabapentin and baclofen Underweight Possible related to poor intake vs GI etiology Pt is a vegetarian BMI 18.3 Reviewed her weight for the last 2 to 3 years, her weight has been the same Daughter insisted to start TPN and to discharge home on it Does not meet criteria for TPN Discussed complication with daughter such as infection, thrombophlebitis and embolism fron the picc line, fluid overload, electrolyte imbalance, re-feeding syndrome Consult nutrition - Continue Boost supplement data center manager checked if pt would qualify for TPN- that was denied TPN will not be a good option for her since that will increase the risk of fluid overload- Cardiology agreed as well Hypokalemia K 5.3 today Will hold Lisinopril for now Repeat K later Depression and anxiety. Pt is very anxious Continue Ativan as needed and venlafaxine XR and bupropion. Last admission was started on buspirone, which placed on hold Elevated LFTs/alkaline phosphatase elevated CT abdomen and pelvis showed Trace abdominal and pelvic ascites with findings suggesting developing hepatic cirrhosis. Mild diffuse wall edematous change of the small bowel as well as colon consistent with a diffuse enterocolitis GI on board LFT slightly elevated Continue monitor LFT Statin on hold DVT px on SCDs Disposition Finally agreed to go to rehab Daughter does not want to take her home yet Will transfer to medical Subjective Pt was seen and examined. Lying in bed with no distress Pt said that she feels like that she has gas in her stomach She said that she just had a bowel movement that was loose She finally agreed to go to rehab today after explaining to her that will help her to get a little stronger Denies any chest pain, palpitation, dizziness and SOB Physical Exam Physical Exam: General- No acute distress Head- atraumatic Eyes- PERRL, EOMI, ENT- oropharynx clear Neck- supple, no JVD Lungs- clear to auscultation Heart- regular rhythm; no murmur Abdomen- normal bowel sounds, soft, nontender Extremities- no calf tenderness, + trace edema Neuro- alert, oriented x 3; PERRL, EOMI; no facial palsy; no dysarthria Skin- warm & dry Results & Data Vital Signs (Past 12 Hours) Vital Signs Temp Pulse Resp BP Pulse Ox 07/06/19 16:03 135/92 07/06/19 15:50 35.8 C L 78 18 145/101 H 90 07/06/19 11:38 36.3 C L 69 18 126/83 95 07/06/19 07:06 36.0 C L 76 20 126/86 94
[2019-07-06] MEDS: ROPINIROLE HCL 0.25 MG TABLET PO SCH (19:47)
[2019-07-06] MEDS: GABAPENTIN 300 MG CAP PO SCH (19:47)
[2019-07-07] MEDS: HYDROCODONE/ACETAMOPHEN 5/325MG TAB PO PRN ×3 (06:49→23:26)
[2019-07-07] MEDS: FERROUS SULFATE 325 MG TAB PO SCH (07:49)
[2019-07-07] MEDS: METOPROLOL SUCC 50MG EXT REL TAB PO SCH (07:50)
[2019-07-07] MEDS: VENLAFAXINE HCL XR 150 MG CAPXR PO SCH (07:50)
[2019-07-07] MEDS: PANTOprazole 40 MG TAB PO SCH (07:50)
[2019-07-07] MEDS: BuPROPion XL 150 MG TABCR PO SCH (07:50)
[2019-07-07] MEDS: LORazepam 0.5 MG TAB PO PRN ×2 (07:54→17:47)
[2019-07-07 08:18] LABS: Albumin Level 2.5 gm/dl (3.4-5.0); BUN Creatinine Ratio 22.2 (10-20); Calcium 8.3 mg/dl (8.5-10.1); Creatinine Clr Calc Pharmacy 43.5 ml/min; Est GFR (Non-African American) 48.4; Potassium 4.9 mmol/L (3.5-5.1)
[2019-07-07 08:21] LABS: Albumin Globulin Ratio 0.9 (0.9-2); Bilirubin,Total 0.4 mg/dl (0.2-1); Globulin 2.7 gm/dl (2.5-4.0); Total Protein 5.2 gm/dl (6.4-8.2)
[2019-07-07] MEDS ORDERED: ERGOCALCIFEROL 50,000 UNITS CAP PO ONE (10:15)
--- NOTE | 2019-07-07 16:10 | Hospitalist Progress Note ---
Date of Service July 07, 2019 Assessment & Plan (1) Anemia: (2) Heme positive stool: Hemoglobin on admission [address] scan w possible enterocolitis and suspected liver cirrhosis PRBC transfusion stopped after 2 hrs when pt developed SOB and diaphoresis Hemoglobin stable at 8.9 Gastro on board S/P EGD done today showed LA Grade A reflux esophagitis. Erythematous mucosa in the gastric body. Duodenal mucosa changes seen, suspicious for celiac disease Protonix drip changed to oral PPI daily for 2 months Celiac panel pending Will need outpatient colonoscopy (GI will arrange for that) Tolerated diet Toxic Encephalopathy Altered Mental Status Mostly related to medications CT head/MRI head showed no acute intracranial findings Pt is on [place] q4hr, oxycodone, gabapentin, Lorazepam, Bupropion, Baclofen, Buspirone, Requip and Venlafaxine Discussed with daughter about the medication list during the admission course Daughter said that her mother has been taking the narcotic and benzo for years I told her this morning her mother was barely able to keep her eyes open I explained to her that the oxycodone on hold and the hydrocodone was decreased to q6hr, but she was not too happy about that Buspar has been on hold since that was the newest med started recently Mental status back to her baseline Generalized weakness Mostly due to polypharmacy Fall precaution Daughter does not feel comfortable to take her home Refused to go to rehab in the past, but agreed to go to rehab Waiting for placement to SNF History of hyponatremia Total Sodium on admission 135 Nephrology on board Case discussed with nephrology recommended to encourage patient to increase oral intake Check BMP within 1 week Follow up with nephrology Dr. 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 Troponin trending showed no significant elevation EKG showed no ischemic changes Denies any chest pain Continue monitor in tele Mixed acid base balance disorder Possible related to starvation Encourage pt to increase nutrition intake Nephrology on board Chronic pain syndrome. has been taking oxycodone for years recently prescribed adding norco [place] drug prescription monitoring program reviewed: Hydrocodone filled on 9/6 and oxycodone filled on 06/14 Will hold Oxycodone for now Continue gabapentin and baclofen Underweight Possible related to poor intake vs GI etiology Pt is a vegetarian BMI 18.3 Reviewed her weight for the last 2 to 3 years, her weight has been the same Daughter insisted to start TPN and to discharge home on it Does not meet criteria for TPN Discussed complication with daughter such as infection, thrombophlebitis and embolism fron the picc line, fluid overload, electrolyte imbalance, re-feeding syndrome Consult nutrition - Continue Boost supplement completions manager checked if pt would qualify for TPN- that was denied TPN will not be a good option for her since that will increase the risk of fluid overload- Cardiology agreed as well Hypokalemia K 4.9 today Continue to hold Lisinopril and K supplement was d/c Monitor BMP Depression and anxiety. Pt is very anxious Continue Ativan as needed and venlafaxine XR and bupropion. Last admission was started on buspirone, which placed on hold Elevated LFTs/alkaline phosphatase elevated CT abdomen and pelvis showed Trace abdominal and pelvic ascites with findings suggesting developing hepatic cirrhosis. Mild diffuse wall edematous change of the small bowel as well as colon consistent with a diffuse enterocolitis GI on board LFT slightly elevated Continue monitor LFT Statin on hold Autoimmune liver appliances sample maker sent, waiting for result Hepatitis panel pending Will need outpatient work up with GI Elevated Iron Level Elevated TIBC/Transferin Normal Ferritin level Possible related to blood transfusion since lab derek after received 2 Hr of PRBC before transfusion stopped. Will hold iron supplement Consider iron Chelaton to remove excess ion Will need to repeat iron studies Right big toe pain Pt said that she hit her right feet yesterday Continue to have pain in the Right toe Will get an xray of Right foot DVT px on SCDs Disposition Finally agreed to go to rehab Daughter does not want to take her home yet waiting for placement Subjective Pt was seen and examined Lying in bed with no distress with daughter at bedside Pt said that her daughter is forcing her to eat I had a long discussion today with her daughter and explained to her about the liver maker and need colonoscopy Denies any chest pain, palpitation, dizziness and SOB Physical Exam Physical Exam: General- No acute distress Head- atraumatic Eyes- PERRL, EOMI, ENT- oropharynx clear Neck- supple, no JVD Lungs- clear to auscultation Heart- regular rhythm; no murmur Abdomen- normal bowel sounds, soft, nontender Extremities- no calf tenderness, + trace edema Neuro- alert, oriented x 3; PERRL, EOMI; no facial palsy; no dysarthria Skin- warm & dry Results & Data Vital Signs (Past 12 Hours) Vital Signs Temp Pulse Resp BP Pulse Ox 07/07/19 15:43 36.3 C L 76 16 124/88 07/07/19 12:04 36.6 C 70 20 120/78 97 07/07/19 07:17 36.3 C L 69 20 118/70 94 07/07/19 04:00 36.6 C 70 17 118/80 98
--- NOTE | 2019-07-07 18:40 | XRay Report ---
XR foot RT 2V CLINICAL HISTORY: Right big toe pain. COMPARISON: None FINDINGS: Tarsometatarsal joints are intact. No acute fracture within the right foot is identified. No erosions are identified. No osseous lesions are identified. IMPRESSION: No significant abnormality within the right foot. Electronically signed by: Bernabe Kothari M.D. 07/07/2019 6:39 PM
[2019-07-07] MEDS: GABAPENTIN 300 MG CAP PO SCH (19:59)
[2019-07-07] MEDS: ROPINIROLE HCL 0.25 MG TABLET PO SCH (19:59)
[2019-07-07] MEDS: ACETAMINOPHEN 325 MG TAB PO PRN (20:02)
[2019-07-08 06:53] LABS: Hematocrit (blood only) 25.5 % (37-47); Mean Corpuscular Hemoglobin 25.8 pg (25-34); Mean Corpuscular Hgb Conc 31.4 g/dL (32-36); Mean Corpuscular Volume 82.3 fL (80-100); Mean Platelet Volume 10.2 fL (7.4-10.4); Nucleated RBC # (auto) 0.19 K/uL (0-0); Nucleated RBC % (auto) 1.6 %; Platelet Count 489 K/uL (130-400); RDW Coefficient of Variation 16.4 % (11.5-14.5); RDW Standard Deviation 48.3 fL (36.4-46.3); White Blood Count 11.95 K/uL (4.8-10.8)
[2019-07-08 07:33] LABS: Albumin Level 2.5 gm/dl (3.4-5.0); BUN Creatinine Ratio 26.6 (10-20); Creatinine Clr Calc Pharmacy 44.4 ml/min; Est GFR (African American) 59.7; Est GFR (Non-African American) 51.5; Potassium 4.7 mmol/L (3.5-5.1)
[2019-07-08 07:36] LABS: Bilirubin,Total 0.5 mg/dl (0.2-1); Globulin 2.6 gm/dl (2.5-4.0); Total Protein 5.1 gm/dl (6.4-8.2)
[2019-07-08] MEDS: VENLAFAXINE HCL XR 150 MG CAPXR PO SCH (07:41)
[2019-07-08] MEDS: METOPROLOL SUCC 50MG EXT REL TAB PO SCH (07:41)
[2019-07-08] MEDS: PANTOprazole 40 MG TAB PO SCH (07:41)
[2019-07-08] MEDS: BuPROPion XL 150 MG TABCR PO SCH (07:41)
[2019-07-08] MEDS: ACETAMINOPHEN 325 MG TAB PO PRN (10:07)
[2019-07-08] MEDS: LORazepam 0.5 MG TAB PO PRN ×2 (10:11→17:48)
[2019-07-08] MEDS: HYDROCODONE/ACETAMOPHEN 5/325MG TAB PO PRN ×2 (12:00→18:34)
--- NOTE | 2019-07-08 18:48 | Hospitalist Progress Note ---
Date of Service July 08, 2019 Assessment & Plan (1) Anemia: (2) Heme positive stool: Hemoglobin on admission [address] scan w possible enterocolitis and suspected liver cirrhosis PRBC transfusion stopped after 2 hrs when pt developed SOB and diaphoresis Hemoglobin dropped to 8 today Gastro on board S/P EGD done today showed [place] Grade A reflux esophagitis. Erythematous mucosa in the gastric body. Duodenal mucosa changes seen, suspicious for celiac disease Protonix drip changed to oral PPI daily for 2 months Celiac panel pending Will need outpatient colonoscopy (GI will arrange for that) Tolerated diet Toxic Encephalopathy Altered Mental Status Mostly related to medications CT head/MRI head showed no acute intracranial findings Pt is on [place] q4hr, oxycodone, gabapentin, Lorazepam, Bupropion, Baclofen, Buspirone, Requip and Venlafaxine Discussed with daughter about the medication list during the admission course Daughter said that her mother has been taking the narcotic and benzo for years I told her this morning her mother was barely able to keep her eyes open I explained to her that the oxycodone on hold and the hydrocodone was decreased to q6hr, but she was not too happy about that Buspar has been on hold since that was the newest med started recently Mental status back to her baseline Generalized weakness Mostly due to polypharmacy Fall precaution Daughter does not feel comfortable to take her home Refused to go to rehab in the past, but agreed to go to rehab Waiting for placement to SNF History of hyponatremia Total Sodium on admission 135 Nephrology on board Case discussed with nephrology recommended to encourage patient to increase oral intake Check BMP within 1 week Follow up with nephrology Dr. 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 Troponin trending showed no significant elevation EKG showed no ischemic changes Denies any chest pain Continue monitor in tele Mixed acid base balance disorder Possible related to starvation Encourage pt to increase nutrition intake Nephrology on board Chronic pain syndrome. has been taking oxycodone for years recently prescribed adding norco [place] drug prescription monitoring program reviewed: Hydrocodone filled on 06/28 and oxycodone filled on 06/14 Will change [place] to oxycodone due to elevate LFT Continue gabapentin and baclofen Underweight Possible related to poor intake vs GI etiology Pt is a vegetarian BMI 18.3 Reviewed her weight for the last 2 to 3 years, her weight has been the same Daughter insisted to start TPN and to discharge home on it Does not meet criteria for TPN Discussed complication with daughter such as infection, thrombophlebitis and embolism fron the picc line, fluid overload, electrolyte imbalance, re-feeding syndrome Consult nutrition - Continue Boost supplement manager programs checked if pt would qualify for TPN- that was denied TPN will not be a good option for her since that will increase the risk of fluid overload- Cardiology agreed as well Hypokalemia K 4.7 today Continue to hold Lisinopril and K supplement was d/c Monitor BMP Depression and anxiety. Pt is very anxious Continue Ativan as needed and venlafaxine XR and bupropion. Last admission was started on buspirone, which placed on hold Elevated LFTs/alkaline phosphatase elevated CT abdomen and pelvis showed Trace abdominal and pelvic ascites with findings suggesting developing hepatic cirrhosis. Mild diffuse wall edematous change of the small bowel as well as colon consistent with a diffuse enterocolitis GI on board LFT slightly elevated Continue monitor LFT Statin on hold Autoimmune liver welt maker sent, waiting for result Hepatitis panel negative for HBV and acute hepatitis B Will need outpatient work up with GI Will avoid hepatotoxity Elevated Iron Level Elevated TIBC/Transferin Normal Ferritin level Possible related to blood transfusion since lab derek after received 2 Hr of PRBC before transfusion stopped. Will hold iron supplement Consider iron Chelaton to remove excess ion Will need to repeat iron studies Right big toe pain Pt said that she hit her right feet yesterday Continue to have pain in the Right toe Xray showed no acute fracture pain improves DVT px on SCDs Disposition Finally agreed to go to rehab Daughter does not want to take her home yet waiting for placement Subjective Pt was seen and examined. Lying in bed with no distress She said that she feels much better today I spoke to her daughter and pt's sister in detail in the presence of nurse Farrukh Pt is more awake today Denies any chest pain, palpitation, dizziness and SOB Physical Exam Physical Exam: General- No acute distress Head- atraumatic Eyes- PERRL, EOMI, ENT- oropharynx clear Neck- supple, no JVD Lungs- clear to auscultation Heart- regular rhythm; no murmur Abdomen- normal bowel sounds, soft, nontender Extremities- no calf tenderness, + trace edema Neuro- alert, oriented x 3; PERRL, EOMI; no facial palsy; no dysarthria Skin- warm & dry Results & Data Vital Signs (Past 12 Hours) Vital Signs Temp Pulse Pulse Resp BP Pulse Ox 07/08/19 15:14 36.6 C 67 19 114/77 98 07/08/19 11:43 36.7 C 69 16 120/88 99 07/08/19 08:00 68 07/08/19 06:48 36.5 C 64 17 143/91 H 93
[2019-07-08] MEDS ORDERED: OXYCODONE HCL IR 5 MG TAB (IMMEDIATE RELEASE) PO PRN (18:58)
[2019-07-08] MEDS: GABAPENTIN 100 MG CAP PO SCH (21:42)
[2019-07-08] MEDS: ROPINIROLE HCL 0.25 MG TABLET PO SCH (21:42)
[2019-07-09 07:36] LABS: Hematocrit (blood only) 27.2 % (37-47); Hemoglobin 8.5 g/dL (12.0-16.0); Mean Corpuscular Hemoglobin 25.8 pg (25-34); Mean Corpuscular Hgb Conc 31.3 g/dL (32-36); Mean Corpuscular Volume 82.7 fL (80-100); Mean Platelet Volume 10.2 fL (7.4-10.4); Nucleated RBC # (auto) 0.25 K/uL (0-0); Nucleated RBC % (auto) 1.8 %; Platelet Count 491 K/uL (130-400); RDW Coefficient of Variation 16.4 % (11.5-14.5); RDW Standard Deviation 48.2 fL (36.4-46.3); Red Blood Count 3.29 M/uL (4.2-5.4)
[2019-07-09 08:01] LABS: Albumin Level 2.5 gm/dl (3.4-5.0); BUN Creatinine Ratio 27.9 (10-20); Calcium 8.3 mg/dl (8.5-10.1); Creatinine Clr Calc Pharmacy 46.5 ml/min; Est GFR (African American) 63.1; Est GFR (Non-African American) 54.4; Potassium 4.5 mmol/L (3.5-5.1)
[2019-07-09 08:04] LABS: Albumin Globulin Ratio 0.9 (0.9-2); Bilirubin,Total 0.5 mg/dl (0.2-1); Globulin 2.8 gm/dl (2.5-4.0); Total Protein 5.3 gm/dl (6.4-8.2)
[2019-07-09] MEDS: METOPROLOL SUCC 50MG EXT REL TAB PO SCH (08:13)
[2019-07-09] MEDS: VENLAFAXINE HCL XR 150 MG CAPXR PO SCH (08:13)
[2019-07-09] MEDS: PANTOprazole 40 MG TAB PO SCH (08:13)
[2019-07-09] MEDS: BuPROPion XL 150 MG TABCR PO SCH (08:14)
[2019-07-09] MEDS: LORazepam 0.5 MG TAB PO PRN ×2 (11:28→19:59)
--- NOTE | 2019-07-09 11:37 | Hospitalist Progress Note ---
Date of Service July 09, 2019 Assessment & Plan (1) Anemia: (2) Heme positive stool: Hemoglobin on admission [address] scan w possible enterocolitis and suspected liver cirrhosis PRBC transfusion stopped after 2 hrs when pt developed SOB and diaphoresis Hemoglobin improved to 8.5 today Gastro on board S/P EGD done today showed LA Grade A reflux esophagitis. Erythematous mucosa in the gastric body. Duodenal mucosa changes seen, suspicious for celiac disease Protonix drip changed to oral PPI daily for 2 months Celiac panel pending Will need outpatient colonoscopy (GI will arrange for that) Tolerated diet Toxic Encephalopathy Altered Mental Status Mostly related to medications CT head/MRI head showed no acute intracranial findings Pt is on [place] q4hr, oxycodone, gabapentin, Lorazepam, Bupropion, Baclofen, Buspirone, Requip and Venlafaxine Discussed with daughter about the medication list during the admission course Daughter said that her mother has been taking the narcotic and benzo for years I told her this morning her mother was barely able to keep her eyes open I explained to her that the oxycodone on hold and the hydrocodone was decreased to q6hr, but she was not too happy about that Buspar has been on hold since that was the newest med started recently Mental status back to her baseline Resolved Generalized weakness Mostly due to polypharmacy Fall precaution Daughter does not feel comfortable to take her home Refused to go to rehab in the past, but agreed to go to rehab No Bed available at [facility] Waiting for placement to [facility] History of hyponatremia Total Sodium on admission 135 Nephrology on board Sodium today 133 Case discussed with nephrology recommended to encourage patient to increase oral intake Check BMP within 1 week Follow up with nephrology Dr. 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 Troponin trending showed no significant elevation EKG showed no ischemic changes Denies any chest pain Continue monitor in tele Mixed acid base balance disorder Possible related to starvation Encourage pt to increase nutrition intake Nephrology on board Chronic pain syndrome. has been taking oxycodone for years recently prescribed adding norco [place] drug prescription monitoring program reviewed: Hydrocodone filled on 06/28 and oxycodone filled on 06/14 Will change [place] to oxycodone due to elevate LFT Continue gabapentin and baclofen Underweight Possible related to poor intake vs GI etiology Pt is a vegetarian BMI 18.3 Reviewed her weight for the last 2 to 3 years, her weight has been the same Daughter insisted to start TPN and to discharge home on it Does not meet criteria for TPN Discussed complication with daughter such as infection, thrombophlebitis and embolism fron the picc line, fluid overload, electrolyte imbalance, re-feeding syndrome Consult nutrition - Continue Boost supplement support manager checked if pt would qualify for TPN- that was denied TPN will not be a good option for her since that will increase the risk of fluid overload- Cardiology agreed as well Hypokalemia K 4.5 today Continue to hold Lisinopril and K supplement was d/c Monitor BMP Depression and anxiety. Pt is very anxious Continue Ativan as needed and venlafaxine XR and bupropion. Last admission was started on buspirone, which placed on hold Elevated LFTs/alkaline phosphatase elevated CT abdomen and pelvis showed Trace abdominal and pelvic ascites with findings suggesting developing hepatic cirrhosis. Mild diffuse wall edematous change of the small bowel as well as colon consistent with a diffuse enterocolitis GI on board LFT trending down Continue monitor LFT Statin on hold Autoimmune liver glue maker bone sent, waiting for result Hepatitis panel negative for HBV and acute hepatitis B Will need outpatient work up with GI Will avoid hepatotoxicity Elevated Iron Level Elevated TIBC/Transferin Normal Ferritin level Possible related to blood transfusion since lab derek after received 2 Hr of PRBC before transfusion stopped. Will hold iron supplement Will need to repeat iron studies Elevated WBC Afebrile and denies any diarrhea No dysuria If developed any Upper respiratory symptoms, will get a CXR Monitor CBC Right big toe pain Pt said that she hit her right feet yesterday Continue to have pain in the Right toe Xray showed no acute fracture pain improves DVT px on SCDs Disposition Finally agreed to go to rehab Daughter does not want to take her home yet waiting for placement Subjective Pt was seen and examined Lying in bed with no distress with daughter at bedside Pt said that she had therapy with PT/OT today She said that after therapy, she had pain She said that she ate this morning Case manage came during the encounter to inform that there is no bed available in [facility] Denies any chest pain, palpitation, dizziness and SOB Physical Exam Physical Exam: General- No acute distress Head- atraumatic Eyes- PERRL, EOMI, ENT- oropharynx clear Neck- supple, no JVD Lungs- clear to auscultation Heart- regular rhythm; no murmur Abdomen- normal bowel sounds, soft, nontender Extremities- no calf tenderness, + trace edema Neuro- alert, oriented x 3; PERRL, EOMI; no facial palsy; no dysarthria Skin- warm & dry Results & Data Vital Signs (Past 12 Hours) Vital Signs Temp Pulse Resp BP Pulse Ox 07/09/19 08:27 100 07/09/19 07:54 36.3 C L 81 20 139/90 07/09/19 03:15 36.6 C 75 18 122/73 100 07/09/19 00:40 36.3 C L 65 18 111/69 95
[2019-07-09 13:39] LABS: Albumin 2.9 G/DL (3.8-4.8); Alpha 1 Antitrypsin 279 MG/DL (83-199); Alpha 1 Globulin 0.6 G/DL (0.2-0.3); Alpha 2 Globulin 0.7 G/DL (0.5-0.9); Anti Nuclear Antibody Screen NEGATIVE (NEGATIVE); Beta-1-Globulin 0.5 G/DL (0.4-0.6); Beta-2-Globulin 0.2 G/DL (0.2-0.5); Ceruloplasmin 48 MG/DL (18-53); Gamma Globulin 0.4 G/DL (0.8-1.7); Hepatitis A Antibody IgM NON-REACTIVE (NON-REACTIVE); Hepatitis A Antibody Total NON-REACTIVE (NON-REACTIVE); Hepatitis B Core Antibody IgM NON-REACTIVE (NON-REACTIVE); Hepatitis B Core Antibody Total NON-REACTIVE (NON-REACTIVE); Monoclonal Protein Band 1 DNR G/DL (NOT DETECTED); Monoclonal Protein Band 2 DNR G/DL (NOT DETECTED); Monoclonal Protein Band 3 DNR G/DL (NOT DETECTED); Total Protein 5.2 G/DL (6.2-8.3)
[2019-07-09] MEDS: GABAPENTIN 100 MG CAP PO SCH (20:03)
[2019-07-09] MEDS: ROPINIROLE HCL 0.25 MG TABLET PO SCH (20:04)
[2019-07-09] MEDS: OXYCODONE HCL IR 5 MG TAB (IMMEDIATE RELEASE) PO PRN (20:15)
[2019-07-10] MEDS: OXYCODONE HCL IR 5 MG TAB (IMMEDIATE RELEASE) PO PRN (05:09)
[2019-07-10] MEDS ORDERED: NALOXONE HCL 0.4 MG/1 ML VIAL/CARP IV STA (06:14)
--- NOTE | 2019-07-10 06:44 | XRay Report ---
XR chest 1V portable CLINICAL HISTORY: Hypoxia COMPARISON STUDY: 07/02/2019 FINDINGS: The heart remains enlarged. Small pleural effusions are suspected. There is mild pulmonary vascular congestion. There are right basilar airspace opacities likely atelectatic[ IMPRESSION: 1. Cardiomegaly and suspected mild pulmonary vascular congestion 2. Small pleural effusions 3. Right basilar airspace opacities likely atelectatic Electronically signed by: Gio [place] M.D. 07/10/2019 6:42 AM
[2019-07-10 06:51] LABS: Basophils # (auto) 0.01 K/uL (0-0.2); Basophils % (auto) 0.1 %; Eosinophils # (auto) 0.07 K/uL (0-0.5); Eosinophils % (auto) 0.5 %; Hematocrit (blood only) 26.2 % (37-47); Hemoglobin 8.2 g/dL (12.0-16.0); Immature Granulocytes # (auto) 0.06 K/uL (0.00-0.02); Immature Granulocytes % (auto) 0.4 %; Lymphocytes % (auto) 7.1 %; Mean Corpuscular Hemoglobin 25.5 pg (25-34); Mean Corpuscular Hgb Conc 31.3 g/dL (32-36); Mean Corpuscular Volume 81.4 fL (80-100); Mean Platelet Volume 10.2 fL (7.4-10.4); Monocytes # (auto) 1.34 K/uL (0.11-0.59); Monocytes % (auto) 9.5 %; Neutrophils # (auto) 11.61 K/uL (1.4-6.5); Neutrophils % (auto) 82.4 %; Nucleated RBC # (auto) 0.38 K/uL (0-0); Nucleated RBC % (auto) 2.7 %; Platelet Count 486 K/uL (130-400); RDW Coefficient of Variation 16.5 % (11.5-14.5); RDW Standard Deviation 48.8 fL (36.4-46.3); Red Blood Count 3.22 M/uL (4.2-5.4); White Blood Count 14.09 K/uL (4.8-10.8)
[2019-07-10 06:59] LABS: Allen Test Pos (Pos); Base Excess ABG -6.5 mEq/L (-9-1.8); HCO3 ABG 18 mmol/L (19-24); Oxygen Saturation ABG 89.9 % (90-95); PCO2 ABG 29 mmHg (35-46); PO2 ABG 63 mm/Hg (80-95)
[2019-07-10 07:04] LABS: Partial Thromboplastin Ratio 0.9; Partial Thromboplastin Time 24.6 Seconds (21.0-31.0)
[2019-07-10 07:17] LABS: Echinocytes 1+; Polychromasia 1+
[2019-07-10 07:29] LABS: Albumin Level 2.4 gm/dl (3.4-5.0); BUN Creatinine Ratio 30.1 (10-20); Calcium 8.3 mg/dl (8.5-10.1); Creatinine Clr Calc Pharmacy 49.3 ml/min; Est GFR (African American) 67.7; Est GFR (Non-African American) 58.4; Magnesium 1.9 mg/dl (1.8-2.4); Potassium 4.8 mmol/L (3.5-5.1)
[2019-07-10] MEDS ORDERED: FUROSEMIDE 20 MG in SYRINGE 0 ML IV SCH (07:30)
[2019-07-10 07:32] LABS: Albumin Globulin Ratio 0.9 (0.9-2); Bilirubin,Total 0.4 mg/dl (0.2-1); Globulin 2.8 gm/dl (2.5-4.0); Total Protein 5.2 gm/dl (6.4-8.2)
[2019-07-10] MEDS: METOPROLOL SUCC 50MG EXT REL TAB PO SCH (08:53)
[2019-07-10] MEDS: PANTOprazole 40 MG TAB PO SCH (08:53)
[2019-07-10] MEDS: VENLAFAXINE HCL XR 150 MG CAPXR PO SCH (08:53)
[2019-07-10] MEDS: BuPROPion XL 150 MG TABCR PO SCH (09:22)
[2019-07-10] MEDS ORDERED: HYDROCORTISONE HC 2.5% CRM 30GM TUBE EXT PRN (10:19)
--- NOTE | 2019-07-10 12:05 | Hospitalist Progress Note ---
Date of Service July 10, 2019 Assessment & Plan (1) Anemia: (2) Heme positive stool: Hemoglobin on admission 8 [address] Hemoccult was positive CT scan w possible enterocolitis and suspected liver cirrhosis PRBC transfusion stopped after 2 hrs when pt developed SOB and diaphoresis Gastro on board: appreciate input and recommendation S/P EGD done today showed LA Grade A reflux esophagitis. Erythematous mucosa in the gastric body. Duodenal mucosa changes seen, suspicious for celiac disease Biopsies (stomach, GE junction and duodenum):negative for any malignancy or H. pylori but has Arti Protonix drip changed to oral PPI daily for 2 months Celiac panel pending Will need outpatient colonoscopy (GI will arrange for that) Tolerated diet Toxic Encephalopathy : Likely secondary to overuse of narcotics Altered Mental Status Mostly related to medications CT head/MRI head showed no acute intracranial findings Pt is on [place] q4hr, oxycodone, gabapentin, Lorazepam, Bupropion, Baclofen, Buspirone, Requip and Venlafaxine Discussed with daughter about the medication list during the admission course Daughter said that her mother has been taking the narcotic and benzo for years Mental status back to her baseline as of today 07/10 Generalized weakness Mostly due to polypharmacy Fall precaution Daughter does not feel comfortable to take her home Refused to go to rehab in the past, but agreed to go to rehab No Bed available at [facility] Waiting for placement to [facility] History of hyponatremia Total Sodium on admission 135 Nephrology on board Sodium today 133 Case discussed with nephrology recommended to encourage patient to increase oral intake Check BMP within 1 week Follow up with nephrology Dr. 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 Troponin trending showed no significant elevation EKG showed no ischemic changes Doubt any ACS Chronic pain syndrome. has been taking oxycodone for years recently prescribed adding norco [place] drug prescription monitoring program reviewed: Hydrocodone filled on 06/28 and oxycodone filled on 06/14 Will change [place] to oxycodone due to elevate LFT Continue gabapentin and baclofen Pain medications have been adjusted Underweight Possible related to poor intake vs GI etiology Pt is a vegetarian BMI 18.3 Reviewed her weight for the last 2 to 3 years, her weight has been the same Daughter insisted to start TPN and to discharge home on it Does not meet criteria for TPN Discussed complication with daughter such as infection, thrombophlebitis and embolism fron the picc line, fluid overload, electrolyte imbalance, re-feeding syndrome Consult nutrition - Continue Boost supplement healthcare manager checked if pt would qualify for TPN- that was denied TPN will not be a good option for her since that will increase the risk of fluid overload- Cardiology agreed as well Will have an advice for dietary consult Depression and anxiety. Pt is very anxious Continue Ativan as needed and venlafaxine XR and bupropion. Last admission was started on buspirone, which placed on hold Will not restart any antianxiety medications if she does not need it Elevated LFTs/alkaline phosphatase elevated CT abdomen and pelvis showed Trace abdominal and pelvic ascites with findings suggesting developing hepatic cirrhosis. Mild diffuse wall edematous change of the small bowel as well as colon consistent with a diffuse enterocolitis GI on board LFT trending down Continue monitor LFT Statin on hold Autoimmune liver panel gluer sent, waiting for result: Negative so far except tissue transglutaminase IgA and celiac disease interpretation pending Hepatitis panel negative for HBV and acute hepatitis B Will need outpatient work up with GI Will avoid hepatotoxicity Elevated Iron Level Elevated TIBC/Transferin Normal Ferritin level Possible related to blood transfusion since lab derek after received 2 Hr of PRBC before transfusion stopped. Will hold iron supplement Will need to repeat iron studies Elevated WBC Afebrile and denies any diarrhea No dysuria If developed any Upper respiratory symptoms, will get a CXR White count is slightly elevated to more than 14,000 Chest x-ray shows atelectasis at the bases Will get ultrasound of the legs to rule out DVT Right big toe pain Pt said that she hit her right feet yesterday Continue to have pain in the Right toe Xray showed no acute fracture pain improves DVT px on SCDs Disposition Finally agreed to go to rehab Daughter does not want to take her home yet waiting for placement Likely be discharged tomorrow Discussed with family members and the daughter Subjective 07/10 The patient was seen and examined in the medical floor in presence of the family members She has noted to be very confused last night This morning she did not have any more confusion when I examined She remains weak and lethargic with poor appetite He denies any pain at rest and has been complaining of pain in the pelvis on ambulation Review of Systems Review of Systems: All systems reviewed and unremarkable except as noted below Constitutional: + fatigue and + weakness Cardiovascular: no chest pain, no dyspnea and no orthopnea Gastrointestinal: no abdominal pain Musculoskeletal: Pain in the pelvis with movement Neurologic: + generalized weakness Physical Exam Physical Exam: Lying in bed comfortably Constitutional: + ill appearing, + thin, + cachectic, + frail appearing, well groomed, cooperative and comfortable; not in distress Eyes: PERRL, conjunctivae normal, anicteric sclerae ENMT: external ear and nose normal, oropharynx normal Mouth: no dentition abnormality Mallampati Class: II Neck: normal visual inspection; no nuchal rigidity Respiratory: normal respiratory effort; no respiratory distress Auscultation: lungs clear to auscultation bilaterally, + diminished lung sounds (R base) and + crackles (R base) Cardiovascular: RRR, no murmur, no edema Rate/Rhythm: regular rate and regular rhythm Extremities: no edema Gastrointestinal (Abdomen): normal bowel sounds, soft, nontender, no hepatosplenomegaly Inspection/Auscultation: normal bowel sounds Percussion/Palpation: abdomen soft; abdomen nontender Musculoskeletal: No acute arthritis in any of the joints Skin: no rashes, warm and dry no jaundice Neurologic: moves all extremities; no focal motor deficits Psychiatric: Orientation: alert, oriented to person and oriented to place Eye Contact: + fair eye contact Mood: + depressed mood Insight: + limited insight Judgement: + limited judgement Lymphatic: no cervical or axillary lymphadenopathy no lymphedema Results & Data Laboratory Results Short CBC 07/10/19 Range/Units 06:42 WBC 14.09 H (4.8-10.8) K/uL Hgb 8.2 L (12.0-16.0) g/dL Hct 26.2 L (37-47) % Plt Count 486 H (130-400) K/uL BMP 07/10/19 06:42 Sodium 135 L Potassium 4.8 Chloride 107 Carbon Dioxide 17 L BUN 30 H Creatinine 1.01 Glucose 84 Calcium 8.3 L Liver Function 07/10/19 Range/Units 06:42 Total Bilirubin 0.4 (0.2-1) mg/dl AST 95 H (15-37) U/L ALT 138 H (12-78) U/L Alkaline Phosphatase 362 H (45-117) U/L Albumin 2.4 L (3.4-5.0) gm/dl Medications Administered Current Inpatient Medications Acetaminophen (Tylenol) 325 mg PO Q4H PRN PRN Reason: Mild Pain Stop: 08/09/19 06:12 Atorvastatin Calcium (Lipitor) 10 mg PO DAILY KANDACE Stop: 08/02/19 08:59 Last Admin: 07/05/19 07:42 Dose: 10 mg Documented by: Benzonatate (Tessalon Perle) 100 mg PO TID PRN PRN Reason: Cough Stop: 08/02/19 01:08 Bupropion HCl (Wellbutrin-Xl) 150 mg PO DAILY KANDACE Stop: 08/02/19 08:59 Last Admin: 07/10/19 09:22 Dose: 150 mg Documented by: Ferrous Sulfate (Feosol) 325 mg PO Q48H KANDCAE Stop: 08/02/19 08:59 Last Admin: 07/07/19 07:49 Dose: 325 mg Documented by: Gabapentin (Neurontin) 200 mg PO HS KANDACE Stop: 08/07/19 20:59 Last Admin: 07/09/19 20:03 Dose: 200 mg Documented by: Hydrocortisone (Proctozone Hc 2.5%) 1 appln EXT UD PRN PRN Reason: Hemorrhoids Stop: 08/09/19 10:18 Lisinopril (Zestril) 20 mg PO DAILY KANDACE Stop: 08/02/19 08:59 Last Admin: 07/06/19 08:03 Dose: 20 mg Documented by: Lorazepam (Ativan) 0.5 mg PO Q8 PRN PRN Reason: Anxiety Stop: 08/02/19 01:08 Last Admin: 07/09/19 19:59 Dose: 0.5 mg Documented by: Meclizine HCl (Antivert) 25 mg PO TID PRN PRN Reason: DIZZYNESS Stop: 08/02/19 01:08 Metoprolol Succinate (Toprol Xl) 50 mg PO DAILY KANDACE Stop: 08/02/19 08:59 Last Admin: 07/10/19 08:53 Dose: 50 mg Documented by: Ondansetron HCl (Zofran) 4 mg IV Q6H PRN PRN Reason: Nausea Stop: 08/02/19 01:08 Last Admin: 07/09/19 21:21 Dose: 4 mg Documented by: Oxycodone HCl (Roxicodone Immediate Rel) 5 mg PO Q6H PRN PRN Reason: Pain Stop: 07/22/19 13:59 Last Admin: 07/10/19 05:09 Dose: 5 mg Documented by: Pantoprazole Sodium ([facility]ix) [facility] [place]: 08/04/19 08:59 Last Admin: 07/10/19 08:53 Dose: 40 mg Documented by: Polyethylene Glycol (Miralax Powder Packet) 17 gm PO DAILY PRN PRN Reason: Constipation Stop: 08/02/19 01:08 Last Admin: 07/05/19 07:47 Dose: 17 gm Documented by: Ropinirole HCl (Requip) 0.25 mg PO [facility] Stop: 08/02/19 20:59 Last Admin: 07/09/19 20:04 Dose: 0.25 mg Documented by: Simethicone (Mylicon) 120 mg PO TID PRN PRN Reason: GAS/BLOATING Last Admin: 07/05/19 21:10 Dose: 120 mg Documented by: Venlafaxine HCl (Effexor Extended Release) [facility] Stop: 08/02/19 08:59 Last Admin: 07/10/19 08:53 Dose: 300 mg Documented by:
[2019-07-10] MEDS ORDERED: ALBUTEROL HFA 8 GM INHALER INH PRN (12:33)
[2019-07-10] MEDS: ACETAMINOPHEN 325 MG TAB PO PRN ×2 (12:42→17:52)
[2019-07-10 12:57] LABS: IgA Serum 57 mg/dL (20-320); Tis Trans IgA 1 U/mL (<4)
[2019-07-10] MEDS: MEGESTROL ACETATE SUSP 400 MG/10 ML UDC PO SCH (13:04)
--- NOTE | 2019-07-10 14:04 | Ultrasound Report ---
US venous doppler LE BI HISTORY: Pain. Edema. r/o DVT COMPARISON STUDY: None. FINDINGS: There is normal compressibility, flow, and augmentation within the bilateral lower extremit y deep venous systems. IMPRESSION: No DVT within the right or left lower extremity. The above report was generated using voice recognition software. It may contain grammatical, syntax or spelling errors. Electronically signed by: Alex Howe M.D. 07/10/2019 2:02 PM
[2019-07-10] MEDS: FLUCONAZOLE 100 MG TAB PO SCH (14:22)
[2019-07-10] MEDS: TRAMADOL HCL 50 MG TABLET PO PRN (16:38)
[2019-07-10] MEDS: GABAPENTIN 100 MG CAP PO SCH (19:37)
[2019-07-10] MEDS: ROPINIROLE HCL 0.25 MG TABLET PO SCH (19:38)
[2019-07-10] MEDS: LORazepam 0.5 MG TAB PO PRN (19:48)
[2019-07-11 06:11] LABS: Basophils # (auto) 0.01 K/uL (0-0.2); Basophils % (auto) 0.1 %; Eosinophils # (auto) 0.08 K/uL (0-0.5); Eosinophils % (auto) 0.6 %; Hematocrit (blood only) 25.1 % (37-47); Hemoglobin 7.9 g/dL (12.0-16.0); Immature Granulocytes # (auto) 0.03 K/uL (0.00-0.02); Immature Granulocytes % (auto) 0.2 %; Lymphocytes # (auto) 1.08 K/uL (1.2-3.4); Lymphocytes % (auto) 8.8 %; Mean Corpuscular Hemoglobin 25.8 pg (25-34); Mean Corpuscular Hgb Conc 31.5 g/dL (32-36); Mean Platelet Volume 10.1 fL (7.4-10.4); Monocytes # (auto) 1.31 K/uL (0.11-0.59); Monocytes % (auto) 10.6 %; Neutrophils % (auto) 79.7 %; Nucleated RBC # (auto) 0.25 K/uL (0-0); Platelet Count 441 K/uL (130-400); RDW Coefficient of Variation 16.6 % (11.5-14.5); RDW Standard Deviation 48.4 fL (36.4-46.3); Red Blood Count 3.06 M/uL (4.2-5.4); White Blood Count 12.31 K/uL (4.8-10.8)
[2019-07-11 06:35] LABS: Hypochromasia Present; Poikilocytosis Present
[2019-07-11 06:41] LABS: BUN Creatinine Ratio 30.8 (10-20); Calcium 7.9 mg/dl (8.5-10.1); Creatinine Clr Calc Pharmacy 48.8 ml/min; Est GFR (African American) 66.8; Est GFR (Non-African American) 57.7; Magnesium 1.8 mg/dl (1.8-2.4); Potassium 4.7 mmol/L (3.5-5.1)
[2019-07-11 06:42] LABS: Phosphorus 2.9 mg/dl (2.5-4.9)
[2019-07-11] MEDS: TRAMADOL HCL 50 MG TABLET PO PRN ×3 (07:45→22:31)
[2019-07-11] MEDS: FLUCONAZOLE 100 MG TAB PO SCH (07:46)
[2019-07-11] MEDS: PANTOprazole 40 MG TAB PO SCH (07:46)
[2019-07-11] MEDS: VENLAFAXINE HCL XR 150 MG CAPXR PO SCH (07:46)
[2019-07-11] MEDS: FUROSEMIDE 20 MG TAB PO SCH (07:46)
[2019-07-11] MEDS: BuPROPion XL 150 MG TABCR PO SCH (07:46)
[2019-07-11] MEDS: METOPROLOL SUCC 50MG EXT REL TAB PO SCH (07:47)
[2019-07-11] MEDS: MEGESTROL ACETATE SUSP 400 MG/10 ML UDC PO SCH (07:47)
[2019-07-11] MEDS ORDERED: FLUCONAZOLE 200 MG/5 ML UDP PO SCH (09:00)
[2019-07-11] MEDS: ACETAMINOPHEN 325 MG TAB PO PRN (12:06)
--- NOTE | 2019-07-11 13:45 | Hospitalist Progress Note ---
Date of Service July 11, 2019 Assessment & Plan (1) Anemia: (2) Heme positive stool: Hemoglobin on admission 8 [address] Hem[address] was positive CT scan w possible enterocolitis and suspected liver cirrhosis PRBC transfusion stopped after 2 hrs when pt developed SOB and diaphoresis Gastro on board: appreciate input and recommendation S/P EGD done today showed LA Grade A reflux esophagitis. Erythematous mucosa in the gastric body. Duodenal mucosa changes seen, suspicious for celiac disease-negative Biopsies (stomach, GE junction and duodenum):negative for any malignancy or H. pylori but has Arti Protonix drip changed to oral PPI daily for 2 months Started on oral Diflucan will be continued for 14 days in total Celiac panel pending Will need outpatient colonoscopy (GI will arrange for that) Tolerated diet Likely discharge tomorrow Toxic Encephalopathy : Likely secondary to overuse of narcotics Altered Mental Status Mostly related to medications CT head/MRI head showed no acute intracranial findings Pt is on [place] q4hr, oxycodone, gabapentin, Lorazepam, Bupropion, Baclofen, Buspirone, Requip and Venlafaxine Discussed with daughter about the medication list during the admission course Daughter said that her mother has been taking the narcotic and benzo for years Mental status back to her baseline as of today 07/10 She is back to her baseline We will discontinue any of the narcotics Use of Ultram as an outpatient will be limited Generalized weakness Mostly due to polypharmacy Fall precaution Daughter does not feel comfortable to take her home Refused to go to rehab in the past, but agreed to go to rehab No Bed available at [facility] Waiting for placement to SNF Likely to be transferred to SNF tomorrow History of hyponatremia Total Sodium on admission 135 Nephrology on board Sodium today 133 Case discussed with nephrology recommended to encourage patient to increase oral intake Check BMP within 1 week Follow up with nephrology Dr. 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 Troponin trending showed no significant elevation EKG showed no ischemic changes Doubt any ACS Chronic pain syndrome. has been taking oxycodone for years recently prescribed adding norco [place] drug prescription monitoring program reviewed: Hydrocodone filled on 06/28 and oxycodone filled on 06/14 Will change [place] to oxycodone due to elevate LFT Continue gabapentin and baclofen Pain medications have been adjusted No more narcotics Underweight Possible related to poor intake vs GI etiology Pt is a vegetarian BMI 18.3 Reviewed her weight for the last 2 to 3 years, her weight has been the same Daughter insisted to start TPN and to discharge home on it Does not meet criteria for TPN Discussed complication with daughter such as infection, thrombophlebitis and embolism fron the picc line, fluid overload, electrolyte imbalance, re-feeding syndrome Consult nutrition - Continue Boost supplement health services manager checked if pt would qualify for TPN- that was denied TPN will not be a good option for her since that will increase the risk of fluid overload- Cardiology agreed as well Will have an advice for dietary consult-appreciate input and recommendation Depression and anxiety. Pt is very anxious Continue Ativan as needed and venlafaxine XR and bupropion. Last admission was started on buspirone, which placed on hold Will not restart any antianxiety medications if she does not need it Elevated LFTs/alkaline phosphatase elevated CT abdomen and pelvis showed Trace abdominal and pelvic ascites with findings suggesting developing hepatic cirrhosis. Mild diffuse wall edematous change of the small bowel as well as colon consistent with a diffuse enterocolitis GI on board LFT trending down Continue monitor LFT Statin on hold Autoimmune liver nail maker sent, waiting for result: Negative so far except tissue transglutaminase IgA and celiac disease interpretation pending Hepatitis panel negative for HBV and acute hepatitis B Will need outpatient work up with GI Will avoid hepatotoxicity We will recheck LFTs tomorrow Elevated Iron Level Elevated TIBC/Transferin Normal Ferritin level Possible related to blood transfusion since lab derek after received 2 Hr of PRBC before transfusion stopped. Will hold iron supplement Will need to repeat iron studies Elevated WBC Afebrile and denies any diarrhea No dysuria If developed any Upper respiratory symptoms, will get a CXR White count is slightly elevated to more than 14,000 Chest x-ray shows atelectasis at the bases Will get ultrasound of the legs to rule out DVT Right big toe pain Pt said that she hit her right feet yesterday Continue to have pain in the Right toe Xray showed no acute fracture pain improves DVT px on SCDs Disposition Finally agreed to go to rehab Daughter does not want to take her home yet waiting for placement Likely be discharged tomorrow Discussed with family members and the daughter Discussed with the daughter in detail Likely be transferred to rehab tomorrow Subjective 07/10 The patient was seen and examined in the medical floor in presence of the family members She has noted to be very confused last night This morning she did not have any more confusion when I examined She remains weak and lethargic with poor appetite He denies any pain at rest and has been complaining of pain in the pelvis on ambulation 07/11 The patient was seen and examined in medical floor She has been feeling a lot better today Denies any significant pain and/or symptoms Has been getting physical therapy Trying to eat more Review of Systems Review of Systems: All systems reviewed and unremarkable except as noted below Constitutional: + fatigue and + weakness Musculoskeletal: Pain in the pelvis with movement Neurologic: + generalized weakness Physical Exam Physical Exam: Lying in bed without any significant symptoms Constitutional: + ill appearing, + thin, + cachectic, + frail appearing, well groomed, cooperative and comfortable; not in distress Eyes: PERRL, conjunctivae normal, anicteric sclerae ENMT: external ear and nose normal, oropharynx normal Mouth: no dentition abnormality Mallampati Class: II Neck: normal visual inspection; no nuchal rigidity Respiratory: normal respiratory effort; no respiratory distress Auscultation: lungs clear to auscultation bilaterally, + diminished lung sounds (R base) and + crackles (R base) Cardiovascular: Rate/Rhythm: regular rate and regular rhythm Extremities: no edema Gastrointestinal (Abdomen): Inspection/Auscultation: normal bowel sounds Percussion/Palpation: abdomen soft; abdomen nontender Musculoskeletal: No acute arthritis in any of the joints Skin: no rashes, warm and dry no jaundice Neurologic: moves all extremities; no focal motor deficits No more confused Psychiatric: Orientation: alert, oriented to person and oriented to place Eye Contact: + fair eye contact Mood: + depressed mood Insight: + limited insight Judgement: + limited judgement Lymphatic: no cervical or axillary lymphadenopathy no lymphedema Results & Data Vital Signs (Past 12 Hours) Vital Signs Temp Pulse Resp BP Pulse Ox 07/11/19 07:24 36.6 C 68 20 132/78 20 L
[2019-07-11] MEDS: LORazepam 0.5 MG TAB PO PRN (14:35)
[2019-07-11] MEDS: ROPINIROLE HCL 0.25 MG TABLET PO SCH (20:02)
[2019-07-11] MEDS: GABAPENTIN 100 MG CAP PO SCH (20:02)
[2019-07-12] MEDS: LORazepam 0.5 MG TAB PO PRN (06:13)
[2019-07-12 07:42] LABS: Albumin Level 2.4 gm/dl (3.4-5.0); BUN Creatinine Ratio 33.7 (10-20); Bilirubin Direct 0.1 mg/dl (0-0.2); Calcium 7.8 mg/dl (8.5-10.1); Creatinine Clr Calc Pharmacy 54.7 ml/min; Est GFR (African American) 76.7; Est GFR (Non-African American) 66.2; Potassium 4.3 mmol/L (3.5-5.1)
[2019-07-12 07:45] LABS: Bilirubin,Total 0.5 mg/dl (0.2-1)
[2019-07-12] MEDS: TRAMADOL HCL 50 MG TABLET PO PRN ×2 (08:20→13:32)
[2019-07-12] MEDS: PANTOprazole 40 MG TAB PO SCH (08:20)
[2019-07-12] MEDS: VENLAFAXINE HCL XR 150 MG CAPXR PO SCH (08:20)
[2019-07-12] MEDS: BuPROPion XL 150 MG TABCR PO SCH (08:21)
[2019-07-12] MEDS: FLUCONAZOLE 100 MG TAB PO SCH (08:21)
[2019-07-12] MEDS: FUROSEMIDE 20 MG TAB PO SCH (08:21)
[2019-07-12] MEDS: METOPROLOL SUCC 50MG EXT REL TAB PO SCH (08:21)
[2019-07-12] MEDS: MEGESTROL ACETATE SUSP 400 MG/10 ML UDC PO SCH (08:21)
--- NOTE | 2019-07-12 11:26 | Hospitalist Progress Note ---
Date of Service July 12, 2019 Assessment & Plan (1) Anemia: (2) Heme positive stool: Hemoglobin on admission 8 and Hemoccult was positive CT scan w possible enterocolitis and suspected liver cirrhosis PRBC transfusion stopped after 2 hrs when pt developed SOB and diaphoresis Gastro on board: appreciate input and recommendation S/P EGD done today showed LA Grade A reflux esophagitis. Erythematous mucosa in the gastric body. Duodenal mucosa changes seen, suspicious for celiac disease-negative Biopsies (stomach, GE junction and duodenum):negative for any malignancy or H. pylori but has Arti Protonix drip changed to oral PPI daily for 2 months Started on oral Diflucan will be continued for 14 days in total Celiac panel pending Will need outpatient colonoscopy (GI will arrange for that) Tolerated diet Will discharge this afternoon to SNF Toxic Encephalopathy : Likely secondary to overuse of narcotics Altered Mental Status Mostly related to medications CT head/MRI head showed no acute intracranial findings Pt is on [place] q4hr, oxycodone, gabapentin, Lorazepam, Bupropion, Baclofen, Buspirone, Requip and Venlafaxine Discussed with daughter about the medication list during the admission course Daughter said that her mother has been taking the narcotic and benzo for years Mental status back to her baseline as of today 07/10 She is back to her baseline We will discontinue any of the narcotics Use of Ultram as an outpatient will be limited Generalized weakness Mostly due to polypharmacy Fall precaution Daughter does not feel comfortable to take her home Refused to go to rehab in the past, but agreed to go to rehab No Bed available at [facility] Waiting for placement to SNF Likely to be transferred to SNF tomorrow Continue physical therapy as an outpatient History of hyponatremia Total Sodium on admission 135 Nephrology on board Sodium today 133 Case discussed with nephrology recommended to encourage patient to increase oral intake Check BMP within 1 week Follow up with nephrology Dr. 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 Troponin trending showed no significant elevation EKG showed no ischemic changes Doubt any ACS Chronic pain syndrome. has been taking oxycodone for years recently prescribed adding norco [place] drug prescription monitoring program reviewed: Hydrocodone filled on 06/28 and oxycodone filled on 06/14 Will change [place] to oxycodone due to elevate LFT Continue gabapentin and baclofen Pain medications have been adjusted No more narcotics Underweight Possible related to poor intake vs GI etiology Pt is a vegetarian BMI 18.3 Reviewed her weight for the last 2 to 3 years, her weight has been the same Daughter insisted to start TPN and to discharge home on it Does not meet criteria for TPN Discussed complication with daughter such as infection, thrombophlebitis and embolism fron the picc line, fluid overload, electrolyte imbalance, re-feeding syndrome Consult nutrition - Continue Boost supplement security program manager checked if pt would qualify for TPN- that was denied TPN will not be a good option for her since that will increase the risk of fluid overload- Cardiology agreed as well Will have an advice for dietary consult-appreciate input and recommendation Continue Megace for now Depression and anxiety. Pt is very anxious Continue Ativan as needed and venlafaxine XR and bupropion. Last admission was started on buspirone, which placed on hold Will not restart any antianxiety medications if she does not need it Elevated LFTs/alkaline phosphatase elevated CT abdomen and pelvis showed Trace abdominal and pelvic ascites with findings suggesting developing hepatic cirrhosis. Mild diffuse wall edematous change of the small bowel as well as colon consistent with a diffuse enterocolitis GI on board LFT trending down Continue monitor LFT Statin on hold Autoimmune liver cement block maker sent, waiting for result: Negative so far except tissue transglutaminase IgA and celiac disease interpretation pending Hepatitis panel negative for HBV and acute hepatitis B Will need outpatient work up with GI Will avoid hepatotoxicity We will recheck LFTs tomorrow-liver function has been improved Elevated Iron Level Elevated TIBC/Transferin Normal Ferritin level Possible related to blood transfusion since lab derek after received 2 Hr of PRBC before transfusion stopped. Will hold iron supplement Will need to repeat iron studies Elevated WBC Afebrile and denies any diarrhea No dysuria If developed any Upper respiratory symptoms, will get a CXR White count is slightly elevated to more than 14,000 Chest x-ray shows atelectasis at the bases Will get ultrasound of the legs to rule out DVT White blood cell count is better Right big toe pain Pt said that she hit her right feet yesterday Continue to have pain in the Right toe Xray showed no acute fracture pain improves DVT px on SCDs Disposition Finally agreed to go to rehab Daughter does not want to take her home yet waiting for placement Likely be discharged tomorrow Discussed with family members and the daughter Discussed with the daughter in detail Likely be transferred to rehab today Subjective 07/10 The patient was seen and examined in the medical floor in presence of the family members She has noted to be very confused last night This morning she did not have any more confusion when I examined She remains weak and lethargic with poor appetite He denies any pain at rest and has been complaining of pain in the pelvis on ambulation 07/11 The patient was seen and examined in medical floor She has been feeling a lot better today Denies any significant pain and/or symptoms Has been getting physical therapy Trying to eat more 07/12 The patient was seen and examined in medical telemetry unit She remains generally weak but otherwise denies any complaints She has been eating reasonably and has been getting physical therapy without any problem She will be discharged to skilled care facility this afternoon Review of Systems Review of Systems: All systems reviewed and unremarkable except as noted below Constitutional: + fatigue and + weakness Respiratory: no dyspnea and no wheezing Cardiovascular: no chest pain Gastrointestinal: no abdominal pain, no bloating and no nausea Musculoskeletal: Pain in the pelvis with movement otherwise no acute arthritis in any of the joints Neurologic: + generalized weakness Physical Exam Physical Exam: Lying in bed comfortably Constitutional: + ill appearing, + thin, + cachectic, + frail appearing, well groomed, cooperative and comfortable; not in distress Eyes: PERRL, conjunctivae normal, anicteric sclerae ENMT: external ear and nose normal, oropharynx normal Mouth: no dentition abnormality Mallampati Class: II Neck: normal visual inspection; no nuchal rigidity Respiratory: normal respiratory effort; no respiratory distress Auscultation: lungs clear to auscultation bilaterally, + diminished lung sounds (R base) and + crackles (R base) Cardiovascular: Rate/Rhythm: regular rate and regular rhythm Heart Sounds: no murmur Extremities: no edema Gastrointestinal (Abdomen): Inspection/Auscultation: abdomen normal to inspection and normal bowel sounds Percussion/Palpation: abdomen soft; abdomen nontender Skin: no rashes, warm and dry no jaundice Neurologic: moves all extremities; no focal motor deficits Psychiatric: Orientation: alert, oriented to person and oriented to place Eye Contact: + fair eye contact Mood: + depressed mood Insight: + limited insight Judgement: + limited judgement Lymphatic: no cervical or axillary lymphadenopathy no lymphedema Results & Data Vital Signs (Past 12 Hours) Vital Signs Temp Pulse Resp BP Pulse Ox 07/12/19 07:00 36.4 C L 84 20 131/85 94 07/12/19 04:03 36.5 C 75 18 107/72 95 07/11/19 23:43 36.9 C 65 18 109/72 95 Laboratory Results [facility] 07/12/19 06:44 Sodium 133 L Potassium 4.3 Chloride 103 Carbon Dioxide 23 BUN 31 H Creatinine 0.91 Glucose 79 Calcium 7.8 L Liver Function 07/12/19 Range/Units 06:44 Total Bilirubin 0.5 (0.2-1) mg/dl Direct Bilirubin 0.1 (0-0.2) mg/dl AST 61 H (15-37) U/L ALT 119 H (12-78) U/L Alkaline Phosphatase 261 H (45-117) U/L Albumin 2.4 L (3.4-5.0) gm/dl Medications Administered Current Inpatient Medications Acetaminophen (Tylenol) 325 mg PO Q4H PRN PRN Reason: Mild Pain Stop: 08/09/19 06:12 Last Admin: 07/11/19 12:06 Dose: 325 mg Documented by: Albuterol (Ventolin Hfa) 2 puffs INH Q6H PRN PRN Reason: Wheezing Stop: 08/09/19 12:44 Atorvastatin Calcium (Lipitor) 10 mg PO DAILY [facility] Stop: 08/02/19 08:59 Last Admin: 07/05/19 07:42 Dose: 10 mg Documented by: Benzonatate (Tessalon Perle) 100 mg PO TID PRN PRN Reason: Cough Stop: 08/02/19 01:08 Bupropion HCl (Wellbutrin-Xl) 150 mg PO DAILY [facility] Stop: 08/02/19 08:59 Last Admin: 07/12/19 08:21 Dose: 150 mg Documented by: Ferrous Sulfate (Feosol) 325 mg PO Q48H [facility] Stop: 08/02/19 08:59 Last Admin: 07/07/19 07:49 Dose: 325 mg Documented by: [facility]an) [facility] [place] Stop: 07/20/19 13:59 Last Admin: 07/12/19 08:21 Dose: 200 mg Documented by: Furosemide (Lasix) 20 mg PO QAM [facility] Stop: 08/10/19 08:59 Last Admin: 07/12/19 08:21 Dose: 20 mg Documented by: Gabapentin (Neurontin) 200 mg PO [facility] Stop: 08/07/19 20:59 Last Admin: 07/11/19 20:02 Dose: 200 mg Documented by: Hydrocortisone (Proctozone Hc 2.5%) 1 appln EXT UD PRN PRN Reason: Hemorrhoids Stop: 08/09/19 10:18 Lisinopril (Zestril) 20 mg PO DAILY [facility] Stop: 08/02/19 08:59 Last Admin: 07/06/19 08:03 Dose: 20 mg Documented by: Lorazepam (Ativan) 0.5 mg PO Q8 PRN PRN Reason: Anxiety Stop: 08/02/19 01:08 Last Admin: 07/12/19 06:13 Dose: 0.5 mg Documented by: Meclizine HCl (Antivert) 25 mg PO TID PRN PRN Reason: DIZZYNESS Stop: 08/02/19 01:08 Megestrol Acetate (Megace) 400 mg PO [facility] Stop: 08/09/19 12:59 Last Admin: 07/12/19 08:21 Dose: 400 mg Documented by: Metoprolol Succinate (Toprol Xl) 50 mg PO DAILY [facility] Stop: 08/02/19 08:59 Last Admin: 07/12/19 08:21 Dose: 50 mg Documented by: Pantoprazole Sodium (Protonix) [facility] [place] Stop: 08/04/19 08:59 Last Admin: 07/12/19 08:20 Dose: 40 mg Documented by: Polyethylene Glycol (Miralax Powder Packet) 17 gm PO DAILY PRN PRN Reason: Constipation Stop: 08/02/19 01:08 Last Admin: 07/05/19 07:47 Dose: 17 gm Documented by: Ropinirole HCl (Requip) 0.25 mg PO [facility] Stop: 08/02/19 20:59 Last Admin: 07/11/19 20:02 Dose: 0.25 mg Documented by: Simethicone (Mylicon) 120 mg PO TID PRN PRN Reason: GAS/BLOATING Last Admin: 07/05/19 21:10 Dose: 120 mg Documented by: Tramadol HCl (Ultram) 50 mg PO Q4H PRN PRN Reason: Pain Stop: 08/09/19 13:31 Last Admin: 07/12/19 08:20 Dose: 50 mg Documented by: Venlafaxine HCl (Effexor Extended Release) 300 mg PO QAM [facility] Stop: 08/02/19 08:59 Last Admin: 07/12/19 08:20 Dose: 300 mg Documented by:
--- NOTE | 2019-07-12 18:06 | Discharge Summary ---
Date of Service July 12, 2019 Admission HPI Per Admitting Provider DICTATED BY: Martin Truong MD DATE OF ADMISSION: 07/02/2019 CHIEF COMPLAINT: Confusion, weakness, in the ER, found to be Hemoccult positive. HISTORY OF PRESENT ILLNESS: A 64-year-old female with past medical history significant for hypertension, chronic pain syndrome, depression, anxiety, history of hyponatremia, anemia, emphysema, was recently admitted. She has a history of possible ileus secondary to narcotics in December 2018, was recently on 06/24/2019 admitted for pelvic pain and found to have bilateral sacral ala fractures and right transverse process fracture of L5, was found to have hyponatremia, sodium of 127 and hospital stay was complicated by having mild elevated troponin for which echo was done which showed EF of around 15-20% and grade 2 diastolic dysfunction, moderate mitral regurgitation, small circumferential pericardial effusion, and at that time, cardiology was consulted and a small dose of beta beatriz was added and the patient was planned for outpatient Lexiscan. The daughter says the cardiology wanted to add low dose Lopressor, 12.5 Lopressor, but she was discharged on Toprol-XL 50 mg. She also has chronic pain and pain management was consulted and Recommend to continue usual oxycodone, LSO brace, daily bowel regimen, may use Relistor if needed. Also seen by psychiatry for anxiety, depression and advised to continue venlafaxine XR 300 mg daily, gabapentin 300 mg at bedtime, and lorazepam 0.5 hours every 8 hours as needed.and Added buspirone 5 mg 3 times daily for adjunctive treatment of anxiety.wellbutrin dose was decreased. Did ok in therapy and was discharged to her daughter's house couple of days ago. Daughter says that since she came home a couple of hours later, she was getting confused, she has poor appetite, not at all eating. She cannot hold things. She is ambulating. She is pushing herself to ambulate with walker. She is constipated. She has only a small amount of bowel sounds and today the bowel movement is dark color, and seems to be hallucinating, so she brought her here and daughter is very concerned that the patient might had stroke and slo request to check for any infection. The patient is alert and awake, oriented to name and place. Could tell month, but could not tell the year, says it is 2017. The patient denies any headache, no blurred visions, no cough, no fever, but she says she has nausea, don't feel like eating. Denies chest pain, shortness of breath. She states she feels constipated and she says her urine is somewhat dark. Denies any burning micturition, no swelling in the legs, no rash seen. Hemodynamics are stable. Her hemoglobin was found to be 8 ,trending down from 9 to 8.5 last admission. Her Hemoccult done in the ER was positive, so we are called for admission and also BNP greater than 3500 and troponin 0.047, total creatinine kinase 253, alkaline phosphatase of 325. CT of the head is unremarkable. Admission Exam Per Admitting Provider GENERAL: The patient is old and frail, somewhat slow to answer questions and hard of hearing. VITAL SIGNS: Temperature 36.7, pulse 67, respiratory rate 18, blood pressure 119/71, oxygen 98% room air. HEENT: No pallor, no icterus. Pupils equal, round, reactive to light. NECK: No JVD, no neck masses, no carotid bruits. CARDIOVASCULAR: S1, S2 heard, regular rate and rhythm, no murmur, no gallop. RESPIRATORY SYSTEM: Normal AP diameter. No accessory muscle use. No wheezing, no rales. ABDOMEN: Soft, bowel sounds present. Mild abdominal discomfort. No guarding, no rigidity. No distention. CENTRAL NERVOUS SYSTEM: Alert and awake, oriented to name and place only. Hard of hearing. Obeys simple commands. Moves extremities. EXTREMITIES: No edema, no erythema. Principal Diagnosis Toxic encephalopathy, likely secondary to use of narcotics-resolved, chronic anemia with heme positive stool- will have outpatient colonoscopy near future, cardiomyopathy with 15 to 20% EF, depression with anxiety, status post fall with bilateral sacral alar fracture, anorexia with poor nutrition Discharge Exam Constitutional + ill appearing, + thin, + cachectic, + frail appearing, well groomed, cooperative and comfortable; not in distress Eyes PERRL, conjunctivae normal, anicteric sclerae ENMT external ear and nose normal, oropharynx normal Mouth: no dentition abnormality Mallampati Class: II Neck normal visual inspection; no nuchal rigidity Respiratory normal respiratory effort; no respiratory distress Auscultation: lungs clear to auscultation bilaterally, + diminished lung sounds (R base) and + crackles (R base) Cardiovascular RRR, no murmur, no edema Rate/Rhythm: regular rate and regular rhythm Heart Sounds: no murmur Extremities: no edema Gastrointestinal (Abdomen) normal bowel sounds, soft, nontender, no hepatosplenomegaly Inspection/Auscultation: abdomen normal to inspection and normal bowel sounds Percussion/Palpation: abdomen soft; abdomen nontender Skin no rashes, warm and dry no jaundice Neurologic moves all extremities; no focal motor deficits Psychiatric Orientation: alert, oriented to person and oriented to place Eye Contact: + fair eye contact Mood: + depressed mood Insight: + limited insight Judgement: + limited judgement Lymphatic no cervical or axillary lymphadenopathy no lymphedema Discharge Data Allergies Allergy/AdvReac Type Severity Reaction Status Date / Time Barbiturates Allergy Severe Unknown Verified 07/02/19 21:17 belladonna alkaloids Allergy Severe Unknown Verified 07/02/19 21:17 dicyclomine Allergy Severe Unknown Verified 07/02/19 21:17 azithromycin Allergy Mild Hives Unverified 07/02/19 21:17 mivacurium Allergy Mild Unknown Verified 07/02/19 21:17 Penicillins Allergy Mild AMOXICILLIN Verified 07/02/19 21:17 phenobarbital Allergy Mild Unknown Verified 07/02/19 21:17 Quinolones Allergy Mild Unknown Verified 07/02/19 21:17 amoxicillin Allergy Unknown rash Unverified 07/02/19 21:17 Nitrate Analogues Allergy Unknown Unknown Verified 07/02/19 21:17 nitrofurantoin Allergy Unknown Unknown Verified 06/25/19 09:47 nitroglycerin Allergy Unknown Unknown Verified 06/25/19 09:47 Sulfa (Sulfonamide Allergy Unknown sulfa Verified 12/29/18 13:31 Antibiotics) Consultations 07/02/19 21:28 ED Decision to Admit Stat 07/03/19 01:09 Consult Case Management - Discharge Planning Routine 07/03/19 06:26 Consult Nephrology Routine 07/03/19 08:00 Consult Gastroenterology Routine 07/03/19 11:37 Consult Cardiology Routine Procedures Performed Operation Date: 07/04/19 10:00 Actual Procedures p EGD Biopsy Cytology - Faina Hanson MD Ordered Studies 07/02/19 19:55 CT head/brain wo con Stat 07/03/19 01:09 CT abd pelvis IV con only Urgent MR brain wo con Urgent 07/10/19 09:58 US venous doppler LE Routine Hospital Course (1) Anemia: (2) Heme positive stool: Hemoglobin on admission 8 and Hemoccult was positive CT scan w possible enterocolitis and suspected liver cirrhosis PRBC transfusion stopped after 2 hrs when pt developed SOB and diaphoresis Gastro on board: appreciate input and recommendation S/P EGD done today showed LA Grade A reflux esophagitis. Erythematous mucosa in the gastric body. Duodenal mucosa changes seen, suspicious for celiac disease-negative Biopsies (stomach, GE junction and duodenum):negative for any malignancy or H. pylori but has Arti Protonix drip changed to oral PPI daily for 2 months Started on oral Diflucan will be continued for 14 days in total Celiac panel pending Will need outpatient colonoscopy (GI will arrange for that) Tolerated diet Will discharge this afternoon to SNF Toxic Encephalopathy : Likely secondary to overuse of narcotics Altered Mental Status Mostly related to medications CT head/MRI head showed no acute intracranial findings Pt is on [place] q4hr, oxycodone, gabapentin, Lorazepam, Bupropion, Baclofen, Buspirone, Requip and Venlafaxine Discussed with daughter about the medication list during the admission course Daughter said that her mother has been taking the narcotic and benzo for years Mental status back to her baseline as of today 07/10 She is back to her baseline We will discontinue any of the narcotics Use of Ultram as an outpatient will be limited Generalized weakness Mostly due to polypharmacy Fall precaution Daughter does not feel comfortable to take her home Refused to go to rehab in the past, but agreed to go to rehab No Bed available at [facility] Waiting for placement to SNF Likely to be transferred to SNF tomorrow Continue physical therapy as an outpatient History of hyponatremia Total Sodium on admission 135 Nephrology on board Sodium today 133 Case discussed with nephrology recommended to encourage patient to increase oral intake Check BMP within 1 week Follow up with nephrology Dr. 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 Troponin trending showed no significant elevation EKG showed no ischemic changes Doubt any ACS Chronic pain syndrome. has been taking oxycodone for years recently prescribed adding norco [place] drug prescription monitoring program reviewed: Hydrocodone filled on 06/28 and oxycodone filled on 06/14 Will change [place] to oxycodone due to elevate LFT Continue gabapentin and baclofen Pain medications have been adjusted No more narcotics Underweight Possible related to poor intake vs GI etiology Pt is a vegetarian BMI 18.3 Reviewed her weight for the last 2 to 3 years, her weight has been the same Daughter insisted to start TPN and to discharge home on it Does not meet criteria for TPN Discussed complication with daughter such as infection, thrombophlebitis and embolism fron the picc line, fluid overload, electrolyte imbalance, re-feeding syndrome Consult nutrition - Continue [employer] supplement merchandising manager checked if pt would qualify for TPN- that was denied TPN will not be a good option for her since that will increase the risk of fluid overload- Cardiology agreed as well Will have an advice for dietary consult-appreciate input and recommendation Continue Megace for now Depression and anxiety. Pt is very anxious Continue Ativan as needed and venlafaxine XR and bupropion. Last admission was started on buspirone, which placed on hold Will not restart any antianxiety medications if she does not need it Elevated LFTs/alkaline phosphatase elevated CT abdomen and pelvis showed Trace abdominal and pelvic ascites with findings suggesting developing hepatic cirrhosis. Mild diffuse wall edematous change of the small bowel as well as colon consistent with a diffuse enterocolitis GI on board LFT trending down Continue monitor LFT Statin on hold Autoimmune liver glaze maker sent, waiting for result: Negative so far except tissue transglutaminase IgA and celiac disease interpretation pending Hepatitis panel negative for HBV and acute hepatitis B Will need outpatient work up with GI Will avoid hepatotoxicity We will recheck LFTs tomorrow-liver function has been improved Elevated Iron Level Elevated TIBC/Transferin Normal Ferritin level Possible related to blood transfusion since lab derek after received 2 Hr of PRBC before transfusion stopped. Will hold iron supplement Will need to repeat iron studies Elevated WBC Afebrile and denies any diarrhea No dysuria If developed any Upper respiratory symptoms, will get a CXR White count is slightly elevated to more than 14,000 Chest x-ray shows atelectasis at the bases Will get ultrasound of the legs to rule out DVT White blood cell count is better Right big toe pain Pt said that she hit her right feet yesterday Continue to have pain in the Right toe Xray showed no acute fracture pain improves DVT px on SCDs Disposition Finally agreed to go to rehab Daughter does not want to take her home yet waiting for placement Likely be discharged tomorrow Discussed with family members and the daughter Discussed with the daughter in detail Likely be transferred to rehab today Total Time Total Time Spent Total Time Spent (In Minutes): 40 minutes Total Time Includes: Examination of the Patient, Discharge Planning, Medication Reconciliation and Communication With Other Providers Discharge Plan Discharge Items Patient Disposition: Transfer Jail [facility] Reason For Visit: WEAKNESS, POOR APPETITE, DROPPING THINGS Discharge Diagnosis: Toxic encephalopathy, likely secondary to use of narcotics-resolved, chronic anemia with heme positive stool- will have outpatient colonoscopy near future, cardiomyopathy with 15 to 20% EF, depression with anxiety, status post fall with bilateral sacral alar fracture, anorexia with poor nutrition Condition on Discharge: Fair Activity: Resume your previous activity Activity Comment: Continue PT and OT Non-emergency contact: Primary Care Provider Call non-emergency contact if: you have any medication questions and your symptoms worsen Follow-up/Referrals: Nate Shrestha MD [Primary Care Provider] - (Please make an appointment with primary care provider within 7 days following discharge from the skilled care facility) Diet: Vegetarian (Lacto-Ovo) Addtl Attending Provider Instructions: Please take precaution to avoid falls. Try to avoid narcotics and benzodiazepines as much as possible Pending Studies at Discharge: No Stand-Alone Forms: My [facility] Skilled Items Patient informed of condition?: Yes DNR: No Discharge Level of Care: Skilled Communicable Disease: No Discharge Prognosis: Stable Lines: None Urinary Catheter: No Medications and DC Order Prescriptions: New fluconazole 100 mg Tablet 200 mg PO QAM 10 Days Qty: 20 RF: 0 megestrol 400 mg/10 mL (40 mg/mL) Suspension 10 ml PO QAM 10 Days Qty: 100 RF: 0 tramadol 50 mg Tablet 50 mg PO Q4H PRN (Reason: pain) 3 Days Qty: 12 RF: 0 pantoprazole 40 mg Tablet,Delayed Release (Dr/Ec) 40 mg PO QAM 30 Days Qty: 30 RF: 0 furosemide 20 mg Tablet 20 mg PO QAM 30 Days Qty: 30 RF: 0 gabapentin 100 mg Capsule 200 mg PO HS 30 Days Qty: 60 RF: 0 ferrous sulfate 325 mg (65 mg iron) Tablet,Delayed Release (Dr/Ec) 325 mg PO Q48H 30 Days Qty: 30 RF: 0 hydrocortisone [Proctosol HC] 2.5 % Cream With Perineal Applicator 1 applic EXT UD PRN (Reason: hemorrhoids) 30 Days Qty: 1 RF: 0 lorazepam 0.5 mg tablet 0.25 mg PO Q8H PRN (Reason: anxiety) Qty: 10 RF: 0 Continued lisinopril 20 mg tablet 20 mg PO DAILY RF: 0 venlafaxine [Effexor XR] 150 mg capsule,extended release 24hr 300 mg PO QAM RF: 0 potassium chloride [Klor-Con M20] 20 mEq tablet,ER particles/crystals 20 meq PO DAILY RF: 0 ropinirole [Requip] 0.25 mg tablet 0.25 mg PO HS RF: 0 meclizine 25 mg Tablet 25 mg PO TID PRN (Reason: DIZZYNESS) RF: 0 benzonatate [Tessalon Perles] 100 mg Capsule 100 mg PO TID PRN (Reason: Cough) RF: 0 promethazine 25 mg tablet 25 mg PO .Q4-6HRS PRN (Reason: Nausea) RF: 0 betamethasone dipropionate 0.05 % Cream 1 applic TOPICAL .BID UD PRN (Reason: .) RF: 0 metoprolol succinate [Toprol XL] 50 mg tablet extended release 24 hr 50 mg PO DAILY RF: 0 loperamide [Imodium A-D] 2 mg Tablet 1 - 2 mg PO UD RF: 0 simethicone 125 mg Tablet 125 mg PO TID PRN (Reason: GAS/BLOATING) RF: 0 Ensure Liquid 1 ea PO BID RF: 0 bupropion HCl [Wellbutrin XL] 150 mg tablet extended release 24 hr 150 mg PO DAILY RF: 0 Premarin 0.625 mg/gram Cream VAGINAL 3XWK PRN (Reason: Unknown) RF: 0 Discontinued baclofen 10 mg tablet 10 mg PO BID PRN (Reason: Muscle Spasm) RF: 0 lorazepam [Ativan] 1 mg tablet 0.5 mg PO Q8 PRN (Reason: Anxiety) RF: 0 oxycodone [Roxicodone] 5 mg tablet 5 mg PO Q6 PRN (Reason: Outbreak) RF: 0 diclofenac sodium [Voltaren] 1 % gel 4 g topical UD PRN (Reason: Pain) RF: 0 Elmiron 100 mg capsule 100 mg PO BID RF: 0 hydrocodone-acetaminophen [[place]] 5-325 mg tablet 1 tab PO Q4 PRN (Reason: Pain) RF: 0 aspirin [Aspir-81] 81 mg Tablet,Delayed Release (Dr/Ec) 81 mg PO DAILY RF: 0 buspirone 5 mg tablet 5 mg PO TID RF: 0 atorvastatin [Lipitor] 10 mg tablet 10 mg PO DAILY RF: 0 gabapentin 300 mg 300 mg PO HS RF: 0 Discharge Orders: Discharge Order (Routine); Ordered 07/12/19 Ordered By: Renny Brunner Admission Data Admit Date/Time: 07/02/19 23:16 Attending Provider: Renny Brunner Admit Provider: Martin Truong Primary Care Provider: Nate Shrestha Other Providers: Porfirio Farrar ; Farooq Zepeda ; Martin Truong ; Elizabeth Son ; Miguel Johnson ; Kaelyn Breaux ; Yazmin Lee ; Vidal Buckley ; Melly Sharp ; Dimple Frances ; Teetee France ; Alessandro Ramires ; Fred Forrest ; Judy Menard ; Debbie Garsia ; Marilu Ruiz ; Dionna Bentley ; Faina Hanson ; Chriss Tesfaye ; Cathy Haskins Other Interventions: Discharge Summary Assessment (RN) Last Done: 07/12/19 13:07 DC Date/Time DO NOT enter until pt leaves facility: 07/12/19 14:01
== END 2019-07-12 14:01 | DRG 811 ==
LOC: ED 19:46 → SUATTDRO 23:16 → 2S 23:16 → 2N 07-09 10:14

== ENCOUNTER 2019-07-15 06:47 | Inpatient (IN) ==
[2019-07-15] MEDS ORDERED: DEXTROSE 5% 1,000 ML IV STA (06:59)
[2019-07-15] MEDS ORDERED: NALOXONE HCL 0.4 MG/1 ML VIAL/CARP IV STA (06:59)
[2019-07-15] MEDS ORDERED: NALOXONE HCL 0.4 MG/1 ML VIAL/CARP ONE (07:03)
--- NOTE | 2019-07-15 07:33 | Emergency Department Note ---
Entered by Clark Fernandez acting as a scribe for History of Present Illness General Chief complaint: Unresponsive Stated complaint: UNREPONSIVE Time Seen by Provider: 07/15/19 06:49 Source: patient Limitations: other (Unresponsive) History of Present Illness Provider complaint: Unresponsive Onset (ago): hour(s) (Just prior to arrival) Location: head Pain Consistency: + other (Episodic) Relieved By: + none Exacerbated By: + none Associated symptoms: + confusion and + other (Hypothermia ) The patient is a 64 year old female who presents to the Emergency Room after being found unresponsive by staff at [facility] this morning just prior to arrival. The nurse notes that when the patient was found, her BSG was 13 and her temperature was 34.6C. The patient received 50g of Dextrose and her sugar increased to 80. Per the patient's medical records, she was just hospitalized on July 02 for anemia, CKD, and an elevated troponin and discharged 3 days ago. During this time she presented with heme positive stool. The patient has a history of cardiomyopathy and an EF of 15-20% as well as chronic anemia, dementia, and emphysema. The HPI is limited secondary to patient being unresponsive. Home Medications Home Medications Medication Instructions Recorded Confirmed Type Ensure 1 ea PO TID 07/02/19 07/15/19 History benzonatate [Tessalon Perles] 100 mg PO TID PRN 07/02/19 07/15/19 History bupropion HCl [Wellbutrin XL] 150 mg PO QAM 07/02/19 07/15/19 History lisinopril 20 mg PO QAM 07/02/19 07/15/19 History potassium chloride [Klor-Con M20] 20 meq PO QAM 07/02/19 07/15/19 History promethazine 25 mg PO Q4H PRN 07/02/19 07/15/19 History ropinirole [Requip] 0.25 mg PO HS 07/02/19 07/15/19 History simethicone 125 mg PO Q8H PRN 07/02/19 07/15/19 History venlafaxine [Effexor XR] 300 mg PO QAM 07/02/19 07/15/19 History ferrous sulfate 325 mg PO Q48H 30 Days #30 tab 07/12/19 07/15/19 Rx fluconazole 200 mg PO QAM 10 Days #20 tab 07/12/19 07/15/19 Rx furosemide 20 mg PO QAM 30 Days #30 tab 07/12/19 07/15/19 Rx albuterol sulfate 2.5 mg INHALATION QID PRN 07/15/19 07/15/19 History gabapentin 300 mg PO HS 07/15/19 07/15/19 History pentosan polysulfate sodium 100 mg PO BID 07/15/19 07/15/19 History [Elmiron] tramadol 50 mg PO Q4H PRN 07/15/19 07/15/19 History Allergies Allergy/AdvReac Type Severity Reaction Status Date / Time Barbiturates Allergy Severe Unknown Verified 07/15/19 07:36 belladonna alkaloids Allergy Severe Unknown Verified 07/15/19 07:36 dicyclomine Allergy Severe Unknown Verified 07/15/19 07:36 azithromycin Allergy Mild Hives Unverified 07/15/19 07:36 mivacurium Allergy Mild Unknown Verified 07/15/19 07:36 Penicillins Allergy Mild AMOXICILLIN Verified 07/15/19 07:36 phenobarbital Allergy Mild Unknown Verified 07/15/19 07:36 Quinolones Allergy Mild Unknown Verified 07/15/19 07:36 amoxicillin Allergy Unknown rash Unverified 07/15/19 07:36 Nitrate Analogues Allergy Unknown Unknown Verified 07/15/19 07:36 nitrofurantoin Allergy Unknown Unknown Verified 07/15/19 07:36 nitroglycerin Allergy Unknown Unknown Verified 07/15/19 07:36 Sulfa (Sulfonamide Allergy Unknown sulfa Verified 07/15/19 07:36 Antibiotics) Past Med/Surg History Medical History Depression (Chronic) Migraines (Chronic) Tobacco abuse (Chronic) OCD (obsessive compulsive disorder) (Chronic) CKD (chronic kidney disease), stage III (Chronic) IBS (irritable bowel syndrome) (Chronic) HTN (hypertension) (Chronic) Surgical History History of total abdominal hysterectomy (Chronic) H/O hernia repair (Chronic) History of back surgery (Chronic) H/O colonoscopy (Chronic) H/O sinus surgery (Chronic) Family History Other Diabetes Hypertension Social History Preferred Language: Vincentian Communication Ability: Effective Pharmacy Customer Care Specialist Required: No Beliefs That Will Affect Care: None Current Living Situation: Detention Current Living Situation Comment: lives with dtr Other Information That Helps Us Care for You: No Feels Safe at Home: Yes Smoking Status: Unknown if ever smoked Hx Alcohol Use: No Hx Substance Use: No Review of Systems See HPI for pertinent positives & negatives. Other (Limited secondary to unresponive patient) Physical Exam Vital Signs Vital Signs - 24 hr 07/15/19 07:00 07/15/19 07:10 07/15/19 07:11 Temperature 34.6 C L Temperature Source Oral Sepsis Recent Fever Within 48 Hours No Sepsis New/Unexplained Change in Mental Status No Sepsis Action Taken by Nursing No Action Required Pulse Rate 71 Pulse Rate [Right Finger] Respiratory Rate 14 Respiratory Effort / Characteristics Pursed Lip Respiratory Depth Normal Respiratory Pattern Regular Blood Pressure 130/91 Blood Pressure [Left Arm] Blood Pressure Mean 104 Blood Pressure Mean [Left Arm] Pulse Oximetry 86 L 86 L Oxygen Delivery Method Room Air Room Air Nasal Cannula Oxygen Flow Rate 4 07/15/19 07:18 07/15/19 07:30 07/15/19 07:45 Temperature Temperature Source Sepsis Recent Fever Within 48 Hours Sepsis New/Unexplained Change in Mental Status Sepsis Action Taken by Nursing Pulse Rate Pulse Rate [Right Finger] 72 72 Respiratory Rate 20 20 Respiratory Effort / Characteristics Grunting Labored Grunting Labored Respiratory Depth Respiratory Pattern Blood Pressure Blood Pressure [Left Arm] 136/105 H Blood Pressure Mean Blood Pressure Mean [Left Arm] 115 Pulse Oximetry 98 97 Oxygen Delivery Method Nasal Cannula Nasal Cannula Nasal Cannula Oxygen Flow Rate 4 4 2 07/15/19 07:49 07/15/19 08:14 07/15/19 08:16 Temperature 35.0 C L 35.0 C L Temperature Source Rectal Rectal Sepsis Recent Fever Within 48 Hours Sepsis New/Unexplained Change in Mental Status Sepsis Action Taken by Nursing Pulse Rate Pulse Rate [Right Finger] 74 70 Respiratory Rate 20 20 Respiratory Effort / Characteristics Grunting Respiratory Depth Respiratory Pattern Blood Pressure Blood Pressure [Left Arm] 119/89 Blood Pressure Mean Blood Pressure Mean [Left Arm] 99 Pulse Oximetry 94 Oxygen Delivery Method Nasal Cannula Oxygen Flow Rate 2 07/15/19 08:29 07/15/19 08:41 07/15/19 08:46 Temperature Temperature Source Sepsis Recent Fever Within 48 Hours Sepsis New/Unexplained Change in Mental Status Sepsis Action Taken by Nursing Pulse Rate Pulse Rate [Right Finger] 68 68 Respiratory Rate 20 20 Respiratory Effort / Characteristics Non-Labored Non-Labored Respiratory Depth Respiratory Pattern Blood Pressure Blood Pressure [Left Arm] 137/84 130/77 Blood Pressure Mean Blood Pressure Mean [Left Arm] 101 94 Pulse Oximetry 100 100 Oxygen Delivery Method Nasal Cannula Room Air Room Air Oxygen Flow Rate 2 07/15/19 09:04 07/15/19 09:30 Temperature 35.1 C L Temperature Source Rectal Sepsis Recent Fever Within 48 Hours Sepsis New/Unexplained Change in Mental Status Sepsis Action Taken by Nursing Pulse Rate Pulse Rate [Right Finger] 68 72 Respiratory Rate 20 20 Respiratory Effort / Characteristics Non-Labored Non-Labored Respiratory Depth Respiratory Pattern Blood Pressure Blood Pressure [Left Arm] 122/88 121/82 Blood Pressure Mean Blood Pressure Mean [Left Arm] 99 95 Pulse Oximetry 96 100 Oxygen Delivery Method Room Air Room Air Oxygen Flow Rate GENERAL: Patient is in mild distress. HEENT: Pupils are equal and reactive but patient demonstrates a wandering gaze. MMM. No nasal congestion, no facial swelling. NECK: No stridor, no adenopathy, no meningismus, trachea is midline. LUNGS: Rhonchi bilaterally, increased respiratory rate, no respiratory distress, equal lung sounds noted. HEART: Cannot hear cardiac sounds secondary to lung noise. ABDOMEN: Soft, nontender, bowel sounds positive, no hernias, no peritonitis. EXTREMITIES: No cyanosis or edema, full range of motion of all the joints without pain or difficulty, no signs for acute trauma. NEUROLOGIC: Awake. Moves all extremities. Does not respond to voice. Does seem to flinch with pain. SKIN: No rash, no jaundice, no diaphoresis. Course 0658: Past medical records reviewed. The patient was evaluated in room A02, and a complete history and physical examination were performed. 0720: The patient received 0.4mg of IV Narcan with no improvement to her condition. 0727: I spoke to the patient's daughter at bedside about the situation and treatment plan. The patient's blood sugar is currently 114. 0837: I reevaluated the patient and she is resting comfortably in bed. I updated her daughter on results as well as the treatment plan. The daughter completely understands and is agreeable with the treatment plan. 0843: I spoke to Jonelle Lewis PAC under Dr. Kannan Torres, about the patient's case. They will be accepting the patient for further evaluation. 0855: I spoke to Dr. Dutta - Statistics Professor about the patient's case. He is going to come evaluate the patient. Consultations Consultation #1: I spoke to Jonelle Lewis PAC under Dr. Kannan Torres, about the patient's case. They will be accepting the patient for further evaluation. Time: 08:43 Consultation #2: I spoke to Dr. Dutta - Statistics Professor about the patient's case. He is going to come evaluate the patient. Time: 08:55 Administered Medications Discontinued Medications Dextrose (D5w) 1,000 mls @ 125 mls/hr IV .Q8H STA Stop: 07/15/19 14:58 Last Infusion: 07/15/19 12:10 Dose: 0 mls/hr Documented by: [id number] Admin: 07/15/19 07:06 Dose: 125 mls/hr Documented by: [id number] Ceftriaxone Sodium (Rocephin) 1,000 mg in 50 mls @ 100 mls/hr IV NOW STA Stop: 07/15/19 08:39 Last Infusion: 07/15/19 08:49 Dose: 0 mls/hr Documented by: [id number] Admin: 07/15/19 08:17 Dose: 100 mls/hr Documented by: [id number] Sodium Chloride (Nss) 250 mls @ 999 mls/hr IV .Q16M ONE Stop: 07/15/19 08:43 Last Infusion: 07/15/19 09:15 Dose: 0 mls/hr Documented by: [id number] Admin: 07/15/19 08:36 Dose: 999 mls/hr Documented by: [id number] Sodium Chloride (Nss 1000ml) 500 mls @ 999 mls/hr IV .Q31M ONE Stop: 07/15/19 09:05 Last Admin: 07/15/19 11:22 Dose: Not Given Documented by: [id number] Naloxone HCl (Narcan) 0.4 mg IV NOW STA Stop: 07/15/19 07:00 Last Admin: 07/15/19 07:06 Dose: 0.4 mg Documented by: [id number] Naloxone HCl (Narcan) Confirm Administered Dose 0.4 mg .ROUTE .STK-MED ONE Stop: 07/15/19 07:04 Last Admin: 07/15/19 07:07 Dose: Not Given Documented by: [id number] Medical Decision Making Differential Diagnosis Differential Diagnosis includes: Stroke, intracranial bleed, sepsis, UTI, pneumonia, hypoxia, C02 retention, hypoglycemia, hypothermia, CHF, and ID, amongst others. Medical Records Attestation: I reviewed the patient's medical records. Home Medications Current Medication List: was personally reviewed by me Laboratory Data Attestation: I reviewed the patient's lab results. Result diagrams: 07/15/19 12:52 07/15/19 12:52 Lab Results 07/15/19 07/15/19 07/15/19 Range/Units 06:51 07:27 07:29 WBC (4.8-10.8) K/uL RBC (4.2-5.4) M/uL Hgb (12.0-16.0) g/dL Hct (37-47) % MCV (80-100) fL MCH (25-34) pg MCHC (32-36) g/dL RDW Std Deviation (36.4-46.3) fL RDW Coeff of Rock (11.5-14.5) % Plt Count (130-400) K/uL MPV (7.4-10.4) fL Immature Gran % (Auto) % Neut % (Auto) % Lymph % (Auto) % [place] % (Auto) % Eos % (Auto) % Baso % (Auto) % Immature Gran # (Auto) (0.00-0.02) K/uL Neut # (Auto) (1.4-6.5) K/uL Lymph # (Auto) (1.2-3.4) K/uL [place] # (Auto) (0.11-0.59) K/uL Eos # (Auto) (0-0.5) K/uL Baso # (Auto) (0-0.2) K/uL Absolute Nucleated RBC (0-0) K/uL Nucleated RBC % (auto) % Toxic Vacuolation Poikilocytosis Echinocytes PT (9.0-12.0) Seconds INR (0.9-1.1) ABG pH (7.35-7.45) ABG pCO2 (35-46) mmHg ABG pO2 (80-95) mm/Hg ABG HCO3 (19-24) mmol/L ABG O2 Saturation (90-95) % ABG Base Excess (-9-1.8) mEq/L Hugh Test (Pos) Barometric Pressure mm/Hg Oxygen Given Sodium (136-145) mmol/L Potassium (3.5-5.1) mmol/L Chloride (98-107) mmol/L Carbon Dioxide (21-32) mmol/L Anion Gap (3-11) BUN (7-18) mg/dl Creatinine (0.6-1.2) mg/dl Est Cr Clr Drug Dosing ml/min Est GFR ( Amer) Est GFR (Non-Af Amer) BUN/Creatinine Ratio (10-20) Glucose (70-99) mg/dl POC Glucose 81 114 H (70-99) Lactate (0.4-2.0) mmol/L Calcium (8.5-10.1) mg/dl Magnesium (1.8-2.4) mg/dl Total Bilirubin (0.2-1) mg/dl AST (15-37) U/L ALT (12-78) U/L Alkaline Phosphatase (45-117) U/L Ammonia (11-32) umol/L Troponin I (0-0.045) ng/ml Total Protein (6.4-8.2) gm/dl Albumin (3.4-5.0) gm/dl Globulin (2.5-4.0) gm/dl Albumin/Globulin Ratio (0.9-2) TSH (0.300-4.500) uIu/ml Free T4 (0.8-1.6) ng/dl Urine Color Dark Yellow Urine Appearance Cloudy A (Clear) Urine pH 5.5 (4.5-7.5) Ur Specific [place] 1.014 (1.000-1.030) Urine Protein 1+ H (Negative) Urine Glucose (UA) Negative (Negative) Urine Ketones Negative (Negative) Urine Blood 1+ H (Negative) Urine Nitrite Positive A (Negative) Urine Bilirubin Negative (Negative) Urine Urobilinogen Negative (Negative) Ur Leukocyte Esterase 2+ H (Negative) Urine WBC (Auto) >30 H (0-5) /hpf Urine RBC (Auto) 5-10 H (0-4) /hpf U Hyaline Cast (Auto) 10-30 H (0-5) /lpf U Epithel Cells (Auto) >30 H (0-5) /lpf Urine Bacteria (Auto) 4+ H (Negative) Granular Casts 1-5 H (0) /lpf Acetaminophen (10-30) ug/ml 07/15/19 07/15/19 07/15/19 Range/Units 07:43 07:54 07:54 WBC (4.8-10.8) K/uL RBC (4.2-5.4) M/uL Hgb (12.0-16.0) g/dL Hct (37-47) % MCV (80-100) fL MCH (25-34) pg MCHC (32-36) g/dL RDW Std Deviation (36.4-46.3) fL RDW Coeff of Rock (11.5-14.5) % Plt Count (130-400) K/uL MPV (7.4-10.4) fL Immature Gran % (Auto) % Neut % (Auto) % Lymph % (Auto) % [place] % (Auto) % Eos % (Auto) % Baso % (Auto) % Immature Gran # (Auto) (0.00-0.02) K/uL Neut # (Auto) (1.4-6.5) K/uL Lymph # (Auto) (1.2-3.4) K/uL [place] # (Auto) (0.11-0.59) K/uL Eos # (Auto) (0-0.5) K/uL Baso # (Auto) (0-0.2) K/uL Absolute Nucleated RBC (0-0) K/uL Nucleated RBC % (auto) % Toxic Vacuolation Poikilocytosis Echinocytes PT (9.0-12.0) Seconds INR (0.9-1.1) ABG pH 7.26 L (7.35-7.45) ABG pCO2 21 L (35-46) mmHg ABG pO2 58 L (80-95) mm/Hg ABG HCO3 9 L (19-24) mmol/L ABG O2 Saturation 84.5 L (90-95) % ABG Base Excess -16.2 L (-9-1.8) mEq/L Hugh Test Pos (Pos) Barometric Pressure 730.2 mm/Hg Oxygen Given 2 L Sodium (136-145) mmol/L Potassium (3.5-5.1) mmol/L Chloride (98-107) mmol/L Carbon Dioxide (21-32) mmol/L Anion Gap (3-11) BUN (7-18) mg/dl Creatinine (0.6-1.2) mg/dl Est Cr Clr Drug Dosing ml/min Est GFR ( Amer) Est GFR (Non-Af Amer) BUN/Creatinine Ratio (10-20) Glucose (70-99) mg/dl POC Glucose 103 H (70-99) Lactate 12.3 H* (0.4-2.0) mmol/L Calcium (8.5-10.1) mg/dl Magnesium (1.8-2.4) mg/dl Total Bilirubin (0.2-1) mg/dl AST (15-37) U/L ALT (12-78) U/L Alkaline Phosphatase (45-117) U/L Ammonia (11-32) umol/L Troponin I (0-0.045) ng/ml Total Protein (6.4-8.2) gm/dl Albumin (3.4-5.0) gm/dl Globulin (2.5-4.0) gm/dl Albumin/Globulin Ratio (0.9-2) TSH (0.300-4.500) uIu/ml Free T4 (0.8-1.6) ng/dl Urine Color Urine Appearance (Clear) Urine pH (4.5-7.5) Ur Specific [place] (1.000-1.030) Urine Protein (Negative) Urine Glucose (UA) (Negative) Urine Ketones (Negative) Urine Blood (Negative) Urine Nitrite (Negative) Urine Bilirubin (Negative) Urine Urobilinogen (Negative) Ur Leukocyte Esterase (Negative) Urine WBC (Auto) (0-5) /hpf Urine RBC (Auto) (0-4) /hpf U Hyaline Cast (Auto) (0-5) /lpf U Epithel Cells (Auto) (0-5) /lpf Urine Bacteria (Auto) (Negative) Granular Casts (0) /lpf Acetaminophen (10-30) ug/ml 09/07/15/19 07/15/19 Range/Units 07:55 07:55 07:55 WBC 18.65 H (4.8-10.8) K/uL RBC 3.58 L (4.2-5.4) M/uL Hgb 8.9 L (12.0-16.0) g/dL Hct 29.4 L (37-47) % MCV 82.1 (80-100) fL MCH 24.9 L (25-34) pg MCHC 30.3 L (32-36) g/dL RDW Std Deviation 50.4 H (36.4-46.3) fL RDW Coeff of Rock 16.7 H (11.5-14.5) % Plt Count 333 (130-400) K/uL MPV 11.2 H (7.4-10.4) fL Immature Gran % (Auto) 0.6 % Neut % (Auto) 86.4 % Lymph % (Auto) 5.1 % [place] % (Auto) 7.8 % Eos % (Auto) 0.0 % Baso % (Auto) 0.1 % Immature Gran # (Auto) 0.12 H (0.00-0.02) K/uL Neut # (Auto) 16.10 H (1.4-6.5) K/uL Lymph # (Auto) 0.96 L (1.2-3.4) K/uL [place] # (Auto) 1.45 H (0.11-0.59) K/uL Eos # (Auto) 0.00 (0-0.5) K/uL Baso # (Auto) 0.02 (0-0.2) K/uL Absolute Nucleated RBC 1.11 H (0-0) K/uL Nucleated RBC % (auto) 6.0 % Toxic Vacuolation 1+ Poikilocytosis Present Echinocytes 1+ PT 15.6 H (9.0-12.0) Seconds INR 1.6 H (0.9-1.1) ABG pH (7.35-7.45) ABG pCO2 (35-46) mmHg ABG pO2 (80-95) mm/Hg ABG HCO3 (19-24) mmol/L ABG O2 Saturation (90-95) % ABG Base Excess (-9-1.8) mEq/L Hugh Test (Pos) Barometric Pressure mm/Hg Oxygen Given Sodium 128 L (136-145) mmol/L Potassium 5.9 H (3.5-5.1) mmol/L Chloride 96 L (98-107) mmol/L Carbon Dioxide 11 L (21-32) mmol/L Anion Gap 21.0 H (3-11) BUN 37 H (7-18) mg/dl Creatinine 1.60 H (0.6-1.2) mg/dl Est Cr Clr Drug Dosing 30.3 ml/min Est GFR ( Amer) 38.8 Est GFR (Non-Af Amer) 33.5 BUN/Creatinine Ratio 22.9 H (10-20) Glucose 102 H (70-99) mg/dl POC Glucose (70-99) Lactate (0.4-2.0) mmol/L Calcium 8.4 L (8.5-10.1) mg/dl Magnesium 2.3 (1.8-2.4) mg/dl Total Bilirubin 0.7 (0.2-1) mg/dl AST 154 H (15-37) U/L ALT 145 H (12-78) U/L Alkaline Phosphatase 259 H (45-117) U/L Ammonia (11-32) umol/L Troponin I 0.049 H* (0-0.045) ng/ml Total Protein 5.5 L (6.4-8.2) gm/dl Albumin 2.6 L (3.4-5.0) gm/dl Globulin 2.9 (2.5-4.0) gm/dl Albumin/Globulin Ratio 0.9 (0.9-2) TSH 13.400 H (0.300-4.500) uIu/ml Free T4 1.12 (0.8-1.6) ng/dl Urine Color Urine Appearance (Clear) Urine pH (4.5-7.5) Ur Specific [place] (1.000-1.030) Urine Protein (Negative) Urine Glucose (UA) (Negative) Urine Ketones (Negative) Urine Blood (Negative) Urine Nitrite (Negative) Urine Bilirubin (Negative) Urine Urobilinogen (Negative) Ur Leukocyte Esterase (Negative) Urine WBC (Auto) (0-5) /hpf Urine RBC (Auto) (0-4) /hpf U Hyaline Cast (Auto) (0-5) /lpf U Epithel Cells (Auto) (0-5) /lpf Urine Bacteria (Auto) (Negative) Granular Casts (0) /lpf Acetaminophen (10-30) ug/ml 07/15/19 07/15/19 07/15/19 Range/Units 08:28 09:07 09:14 WBC (4.8-10.8) K/uL RBC (4.2-5.4) M/uL Hgb (12.0-16.0) g/dL Hct (37-47) % MCV (80-100) fL MCH (25-34) pg MCHC (32-36) g/dL RDW Std Deviation (36.4-46.3) fL RDW Coeff of Rock (11.5-14.5) % Plt Count (130-400) K/uL MPV (7.4-10.4) fL Immature Gran % (Auto) % Neut % (Auto) % Lymph % (Auto) % [place] % (Auto) % Eos % (Auto) % Baso % (Auto) % Immature Gran # (Auto) (0.00-0.02) K/uL Neut # (Auto) (1.4-6.5) K/uL Lymph # (Auto) (1.2-3.4) K/uL [place] # (Auto) (0.11-0.59) K/uL Eos # (Auto) (0-0.5) K/uL Baso # (Auto) (0-0.2) K/uL Absolute Nucleated RBC (0-0) K/uL Nucleated RBC % (auto) % Toxic Vacuolation Poikilocytosis Echinocytes PT (9.0-12.0) Seconds INR (0.9-1.1) ABG pH (7.35-7.45) ABG pCO2 (35-46) mmHg ABG pO2 (80-95) mm/Hg ABG HCO3 (19-24) mmol/L ABG O2 Saturation (90-95) % ABG Base Excess (-9-1.8) mEq/L Hugh Test (Pos) Barometric Pressure mm/Hg Oxygen Given Sodium (136-145) mmol/L Potassium (3.5-5.1) mmol/L Chloride (98-107) mmol/L Carbon Dioxide (21-32) mmol/L Anion Gap (3-11) BUN (7-18) mg/dl Creatinine (0.6-1.2) mg/dl Est Cr Clr Drug Dosing ml/min Est GFR ( Amer) Est GFR (Non-Af Amer) BUN/Creatinine Ratio (10-20) Glucose (70-99) mg/dl POC Glucose 123 H 148 H (70-99) Lactate (0.4-2.0) mmol/L Calcium (8.5-10.1) mg/dl Magnesium (1.8-2.4) mg/dl Total Bilirubin (0.2-1) mg/dl AST (15-37) U/L ALT (12-78) U/L Alkaline Phosphatase (45-117) U/L Ammonia 23.1 (11-32) umol/L Troponin I (0-0.045) ng/ml Total Protein (6.4-8.2) gm/dl Albumin (3.4-5.0) gm/dl Globulin (2.5-4.0) gm/dl Albumin/Globulin Ratio (0.9-2) TSH (0.300-4.500) uIu/ml Free T4 (0.8-1.6) ng/dl Urine Color Urine Appearance (Clear) Urine pH (4.5-7.5) Ur Specific [place] (1.000-1.030) Urine Protein (Negative) Urine Glucose (UA) (Negative) Urine Ketones (Negative) Urine Blood (Negative) Urine Nitrite (Negative) Urine Bilirubin (Negative) Urine Urobilinogen (Negative) Ur Leukocyte Esterase (Negative) Urine WBC (Auto) (0-5) /hpf Urine RBC (Auto) (0-4) /hpf U Hyaline Cast (Auto) (0-5) /lpf U Epithel Cells (Auto) (0-5) /lpf Urine Bacteria (Auto) (Negative) Granular Casts (0) /lpf Acetaminophen (10-30) ug/ml 07/15/19 Range/Units 09:14 WBC (4.8-10.8) K/uL RBC (4.2-5.4) M/uL Hgb (12.0-16.0) g/dL Hct (37-47) % MCV (80-100) fL MCH (25-34) pg MCHC (32-36) g/dL RDW Std Deviation (36.4-46.3) fL RDW Coeff of Rock (11.5-14.5) % Plt Count (130-400) K/uL MPV (7.4-10.4) fL Immature Gran % (Auto) % Neut % (Auto) % Lymph % (Auto) % [place] % (Auto) % Eos % (Auto) % Baso % (Auto) % Immature Gran # (Auto) (0.00-0.02) K/uL Neut # (Auto) (1.4-6.5) K/uL Lymph # (Auto) (1.2-3.4) K/uL [place] # (Auto) (0.11-0.59) K/uL Eos # (Auto) (0-0.5) K/uL Baso # (Auto) (0-0.2) K/uL Absolute Nucleated RBC (0-0) K/uL Nucleated RBC % (auto) % Toxic Vacuolation Poikilocytosis Echinocytes PT (9.0-12.0) Seconds INR (0.9-1.1) ABG pH (7.35-7.45) ABG pCO2 (35-46) mmHg ABG pO2 (80-95) mm/Hg ABG HCO3 (19-24) mmol/L ABG O2 Saturation (90-95) % ABG Base Excess (-9-1.8) mEq/L Hugh Test (Pos) Barometric Pressure mm/Hg Oxygen Given Sodium (136-145) mmol/L Potassium (3.5-5.1) mmol/L Chloride (98-107) mmol/L Carbon Dioxide (21-32) mmol/L Anion Gap (3-11) BUN (7-18) mg/dl Creatinine (0.6-1.2) mg/dl Est Cr Clr Drug Dosing ml/min Est GFR ( Amer) Est GFR (Non-Af Amer) BUN/Creatinine Ratio (10-20) Glucose (70-99) mg/dl POC Glucose (70-99) Lactate (0.4-2.0) mmol/L Calcium (8.5-10.1) mg/dl Magnesium (1.8-2.4) mg/dl Total Bilirubin (0.2-1) mg/dl AST (15-37) U/L ALT (12-78) U/L Alkaline Phosphatase (45-117) U/L Ammonia (11-32) umol/L Troponin I (0-0.045) ng/ml Total Protein (6.4-8.2) gm/dl Albumin (3.4-5.0) gm/dl Globulin (2.5-4.0) gm/dl Albumin/Globulin Ratio (0.9-2) TSH (0.300-4.500) uIu/ml Free T4 (0.8-1.6) ng/dl Urine Color Urine Appearance (Clear) Urine pH (4.5-7.5) Ur Specific [place] (1.000-1.030) Urine Protein (Negative) Urine Glucose (UA) (Negative) Urine Ketones (Negative) Urine Blood (Negative) Urine Nitrite (Negative) Urine Bilirubin (Negative) Urine Urobilinogen (Negative) Ur Leukocyte Esterase (Negative) Urine WBC (Auto) (0-5) /hpf Urine RBC (Auto) (0-4) /hpf U Hyaline Cast (Auto) (0-5) /lpf U Epithel Cells (Auto) (0-5) /lpf Urine Bacteria (Auto) (Negative) Granular Casts (0) /lpf Acetaminophen 4 L (10-30) ug/ml Imaging Data Radiologist's Impression: Radiology results as stated below per my review and the radiologist's interpretation: XR chest 1V portable HISTORY: Unresponsive. weakness COMPARISON: Chest 07/10/2019. FINDINGS: No pneumothorax. The heart is mildly enlarged. Interstitial and vascular thickening persists consistent with mild pulmonary edema. There are small bilateral pleural effusions. IMPRESSION: Mild interstitial pulmonary edema and small bilateral pleural effusions, unchanged. Electronically signed by: Festus Osman M.D. 07/15/2019 8:[address] SCAN OF THE BRAIN WITHOUT IV CONTRAST CLINICAL HISTORY: Change in mental status. COMPARISON STUDY: CT of the brain dated 07/02/2019. TECHNIQUE: Unenhanced axial CT scan of the brain is performed from the vertex to the skull base. A dose lowering technique was utilized adhering to the principles of ALARA. The skull base was scanned twice due to motion artifact. CT DOSE: 844.62 mGy.cm FINDINGS: Brain parenchyma: There are age-related involutional changes noting mild subcortical and periventricular microangiopathic change. There is no hemorrhage, mass effect, or evidence of acute territorial ischemia by CT criteria. [place]- white matter differentiation is preserved. No extra-axial fluid collection is seen. Ventricles, sulci, cisterns: Prominent secondary to involutional change. Intracranial vasculature: There is atherosclerotic calcification of the cavernous carotid arteries. Calvarium: Unremarkable. Sinuses and mastoids: There is mild mucosal thickening within the maxillary and ethmoid sinuses. The mastoid air cells are well pneumatized. A metallic foreign body overlies the left mastoid air cells. Orbits: The bony orbits are grossly intact. IMPRESSION: There is no hemorrhage, mass effect, or evidence of acute territorial ischemia by CT criteria. Electronically signed by: Tony Hunt M.D. 07/15/2019 8:09 AM ECG Data Attestation: I personally reviewed and interpreted this ECG as follows: Indication: altered mental status Rate (beats per minute): 69 Rhythm: normal sinus Findings: + other (QTC 473); no ST depression, no ST elevation and no acute ischemic change Blood Pressure Blood Pressure Findings: Elevated blood pressure Blood Pressure Disposition: further management by hospitalist MDM Narrative There is a moderate leukocytosis, this is consistent with infection. Patient is anemic although this is baseline looking back at previous testing. INR is so mewhat elevated at 1.6. ABG does show a metabolic acidosis with a pH of 7.26. Bicarb was 9. Renal panel testing does show evidence for some renal insufficiency/dehydration with a creatinine of 1.6. Potassium was elevated at 5.9. There were some liver enzyme elevations, these have been documented in the past. Patient's TSH was quite high however, the T4 was normal. Urinalysis was suggestive of infection. Blood cultures and urine cultures are pending. Lactic acid level was quite elevated at around 12, this is consistent with dehydration and/or sepsis/infection. EKG showed a sinus rhythm, no acute ischemia. Cardiac enzyme testing x1 is slightly elevated, the patient has a history of a subtle troponin elevation. Chest film shows some chronic CHF findings, no pneumonia. Brain CT shows no acute bleed or mass-effect. The patient was placed on a D5 drip. This seemed to maintain her blood sugar in the low to mid 100s. She received a 750 cc saline bolus. I was hesitant to give any more fluid as the patient has an EF of only 15%. She did receive IV ceftriaxone as antibiotic coverage. I did try narcotic reversal with a dose of IV Narcan, there was no change in her condition. The patient presents with a change in mental status. Her blood sugar was quite low at 13. She presents hypothermic. She did become much more awake with IV dextrose given prior to arrival. Her sugar is being maintained now on a D5 drip. Despite the high lactic acid level, the patient is breathing comfortably. She is not in respiratory distress. She is not tachycardic or hypotensive. I talked to the patient and to the daughter. Hospitalization is clearly warranted. I spoke to case management. I spoke to the ICU attending as well as to the on-call hospitalist. Right now, the cause for her entire presentation is not completely clear. Further work-up is warranted and required. Impression & Plan Change in mental status, Hypoglycemia, Metabolic acidosis, Acidosis, lactic, Acute UTI, BRIANDA (acute kidney injury), Hypothermia Critical Care Time Critical Care Time: Yes Total Critical Care Time: 46 I have personally spent greater than 46 minutes of critical care time in the direct management of this patient. This includes bedside care, interpretation of diagnostic studies, and testing, discussion with consultants, patient, and family members, and other required patient management activities. This 46 minutes is in excess of all separately billable procedures. Discharge Plan Visit Data *Final* Discharge Date/Time: 07/15/19 10:25 Chief Complaint: Unresponsive Stated Complaint: UNREPONSIVE ED Provider: Tony Dumont Discharge Problem: Change in mental status, Hypoglycemia, Metabolic acidosis, Acidosis, lactic, Acute UTI, BRIANDA (acute kidney injury), Hypothermia Patient Disposition: Admitted As Inpatient Discharge Instructions Interventions: ED Discharge Assessment Last Done: 07/15/19 10:25 Discharge Problem: Change in mental status Qualifiers: Altered mental status type: unspecified Qualified Code(s): R41.82 - Altered mental status, unspecified Hypothermia Qualifiers: Encounter type: initial encounter Qualified Code(s): T68.XXXA - Hypothermia, initial encounter The scribe's documentation has been prepared under my direction and personally reviewed by me in its entirety. I confirm that the note above accurately reflects all work, treatment, procedures, and medical decision making performed by me.
[2019-07-15 07:52] LABS: Appearance Urine Cloudy (Clear); Bacteria Urine Automated 4+ (Negative); Bilirubin Urine Negative (Negative); Blood Urine 1+ (Negative); Color Urine Dark Yellow; Epithelial Cell Urine Auto >30 /lpf (0-5); Glucose Urine UA Negative (Negative); Ketones Urine Negative (Negative); Leukocyte Esterase Urine 2+ (Negative); Nitrite Urine Positive (Negative); Protein Urine 1+ (Negative); Specific Gravity Urine 1.014 (1.000-1.030); Urobilinogen Urine Negative (Negative); WBC Urine Automated >30 /hpf (0-5); pH Urine 5.5 (4.5-7.5)
[2019-07-15 08:10] LABS: Allen Test Pos (Pos); Base Excess ABG -16.2 mEq/L (-9-1.8); HCO3 ABG 9 mmol/L (19-24); Oxygen Saturation ABG 84.5 % (90-95); PCO2 ABG 21 mmHg (35-46); PO2 ABG 58 mm/Hg (80-95); pH ABG 7.26 (7.35-7.45)
[2019-07-15] MEDS ORDERED: cefTRIAXone SODIUM 1,000 MG/50 ML BAG IV STA (08:10)
--- NOTE | 2019-07-15 08:10 | CT Scan Report ---
CT SCAN OF THE BRAIN WITHOUT IV CONTRAST CLINICAL HISTORY: Change in mental status. COMPARISON STUDY: CT of the brain dated 07/02/2019. TECHNIQUE: Unenhanced axial CT scan of the brain is performed from the vertex to the skull base. A do se lowering technique was utilized adhering to the principles of ALARA. The skull base was scanned tw ice due to motion artifact. CT DOSE: 844.62 mGy.cm FINDINGS: Brain parenchyma: There are age-related involutional changes noting mild subcortical and periventric ular microangiopathic change. There is no hemorrhage, mass effect, or evidence of acute territorial i schemia by CT criteria. Kaba-white matter differentiation is preserved. No extra-axial fluid collecti on is seen. Ventricles, sulci, cisterns: Prominent secondary to involutional change. Intracranial vasculature: There is atherosclerotic calcification of the cavernous carotid arteries. Calvarium: Unremarkable. Sinuses and mastoids: There is mild mucosal thickening within the maxillary and ethmoid sinuses. The mastoid air cells are well pneumatized. A metallic foreign body overlies the left mastoid air cells. Orbits: The bony orbits are grossly intact. IMPRESSION: There is no hemorrhage, mass effect, or evidence of acute territorial ischemia by CT kayyt kezia. Electronically signed by: Tony Hunt M.D. 07/15/2019 8:09 AM
[2019-07-15 08:14] LABS: Hematocrit (blood only) 29.4 % (37-47); Hemoglobin 8.9 g/dL (12.0-16.0); Mean Corpuscular Hemoglobin 24.9 pg (25-34); Mean Corpuscular Hgb Conc 30.3 g/dL (32-36); Mean Corpuscular Volume 82.1 fL (80-100); Mean Platelet Volume 11.2 fL (7.4-10.4); Nucleated RBC # (auto) 1.11 K/uL (0-0); Platelet Count 333 K/uL (130-400); RDW Coefficient of Variation 16.7 % (11.5-14.5); RDW Standard Deviation 50.4 fL (36.4-46.3); Red Blood Count 3.58 M/uL (4.2-5.4); White Blood Count 18.65 K/uL (4.8-10.8)
[2019-07-15 08:21] LABS: INR 1.6 (0.9-1.1); Prothrombin Time 15.6 Seconds (9.0-12.0)
[2019-07-15] MEDS ORDERED: SODIUM CHLORIDE 0.9% 250 ML IV ONE (08:28)
[2019-07-15 08:33] LABS: Albumin Level 2.6 gm/dl (3.4-5.0); BUN Creatinine Ratio 22.9 (10-20); Calcium 8.4 mg/dl (8.5-10.1); Creatinine Clr Calc Pharmacy 30.3 ml/min; Est GFR (African American) 38.8; Est GFR (Non-African American) 33.5; Magnesium 2.3 mg/dl (1.8-2.4); Potassium 5.9 mmol/L (3.5-5.1)
--- NOTE | 2019-07-15 08:33 | XRay Report ---
XR chest 1V portable HISTORY: Unresponsive. weakness COMPARISON: Chest 07/10/2019. FINDINGS: No pneumothorax. The heart is mildly enlarged. Interstitial and vascular thickening persist s consistent with mild pulmonary edema. There are small bilateral pleural effusions. IMPRESSION: Mild interstitial pulmonary edema and small bilateral pleural effusions, unchanged. Electronically signed by: Festus Osman M.D. 07/15/2019 8:32 AM
[2019-07-15] MEDS ORDERED: SODIUM CHLORIDE 0.9% 1000ML 500 ML IV ONE (08:35)
[2019-07-15 08:51] LABS: Basophils # (auto) 0.02 K/uL (0-0.2); Basophils % (auto) 0.1 %; Echinocytes 1+; Immature Granulocytes # (auto) 0.12 K/uL (0.00-0.02); Immature Granulocytes % (auto) 0.6 %; Lymphocytes # (auto) 0.96 K/uL (1.2-3.4); Lymphocytes % (auto) 5.1 %; Monocytes # (auto) 1.45 K/uL (0.11-0.59); Monocytes % (auto) 7.8 %; Neutrophils % (auto) 86.4 %; Poikilocytosis Present; Toxic Vacuolation 1+
[2019-07-15 08:52] LABS: Albumin Globulin Ratio 0.9 (0.9-2); Bilirubin,Total 0.7 mg/dl (0.2-1); Globulin 2.9 gm/dl (2.5-4.0); Thyroid Stimulating Hormone 13.4 uIu/ml (0.300-4.500); Total Protein 5.5 gm/dl (6.4-8.2); Troponin I 0.049 ng/ml (0-0.045)
[2019-07-15 09:05] LABS: T4 Free Thyroxine 1.12 ng/dl (0.8-1.6)
--- NOTE | 2019-07-15 09:39 | History & Physical Report ---
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 -Initially hypoglycemic with BSG at 13, hypothermic with rectal temp of 34 C -ABG with pH of 7.26, lactate of 12.3, anion gap of 21 -Temperature improved to 37.2 C with Obdulia hugger -Gentle IV fluids due to history of EF of 15-20% -Management as per power mule operator (4) Acute UTI: Noted to have abnormal UA. Rocephin started empirically -Blood, urine cultures pending (5) Hypoglycemia: BSG initially reported as 13 in setting of known poor PO intake -BSG improving to mid-100s with dextrose infusion -No definite cause for hypoglycemia except poor oral intake -Has been receiving intravenous dextrose and blood sugar (6) Acute kidney injury superimposed on chronic kidney disease: Cr of 1.60, BUN of 37 in setting of poor PO intake, lasix for systolic heart failure -Cannot give too much IV fluid and received small amounts of We will monitor PRP - (7) Goals of care, counseling/discussion: Met with palliative care today after recent decision for DNR/DNI by family -Daughter stated she used to care for her mother at home, but now has been a resident at [facility] at the [facility] for close to a year -Appreciate palliative care input and recommendation (8) Takotsubo cardiomyopathy: Newly discovered biventricular systolic failure -2D echo from earlier this month showed EF 15-20% (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 Discharge planning ordered. 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 History obtained from EMS notes as well as from daughter at bedside. Was noted to be confused yesterday but still alert and able to interact and ambulate with walker. Daughter fed patient meals and boost yesterday after noting that she seemed weak and confused. This morning 0600, [facility] staff found patient unresponsive and hypoglycemic with blood sugar of 13. Also found to be hypothermic with rectal temp of 34 C. Was brought into the ED for further evaluation. Was given 50 g of dextrose via EMS with improved BSG to 80. Upon arrival, placed on dextrose drip with improved blood sugar in the mid 100s. Narcan given without change to mental state. Obdulia hugger applied with improved temperature to 35 C with improved cognitive state. Leukocytosis of 18.65. Noted to have hyponatremia 128, hyperkalemia 5.9, anion gap of 21, lactate of 12.3 and positive urinalysis. Started on Rocephin for possible UTI and blood/urine cultures are ordered. ABG with pH of 7.26 and bicarb of 9. Unable to obtain ROS due to cognitive status. Of note, patient has been admitted twice in June with most recent discharge on Jul 12 to [facility]. Was initially admitted at the beginning of June after a fall with pelvic and L5 fractures. Was evaluated orthopedic surgery and surgery was not indicated. Home oxycodone and baclofen were continued and [place] added for additional pain control. Was admitted to our service again on 07/02 for toxic encephalopathy and weakness secondary to polypharmacy. Oxycodone and [place] were discontinued at this time. Gabapentin and Ativan doses were decreased and Ultram was added for with instruction for limited use in pain not controlled with Tylenol. Patient was discharged to [facility] on July 12. Allergies Allergy/AdvReac Type Severity Reaction Status Date / Time Barbiturates Allergy Severe Unknown Verified 07/15/19 07:36 belladonna alkaloids Allergy Severe Unknown Verified 07/15/19 07:36 dicyclomine Allergy Severe Unknown Verified 07/15/19 07:36 azithromycin Allergy Mild Hives Unverified 07/15/19 07:36 mivacurium Allergy Mild Unknown Verified 07/15/19 07:36 Penicillins Allergy Mild AMOXICILLIN Verified 07/15/19 07:36 phenobarbital Allergy Mild Unknown Verified 07/15/19 07:36 Quinolones Allergy Mild Unknown Verified 07/15/19 07:36 amoxicillin Allergy Unknown rash Unverified 07/15/19 07:36 Nitrate Analogues Allergy Unknown Unknown Verified 07/15/19 07:36 nitrofurantoin Allergy Unknown Unknown Verified 07/15/19 07:36 nitroglycerin Allergy Unknown Unknown Verified 07/15/19 07:36 Sulfa (Sulfonamide Allergy Unknown sulfa Verified 07/15/19 07:36 Antibiotics) Home Medications Home Medications Medication Instructions Recorded Confirmed Type Ensure 1 ea PO TID 07/02/19 07/15/19 History benzonatate [Tessalon Perles] 100 mg PO TID PRN 07/02/19 07/15/19 History bupropion HCl [Wellbutrin XL] 150 mg PO QAM 07/02/19 07/15/19 History lisinopril 20 mg PO QAM 07/02/19 07/15/19 History potassium chloride [Klor-Con M20] 20 meq PO QAM 07/02/19 07/15/19 History promethazine 25 mg PO Q4H PRN 07/02/19 07/15/19 History ropinirole [Requip] 0.25 mg PO HS 07/02/19 07/15/19 History simethicone 125 mg PO Q8H PRN 07/02/19 07/15/19 History venlafaxine [Effexor XR] 300 mg PO QAM 07/02/19 07/15/19 History ferrous sulfate 325 mg PO Q48H 30 Days #30 tab 07/12/19 07/15/19 Rx fluconazole 200 mg PO QAM 10 Days #20 tab 07/12/19 07/15/19 Rx furosemide 20 mg PO QAM 30 Days #30 tab 07/12/19 07/15/19 Rx albuterol sulfate 2.5 mg INHALATION QID PRN 07/15/19 07/15/19 History gabapentin 300 mg PO HS 07/15/19 07/15/19 History pentosan polysulfate sodium 100 mg PO BID 07/15/19 07/15/19 History [Elmiron] tramadol 50 mg PO Q4H PRN 07/15/19 07/15/19 History Past Med/Surg History Medical History Depression (Chronic) Migraines (Chronic) Tobacco abuse (Chronic) OCD (obsessive compulsive disorder) (Chronic) CKD (chronic kidney disease), stage III (Chronic) IBS (irritable bowel syndrome) (Chronic) HTN (hypertension) (Chronic) Surgical History History of total abdominal hysterectomy (Chronic) H/O hernia repair (Chronic) History of back surgery (Chronic) H/O colonoscopy (Chronic) H/O sinus surgery (Chronic) Family History Other Diabetes Hypertension Social History Preferred Language: Portuguese Communication Ability: Effective Aged Or Disabled Care 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 Beliefs That Will Affect Care: None Current Living Situation: Detention Current Living Situation Comment: lives with dtr Other Information That Helps Us Care for You: No Feels Safe at Home: Yes Smoking Status: Unknown if ever smoked Hx Alcohol Use: No Hx Substance Use: No Review of Systems Review of Systems: At least ten systems reviewed and negative except as noted in the HPI. Physical Exam Physical Exam: General Appearance: Chronically ill appearing female resting comfortably with obdulia hugger. Lethargic but responsive to name, opening eyes spontaneously Head: normocephalic, atraumatic Eyes: normal inspection, PERRL, conjunctivae normal, anicteric sclerae ENT: external ear and nose normal, oropharynx normal Neck: trachea midline, no thyromegaly normal visual inspection Respiratory: lungs clear to auscultation, no wheeze, rales, rhonchi. Normal insp/exp effort, no accessory muscle use Cardiovascular: regular rate, rhythm, no murmur, normal peripheral pulses. Vessels: no JVD or carotid bruit Chest: normal inspection of chest Abdomen/GI: normal bowel sounds, soft, nontender, no hepatosplenomegaly Extremities/Musculoskelatal: no cyanosis or clubbing, extremities motor strength 5/5 Neurologic: Responsive to name, able to identify self and family members. CN's II-XI grossly intact bilaterally and moves all extremities spontaneously. Not able to follow commands at this time Skin: no rashes, normal color, warm/dry Results & Data Vital Signs (Past 12 Hours) Vital Signs Temp Pulse Pulse Resp BP BP Pulse Ox 07/15/19 09:30 72 20 121/82 100 07/15/19 09:04 35.1 C L 68 20 122/88 96 07/15/19 08:46 68 20 130/77 100 07/15/19 08:29 68 20 137/84 100 07/15/19 08:16 35.0 C L 07/15/19 08:14 35.0 C L 70 20 119/89 07/15/19 07:49 74 20 94 07/15/19 07:30 72 20 97 07/15/19 07:18 72 20 136/105 H 98 07/15/19 07:10 86 L 07/15/19 07:00 34.6 C L 71 14 130/91 86 L Laboratory Results Short CBC 07/15/19 07/15/19 07/15/19 Range/Units 06:51 07:27 07:29 WBC (4.8-10.8) K/uL RBC (4.2-5.4) M/uL Hgb (12.0-16.0) g/dL Hct (37-47) % MCV (80-100) fL MCH (25-34) pg MCHC (32-36) g/dL RDW Std Deviation (36.4-46.3) fL RDW Coeff of Rock (11.5-14.5) % Plt Count (130-400) K/uL MPV (7.4-10.4) fL Immature Gran % (Auto) % Neut % (Auto) % Lymph % (Auto) % Mccone % (Auto) % Eos % (Auto) % Baso % (Auto) % Immature Gran # (Auto) (0.00-0.02) K/uL Neut # (Auto) (1.4-6.5) K/uL Lymph # (Auto) (1.2-3.4) K/uL Mccone # (Auto) (0.11-0.59) K/uL Eos # (Auto) (0-0.5) K/uL Baso # (Auto) (0-0.2) K/uL Absolute Nucleated RBC (0-0) K/uL Nucleated RBC % (auto) % Toxic Vacuolation Poikilocytosis Echinocytes PT (9.0-12.0) Seconds INR (0.9-1.1) ABG pH (7.35-7.45) ABG pCO2 (35-46) mmHg ABG pO2 (80-95) mm/Hg ABG HCO3 (19-24) mmol/L ABG O2 Saturation (90-95) % ABG Base Excess (-9-1.8) mEq/L Hugh Test (Pos) Barometric Pressure mm/Hg Oxygen Given Sodium (136-145) mmol/L Potassium (3.5-5.1) mmol/L Chloride (98-107) mmol/L Carbon Dioxide (21-32) mmol/L Anion Gap (3-11) BUN (7-18) mg/dl Creatinine (0.6-1.2) mg/dl Est Cr Clr Drug Dosing ml/min Est GFR ( Amer) Est GFR (Non-Af Amer) BUN/Creatinine Ratio (10-20) Glucose (70-99) mg/dl POC Glucose 81 114 H (70-99) Lactate (0.4-2.0) mmol/L Calcium (8.5-10.1) mg/dl Magnesium (1.8-2.4) mg/dl Total Bilirubin (0.2-1) mg/dl AST (15-37) U/L ALT (12-78) U/L Alkaline Phosphatase (45-117) U/L Ammonia (11-32) umol/L Troponin I (0-0.045) ng/ml Total Protein (6.4-8.2) gm/dl Albumin (3.4-5.0) gm/dl Globulin (2.5-4.0) gm/dl Albumin/Globulin Ratio (0.9-2) TSH (0.300-4.500) uIu/ml Free T4 (0.8-1.6) ng/dl Urine Color Dark Yellow Urine Appearance Cloudy A (Clear) Urine pH 5.5 (4.5-7.5) Ur Specific [place] 1.014 (1.000-1.030) Urine Protein 1+ H (Negative) Urine Glucose (UA) Negative (Negative) Urine Ketones Negative (Negative) Urine Blood 1+ H (Negative) Urine Nitrite Positive A (Negative) Urine Bilirubin Negative (Negative) Urine Urobilinogen Negative (Negative) Ur Leukocyte Esterase 2+ H (Negative) Urine WBC (Auto) >30 H (0-5) /hpf Urine RBC (Auto) 5-10 H (0-4) /hpf U Hyaline Cast (Auto) 10-30 H (0-5) /lpf U Epithel Cells (Auto) >30 H (0-5) /lpf Urine Bacteria (Auto) 4+ H (Negative) Granular Casts 1-5 H (0) /lpf Acetaminophen (10-30) ug/ml 07/15/19 07/15/19 07/15/19 Range/Units 07:43 07:54 07:54 WBC (4.8-10.8) K/uL RBC (4.2-5.4) M/uL Hgb (12.0-16.0) g/dL Hct (37-47) % MCV (80-100) fL MCH (25-34) pg MCHC (32-36) g/dL RDW Std Deviation (36.4-46.3) fL RDW Coeff of Rock (11.5-14.5) % Plt Count (130-400) K/uL MPV (7.4-10.4) fL Immature Gran % (Auto) % Neut % (Auto) % Lymph % (Auto) % Mccone % (Auto) % Eos % (Auto) % Baso % (Auto) % Immature Gran # (Auto) (0.00-0.02) K/uL Neut # (Auto) (1.4-6.5) K/uL Lymph # (Auto) (1.2-3.4) K/uL M[place]one # (Auto) (0.11-0.59) K/uL Eos # (Auto) (0-0.5) K/uL Baso # (Auto) (0-0.2) K/uL Absolute Nucleated RBC (0-0) K/uL Nucleated RBC % (auto) % Toxic Vacuolation Poikilocytosis Echinocytes PT (9.0-12.0) Seconds INR (0.9-1.1) ABG pH 7.26 L (7.35-7.45) ABG pCO2 21 L (35-46) mmHg ABG pO2 58 L (80-95) mm/Hg ABG HCO3 9 L (19-24) mmol/L ABG O2 Saturation 84.5 L (90-95) % ABG Base Excess -16.2 L (-9-1.8) mEq/L Hugh Test Pos (Pos) Barometric Pressure 730.2 mm/Hg Oxygen Given 2 L Sodium (136-145) mmol/L Potassium (3.5-5.1) mmol/L Chloride (98-107) mmol/L Carbon Dioxide (21-32) mmol/L Anion Gap (3-11) BUN (7-18) mg/dl Creatinine (0.6-1.2) mg/dl Est Cr Clr Drug Dosing ml/min Est GFR ( Amer) Est GFR (Non-Af Amer) BUN/Creatinine Ratio (10-20) Glucose (70-99) mg/dl POC Glucose 103 H (70-99) Lactate 12.3 H* (0.4-2.0) mmol/L Calcium (8.5-10.1) mg/dl Magnesium (1.8-2.4) mg/dl Total Bilirubin (0.2-1) mg/dl AST (15-37) U/L ALT (12-78) U/L Alkaline Phosphatase (45-117) U/L Ammonia (11-32) umol/L Troponin I (0-0.045) ng/ml Total Protein (6.4-8.2) gm/dl Albumin (3.4-5.0) gm/dl Globulin (2.5-4.0) gm/dl Albumin/Globulin Ratio (0.9-2) TSH (0.300-4.500) uIu/ml Free T4 (0.8-1.6) ng/dl Urine Color Urine Appearance (Clear) Urine pH (4.5-7.5) Ur Specific [place] (1.000-1.030) Urine Protein (Negative) Urine Glucose (UA) (Negative) Urine Ketones (Negative) Urine Blood (Negative) Urine Nitrite (Negative) Urine Bilirubin (Negative) Urine Urobilinogen (Negative) Ur Leukocyte Esterase (Negative) Urine WBC (Auto) (0-5) /hpf Urine RBC (Auto) (0-4) /hpf U Hyaline Cast (Auto) (0-5) /lpf U Epithel Cells (Auto) (0-5) /lpf Urine Bacteria (Auto) (Negative) Granular Casts (0) /lpf Acetaminophen (10-30) ug/ml 07/15/19 07/15/19 07/15/19 Range/Units 07:55 07:55 07:55 WBC 18.65 H (4.8-10.8) K/uL RBC 3.58 L (4.2-5.4) M/uL Hgb 8.9 L (12.0-16.0) g/dL Hct 29.4 L (37-47) % MCV 82.1 (80-100) fL MCH 24.9 L (25-34) pg MCHC 30.3 L (32-36) g/dL RDW Std Deviation 50.4 H (36.4-46.3) fL RDW Coeff of Rock 16.7 H (11.5-14.5) % Plt Count 333 (130-400) K/uL MPV 11.2 H (7.4-10.4) fL Immature Gran % (Auto) 0.6 % Neut % (Auto) 86.4 % Lymph % (Auto) 5.1 % Mccone % (Auto) 7.8 % Eos % (Auto) 0.0 % Baso % (Auto) 0.1 % Immature Gran # (Auto) 0.12 H (0.00-0.02) K/uL Neut # (Auto) 16.10 H (1.4-6.5) K/uL Lymph # (Auto) 0.96 L (1.2-3.4) K/uL M[place]one # (Auto) 1.45 H (0.11-0.59) K/uL Eos # (Auto) 0.00 (0-0.5) K/uL Baso # (Auto) 0.02 (0-0.2) K/uL Absolute Nucleated RBC 1.11 H (0-0) K/uL Nucleated RBC % (auto) 6.0 % Toxic Vacuolation 1+ Poikilocytosis Present Echinocytes 1+ PT 15.6 H (9.0-12.0) Seconds INR 1.6 H (0.9-1.1) ABG pH (7.35-7.45) ABG pCO2 (35-46) mmHg ABG pO2 (80-95) mm/Hg ABG HCO3 (19-24) mmol/L ABG O2 Saturation (90-95) % ABG Base Excess (-9-1.8) mEq/L Hugh Test (Pos) Barometric Pressure mm/Hg Oxygen Given Sodium 128 L (136-145) mmol/L Potassium 5.9 H (3.5-5.1) mmol/L Chloride 96 L (98-107) mmol/L Carbon Dioxide 11 L (21-32) mmol/L Anion Gap 21.0 H (3-11) BUN 37 H (7-18) mg/dl Creatinine 1.60 H (0.6-1.2) mg/dl Est Cr Clr Drug Dosing 30.3 ml/min Est GFR ( Amer) 38.8 Est GFR (Non-Af Amer) 33.5 BUN/Creatinine Ratio 22.9 H (10-20) Glucose 102 H (70-99) mg/dl POC Glucose (70-99) Lactate (0.4-2.0) mmol/L Calcium 8.4 L (8.5-10.1) mg/dl Magnesium 2.3 (1.8-2.4) mg/dl Total Bilirubin 0.7 (0.2-1) mg/dl AST 154 H (15-37) U/L ALT 145 H (12-78) U/L Alkaline Phosphatase 259 H (45-117) U/L Ammonia (11-32) umol/L Troponin I 0.049 H* (0-0.045) ng/ml Total Protein 5.5 L (6.4-8.2) gm/dl Albumin 2.6 L (3.4-5.0) gm/dl Globulin 2.9 (2.5-4.0) gm/dl Albumin/Globulin Ratio 0.9 (0.9-2) TSH 13.400 H (0.300-4.500) uIu/ml Free T4 1.12 (0.8-1.6) ng/dl Urine Color Urine Appearance (Clear) Urine pH (4.5-7.5) Ur Specific [place] (1.000-1.030) Urine Protein (Negative) Urine Glucose (UA) (Negative) Urine Ketones (Negative) Urine Blood (Negative) Urine Nitrite (Negative) Urine Bilirubin (Negative) Urine Urobilinogen (Negative) Ur Leukocyte Esterase (Negative) Urine WBC (Auto) (0-5) /hpf Urine RBC (Auto) (0-4) /hpf U Hyaline Cast (Auto) (0-5) /lpf U Epithel Cells (Auto) (0-5) /lpf Urine Bacteria (Auto) (Negative) Granular Casts (0) /lpf Acetaminophen (10-30) ug/ml 07/15/19 07/15/19 07/15/19 Range/Units 08:28 09:07 09:14 WBC (4.8-10.8) K/uL RBC (4.2-5.4) M/uL Hgb (12.0-16.0) g/dL Hct (37-47) % MCV (80-100) fL MCH (25-34) pg MCHC (32-36) g/dL RDW Std Deviation (36.4-46.3) fL RDW Coeff of Rock (11.5-14.5) % Plt Count (130-400) K/uL MPV (7.4-10.4) fL Immature Gran % (Auto) % Neut % (Auto) % Lymph % (Auto) % [place]one % (Auto) % Eos % (Auto) % Baso % (Auto) % Immature Gran # (Auto) (0.00-0.02) K/uL Neut # (Auto) (1.4-6.5) K/uL Lymph # (Auto) (1.2-3.4) K/uL M[place]one # (Auto) (0.11-0.59) K/uL Eos # (Auto) (0-0.5) K/uL Baso # (Auto) (0-0.2) K/uL Absolute Nucleated RBC (0-0) K/uL Nucleated RBC % (auto) % Toxic Vacuolation Poikilocytosis Echinocytes PT (9.0-12.0) Seconds INR (0.9-1.1) ABG pH (7.35-7.45) ABG pCO2 (35-46) mmHg ABG pO2 (80-95) mm/Hg ABG HCO3 (19-24) mmol/L ABG O2 Saturation (90-95) % ABG Base Excess (-9-1.8) mEq/L Hugh Test (Pos) Barometric Pressure mm/Hg Oxygen Given Sodium (136-145) mmol/L Potassium (3.5-5.1) mmol/L Chloride (98-107) mmol/L Carbon Dioxide (21-32) mmol/L Anion Gap (3-11) BUN (7-18) mg/dl Creatinine (0.6-1.2) mg/dl Est Cr Clr Drug Dosing ml/min Est GFR ( Amer) Est GFR (Non-Af Amer) BUN/Creatinine Ratio (10-20) Glucose (70-99) mg/dl POC Glucose 123 H 148 H (70-99) Lactate (0.4-2.0) mmol/L Calcium (8.5-10.1) mg/dl Magnesium (1.8-2.4) mg/dl Total Bilirubin (0.2-1) mg/dl AST (15-37) U/L ALT (12-78) U/L Alkaline Phosphatase (45-117) U/L Ammonia 23.1 (11-32) umol/L Troponin I (0-0.045) ng/ml Total Protein (6.4-8.2) gm/dl Albumin (3.4-5.0) gm/dl Globulin (2.5-4.0) gm/dl Albumin/Globulin Ratio (0.9-2) TSH (0.300-4.500) uIu/ml Free T4 (0.8-1.6) ng/dl Urine Color Urine Appearance (Clear) Urine pH (4.5-7.5) Ur Specific [place] (1.000-1.030) Urine Protein (Negative) Urine Glucose (UA) (Negative) Urine Ketones (Negative) Urine Blood (Negative) Urine Nitrite (Negative) Urine Bilirubin (Negative) Urine Urobilinogen (Negative) Ur Leukocyte Esterase (Negative) Urine WBC (Auto) (0-5) /hpf Urine RBC (Auto) (0-4) /hpf U Hyaline Cast (Auto) (0-5) /lpf U Epithel Cells (Auto) (0-5) /lpf Urine Bacteria (Auto) (Negative) Granular Casts (0) /lpf Acetaminophen (10-30) ug/ml 07/15/19 07/15/19 07/15/19 Range/Units 09:14 09:39 10:35 WBC (4.8-10.8) K/uL RBC (4.2-5.4) M/uL Hgb (12.0-16.0) g/dL Hct (37-47) % MCV (80-100) fL MCH (25-34) pg MCHC (32-36) g/dL RDW Std Deviation (36.4-46.3) fL RDW Coeff of Rock (11.5-14.5) % Plt Count (130-400) K/uL MPV (7.4-10.4) fL Immature Gran % (Auto) % Neut % (Auto) % Lymph % (Auto) % [place] % (Auto) % Eos % (Auto) % Baso % (Auto) % Immature Gran # (Auto) (0.00-0.02) K/uL Neut # (Auto) (1.4-6.5) K/uL Lymph # (Auto) (1.2-3.4) K/uL M[place] # (Auto) (0.11-0.59) K/uL Eos # (Auto) (0-0.5) K/uL Baso # (Auto) (0-0.2) K/uL Absolute Nucleated RBC (0-0) K/uL Nucleated RBC % (auto) % Toxic Vacuolation Poikilocytosis Echinocytes PT (9.0-12.0) Seconds INR (0.9-1.1) ABG pH (7.35-7.45) ABG pCO2 (35-46) mmHg ABG pO2 (80-95) mm/Hg ABG HCO3 (19-24) mmol/L ABG O2 Saturation (90-95) % ABG Base Excess (-9-1.8) mEq/L Hugh Test (Pos) Barometric Pressure mm/Hg Oxygen Given Sodium (136-145) mmol/L Potassium (3.5-5.1) mmol/L Chloride (98-107) mmol/L Carbon Dioxide (21-32) mmol/L Anion Gap (3-11) BUN (7-18) mg/dl Creatinine (0.6-1.2) mg/dl Est Cr Clr Drug Dosing ml/min Est GFR ( Amer) Est GFR (Non-Af Amer) BUN/Creatinine Ratio (10-20) Glucose (70-99) mg/dl POC Glucose 149 H 141 H (70-99) Lactate (0.4-2.0) mmol/L Calcium (8.5-10.1) mg/dl Magnesium (1.8-2.4) mg/dl Total Bilirubin (0.2-1) mg/dl AST (15-37) U/L ALT (12-78) U/L Alkaline Phosphatase (45-117) U/L Ammonia (11-32) umol/L Troponin I (0-0.045) ng/ml Total Protein (6.4-8.2) gm/dl Albumin (3.4-5.0) gm/dl Globulin (2.5-4.0) gm/dl Albumin/Globulin Ratio (0.9-2) TSH (0.300-4.500) uIu/ml Free T4 (0.8-1.6) ng/dl Urine Color Urine Appearance (Clear) Urine pH (4.5-7.5) Ur Specific [place] (1.000-1.030) Urine Protein (Negative) Urine Glucose (UA) (Negative) Urine Ketones (Negative) Urine Blood (Negative) Urine Nitrite (Negative) Urine Bilirubin (Negative) Urine Urobilinogen (Negative) Ur Leukocyte Esterase (Negative) Urine WBC (Auto) (0-5) /hpf Urine RBC (Auto) (0-4) /hpf U Hyaline Cast (Auto) (0-5) /lpf U Epithel Cells (Auto) (0-5) /lpf Urine Bacteria (Auto) (Negative) Granular Casts (0) /lpf Acetaminophen 4 L (10-30) ug/ml 07/15/19 Range/Units 11:25 WBC (4.8-10.8) K/uL RBC (4.2-5.4) M/uL Hgb (12.0-16.0) g/dL Hct (37-47) % MCV (80-100) fL MCH (25-34) pg MCHC (32-36) g/dL RDW Std Deviation (36.4-46.3) fL RDW Coeff of Rock (11.5-14.5) % Plt Count (130-400) K/uL MPV (7.4-10.4) fL Immature Gran % (Auto) % Neut % (Auto) % Lymph % (Auto) % [place] % (Auto) % Eos % (Auto) % Baso % (Auto) % Immature Gran # (Auto) (0.00-0.02) K/uL Neut # (Auto) (1.4-6.5) K/uL Lymph # (Auto) (1.2-3.4) K/uL M[place]one # (Auto) (0.11-0.59) K/uL Eos # (Auto) (0-0.5) K/uL Baso # (Auto) (0-0.2) K/uL Absolute Nucleated RBC (0-0) K/uL Nucleated RBC % (auto) % Toxic Vacuolation Poikilocytosis Echinocytes PT (9.0-12.0) Seconds INR (0.9-1.1) ABG pH (7.35-7.45) ABG pCO2 (35-46) mmHg ABG pO2 (80-95) mm/Hg ABG HCO3 (19-24) mmol/L ABG O2 Saturation (90-95) % ABG Base Excess (-9-1.8) mEq/L Hugh Test (Pos) Barometric Pressure mm/Hg Oxygen Given Sodium (136-145) mmol/L Potassium (3.5-5.1) mmol/L Chloride (98-107) mmol/L Carbon Dioxide (21-32) mmol/L Anion Gap (3-11) BUN (7-18) mg/dl Creatinine (0.6-1.2) mg/dl Est Cr Clr Drug Dosing ml/min Est GFR ( Amer) Est GFR (Non-Af Amer) BUN/Creatinine Ratio (10-20) Glucose (70-99) mg/dl POC Glucose 119 H (70-99) Lactate (0.4-2.0) mmol/L Calcium (8.5-10.1) mg/dl Magnesium (1.8-2.4) mg/dl Total Bilirubin (0.2-1) mg/dl AST (15-37) U/L ALT (12-78) U/L Alkaline Phosphatase (45-117) U/L Ammonia (11-32) umol/L Troponin I (0-0.045) ng/ml Total Protein (6.4-8.2) gm/dl Albumin (3.4-5.0) gm/dl Globulin (2.5-4.0) gm/dl Albumin/Globulin Ratio (0.9-2) TSH (0.300-4.500) uIu/ml Free T4 (0.8-1.6) ng/dl Urine Color Urine Appearance (Clear) Urine pH (4.5-7.5) Ur Specific [place] (1.000-1.030) Urine Protein (Negative) Urine Glucose (UA) (Negative) Urine Ketones (Negative) Urine Blood (Negative) Urine Nitrite (Negative) Urine Bilirubin (Negative) Urine Urobilinogen (Negative) Ur Leukocyte Esterase (Negative) Urine WBC (Auto) (0-5) /hpf Urine RBC (Auto) (0-4) /hpf U Hyaline Cast (Auto) (0-5) /lpf U Epithel Cells (Auto) (0-5) /lpf Urine Bacteria (Auto) (Negative) Granular Casts (0) /lpf Acetaminophen (10-30) ug/ml BMP 07/15/19 07:55 Sodium 128 L Potassium 5.9 H Chloride 96 L Carbon Dioxide 11 L BUN 37 H Creatinine 1.60 H Glucose 102 H Calcium 8.4 L Cardiac Enzymes 07/15/19 Range/Units 07:55 Troponin I 0.049 H* (0-0.045) ng/ml Liver Function 07/15/19 Range/Units 07:55 Total Bilirubin 0.7 (0.2-1) mg/dl AST 154 H (15-37) U/L ALT 145 H (12-78) U/L Alkaline Phosphatase 259 H (45-117) U/L Albumin 2.6 L (3.4-5.0) gm/dl Urine 07/15/19 Range/Units 07:27 Urine Color Dark Yellow Urine Appearance Cloudy A (Clear) Urine pH 5.5 (4.5-7.5) Ur Specific [place] 1.014 (1.000-1.030) Urine Protein 1+ H (Negative) Urine Glucose (UA) Negative (Negative) Diagnostic Findings CT head: IMPRESSION: There is no hemorrhage, mass effect, or evidence of acute territorial ischemia by CT criteria. CXR: IMPRESSION: Mild interstitial pulmonary edema and small bilateral pleural effusions, unchanged. (1) Hypothermia Encounter type: initial encounter Qualified Code(s): T68.XXXA - Hypothermia, initial encounter
[2019-07-15] MEDS ORDERED: GLUCOSE 10 TABS/TUBE PO PRN (11:18)
[2019-07-15] MEDS ORDERED: ICU PROTOCOL FOR HYPERGLYCEMIA PRN (11:18)
[2019-07-15] MEDS ORDERED: GLUCOSE 40% GEL 15 GM TUBE PO PRN (11:18)
[2019-07-15] MEDS ORDERED: CARBOHYDRATES FOR HYPOGLYCEMIA PO PRN (11:18)
[2019-07-15] MEDS ORDERED: GLUCAGON FOR INJ 1 MG VIAL SQ PRN (11:18)
--- NOTE | 2019-07-15 12:06 | Palliative Care Consultation ---
Date of Consultation July 15, 2019 Assessment & Plan (1) Goals of care, counseling/discussion: This is a 64-year-old female who presented to the ED via EMS from [facility] at the [facility] after being found unresponsive. Additional PMH includes mood disorder, hyponatremia, CKD III, recent pelvic and lumbar fractures, cardiomyopathy, depression, IBS, HTN, generalized anxiety. The patient was found to be hypothermic and she was placed on a bear hugger. This patient has had multiple admissions over the past year, with most recent discharge on 07/12/19. Patient was started on a D5 infusion and she has started to wake up a little bit and is conversing. a head CT was performed and negative. Additionally, an EEG was performed with pending results. No seizure history noted. Family including daughter, ex- and grandson at the bedside. Palliative Care was consulted to discuss goals of care as patient has had multiple readmissions over the past year. -I met with the patient, daughter Jamee, ex- Tom, and son Larry at the bedside in room 104. -patient with eyes closed, but attempting to open her eyes and mumbles incoherent words -Patient daughter stated she used to care for her mother at home, but now has been a resident at [facility] at the [facility] for close to a year. -Patient was recently made a DNR/DNI and confirmed this during my encounter. -As this is early in the hospitalization, introdued palliative care and how it differs from Hospice. -We discussed how the patient has had multiple admissions over the past year which tends to have us start a goals of care conversation. -I did surface a POLST form which she has seen before and she said she has looked at in depth in the past but never has completed one. -For now, we marked DNR/DNI, trial abx and no artificial nutrition/hydration. She would like time to think about returning to the hospital but is leaning towards limited intervention. -Advised that Palliative Care will return to visit with the family and patient over the next few days and continue to assist with decision making as the course of this hospitalization progresses. (2) Metabolic acidosis: (3) Generalized anxiety disorder: (4) Cardiomyopathy: (5) Hyponatremia: (6) Change in mental status: Altered mental status type: unspecified Qualified Code(s): R41.82 - Altered mental status, unspecified History of Present Illness Reason for Consultation: goals of care Requesting Physician: Dr. Cruz Attending Physician: Renny Brunner MD History of Present Illness This is a 64-year-old female who presented to the ED via EMS from [facility] at the [facility] after being found unresponsive. Additional PMH includes mood disorder, hyponatremia, CKD III, recent pelvic and lumbar fractures, cardiomyopathy, depression, IBS, HTN, generalized anxiety. The patient was found to be hypothermic and she was placed on a bear hugger. This patient has had multiple admissions over the past year, with most recent discharge on 07/12/19. Patient was started on a D5 infusion and she has started to wake up a little bit and is conversing. a head CT was performed and negative. Additionally, an EEG was performed with pending results. No seizure history noted. Family including daughter, ex- and grandson at the bedside. Palliative Care was consulted to discuss goals of care as patient has had multiple readmissions over the past year. Please see Assessment and Plan portion of the chart for additional details. Thank you kindly for involving the palliative care team with this patient. Allergies Allergy/AdvReac Type Severity Reaction Status Date / Time Barbiturates Allergy Severe Unknown Verified 07/15/19 07:36 belladonna alkaloids Allergy Severe Unknown Verified 07/15/19 07:36 dicyclomine Allergy Severe Unknown Verified 07/15/19 07:36 azithromycin Allergy Mild Hives Unverified 07/15/19 07:36 mivacurium Allergy Mild Unknown Verified 07/15/19 07:36 Penicillins Allergy Mild AMOXICILLIN Verified 07/15/19 07:36 phenobarbital Allergy Mild Unknown Verified 07/15/19 07:36 Quinolones Allergy Mild Unknown Verified 07/15/19 07:36 amoxicillin Allergy Unknown rash Unverified 07/15/19 07:36 Nitrate Analogues Allergy Unknown Unknown Verified 07/15/19 07:36 nitrofurantoin Allergy Unknown Unknown Verified 07/15/19 07:36 nitroglycerin Allergy Unknown Unknown Verified 07/15/19 07:36 Sulfa (Sulfonamide Allergy Unknown sulfa Verified 07/15/19 07:36 Antibiotics) Home Medications Home Medications Medication Instructions Recorded Confirmed Type Ensure 1 ea PO TID 07/02/19 07/15/19 History benzonatate [Tessalon Perles] 100 mg PO TID PRN 07/02/19 07/15/19 History bupropion HCl [Wellbutrin XL] 150 mg PO QAM 07/02/19 07/15/19 History lisinopril 20 mg PO QAM 07/02/19 07/15/19 History potassium chloride [Klor-Con M20] 20 meq PO QAM 07/02/19 07/15/19 History promethazine 25 mg PO Q4H PRN 07/02/19 07/15/19 History ropinirole [Requip] 0.25 mg PO HS 07/02/19 07/15/19 History simethicone 125 mg PO Q8H PRN 07/02/19 07/15/19 History venlafaxine [Effexor XR] 300 mg PO QAM 07/02/19 07/15/19 History ferrous sulfate 325 mg PO Q48H 30 Days #30 tab 07/12/19 07/15/19 Rx fluconazole 200 mg PO QAM 10 Days #20 tab 07/12/19 07/15/19 Rx furosemide 20 mg PO QAM 30 Days #30 tab 07/12/19 07/15/19 Rx albuterol sulfate 2.5 mg INHALATION QID PRN 07/15/19 07/15/19 History gabapentin 300 mg PO HS 07/15/19 07/15/19 History pentosan polysulfate sodium 100 mg PO BID 07/15/19 07/15/19 History [Elmiron] tramadol 50 mg PO Q4H PRN 07/15/19 07/15/19 History Patient History Medical History Depression (Chronic) Migraines (Chronic) Tobacco abuse (Chronic) OCD (obsessive compulsive disorder) (Chronic) CKD (chronic kidney disease), stage III (Chronic) IBS (irritable bowel syndrome) (Chronic) HTN (hypertension) (Chronic) Surgical History History of total abdominal hysterectomy (Chronic) H/O hernia repair (Chronic) History of back surgery (Chronic) H/O colonoscopy (Chronic) H/O sinus surgery (Chronic) Family History Other Diabetes Hypertension Social History Preferred Language: Yakut Communication Ability: Impaired Timber Spotter Required: No Beliefs That Will Affect Care: None Current Living Situation: Half-Way Current Living Situation Comment: lives with dtr Other Information That Helps Us Care for You: No Feels Safe at Home: Yes Smoking Status: Unknown if ever smoked Hx Alcohol Use: No Hx Substance Use: No Review of Systems Review of Systems: Unobtainable due to cognitive status Physical Exam Constitutional: + ill appearing, + thin and + frail appearing Neck: trachea midline, no thyromegaly Respiratory: normal respiratory effort and + cough; does not use accessory muscles Auscultation: + diminished lung sounds Cardiovascular: Heart Sounds: normal S1 and normal S2 Extremities: normal capillary refill; no edema Gastrointestinal (Abdomen): normal bowel sounds, soft, nontender, no hepatosplenomegaly Skin: no rashes, warm and dry Psychiatric: awake, mumbles at times Lymphatic: no cervical or axillary lymphadenopathy Results & Data Vital Signs (Past 12 Hours) Vital Signs Temp Pulse Pulse Resp BP BP Pulse Ox 07/15/19 11:31 37.2 C 81 20 127/93 95 07/15/19 10:45 80 26 H 139/87 07/15/19 10:37 36.4 C L 07/15/19 10:25 79 17 135/84 98 07/15/19 09:53 35.9 C L 07/15/19 09:30 72 20 121/82 100 07/15/19 09:04 35.1 C L 68 20 122/88 96 07/15/19 08:46 68 20 130/77 100 07/15/19 08:29 68 20 137/84 100 07/15/19 08:16 35.0 C L 07/15/19 08:14 35.0 C L 70 20 119/89 07/15/19 07:49 74 20 94 07/15/19 07:30 72 20 97 07/15/19 07:18 72 20 136/105 H 98 07/15/19 07:10 86 L 07/15/19 07:00 34.6 C L 71 14 130/91 86 L PG Care Time/CCT Total # of Minutes Spent Total Time Spent with Patient: Total time spent is greater than 50% in coordination of care (as documented) at patient's floor/unit and/or counseling patient: 70 Time Spent Midlevel Total time spent 70 minutes with > 50% of that time spent assessing the patient, discussing goals of care with family at the bedside.
--- NOTE | 2019-07-15 12:16 | Electroencephalogram ---
EEG Procedure Note Date of Service July 15, 2019 Start / End Times Start Time: 11:20 End Time: 11:[address] Kannan MD History A 64 year old woman admitted with encephalopathy. EEG performed for evaluation of epileptiform activity. Home Medication List Home Medications Medication Instructions Recorded Confirmed Type Ensure 1 ea PO TID 07/02/19 07/15/19 History benzonatate [Tessalon Perles] 100 mg PO TID PRN 07/02/19 07/15/19 History bupropion HCl [Wellbutrin XL] 150 mg PO QAM 07/02/19 07/15/19 History lisinopril 20 mg PO QAM 07/02/19 07/15/19 History potassium chloride [Klor-Con M20] 20 meq PO QAM 07/02/19 07/15/19 History promethazine 25 mg PO Q4H PRN 07/02/19 07/15/19 History ropinirole [Requip] 0.25 mg PO HS 07/02/19 07/15/19 History simethicone 125 mg PO Q8H PRN 07/02/19 07/15/19 History venlafaxine [Effexor XR] 300 mg PO QAM 07/02/19 07/15/19 History ferrous sulfate 325 mg PO Q48H 30 Days #30 tab 07/12/19 07/15/19 Rx fluconazole 200 mg PO QAM 10 Days #20 tab 07/12/19 07/15/19 Rx furosemide 20 mg PO QAM 30 Days #30 tab 07/12/19 07/15/19 Rx albuterol sulfate 2.5 mg INHALATION QID PRN 07/15/19 07/15/19 History gabapentin 300 mg PO HS 07/15/19 07/15/19 History pentosan polysulfate sodium 100 mg PO BID 07/15/19 07/15/19 History [Elmiron] tramadol 50 mg PO Q4H PRN 07/15/19 07/15/19 History Inpatient Medication List Dextrose (D5w) 1,000 mls @ 125 mls/hr IV .Q8H STA Stop: 07/15/19 14:58 Last Infusion: 07/15/19 12:10 Dose: 0 mls/hr Documented by: [id number] Admin: 07/15/19 07:06 Dose: 125 mls/hr Documented by: [id number] Discontinued Medications Ceftriaxone Sodium (Rocephin) 1,000 mg in 50 mls @ 100 mls/hr IV NOW STA Stop: 07/15/19 08:39 Last Infusion: 07/15/19 08:49 Dose: 0 mls/hr Documented by: [id number] Admin: 07/15/19 08:17 Dose: 100 mls/hr Documented by: [id number] Sodium Chloride (Nss) 250 mls @ 999 mls/hr IV .Q16M ONE Stop: 07/15/19 08:43 Last Infusion: 07/15/19 09:15 Dose: 0 mls/hr Documented by: [id number] Admin: 07/15/19 08:36 Dose: 999 mls/hr Documented by: [id number] Sodium Chloride (Nss 1000ml) 500 mls @ 999 mls/hr IV .Q31M ONE Stop: 07/15/19 09:05 Last Admin: 07/15/19 11:22 Dose: Not Given Documented by: [id number] Naloxone HCl (Narcan) 0.4 mg IV NOW STA Stop: 07/15/19 07:00 Last Admin: 07/15/19 07:06 Dose: 0.4 mg Documented by: [id number] Naloxone HCl (Narcan) Confirm Administered Dose 0.4 mg .ROUTE .STK-MED ONE Stop: 07/15/19 07:04 Last Admin: 07/15/19 07:07 Dose: Not Given Documented by: [id number] Description This is a 21 electrode EEG with a single channel dedicated to limited EKG. The electrodes were placed in accordance with the International 10-20 system. REPORT: At the onset of the EEG the patient is awake. The background is symmetric with an inpersistent posterior dominant rhythm of 7 Hz. Anteriorly there is low amplitude 15-25 Hz beta activity. Portions of the record are obscured by movevement and myogenic artifact. Photic stimulation does not elicit any abnormalities. IMPRESSION: This is an abnormal awake EEG due to mild background slowing which is suggestive of a mild non specific encephalopathy. No seizures or epileptiform activity is recorded.
--- NOTE | 2019-07-15 12:33 | Critical Care Consultation ---
Date of Consultation July 15, 2019 Assessment & Plan (1) Acute kidney injury superimposed on chronic kidney disease: Reason Critically Ill: Nena Patrick is a 64 year old woman here from [facility] with altered mental status, hypoglycemia, hypothermia and a lactic acidosis Neuro: CARDIAC/VASCULAR - Hemodynamically Stable, holding home lisinopril Patient with EF of 15-20 % per last echocardiogram, possibly secondary to takutsubo cardiomyopathy Elevated JVD, appears to be somewhat fluid overloaded, though family is concerned she has not been eating or drinking while at [facility] and she is dehydrated Will hold lasix for now and continue to monitor RESPIRATORY - Breathing comfortably on room air Asthma history, albuterol prn No wheezing presently GI/NUTRITION - Elevated LFT's BSG of 15 initally, since corrected to mid 100's Will see if patient's mental status improves if she can tolerate diet Will continue to trend LFT's RENAL/LYTES - Lactic acidosis possibly secondary to urosepsis Positive urinalysis Received one dose Rocephin in ED will continue with 1000 mg daily BRIANDA creatinine up to 1.44 baseline of 1 Slightly hyponatremic but at her baseline of 130 Hyperkalemic to 5.2 Holding home Potassium supplementation - Positive urinalysis ceftriaxone ENDO - TSH elevated T4 normal No other abnormalities in her history. HEME - Elevated white count Anemic, but appears to be chronic for her, no acute drop, no evidence of acute hemorrhage On iron supplementation at home ID - Ceftriaxone 1 g daily for UTI Blood cultures and urine cultures pending Will continue to monitor and adjust therapy as directed by culture LINES/IV ACCESS - PIVs x2 DVT PPx: SCD's F/E/N: NPO for now, will attempt diet as she becomes more alert Dispo: ICU (2) Goals of care, counseling/discussion: (3) Change in mental status: (4) Anemia: (5) Hypoglycemia: (6) Metabolic acidosis: (7) Acidosis, lactic: (8) Acute UTI: (9) Starvation ketoacidosis: (10) Anemia: (11) Mitral regurgitation: (12) Generalized anxiety disorder: (13) Pelvic fracture: (14) Lumbar transverse process fracture: (15) Depression: (16) Migraines: (17) OCD (obsessive compulsive disorder): Supervising Physician Co-Signing Physician Notes Dr. Cruz was resident physician during care of patient. I separately evaluated patient for zurita portions of the history and the exam. I was present during the critical portion of medical decision making, and I discussed the case with the resident. I generally agree with the findings and plan. Acute metabolic encephalopathy in the setting of BRIANDA with known stage III chronic kidney disease. Possible urinary tract infection, hypothermia concerns for sepsis, known polypharmacy which is likely contributing. In discussion with patient's daughter she is very concerned that this is secondary to medication effect. Will hold Ultram as this could lower seizure threshold as well as checking EEG to rule out nonconvulsive status. I have personally spent 90 minutes of critical care time in the direct management of this patient. This is a life/limb threatening event. This includes time spent evaluating patient, direct bedside care, chart review, placing orders, interpretation of diagnostic studies, discussion with consultants, patient, and/or family members regarding treatment decisions, as well as other required patient management activities. This time is exclusive of all separately billable procedures, and teaching time and separate from and in addition to any other critical care service time. History of Present Illness Reason for Consultation: Critically ill Requesting Physician: Tony Dumont MD Attending Physician: Renny Brunner MD History of Present Illness Nena Patrick is a 64 year old woman with a past medical history of chronic pain with opiate dependency, mood disorder, chronic hyponatremia, CKD III, recent pelvic and lumbar fractures and other medical problems listed below who presents today from [facility] after being found unresponsive. Patient was at [facility] after being discharged on July 12 for her recurrent falls and pelvic/lumbosacral fractures. She presents today for an episode of unresponsiveness at [facility], she was found at 0600 this morning unresponsive, with a rectal temp of 34 degrees and a blood glucose of 15. She was given 50 mg of dextrose via EMS and BSG was improved and has remained stable since arrival. Daylin hugger has improved her temperature. Patient remains unresponsive, Initial labwork notable for leukocytosis of 18.65, hyponatremia (128), hyperkalemia (5.9), and significant lactic acidosis with pH of 7.26 and lactate of 12.3. Urinalysis positive, started on rocephin. Allergies Allergy/AdvReac Type Severity Reaction Status Date / Time Barbiturates Allergy Severe Unknown Verified 07/15/19 07:36 belladonna alkaloids Allergy Severe Unknown Verified 07/15/19 07:36 dicyclomine Allergy Severe Unknown Verified 07/15/19 07:36 azithromycin Allergy Mild Hives Unverified 07/15/19 07:36 mivacurium Allergy Mild Unknown Verified 07/15/19 07:36 Penicillins Allergy Mild AMOXICILLIN Verified 07/15/19 07:36 phenobarbital Allergy Mild Unknown Verified 07/15/19 07:36 Quinolones Allergy Mild Unknown Verified 07/15/19 07:36 amoxicillin Allergy Unknown rash Unverified 07/15/19 07:36 Nitrate Analogues Allergy Unknown Unknown Verified 07/15/19 07:36 nitrofurantoin Allergy Unknown Unknown Verified 07/15/19 07:36 nitroglycerin Allergy Unknown Unknown Verified 07/15/19 07:36 Sulfa (Sulfonamide Allergy Unknown sulfa Verified 07/15/19 07:36 Antibiotics) Home Medications Home Medications Medication Instructions Recorded Confirmed Type Ensure 1 ea PO TID 07/02/19 07/15/19 History benzonatate [Tessalon Perles] 100 mg PO TID PRN 07/02/19 07/15/19 History bupropion HCl [Wellbutrin XL] 150 mg PO QAM 07/02/19 07/15/19 History lisinopril 20 mg PO QAM 07/02/19 07/15/19 History potassium chloride [Klor-Con M20] 20 meq PO QAM 07/02/19 07/15/19 History promethazine 25 mg PO Q4H PRN 07/02/19 07/15/19 History ropinirole [Requip] 0.25 mg PO HS 07/02/19 07/15/19 History simethicone 125 mg PO Q8H PRN 07/02/19 07/15/19 History venlafaxine [Effexor XR] 300 mg PO QAM 07/02/19 07/15/19 History ferrous sulfate 325 mg PO Q48H 30 Days #30 tab 07/12/19 07/15/19 Rx fluconazole 200 mg PO QAM 10 Days #20 tab 07/12/19 07/15/19 Rx furosemide 20 mg PO QAM 30 Days #30 tab 07/12/19 07/15/19 Rx albuterol sulfate 2.5 mg INHALATION QID PRN 07/15/19 07/15/19 History gabapentin 300 mg PO HS 07/15/19 07/15/19 History pentosan polysulfate sodium 100 mg PO BID 07/15/19 07/15/19 History [Elmiron] tramadol 50 mg PO Q4H PRN 07/15/19 07/15/19 History Patient History Medical History Depression (Chronic) Migraines (Chronic) Tobacco abuse (Chronic) OCD (obsessive compulsive disorder) (Chronic) CKD (chronic kidney disease), stage III (Chronic) IBS (irritable bowel syndrome) (Chronic) HTN (hypertension) (Chronic) Surgical History History of total abdominal hysterectomy (Chronic) H/O hernia repair (Chronic) History of back surgery (Chronic) H/O colonoscopy (Chronic) H/O sinus surgery (Chronic) Family History Other Diabetes Hypertension Social History Preferred Language: Turkmen Communication Ability: Effective Manager Of Creative Services Required: No Beliefs That Will Affect Care: None Current Living Situation: Snf Current Living Situation Comment: lives with dtr Other Information That Helps Us Care for You: No Feels Safe at Home: Yes Smoking Status: Unknown if ever smoked Hx Alcohol Use: No Hx Substance Use: No Review of Systems Review of Systems: Unobtainable due to reduced consciousness Physical Exam Constitutional: Mild respiratory distress, unrepsonsive, lying on her back eyes closed Eyes: PERRL, conjunctivae normal, anicteric sclerae Respiratory: normal respiratory effort, lungs clear to auscultation Cardiovascular: Rate/Rhythm: regular rate and regular rhythm Heart Sounds: normal S1 and normal S2; no click, no gallop, no murmur and no cardiac rub Vessels: normal peripheral pulses and dorsalis pedis pulses present Gastrointestinal (Abdomen): Inspection/Auscultation: abdomen normal to inspection Percussion/Palpation: abdomen soft; abdomen nontender Skin: no rashes, warm and dry Results & Data Vital Signs (Past 12 Hours) Vital Signs Temp Pulse Pulse Resp BP BP Pulse Ox 07/15/19 12:00 80 19 139/93 98 07/15/19 11:31 37.2 C 81 20 127/93 95 07/15/19 10:45 80 26 H 139/87 07/15/19 10:37 36.4 C L 07/15/19 10:25 79 17 135/84 98 07/15/19 09:53 35.9 C L 07/15/19 09:30 72 20 121/82 100 07/15/19 09:04 35.1 C L 68 20 122/88 96 07/15/19 08:46 68 20 130/77 100 07/15/19 08:29 68 20 137/84 100 07/15/19 08:16 35.0 C L 07/15/19 08:14 35.0 C L 70 20 119/89 07/15/19 07:49 74 20 94 07/15/19 07:30 72 20 97 07/15/19 07:18 72 20 136/105 H 98 07/15/19 07:10 86 L 07/15/19 07:00 34.6 C L 71 14 130/91 86 L PG Care Time/CCT Total # of Minutes Spent Total Time Spent with Patient: Total time spent is greater than 50% in coordination of care (as documented) at patient's floor/unit and/or counseling patient: Critical Care Time: Yes Total Critical Care Time: 90 Resident Activity Tracking Resident Involvement: Resident Care Provided Care Provided: Adult Hospital Medicine (1) Anemia Anemia type: unspecified type Qualified Code(s): D64.9 - Anemia, unspecified (2) Lumbar transverse process fracture Encounter type: initial encounter Fracture type: closed Qualified Code(s): S32.009A - Unspecified fracture of unspecified lumbar vertebra, initial encounter for closed fracture (3) Change in mental status Altered mental status type: unspecified Qualified Code(s): R41.82 - Altered mental status, unspecified (4) Pelvic fracture Encounter type: initial encounter Fracture alignment: without disruption of pelvic ring Fracture type: closed Pelvic bone location: multiple parts Qualified Code(s): S32.82XA - Multiple fractures of pelvis without disruption of pelvic ring, initial encounter for closed fracture
[2019-07-15 13:39] LABS: Albumin Level 2.5 gm/dl (3.4-5.0); BUN Creatinine Ratio 26.1 (10-20); Calcium 8.4 mg/dl (8.5-10.1); Creatinine Clr Calc Pharmacy 33.6 ml/min; Est GFR (African American) 44.1; Magnesium 2.1 mg/dl (1.8-2.4); Potassium 5.2 mmol/L (3.5-5.1)
[2019-07-15 13:41] LABS: Albumin Globulin Ratio 0.9 (0.9-2); Bilirubin,Total 0.5 mg/dl (0.2-1); Globulin 2.9 gm/dl (2.5-4.0); Phosphorus 3.9 mg/dl (2.5-4.9); Total Protein 5.4 gm/dl (6.4-8.2)
[2019-07-15 14:24] LABS: Hemoglobin 8.1 g/dL (12.0-16.0); Mean Corpuscular Hemoglobin 24.8 pg (25-34); Mean Corpuscular Hgb Conc 31.2 g/dL (32-36); Mean Corpuscular Volume 79.5 fL (80-100); Mean Platelet Volume 10.3 fL (7.4-10.4); Nucleated RBC # (auto) 0.83 K/uL (0-0); Platelet Count 433 K/uL (130-400); RDW Coefficient of Variation 16.7 % (11.5-14.5); RDW Standard Deviation 47.8 fL (36.4-46.3); Red Blood Count 3.27 M/uL (4.2-5.4); White Blood Count 16.52 K/uL (4.8-10.8)
[2019-07-15 14:26] LABS: Basophils # (auto) 0.02 K/uL (0-0.2); Basophils % (auto) 0.1 %; Echinocytes 1+; Eosinophils # (auto) 0.01 K/uL (0-0.5); Eosinophils % (auto) 0.1 %; Immature Granulocytes # (auto) 0.06 K/uL (0.00-0.02); Immature Granulocytes % (auto) 0.4 %; Lymphocytes # (auto) 1.11 K/uL (1.2-3.4); Lymphocytes % (auto) 6.7 %; Monocytes # (auto) 1.15 K/uL (0.11-0.59); Neutrophils # (auto) 14.17 K/uL (1.4-6.5); Neutrophils % (auto) 85.7 %; Poikilocytosis Present; Toxic Vacuolation 1+
[2019-07-15] MEDS ORDERED: SIMETHICONE 40 MG/0.6 ML 30ML PO PRN (14:48)
[2019-07-15] MEDS ORDERED: PROMETHAZINE HCL 25 MG TAB PO PRN (14:48)
[2019-07-15] MEDS ORDERED: ALBUTEROL 0.083% NEBU SOLN 3 ML VIAL INH PRN (14:48)
[2019-07-15] MEDS: DEXTROSE 50% 50 ML SYRINGE IV PRN ×2 (16:10→21:59)
[2019-07-15] MEDS: PENTOSAN POLYSULFATE SODIUM 100 MG CAP PO SCH (21:39)
[2019-07-16] MEDS ORDERED: MoRPHine SULFATE 2 MG/ML CARP IV STA ×3 (03:42→21:58)
[2019-07-16] MEDS ORDERED: DEXTROSE 50% 50 ML SYRINGE IV STA (03:44)
[2019-07-16] MEDS ORDERED: SODIUM BICARB 8.4% INJ 50 MEQ/50 ML SYR IV STA (04:05)
[2019-07-16] MEDS ORDERED: SODIUM BICARB 8.4% INJ 50 MEQ/50 ML SYR ONE (04:06)
[2019-07-16 04:10] LABS: iSTAT Allen Test Pass; iSTAT Art Bld Gas pCO2 Correct 16 mmHg (35-46); iSTAT Arterial Blood Gas HCO3 8 meg/L (19-24); iSTAT Arterial Blood Gas pCO2 16 mmHg (35-46); iSTAT Arterial Blood Gas pO2 86 mmHg (80-95); iSTAT Arterial Blood Gas pO2 C 87; iSTAT Carbon Dioxide 8 mEq/l (24-31); iSTAT Site L Radial
--- NOTE | 2019-07-16 04:14 | Critical Care Progress Note ---
Date of Service July 16, 2019 Supervising Physician Co-Signing Physician Notes I have personally evaluated and examined this patient. I agree with assessment and plan of Мария Sutherland PA-C. Patient's mental status has improved compared to yesterday however the metabolic derangements continue and are worsened. Patient's lactic acid has climbed and LFTs are minimally/marginally worsened, there is concern for possible chronic Tylenol ingestion in the setting of chronic pain medication usage, we will start her empirically on Mucomyst as well as 100 mg daily. We will broaden her antibiotic coverage to include Zosyn given that there are 2 gram-negative organisms on the microbiology and the patient's lactic acid has worsened. Her ammonia level was negative yesterday. After initial improvement in creatinine she has worsened. Patient's blood pressure is okay, troponins are somewhat unremarkable we will obtain a limited echo to further evaluate her new cardiomyopathy. Consulting gastroenterology: [place]. Consulting nephrology for possible dialysis regarding urgent dialysis for some aspects of volume control but more importantly acidosis control. Sending UA and starting bicarbonate infusion at 75 mL's per hour. Meld score is 22. Given compatibility issues and poor vascular access we will consent the patient's power of director of corporate strategy for central venous access. Given the patient 5 mg IV vitamin K for coagulopathy. Patient was discussed on multidisciplinary rounds. At around 12:00 I had a discussion with the patient's daughter who is the power of director of corporate strategy and her spouse/significant other. They raise concerns regarding 1 mg dosing of morphine overnight as it was their belief we were avoiding all narcotics and would you use benzodiazepines prior to narcotics. We discussed the risks benefits of benzodiazepines as they are also metabolized liver and patient is in hepatic insufficiency and the patient does appear to be having aspects of opiate withdrawal. The tachypnea is secondary to a metabolic acidosis for which she is compensating, unfortunately patient has worsening renal function and renal insufficiency. Of note with further discussions that occurred on multidisciplinary rounds after my discussion with the patient's family they requested the door be closed for privacy. The patient had already been started on a dextrose containing solution with bicarbonate. While the patient had hypoglycemic episode prior to her arrival in the ICU her blood sugars have been well maintained and the bicarbonate with dextrose solution was up and running. The patient had a subsequent hypoglycemic episode requiring more administration of dextrose. I have ordered insulin and C-peptide levels as well as a urine drug screen as the patient has not received benzodiazepines during this hospital admission nor has she received insulin. I have personally spent 55 minutes of critical care time in the direct management of this patient. This is a life/limb threatening event. This includes time spent evaluating patient, direct bedside care, chart review, placing orders, interpretation of diagnostic studies, discussion with consultants, patient, and/or family members regarding treatment decisions, as well as other required patient management activities. This time is exclusive of all separately billable procedures, and teaching time and separate from and in addition to any other critical care service time. Subjective At approximately 0330, I was approached by nursing staff informed that the patient was having increasing agitation and work of breathing. She tried multiple interventions without success. I did evaluate the patient at bedside. She is complaining of intense lower abdominal pain. Her abdomen is soft and nontender to palpation. Breath sounds with rales appreciated bilaterally in the lower aspect of the lung kelley. Patient is diaphoretic and struggling with breathing. Chart was reviewed. Chest x-ray was ordered which demonstrates persistent pulmonary edema which has slightly worsened. Otherwise, no acute findings. Blood gas was ordered which demonstrates a compensated metabolic acidosis. Additional orders were placed for the patient's morning labs. There is difficulty maintaining IV access and sustaining labs. Ultrasound-guided long-term indwelling peripheral catheter was placed by myself. Please see separate note. Patient was treated with half an amp of D50 for blood glucose in the 70s. Patient is confused at this time. After administration of dextrose, the patient had no relief of symptoms. On review of her chart, patient is noted to have been treated previously with multiple narcotic medication prescriptions as well as anti-anxiolytics. Given her tenuous status and concerns for profound metabolic acidosis with compensatory respiratory breathing, I was concerned with provide patient with respiratory depressants, however at this point, decision needed to be made for help with the patient's rate of respiration. Patient was provided a one-time dose of 1 mg IV morphine. After review morning labs, the patient is noted to have a worsening serum bicarb as well. Her serum lactate has worsened. Patient was treated with a one-time dose of one episode of bicar bonate. Patient was noted to be hyponatremic, however she has been so in the past. At this point, I do feel that benefits outweigh the risks at administering bicarb. Several minutes after the administration of morphine, the patient did calm down. Her diaphoresis subsided. Her heart rate improved. Blood pressure which was initially relatively hypertensive did improve into the 1 teens systolically. Patient is now more awake, alert, and oriented. She knows that she is in [facility]. In addition, she reports the year. She knows name and date of as well. I did discuss my concerns the patient including worsening condition and progression towards a nonsurvivable condition. I did discuss placement of BiPAP for positive pressure to help with both pulmonary edema as well as work of breathing in the setting of compensating for metabolic acidosis. She reports that she would be fine with trying the CPAP settings, however she was adamant that she would not wish to be intubated which is consistent with her and her family's recent discussion with palliative care. I had tried to reach out to her daughter during this episode, however she did not answer. Voicemail was left for her to call the ICU. After administration of morphine, patient has improved greatly. She is resting comfortably at this time. She is more communicative. Would consider addition of this with ongoing treatment of sepsis from likely urinary source. 0412: Called daughter Jamee at provided number ([phone]). Left message to return call in regards to mother's current condition. I have personally spent 60 minutes of critical care time in the direct management of this patient. This is a life/limb threatening event. This includes time spent evaluating patient, direct bedside care, chart review, placing orders, interpretation of diagnostic studies, discussion with consultants, patient, and family members, as well as other required patient management activities. This time is exclusive of all separately billable procedures, and teaching time and separate from and in addition to any other critical care service time. Results & Data Vital Signs (Past 12 Hours) Vital Signs Temp Pulse Pulse Resp BP BP Pulse Ox 07/16/19 03:00 37.5 C 88 21 131/79 96 07/16/19 02:00 85 20 137/87 95 07/16/19 01:55 85 07/16/19 01:50 85 20 94 07/16/19 01:00 87 21 130/90 89 L 07/16/19 00:29 95 H 19 139/90 97 07/16/19 00:00 87 20 140/89 94 07/15/19 23:00 84 19 123/75 95 07/15/19 22:01 89 21 96 07/15/19 22:00 88 22 142/90 H 96 07/15/19 21:01 87 26 H 94 07/15/19 21:00 87 22 138/87 95 07/15/19 20:01 86 21 93 07/15/19 20:00 87 22 114/87 94 07/15/19 19:01 85 23 92 07/15/19 19:00 86 24 123/81 92 07/15/19 18:01 85 24 95 07/15/19 18:00 85 24 127/86 90 07/15/19 17:01 83 20 95 07/15/19 17:00 83 18 122/81 95 PG Care Time/CCT Total # of Minutes Spent Total Time Spent with Patient: Total time spent is greater than 50% in coordination of care (as documented) at patient's floor/unit and/or counseling patient: Critical Care Time: Yes Total Critical Care Time: 60
[2019-07-16 04:39] LABS: Hematocrit (blood only) 28.1 % (37-47); Hemoglobin 8.8 g/dL (12.0-16.0); Mean Corpuscular Hemoglobin 25.5 pg (25-34); Mean Corpuscular Hgb Conc 31.3 g/dL (32-36); Mean Corpuscular Volume 81.4 fL (80-100); Mean Platelet Volume 10.8 fL (7.4-10.4); Nucleated RBC # (auto) 0.94 K/uL (0-0); Nucleated RBC % (auto) 6.1 %; Platelet Count 482 K/uL (130-400); RDW Coefficient of Variation 16.6 % (11.5-14.5); RDW Standard Deviation 48.7 fL (36.4-46.3); Red Blood Count 3.45 M/uL (4.2-5.4); White Blood Count 15.49 K/uL (4.8-10.8)
[2019-07-16 04:58] LABS: INR 1.8 (0.9-1.1)
[2019-07-16 05:03] LABS: Albumin Globulin Ratio 0.9 (0.9-2); Albumin Level 2.5 gm/dl (3.4-5.0); Bilirubin,Total 0.5 mg/dl (0.2-1); Calcium 8.1 mg/dl (8.5-10.1); Creatinine Clr Calc Pharmacy 31.9 ml/min; Est GFR (African American) 41.3; Est GFR (Non-African American) 35.6; Globulin 2.9 gm/dl (2.5-4.0); Magnesium 2.2 mg/dl (1.8-2.4); Potassium 5.8 mmol/L (3.5-5.1); Total Protein 5.4 gm/dl (6.4-8.2)
--- NOTE | 2019-07-16 05:57 | Procedure Note ---
Procedure Note Date of Service July 16, 2019 Procedure: Literacy Specialist Indwelling Peripherally Inserted IV Catheter Placement Attending: Dr. Dutta APC: Marco Antonio Sutherland PA-C Indication: Need for IV Access, Poor Vascular Access Anesthesia: None Verbal consent was obtained from patient prior to performing the procedure. A time-out was completed verifying correct patient, procedure, site, positioning, and implant(s) or special equipment if applicable. Utilizing bedside ultrasound, vascularity of the LEFT upper extremity was assessed. Vessel size was noted for appropriate catheter selection and skin was marked with gentle pressure. Patients LEFT upper extremity was prepped and draped in the usual sterile fashion utilizing chlorhexidine. Ultrasound guidance was used to aid needle placement. A 20 g Endurance Catheter was introduced into the LEFT Brachial vein under direct ultrasound guidance. Guide wire was easily deployed without resistance. Catheter was threaded over the guide wire without resistance and the entire apparatus was removed intact. Good venous blood return was noted in the catheter. The IV catheter was easily flushed with sterile saline flush. Sterile clave was attached to the end of the catheter and good blood return was again noted. Tourniquet was released. StatLock device and sterile dressing were applied. The patient tolerated the procedure well. Blood Loss: Minimal Complications: None Procedural Ultrasound Guidance: Procedure Date: 07/16/2019 Indication: Poor Vascular Access Attending: Dr. Dutta APC: Marco Antonio Sutherland PA-C Artery/Veins Identified: YES Access confirmed in Vein with ultrasound: YES Complications: NONE Patient tolerated procedure: WELL Coding
--- NOTE | 2019-07-16 06:28 | Critical Care Progress Note ---
Date of Service July 16, 2019 Assessment & Plan (1) Acute kidney injury superimposed on chronic kidney disease: Reason Critically Ill: Nena Patrick is a 64 year old woman here from [facility] with altered mental status, hypoglycemia, hypothermia and a lactic acidosis Neuro: Patient far more alert this morning, oriented to person place and time Easily conversive this am CAM-ICU Negative CARDIAC/VASCULAR - Hemodynamically Stable, holding home lisinopril Patient with EF of 15-20 % per last echocardiogram, possibly secondary to takutsubo cardiomyopathy Elevated JVD, appears to be somewhat fluid overloaded, though family is concerned she has not been eating or drinking while at [facility] and she is dehydrated Discussed with nephrology possibility of dialysis for fluid overload and they did not feel it would be helpful at this time With patient's apparent sepsis and profound cardiac dysfunction I am very concerned about her options should she become hemodynamically unstable Will discuss central line placement with family RESPIRATORY - On 3 L currently, had dyspneic episode last night Chest XR showing cardiomegaly vascular congestion and mild pulmonary edema. Patient willing to try CPAP/BiPAP but does not wish to be intubated should the need arise GI/NUTRITION - BSG of 15 initally, since corrected to mid was as low as 70 overnight and was corrected with D 50 Now on D5 with bicarb at 75 mls/hour Patient's mental health status much improved, ordered speech evaluation and will try to start patient on diet today LFT's elevated will continue to trend Possibly the result of a shocked liver CT ordered showing marked ileus with no volvulus or other twin abnormality. Mild ascites likely secondary to her fluid overload. RENAL/LYTES - Lactic acidosis possibly secondary to urosepsis vs shocked liver from hypotension when she was found down lactate up to 12 Bicarb down to 9 Profound acidosis with respiratory compensation Starting patient on bicarbonate with D5 at 75 mls/hour Positive urinalysis Received one dose Rocephin in ED will continue with 1000 mg daily BRIANDA creatinine up to 1.52; slightly elevated from yesterday 1.44 with a baseline of around 1 Slightly hyponatremic but at her baseline of 130 Hyperkalemic to 5.8 Holding home Potassium supplementation - Positive urinalysis on zosyn ENDO - Continues to be hypoglycemic Starting patient on Bicarbonate with D5 HEME - Elevated white count Anemic, but appears to be chronic for her, no acute drop, no evidence of acute hemorrhage ID - Switched to zosyn for possible urosepsis Blood cultures and urine cultures pending. preliminary on contaminated urine culture shows two types of gram negative organisms Will continue to monitor and adjust therapy as directed by culture Per nursing at [facility], some unverified concern over patient being medicated by family members surreptitiously. Family has closed the door for privacy several times here per nursing. Due to hypoglycemia despite dextrose, will check and insulin and c peptide level as well as urine tox LINES/IV ACCESS - PIV x1 DVT PPx: SCD's F/E/N: NPO for now, will attempt diet if she becomes more alert Dispo: ICU Supervising Physician Co-Signing Physician Notes Please refer to my note attached with Мария Sutherland. Subjective Ms. Patrick had increased work of breathing last night around 330, soft, sister and place her on 1 mg of morphine which resolved her respiratory distress. In addition she became much more coherent and was able to tell us her name birthday location, family members and where she was. She remains much more clear this morning and is asking to be fed. Patient not endorsing any discomfort at this time, although she does feel anxious and is worried that her family is not coming. Tried to reassure patient that family told me that be on the way and this morning at their with her all day yesterday. She is not able to remember much of yesterday UPDATE Spoke with patient and their family and they are trying to decide on goals of care. Daughter is medical power of attorney general and she does not want any invasive procedures done. She vehemently denies an OG tube at any time, declining central line at this time and does not want her to be intubated. She has brought up the request to have patient transferred but when asked if she wants her transferred for curative reasons she declined and said I just want to "take her somewhere where she can ". She added that "it is too sterile here" and asked about home hospice. After discussion with family her wishes for the patient are to remain as is on antibiotic and peripheral IV for now and keep her comfortable and track her progress. She does not want comfort care and she does not want full court press therapy, she believes this is what her mom would want done. Review of Systems Review of Systems: All systems reviewed & are unremarkable except as noted in HPI & below Physical Exam Physical Exam: Constitutional: Cachectic ill-appearing woman resting in bed, conversive calm cooperative Eyes: Pupils equal round reactive to light extraocular muscle motions intact, anicteric sclerae Neck: No abnormalities detected Respiratory: Patient with decreased breath sounds, and rales in all lung kelley markedly elevated JVD Cardiovascular: Elevated JVD, heart sounds dual, regular rate regular rhythm. Distal pulses intact GI: Abdomen soft nontender Skin: No rashes warm dry Neuro: Oriented to person place time and vaguely to situation, easily conversive no focal deficits Psychiatric: Patient with anxious affect Results & Data Vital Signs (Past 12 Hours) Vital Signs Temp Pulse Pulse Resp BP BP Pulse Ox 07/16/19 06:00 85 21 141/60 H 94 07/16/19 05:01 85 23 115/87 07/16/19 05:00 86 24 07/16/19 04:50 89 21 07/16/19 04:40 89 30 H 07/16/19 04:31 90 30 H 157/109 H 07/16/19 04:30 88 24 07/16/19 04:20 90 30 H 07/16/19 04:10 93 H 32 H 07/16/19 04:01 95 H 39 H 88 L 07/16/19 04:00 95 H 29 H 153/112 H 88 L 07/16/19 03:50 93 H 30 H 86 L 07/16/19 03:46 93 H 25 H 146/115 H 07/16/19 03:40 98 H 28 H 07/16/19 03:30 93 H 25 H 07/16/19 03:20 100 H 20 07/16/19 03:10 103 H 17 07/16/19 03:01 88 21 07/16/19 03:00 37.5 C 87 88 20 131/79 131/79 96 07/16/19 02:50 87 19 07/16/19 02:40 93 H 21 07/16/19 02:30 99 H 19 07/16/19 02:00 86 85 20 137/87 137/87 94 07/16/19 01:55 85 07/16/19 01:50 85 20 94 07/16/19 01:00 87 21 130/90 89 L 07/16/19 00:29 95 H 19 139/90 97 07/16/19 00:00 87 20 140/89 94 07/15/19 23:00 84 19 123/75 95 07/15/19 22:01 89 21 96 07/15/19 22:00 88 22 142/90 H 96 07/15/19 21:01 87 26 H 94 07/15/19 21:00 87 22 138/87 95 07/15/19 20:01 86 21 93 07/15/19 20:00 87 22 114/87 94 07/15/19 19:01 85 23 92 07/15/19 19:00 86 24 123/81 92 PG Care Time/CCT Total # of Minutes Spent Total Time Spent with Patient: Total time spent is greater than 50% in coordi nation of care (as documented) at patient's floor/unit and/or counseling patient:
--- NOTE | 2019-07-16 07:08 | XRay Report ---
SINGLE VIEW CHEST CLINICAL HISTORY: Dyspnea. FINDINGS: An AP, portable, upright chest radiograph is compared to study dated 07/15/2019. The examina tion is degraded by portable technique and patient rotation. The heart is enlarged and there is athe rosclerotic calcification of the thoracic aorta. Pulmonary vascular congestion persists. There are sm all pleural effusions with bibasilar atelectasis. Apical scarring is observed. No pneumothorax is see n. The skeletal structures are osteopenic. The bony thorax is grossly intact. IMPRESSION: 1. Cardiomegaly with evidence of congestive failure. This is similar to yesterday. 2. Small pleural effusions. Electronically signed by: Tony Hunt M.D. 07/16/2019 7:07 AM
[2019-07-16] MEDS ORDERED: PIPERACILL/TAZOBAC CONSULT ACTIVE PRN (08:46)
[2019-07-16] MEDS ORDERED: PHYTONADIONE 5 MG TAB PO STA (08:54)
[2019-07-16] MEDS ORDERED: cefTRIAXone SODIUM 1,000 MG in DEXTROSE 5% 50 ML IV SCH (09:00)
[2019-07-16] MEDS ORDERED: FERROUS SULFATE 325 MG TAB PO SCH (09:00)
[2019-07-16] MEDS ORDERED: PIPERACILLIN/TAZOBACTAM 4.5 GM in DEXTROSE 5% 100 ML IV ONE (09:15)
--- NOTE | 2019-07-16 09:41 | Nephrology Consultation ---
Date of Consultation July 16, 2019 Assessment & Plan (1) Mixed disorder of acid-base balance: she has chronic respiratory alkalosis w/ AG metabolic acidosis, most likely lactic acidosis; need more data to evaluate for other underlying acid/base disorders. She had a basically stable pH this AM to 7.30 despite sigifnicant lactate elevation Present on Admission?: Yes (2) Acidosis, lactic: -with high K, high phos, severely elevated lactate, most suggestive of occult tissue or sepsis. urine w/ + cx not compelling explanation for elevated lactate; ? relation of lactate to low BG, though cause of that truly unknown; it also recurred again today; ? if she could have had a seizure prior to admission from low BG contributing to lactate elevation now -check serum osms, trend lactate, check CK and peripheral smear -abd ct done, not revealing ->>>has never had chest CT despite multiple admissions > low threshold for this; she has had significant respiratory alkaloses on prior admissions >>? if any w/u can be done on this >challenging case > the original question is whether pt needs dialysis > it certainly might help to correct or at least stabilize acid base disorders and volume overload. that said, pH 7.3 is hardly a metabolic emergency. not clear to me how well she will tolerate dialysis w/ her HF. The bigger issue though is that she is DNR/DNI, per latest note this afternoon from critical care, family is declining evencentral IV access and further escalation of care/ invasive procedures. without central vascular access or at least option of intubation to help stabilize her clinically, dialysis is not an appropriate therapy. -at this point would hold off on dialysis; consider bicarbonate rich IVF and may also need to consider lasix or lasix w/ albumin w/ workup as above -prognosis quite poor w/ lactate in this range -consider adding vanco to antibiotics Present on Admission?: Yes (3) BRIANDA (acute kidney injury): relatively mild w/ creatiinine 1.5; monitor; strict I/O Present on Admission?: Yes (4) Hyperkalemia: lactate / poor perfusion and tissue may have a role -- see above labs -would avoid IV insulin to correct -may need to use lasix IV 20 mg tid; for now use bicarb gtt if she tolerates Present on Admission?: Yes (5) Abnormal CBC: worsening of persistently increased WBC w/ large ANC, high plt count, nucleated RBC >order in to check peripheral smear Present on Admission?: Yes History of Present Illness Reason for Consultation: ? need for dialysis Requesting Physician: Dr Kramer Attending Physician: Renny Brunner MD History of Present Illness 64 y/o F whom I'm asked to see for possible need for dialysis after she was admitted here yesterday from [facility] w/ unresponsive episode, BG 15, rectal temp 34F. PMH includes stress induced cardiomyopathy w/ EF 15-20% dx'd last month, severe malnutrition, chronic pain w/ opiate dependence, chronic hyponatremia, recent pelvic/lumbar fractures after fall at home late May, HT N, depression/anxiety/OCD, past CKD 3 w2017 sCreat in 1.2-1.3 range, active tobacco abuse, interstitial cystitis, emphysema; [facility] admission 12/2018 for ileus from narcotics Initial labs showed K 5.9, pH 7.26, lactate yesterday was 7.8, up to 12.3 today. Her UA on presentation was contaminated but may be c/w infection. overnight her bicarb dropped from 13 > 9, K this AM is 5.8, creatinine 1.5. ABG this AM showed pH 7.30, pC02 16, bicarb 8. She is on 3L 02NC. She saw palliative care yesterday: the pt is DNR/DNI with a trial of antibiotics and no artificial nutrition or hydration. Urine cx + w/ 2 different GNR. Of note I was consulted for her earlier this month for metabolic acidosis attributed at that time to combined starvation ketoacidosis and appropriate compensation for chronic respiratory alkalosis of unclear cause. Pt evaluated this am at about 1015; she was lethargic and would track briefly but unable to partcipate in interview. Allergies Allergy/AdvReac Type Severity Reaction Status Date / Time Barbiturates Allergy Severe Unknown Verified 07/15/19 07:36 belladonna alkaloids Allergy Severe Unknown Verified 07/15/19 07:36 dicyclomine Allergy Severe Unknown Verified 07/15/19 07:36 azithromycin Allergy Mild Hives Unverified 07/15/19 07:36 mivacurium Allergy Mild Unknown Verified 07/15/19 07:36 Penicillins Allergy Mild AMOXICILLIN Verified 07/15/19 07:36 phenobarbital Allergy Mild Unknown Verified 07/15/19 07:36 Quinolones Allergy Mild Unknown Verified 07/15/19 07:36 amoxicillin Allergy Unknown rash Unverified 07/15/19 07:36 Nitrate Analogues Allergy Unknown Unknown Verified 07/15/19 07:36 nitrofurantoin Allergy Unknown Unknown Verified 07/15/19 07:36 nitroglycerin Allergy Unknown Unknown Verified 07/15/19 07:36 Sulfa (Sulfonamide Allergy Unknown sulfa Verified 07/15/19 07:36 Antibiotics) Home Medications Home Medications Medication Instructions Recorded Confirmed Type Ensure 1 ea PO TID 07/02/19 07/15/19 History benzonatate [Tessalon Perles] 100 mg PO TID PRN 07/02/19 07/15/19 History bupropion HCl [Wellbutrin XL] 150 mg PO QAM 07/02/19 07/15/19 History lisinopril 20 mg PO QAM 07/02/19 07/15/19 History potassium chloride [Klor-Con M20] 20 meq PO QAM 07/02/19 07/15/19 History promethazine 25 mg PO Q4H PRN 07/02/19 07/15/19 History ropinirole [Requip] 0.25 mg PO HS 07/02/19 07/15/19 History simethicone 125 mg PO Q8H PRN 07/02/19 07/15/19 History venlafaxine [Effexor XR] 300 mg PO QAM 07/02/19 07/15/19 History ferrous sulfate 325 mg PO Q48H 30 Days #30 tab 07/12/19 07/15/19 Rx fluconazole 200 mg PO QAM 10 Days #20 tab 07/12/19 07/15/19 Rx furosemide 20 mg PO QAM 30 Days #30 tab 07/12/19 07/15/19 Rx albuterol sulfate 2.5 mg INHALATION QID PRN 07/15/19 07/15/19 History gabapentin 300 mg PO HS 07/15/19 07/15/19 History pentosan polysulfate sodium 100 mg PO BID 07/15/19 07/15/19 History [Elmiron] tramadol 50 mg PO Q4H PRN 07/15/19 07/15/19 History Patient History Medical History Depression (Chronic) Migraines (Chronic) Tobacco abuse (Chronic) OCD (obsessive compulsive disorder) (Chronic) CKD (chronic kidney disease), stage III (Chronic) IBS (irritable bowel syndrome) (Chronic) HTN (hypertension) (Chronic) Surgical History History of total abdominal hysterectomy (Chronic) H/O hernia repair (Chronic) History of back surgery (Chronic) H/O colonoscopy (Chronic) H/O sinus surgery (Chronic) Family History Other Diabetes Hypertension Social History Preferred Language: Brazilian Communication Ability: Impaired Laundry Presser Required: No Beliefs That Will Affect Care: None Current Living Situation: Skilled Nursing Current Living Situation Comment: lives with dtr Other Information That Helps Us Care for You: No Feels Safe at Home: Yes Smoking Status: Unknown if ever smoked Hx Alcohol Use: No Hx Substance Use: No Review of Systems Review of Systems: Unobtainable due to reduced consciousness Physical Exam Constitutional: well developed, + thin, + altered mental status, + frail appearing and + malnourished pursed lip breathing on RA Eyes: EOM intact bilaterally ENMT: Ears: no external ear abnormality Nose: no external nose abnormality Mouth: + dry oral mucous membranes Neck: no nuchal rigidity Respiratory: normal respiratory effort Auscultation: + diminished lung sounds; no rhonchi and no wheezes Cardiovascular: Rate/Rhythm: regular rate and regular rhythm Heart Sounds: no murmur Extremities: no edema Gastrointestinal (Abdomen): Inspection/Auscultation: normal bowel sounds Percussion/Palpation: abdomen soft; abdomen nontender Musculoskeletal: ceja Skin: no rashes and no lesions cooler extremities, early mottling BL feet Neurologic: ceja, makes brief attempt to speak and is uninteliigible, no tremor Psychiatric: very lethargic, cannot participate Genitourinary: jiménez w/ some urine Results & Data Vital Signs (Past 12 Hours) Vital Signs Temp Pulse Pulse Resp BP BP Pulse Ox 07/16/19 06:00 85 21 141/60 H 94 07/16/19 05:01 85 23 115/87 07/16/19 05:00 86 24 07/16/19 04:50 89 21 07/16/19 04:40 89 30 H 07/16/19 04:31 90 30 H 157/109 H 07/16/19 04:30 88 24 07/16/19 04:20 90 30 H 07/16/19 04:10 93 H 32 H 07/16/19 04:01 95 H 39 H 88 L 07/16/19 04:00 95 H 29 H 153/112 H 88 L 07/16/19 03:50 93 H 30 H 86 L 07/16/19 03:46 93 H 25 H 146/115 H 07/16/19 03:40 98 H 28 H 07/16/19 03:30 93 H 25 H 07/16/19 03:20 100 H 20 07/16/19 03:10 103 H 17 07/16/19 03:01 88 21 07/16/19 03:00 37.5 C 87 88 20 131/79 131/79 96 07/16/19 02:50 87 19 07/16/19 02:40 93 H 21 07/16/19 02:30 99 H 19 07/16/19 02:00 86 85 20 137/87 137/87 94 07/16/19 01:55 85 07/16/19 01:50 85 20 94 07/16/19 01:00 87 21 130/90 89 L 07/16/19 00:29 95 H 19 139/90 97 07/16/19 00:00 87 20 140/89 94 07/15/19 23:00 84 19 123/75 95 07/15/19 22:01 89 21 96 07/15/19 22:00 88 22 142/90 H 96 Laboratory Results 07/16/19 04:31 07/16/19 04:31 Diagnostic Findings cxr 1. Cardiomegaly with evidence of congestive failure. This is similar to yesterday. 2. Small pleural effusions. head CT no acute abnormality CT abd/pelvis w/ con early june 1. Development of a right pleural effusion. 2. Trace abdominal and pelvic ascites with findings suggesting developing hepatic cirrhosis. 3. Atrophy of the kidneys. 4. Mild diffuse wall edematous change of the small bowel as well as colon consistent with a diffuse enterocolitis 5. No evidence for obstruction or free air. 6. Developing mild body wall anasarca. 7. Interval development of a fracture of the right symphysis pubis. 8. Pre-existing or subacute sacral insufficiency fractures. TTE today > EF still 15-20% ct abd today 1. No CT evidence to suggest ischemic bowel. 2. Mild diffuse gaseous distention of small bowel could represent ileus. No bowel obstruction. 3. Volume overload with cardiomegaly, bilateral effusions, anasarca, and ascites. 4. Groundglass and reticular infiltrate in the lateral basal left lower lobe is evidence of pneumonia, new from prior. 5. Redemonstration of multiple subacute fractures including the right pubis and bilateral sacral ala. renal u/s > no acute process GB u/s 1. No cholelithiasis or biliary ductal dilatation. 2. Heterogeneous and hyperechogenic liver parenchyma could indicate underlying fibrosis or steatosis. 3. Right pleural effusion. 4. Body wall edema.
[2019-07-16] MEDS ORDERED: ACETYLCYSTEINE IV ONE ×3 (09:45→15:00)
[2019-07-16] MEDS ORDERED: DEXTROSE 5% IV ONE ×3 (09:45→15:00)
[2019-07-16 10:01] LABS: Base Excess VBG -13.7 mEq/L; HCO3 VBG 12 mmol/L; PCO2 VBG 27 mmHg (38-50); PO2 VBG 31 mmHg; pH VBG 7.27 (7.36-7.41)
[2019-07-16 10:05] LABS: Oxygen Saturation VBG < 60.0 %
[2019-07-16] MEDS ORDERED: fentaNYL citrate 100 MCG/2 ML VIAL IV ONE (10:09)
[2019-07-16] MEDS: PENTOSAN POLYSULFATE SODIUM 100 MG CAP PO SCH (10:14)
[2019-07-16] MEDS: THIAMINE HCL 100 MG in SYRINGE 9 ML IV SCH (10:16)
[2019-07-16] MEDS: HEPARIN SOD 5,000 UNIT/0.5 ML VIAL SQ SCH ×2 (10:17→20:10)
--- NOTE | 2019-07-16 10:20 | Gastrointestinal Consultation ---
Date of Consultation July 16, 2019 Assessment & Plan (1) Abnormal LFTs (liver function tests): Ms. Patrick's transaminitis is likely caused by sepsis or shock liver - after a period of poor perfusion to the liver as may occur during poor perfusion to the liver as may occur during hypothermia and hypoglycemia which she experienced. The elevated INR (1.8) with the elevated transaminases and worsening kidney function is worrisome for early liver failure, if she has not been on warfarin prior to arrival. 1. IV hydration, tx of UTI. 2. CT abd/pelvis and US are ordered. Will review results when available. Clear bile ducts on imaging will r/o an obstructive process in the liver. 3. Follow LFTs and INR daily. Present on Admission?: Yes Supervising Physician Co-Signing Physician Notes I have seen and examined the patient with MIGUELITO Bennett whose note reflects our findings and plan. History of Present Illness Reason for Consultation: Elevated LFTs Requesting Physician: Dr. Brunner Attending Physician: Renny Brunner MD History of Present Illness Ms. Nena Patrick is a 63 yr old female with a hx of Takotsubo cardiomyopathy with EF: 15-20% mood disorder, chronic hyponatremia, CKD III, transferred here from the [facility] yesterday for altered mental status. She is admitted to the ICU for metabolic encephalopathy, acute UTI, ROEB and hypoglycemia (BS was 13). GI is consulted for elevated LFTs: AST 322, ALT 254, Alk Phos 227, Bili remains without significant elevations. INR is 1.8. She has not been on wafarin. Acetylcysteine has been initiated. Her LFTs have been elevated since early June and are continuing to steadily increase. Other significant lab abnormalities include leukocytosis at 15, chronic anemia, Hb 8.8/28, lactate 12. Glucose has been corrected to 112. The pt is seen and examined while she is resting in the position in her bed in the ICU. She denied abdominal pain and there was no grimacing when I palpated her abdomen. Her nurse tells me that she is not really able carry on a conversation. She does not have jaundice/icterus and abdomen is soft on exam. She is mildly hypotensive now at Allergies Allergy/AdvReac Type Severity Reaction Status Date / Time Barbiturates Allergy Severe Unknown Verified 07/15/19 07:36 belladonna alkaloids Allergy Severe Unknown Verified 07/15/19 07:36 dicyclomine Allergy Severe Unknown Verified 07/15/19 07:36 azithromycin Allergy Mild Hives Unverified 07/15/19 07:36 mivacurium Allergy Mild Unknown Verified 07/15/19 07:36 Penicillins Allergy Mild AMOXICILLIN Verified 07/15/19 07:36 phenobarbital Allergy Mild Unknown Verified 07/15/19 07:36 Quinolones Allergy Mild Unknown Verified 07/15/19 07:36 amoxicillin Allergy Unknown rash Unverified 07/15/19 07:36 Nitrate Analogues Allergy Unknown Unknown Verified 07/15/19 07:36 nitrofurantoin Allergy Unknown Unknown Verified 07/15/19 07:36 nitroglycerin Allergy Unknown Unknown Verified 07/15/19 07:36 Sulfa (Sulfonamide Allergy Unknown sulfa Verified 07/15/19 07:36 Antibiotics) Home Medications Home Medications Medication Instructions Recorded Confirmed Type Ensure 1 ea PO TID 07/02/19 07/15/19 History benzonatate [Tessalon Perles] 100 mg PO TID PRN 07/02/19 07/15/19 History bupropion HCl [Wellbutrin XL] 150 mg PO QAM 07/02/19 07/15/19 History lisinopril 20 mg PO QAM 07/02/19 07/15/19 History potassium chloride [Klor-Con M20] 20 meq PO QAM 07/02/19 07/15/19 History promethazine 25 mg PO Q4H PRN 07/02/19 07/15/19 History ropinirole [Requip] 0.25 mg PO HS 07/02/19 07/15/19 History simethicone 125 mg PO Q8H PRN 07/02/19 07/15/19 History venlafaxine [Effexor XR] 300 mg PO QAM 07/02/19 07/15/19 History ferrous sulfate 325 mg PO Q48H 30 Days #30 tab 07/12/19 07/15/19 Rx fluconazole 200 mg PO QAM 10 Days #20 tab 07/12/19 07/15/19 Rx furosemide 20 mg PO QAM 30 Days #30 tab 07/12/19 07/15/19 Rx albuterol sulfate 2.5 mg INHALATION QID PRN 07/15/19 07/15/19 History gabapentin 300 mg PO HS 07/15/19 07/15/19 History pentosan polysulfate sodium 100 mg PO BID 07/15/19 07/15/19 History [Elmiron] tramadol 50 mg PO Q4H PRN 07/15/19 07/15/19 History Patient History Medical History Depression (Chronic) Migraines (Chronic) Tobacco abuse (Chronic) OCD (obsessive compulsive disorder) (Chronic) CKD (chronic kidney disease), stage III (Chronic) IBS (irritable bowel syndrome) (Chronic) HTN (hypertension) (Chronic) Surgical History History of total abdominal hysterectomy (Chronic) H/O hernia repair (Chronic) History of back surgery (Chronic) H/O colonoscopy (Chronic) H/O sinus surgery (Chronic) Family History Other Diabetes Hypertension Social History Preferred Language: Comoran Communication Ability: Effective Veterinarian Small Animal Required: No Beliefs That Will Affect Care: None Current Living Situation: Group Home Current Living Situation Comment: lives with dtr Other Information That Helps Us Care for You: No Feels Safe at Home: Yes Smoking Status: Unknown if ever smoked Hx Alcohol Use: No Hx Substance Use: No Review of Systems Review of Systems: Not obtainable from the pt as she generally denies symptoms or will say yes but not be able to answer any more specific questions. Physical Exam Constitutional: + ill appearing and + cachectic temporal wasting Eyes: PERRL, conjunctivae normal, anicteric sclerae ENMT: external ear and nose normal, oropharynx normal Neck: trachea midline, no thyromegaly Respiratory: Auscultation: + wheezes (mild to moderate, throughout. ) Cardiovascular: RRR, no murmur, no edema Gastrointestinal (Abdomen): normal bowel sounds, soft, nontender, no hepatosplenomegaly Musculoskeletal: generally weak w/o focal weakness Skin: no rashes, warm and dry Neurologic: PERRL, EOMI, accommodation nl, no face palsy, no dysarthria Psychiatric: Orientation: alert Appears comfortable, no obvious irritability or aggitation. Lymphatic: no cervical or axillary lymphadenopathy Results & Data Vital Signs (Past 12 Hours) Vital Signs Temp Pulse Pulse Resp BP BP Pulse Ox 07/16/19 06:00 85 21 141/60 H 94 07/16/19 05:01 85 23 115/87 07/16/19 05:00 86 24 07/16/19 04:50 89 21 07/16/19 04:40 89 30 H 07/16/19 04:31 90 30 H 157/109 H 07/16/19 04:30 88 24 07/16/19 04:20 90 30 H 07/16/19 04:10 93 H 32 H 07/16/19 04:01 95 H 39 H 88 L 07/16/19 04:00 95 H 29 H 153/112 H 88 L 07/16/19 03:50 93 H 30 H 86 L 07/16/19 03:46 93 H 25 H 146/115 H 07/16/19 03:40 98 H 28 H 07/16/19 03:30 93 H 25 H 07/16/19 03:20 100 H 20 07/16/19 03:10 103 H 17 07/16/19 03:01 88 21 07/16/19 03:00 37.5 C 87 88 20 131/79 131/79 96 07/16/19 02:50 87 19 07/16/19 02:40 93 H 21 07/16/19 02:30 99 H 19 07/16/19 02:00 86 85 20 137/87 137/87 94 07/16/19 01:55 85 07/16/19 01:50 85 20 94 07/16/19 01:00 87 21 130/90 89 L 07/16/19 00:29 95 H 19 139/90 97 07/16/19 00:00 87 20 140/89 94 07/15/19 23:00 84 19 123/75 95 Laboratory Results WBC 15, Hb 8.8, Hct 28, Platelets 482, INR 1.8, BUN 38, Cr 152, lactate 12, AST 322, ALT 254, Alk Phos 227.
[2019-07-16] MEDS: SODIUM BICARBONATE 8.4% 150 MEQ in DEXTROSE 5% 1,000 ML IV SCH (10:56)
[2019-07-16] MEDS: DEXTROSE 50% 50 ML SYRINGE IV PRN ×3 (12:15→21:48)
--- NOTE | 2019-07-16 12:19 | Ultrasound Report ---
US gallbladder CLINICAL HISTORY: 64 years-old Female presenting with Elevated LFT's. TECHNIQUE: Real-time grayscale and limited color Doppler ultrasound imaging of the abdomen limited to the right upper quadrant was performed. COMPARISON: CT from 07/03/2019. FINDINGS: Pancreas: Visualized portions of the pancreatic head and body normal. Liver: Hyperechogenic parenchyma with heterogeneous echotexture, likely indicating fibrosis or steato sis. The liver measures 19.4 cm in maximal sagittal dimension. No sonographic evidence of hepatic mas s. Main portal vein patent with normal directional flow. Biliary: No intrahepatic biliary ductal dilatation. Common bile duct measures up to 4 mm in diameter. Gallbladder: No evidence of gallstones, gallbladder wall thickening, gallbladder distention, or peric holecystic fluid or inflammatory change. Right kidney: Normal in appearance without evidence of hydronephrosis. Ascites: None. Other: Right pleural effusion. Prominent subcutaneous edema along the abdominal wall the right lower quadrant IMPRESSION: 1. No cholelithiasis or biliary ductal dilatation. 2. Heterogeneous and hyperechogenic liver parenchyma could indicate underlying fibrosis or steatosis . 3. Right pleural effusion. 4. Body wall edema. Electronically signed by: Erick Ribera M.D. 07/16/2019 12:18 PM
--- NOTE | 2019-07-16 12:22 | Ultrasound Report ---
US renal/blad retro comp CLINICAL HISTORY: 64 years-old Female presenting with BRIANDA on CKD. TECHNIQUE: Real-time grayscale and limited color Doppler ultrasound imaging of the kidneys and bladde r was performed. COMPARISON: CT from 07/03/2019. FINDINGS: Right kidney: Increased echogenicity of renal parenchyma. Right kidney measures 9.2 cm. No hydronephr osis. No convincing evidence of calculus or mass. Left kidney: Increased echogenicity of renal parenchyma. Left kidney measures 9.0 cm. No hydronephros is. No convincing evidence of calculus or mass. Bladder: Decompressed with a Sumner catheter. Bilateral ureteral jets not visualized. Other: Left pleural effusion. IMPRESSION: 1. Echogenic renal parenchyma suggests medical renal disease. 2. No hydronephrosis. 3. Left pleural effusion. Electronically signed by: Erick Ribera M.D. 07/16/2019 12:21 PM
--- NOTE | 2019-07-16 13:16 | CT Scan Report ---
CT abd pelvis wo con CLINICAL HISTORY: 64 years-old Female presenting with Lactic acidosis, Elevated LFT's. TECHNIQUE: Multidetector CT of the abdomen and pelvis was performed without the use of intravenous co ntrast. IV contrast: None. One or more dose lowering techniques were used consistent with the princip les of ALA (as low as reasonably achievable), including automatic exposure control, mA or kV adjust ment to individual patient size, and/or use of iterative reconstruction. COMPARISON: 07/03/2019. CT DOSE (mGy.cm): The estimated cumulative dose is 463.21 mGycm. FINDINGS: Insert Molding Operator topogram: Unremarkable. Extensive motion artifact degrades image quality in addition to the absence of intravenous and oral c ontrast. Additionally placement of the arms at the sides degrades image quality due to streak artifac t. Lung bases: Multichamber enlargement of the heart. Small pericardial effusion. Moderate right and sma ll left pleural effusions. Extensive bibasilar atelectasis, likely passive atelectasis. Groundglass a nd reticular infiltrate in the lateral basal left lower lobe new from prior. Liver: Normal morphology. Density consistent with hepatic steatosis. Hypodense lesion along the fissu re for the ligamentum teres, indeterminate. Biliary: No gross biliary ductal dilatation allowing for noncontrast technique. Gallbladder not delin eated though present on prior exam. Pancreas: Normal noncontrast appearance. Spleen: Normal noncontrast appearance. Adrenal glands: Normal noncontrast appearance. Kidneys and ureters: Normal noncontrast appearance. No nephrolithiasis. No hydronephrosis. Normal ure ters. Bladder: Decompressed with a Sumner catheter. Pelvic organs: Uterus surgically absent. Bowel: A temperature probe is in place within the rectum, which demonstrates mild circumferential wal l thickening. Fluid may also be present in the rectum. Mild stool burden proximally. Small bowel is m ildly and diffusely distended with gas. No wall thickening or pneumatosis. No convincing evidence of obstruction. The stomach is also moderately distended with gas. Peritoneal cavity: Small ascites in the pelvis. No free intraperitoneal gas. Lymph nodes: No gross lymphadenopathy allowing for noncontrast technique. Vasculature: Atherosclerosis of the normal caliber abdominal aorta. Abdominal wall: Severe anasarca. Musculoskeletal: Degenerative changes of the spine. Comminuted fracture of the right pubis, which is intra-articular at the pubic symphysis as on prior exam. Subacute bilateral sacral alar fractures as on prior exam. Osteopenia. IMPRESSION: 1. No CT evidence to suggest ischemic bowel. 2. Mild diffuse gaseous distention of small bowel could represent ileus. No bowel obstruction. 3. Volume overload with cardiomegaly, bilateral effusions, anasarca, and ascites. 4. Groundglass and reticular infiltrate in the lateral basal left lower lobe is evidence of pneumoni a, new from prior. 5. Redemonstration of multiple subacute fractures including the right pubis and bilateral sacral ala . Electronically signed by: Erick Ribera M.D. 07/16/2019 1:14 PM
--- NOTE | 2019-07-16 14:19 | Intensivist Progress Note ---
Date of Service July 16, 2019 Supervising Physician Co-Signing Physician Notes Subsequent to the 12:00 conversation I had additional conversations with additional family members including the patient's power of banking attorney daughter as well as son. There is a cousin who works for a hospice facility who is providing assistance and support to the family. Family wanted to explore options for transfer to [facility], I emphasized the I am willing to start those conversations and transfer process however transfer to a higher level of care is done under the premise that the patient is wanting aggressive treatment. Accordingly I feel she is too unstable from a respiratory standpoint for helicopter flight without a secure airway. All family members are in agreement once again that the patient would not want endotracheal intubation. With regards to advanced therapies we have the ability to provide dialysis, I have consulted nephrology however that still does not appear to be a therapeutic modality that should be strongly considered. Further I have emphasized that the patient should obtain advanced vascular access to allow us to administer bicarbonate and Mucomyst at the same time and again I emphasized that we are limited in terms of the medication we can administer because of compatibility issues. I emphasized that we have had numerous providers as well as IV team attempted to obtain additional peripheral vascular access at this point central venous access is the best option for continued care. Obviously the family appeared to be struggling with these decisions and the statement was made by the patient's daughter "where can I send her to " and we discussed hospice and palliative care options. It appears at this time the family is still hoping to continue care however is declining heroic efforts such as intubation, resuscitation and at this time are struggling with to proceed or not to proceed with central venous access. If the family continues to proceed toward a palliative/comfort option the patient's daughter felt the hospitalist to "sterile", therefore, we are having case management look into hospice facilities as if there is significant decompensation I hope she will have a level of stability that will allow her to be transferred out of the hospital into a more appropriate facility as determined by the patient's daughter. Results & Data Vital Signs (Past 12 Hours) Vital Signs Temp Pulse Pulse Resp BP BP Pulse Ox 07/16/19 11:01 84 27 H 110/77 07/16/19 10:01 85 32 H 96/64 L 07/16/19 09:00 86 20 139/95 79 L 07/16/19 08:00 84 21 144/98 H 07/16/19 07:01 84 19 137/81 07/16/19 06:00 85 21 141/60 H 94 07/16/19 05:01 85 23 115/87 07/16/19 05:00 86 24 07/16/19 04:50 89 21 07/16/19 04:40 89 30 H 07/16/19 04:31 90 30 H 157/109 H 07/16/19 04:30 88 24 07/16/19 04:20 90 30 H 07/16/19 04:10 93 H 32 H 07/16/19 04:01 95 H 39 H 88 L 07/16/19 04:00 95 H 29 H 153/112 H 88 L 07/16/19 03:50 93 H 30 H 86 L 07/16/19 03:46 93 H 25 H 146/115 H 07/16/19 03:40 98 H 28 H 07/16/19 03:30 93 H 25 H 07/16/19 03:20 100 H 20 07/16/19 03:10 103 H 17 07/16/19 03:01 88 21 07/16/19 03:00 37.5 C 87 88 20 131/79 131/79 96 07/16/19 02:50 87 19 07/16/19 02:40 93 H 21 07/16/19 02:30 99 H 19 Critical Care Time Critical Care Time: Yes Total Critical Care Time: 30 PG Care Time/CCT Total # of Minutes Spent Total Time Spent with Patient: Total time spent is greater than 50% in coordination of care (as documented) at patient's floor/unit and/or counseling patient: Critical Care Time: Yes Total Critical Care Time: 30
[2019-07-16] MEDS ORDERED: PIPERACILLIN/TAZOBACTAM 4.5 GM in DEXTROSE 5% 100 ML IV SCH (15:00)
--- NOTE | 2019-07-16 15:22 | Hospitalist Progress Note ---
Date of Service July 16, 2019 Assessment & Plan (1) Metabolic encephalopathy: History of recent metabolic encephalopathy Multifactorial:Secondary to infection with possible UTI, pneumonia, use of multiple anxiolytic and sedatives medications, hypoglycemia and hypothymia, hepatic congestion Clinically stable but biochemically very unstable CT scan of the head has been negative for any acute event EEG-did not show any seizure focus Remains critical without any significant acute distress Remains pleasantly confused and is back to her baseline (2) Metabolic acidosis: (3) Acidosis, lactic: This is a 64-year-old female with a PMH of Takotsubo cardiomyopathy with EF: 15-20% mood disorder, chronic hyponatremia, CKD III, recent pelvic and lumbar fractures and other medical problems listed below who presents today from [facility] after being found unresponsive and was found to have altered mental status 2/2 metabolic acidosis. -Initially hypoglycemic with BSG at 13, hypothermic with rectal temp of 34 C -ABG with pH of 7.26, lactate of 12.3, anion gap of 21 -Temperature improved to 37.2 C with Daylin hugger -Gentle IV fluids due to history of EF of 15-20% -Has been getting bicarbonate drip for metabolic acidosis with renal impairment -Appreciate nephrology input and recommendation -Appreciate bulk system operator input and recommendation (4) Acute UTI: Noted to have abnormal UA. Rocephin started empirically -Blood culture is negative, -urine cultures : Growing gram-negative bacilli -Continue current antibiotic, IV Zosyn Pneumonia left lower lobe Documented in CT of the abdomen and pelvis this morning We will continue Zosyn for now (5) Hypoglycemia: BSG initially reported as 13 in setting of known poor PO intake -BSG improving to mid-100s with dextrose infusion -No definite cause for hypoglycemia except poor oral intake -Has been receiving intravenous dextrose and blood sugar -Still having hypoglycemia on dextrose drip -We will get insulin level and serum peptide level too (6) Acute kidney injury superimposed on chronic kidney disease: Cr of 1.60, BUN of 37 in setting of poor PO intake, lasix for systolic heart failure -Cannot give too much IV fluid and received small amounts of We will monitor PRP -Renal function is getting worse with ongoing metabolic acidosis and electrolyte imbalance -Appreciate nephrology input and recommendation -Has been getting bicarbonate drip (7) Goals of care, counseling/discussion: Met with palliative care today after recent decision for DNR/DNI by family -Daughter stated she used to care for her mother at home, but now has been a resident at [facility] the [facility] for close to a year -Appreciate palliative care input and recommendation (8) Takotsubo cardiomyopathy: Newly discovered biventricular systolic failure -2D echo from earlier this month showed EF 15-20% (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) -Continue Lopressor, lisinopril -Monitor closely for volume overload -Repeat echo did show severe decreased LV function with EF remains around 15 to 20% (9) Hypothermia: Noted to be hypothermic at presentation Temperature seems to be normalized now (10) Abnormal LFTs (liver function tests): Has had abnormal LFTs during recent admission And that was improving Noted to have worsening LFTs during this admission Likely secondary to hepatic congestion and/or shock and could be due to use of multiple medications including Tylenol -Tylenol level has been normal -We will monitor LFTs -Liver enzymes have been worsened and the patient is started with intravenous N- acetylcysteine -Appreciate GI input and recommendation -We will continue current treatment Code status: DNR/DNI per discussion PCP: [facility] Dispo: Admitted to ICU. Discharge planning ordered. The patient was seen and examined in ICU in presence of the daughter, son-in-law and Discussed about the current situation and answered all of their questions Patient is made DNR and palliative care consulted Agree with assessment and plan as outlined above by JAIMEE Vivar DR Repeated discussions with the family members 5 or 6 of them including the daughter Updated about current condition of multiorgan failure; heart failure, liver failure, kidney failure associated with infection. Plan to continue current aggressive treatment to see if any turning point The family members have been refusing any further line placement for giving appreciate medications The patient's condition remained critical but hemodynamically stable We will continue current treatment overnight and the condition gets better we will continue to treat the condition,if she gets worse with her general condition or worsening labs Likely to be changed to comfort care and the family members are agreeable with that. Discussed with bulk system operator and care will be transferred to Dr. Ghotra from tomorrow Subjective 07/16 The patient was seen and examined in ICU he developed 3 times since this morning in the presence of the family members She was admitted yesterday with metabolic encephalopathy with severe hypoglycemia and lactic acidosis likely secondary infection and/or hypotension Denies any significant symptoms of pain, shortness of breath or decreased responsiveness Her labs have been grossly abnormal as documented below Review of Systems Review of Systems: All systems reviewed and are unremarkable except as mentioned below Constitutional: + fatigue, + malaise and + weakness Respiratory: + dyspnea (Minimal dyspnea at rest) and + wheezing Cardiovascular: no chest pain and no palpitations Gastrointestinal: no abdominal pain, no bloating, no nausea and no vomiting Neurologic: + generalized weakness and + confusion (Pleasantly confused) Moving all limbs Physical Exam Physical Exam: Lying in bed with minimal distress Constitutional: + ill appearing, + thin, + cachectic and + frail appearing Eyes: PERRL, conjunctivae normal, anicteric sclerae ENMT: external ear and nose normal, oropharynx normal Neck: trachea midline, no thyromegaly Respiratory: + respiratory distress (Minimal respiratory distress at rest) and + cough Auscultation: + diminished lung sounds and + wheezes (mild to moderate, throughout. ) Cardiovascular: RRR, no murmur, no edema Rate/Rhythm: regular rate and regular rhythm Heart Sounds: normal S1 and normal S2; no click, no gallop, no murmur and no cardiac rub Vessels: normal peripheral pulses and dorsalis pedis pulses present Extremities: normal capillary refill; no edema Gastrointestinal (Abdomen): normal bowel sounds, soft, nontender, no hepatosplenomegaly Inspection/Auscultation: abdomen normal to inspection Percussion/Palpation: abdomen soft; abdomen nontender Musculoskeletal: No acute arthritis in any of the joints Skin: no rashes, warm and dry Neurologic: PERRL, EOMI, accommodation nl, no face palsy, no dysarthria Psychiatric: Orientation: alert Lymphatic: no cervical or axillary lymphadenopathy Results & Data Vital Signs (Past 12 Hours) Vital Signs Pulse Pulse Resp BP BP Pulse Ox 07/16/19 11:01 84 27 H 110/77 07/16/19 10:01 85 32 H 96/64 L 07/16/19 09:00 86 20 139/95 79 L 07/16/19 08:00 84 21 144/98 H 07/16/19 07:01 84 19 137/81 07/16/19 06:00 85 21 141/60 H 94 07/16/19 05:01 85 23 115/87 07/16/19 05:00 86 24 07/16/19 04:50 89 21 07/16/19 04:40 89 30 H 07/16/19 04:31 90 30 H 157/109 H 07/16/19 04:30 88 24 07/16/19 04:20 90 30 H 07/16/19 04:10 93 H 32 H 07/16/19 04:01 95 H 39 H 88 L 07/16/19 04:00 95 H 29 H 153/112 H 88 L 07/16/19 03:50 93 H 30 H 86 L 07/16/19 03:46 93 H 25 H 146/115 H 07/16/19 03:40 98 H 28 H 07/16/19 03:30 93 H 25 H 07/16/19 03:20 100 H 20 07/16/19 03:10 103 H 17 Laboratory Results Short CBC 07/16/19 Range/Units 04:31 WBC 15.49 H (4.8-10.8) K/uL Hgb 8.8 L (12.0-16.0) g/dL Hct 28.1 L (37-47) % Plt Count 482 H (130-400) K/uL BMP 07/16/19 04:31 Sodium 130 L Potassium 5.8 H Chloride 100 Carbon Dioxide 9 L* BUN 38 H Creatinine 1.52 H Glucose 144 H Calcium 8.1 L Cardiac Enzymes 07/16/19 Range/Units 04:31 Troponin I 0.036 (0-0.045) ng/ml Liver Function 07/16/19 Range/Units 04:31 Total Bilirubin 0.5 (0.2-1) mg/dl AST 322 H (15-37) U/L ALT 254 H (12-78) U/L Alkaline Phosphatase 227 H (45-117) U/L Albumin 2.5 L (3.4-5.0) gm/dl Medications Administered Current Inpatient Medications Albuterol (Ventolin 0.083% 2.5mg/3ml) 2.5 mg INH QID PRN PRN Reason: Shortness Of Breath Stop: 08/14/19 14:47 Dextrose (Dextrose 50%) 25 - 50 ml IV UD PRN; Protocol PRN Reason: Hypoglycemia Protocol Stop: 08/14/19 11:17 Last Admin: 07/16/19 12:15 Dose: 50 ml Documented by: Ferrous Sulfate (Feosol) 325 mg PO Q48H [facility] Stop: 08/15/19 08:59 Last Admin: 07/16/19 10:14 Dose: Not Given Documented by: Glucagon (Glucagen) 1 mg SQ UD PRN; Protocol PRN Reason: Hypoglycemia Protocol Stop: 08/14/19 11:17 Glucose (Glucose 40%) 15 - 30 gm PO UD PRN; Protocol PRN Reason: Hypoglycemia Protocol Stop: 08/14/19 11:17 Glucose (Dex4 Glucose) 4 - 8 tabs PO UD PRN; Protocol PRN Reason: Hypoglycemia Protocol Stop: 08/14/19 11:17 Heparin Sodium (Porcine) (Heparin Sodium (Porcine)) 5,000 units SQ Q12 [facility] Stop: 08/15/19 08:59 Last Admin: 07/16/19 10:17 Dose: 5,000 units Documented by: Sodium Bicarbonate 150 meq/ (Dextrose) 1,150 mls @ 75 mls/hr IV .[id number] KANDACE Stop: 08/15/19 09:14 Last Admin: 07/16/19 10:56 Dose: 75 mls/hr Documented by: Thiamine HCl 100 mg/ Syringe 10 mls @ 2 mls/min IV QAM KANDACE Stop: 08/15/19 09:29 Last Admin: 07/16/19 10:16 Dose: 2 mls/min Documented by: Acetylcysteine 5,640 mg/ (Dextrose) 1,028.2 mls @ 64.263 mls/hr IV ONE ONE; Protocol Stop: 07/17/19 06:59 Piperacillin Sod/Tazobactam (Sod 3.375 gm/ Dextrose) 115 mls @ 28.75 mls/hr IV Q8H [facility]; Protocol Stop: 07/26/19 14:59 Miscellaneous (Carbohydrates For Hypoglycemia) 15 - 30 gm PO UD PRN PRN Reason: Hypoglycemia Treatment Stop: 08/14/19 11:17 Miscellaneous (Icu Protocol For Hyperglycemia) 1 ea N/A PRN PRN; Protocol PRN Reason: Hyperglycemia Protocol Stop: 07/17/19 11:17 Miscellaneous Information (Consult) 1 ea N/A UD PRN PRN Reason: Consult Stop: 08/15/19 08:45 Pentosan Polysulfate Sodium (Elmiron) 100 mg PO BID KANDACE Stop: 08/14/19 20:59 Last Admin: 07/16/19 10:14 Dose: Not Given Documented by: Promethazine HCl (Phenergan) 25 mg PO Q4H PRN PRN Reason: Nausea Stop: 08/14/19 14:47 Simethicone (Mylicon) 125 mg PO Q8H PRN PRN Reason: GAS/BLOATING Stop: 08/14/19 14:47 (1) Hypothermia Encounter type: initial encounter Qualified Code(s): T68.XXXA - Hypothermia, initial encounter
[2019-07-16] MEDS: PIPERACILLIN/TAZOBACTAM 3.375 GM in DEXTROSE 5% 100 ML IV SCH ×2 (15:38→22:44)
[2019-07-16] MEDS ORDERED: fentaNYL citrate 100 MCG/2 ML VIAL IV STA (16:41)
[2019-07-16] MEDS ORDERED: SODIUM CHLORIDE 0.9% 250 ML IV PRN (17:02)
[2019-07-16 19:04] LABS: BUN Creatinine Ratio 24.7 (10-20); Calcium 8.4 mg/dl (8.5-10.1); Creatinine Clr Calc Pharmacy 27.5 ml/min; Est GFR (African American) 34.6; Est GFR (Non-African American) 29.8; Potassium 5.6 mmol/L (3.5-5.1); Uric Acid 11.1 mg/dl (2.6-7.2)
[2019-07-16 21:10] VITALS: O2SAT 94
[2019-07-16 22:13] VITALS: BP 141/92
[2019-07-17] MEDS: SODIUM BICARBONATE 8.4% 150 MEQ in DEXTROSE 5% 1,000 ML IV SCH ×2 (01:01→15:55)
[2019-07-17] MEDS: MoRPHine SULFATE 2 MG/ML CARP IV PRN ×7 (01:02→18:06)
[2019-07-17] MEDS ORDERED: DEXTROSE 50% 50 ML SYRINGE IV STA (03:10)
[2019-07-17 04:50] LABS: Hematocrit (blood only) 26.7 % (37-47); Hemoglobin 8.5 g/dL (12.0-16.0); Mean Corpuscular Hemoglobin 25.3 pg (25-34); Mean Corpuscular Hgb Conc 31.8 g/dL (32-36); Mean Corpuscular Volume 79.5 fL (80-100); Mean Platelet Volume 10.4 fL (7.4-10.4); Nucleated RBC # (auto) 0.22 K/uL (0-0); Nucleated RBC % (auto) 1.3 %; Platelet Count 408 K/uL (130-400); RDW Coefficient of Variation 16.7 % (11.5-14.5); RDW Standard Deviation 48.1 fL (36.4-46.3); Red Blood Count 3.36 M/uL (4.2-5.4)
[2019-07-17 05:27] LABS: Albumin Level 2.3 gm/dl (3.4-5.0); BUN Creatinine Ratio 24.7 (10-20); Bilirubin,Total 0.9 mg/dl (0.2-1); Calcium 7.9 mg/dl (8.5-10.1); Creatinine Clr Calc Pharmacy 29.5 ml/min; Est GFR (African American) 37.6; Est GFR (Non-African American) 32.5; Globulin 2.4 gm/dl (2.5-4.0); Potassium 4.9 mmol/L (3.5-5.1); Total Protein 4.7 gm/dl (6.4-8.2)
[2019-07-17 07:18] LABS: Appearance Urine Turbid (Clear); Bacteria Urine Automated Negative (Negative); Bilirubin Urine Negative (Negative); Blood Urine 3+ (Negative); Color Urine Yellow; Epithelial Cell Urine Auto >30 /lpf (0-5); Glucose Urine UA Negative (Negative); Ketones Urine Negative (Negative); Leukocyte Esterase Urine Trace (Negative); Nitrite Urine Negative (Negative); Protein Urine 1+ (Negative); RBC Urine Automated >30 /hpf (0-4); Specific Gravity Urine 1.022 (1.000-1.030); Urobilinogen Urine Negative (Negative); pH Urine 5.5 (4.5-7.5)
[2019-07-17] MEDS: PIPERACILLIN/TAZOBACTAM 3.375 GM in DEXTROSE 5% 100 ML IV SCH ×2 (07:30→15:55)
--- NOTE | 2019-07-17 07:30 | Critical Care Progress Note ---
Date of Service July 17, 2019 Assessment & Plan (1) Acute kidney injury superimposed on chronic kidney disease: Reason Critically Ill: Nena Patrick is a 64 year old woman here from [facility] with altered mental status, hypoglycemia, hypothermia and a lactic acidosis Neuro: Patient remains alert this morning able to maintain coversation CAM -ICU positive altered mentation CARDIAC/VASCULAR - Hemodynamically Stable, holding home lisinopril Patient with EF of 15-20 % per last echocardiogram, possibly secondary to takutsubo cardiomyopathy Repeat echo yesterday showing no improvement Elevated JVD, appears to be somewhat fluid overloaded Discussed with nephrology possibility of dialysis for fluid overload and they did not feel it would be helpful at this time With patient's apparent sepsis and profound cardiac dysfunction I am very concerned about her options should she become hemodynamically unstable Patient's family does not want central line despite discussing benefits and risks. They are leaning more towards making her comfortable even if that fails to extend her life RESPIRATORY - Requiring oxygen currently, After discussion with family giving morphine 1 mg q2h prn which appears to have stopped her tachypneic and respiratory distress episodes she was experiencing earlier Chest XR showing cardiomegaly vascular congestion and mild pulmonary edema. Patient willing to try CPAP/BiPAP but does not wish to be intubated should the need arise GI/NUTRITION - BSG of 15 initally, Have been correcting with D50 as needed Now on D5 with bicarb at 75 mls/hour LFT's markedly worse today, appears to be the result of shock liver CT yesterday showing ileus, fluid overload and pneumonia of LLL RENAL/LYTES - Lactic acidosis possibly secondary to urosepsis vs shocked liver from hypotension when she was found down lactate up to 13.8 Bicarb down up to 23 with bicarb drip Positive urinalysis Received one dose Rocephin in ED will continue with 1000 mg daily BRIANDA ,creatinine up to 1.6; slightly elevated from yesterday 1.4 with a baseline of around 1 Slightly hyponatremic but near her baseline of 130 Hyperkalemia improved to normal range with just holding home postassium - Positive urinalysis on zosyn ENDO - Continues to be hypoglycemic Starting patient on Bicarbonate with D5 HEME - Elevated white count Anemic, but appears to be chronic for her, no acute drop, no evidence of acute hemorrhage ID - Switched to zosyn for possible urosepsis, CT showing evidence of pneumonia as well. MRSA nasal swab negative, so will not add vanc at this time for HCAP Blood cultures and urine cultures pending. preliminary on contaminated urine culture shows two types of gram negative organisms Will continue to monitor and adjust therapy as directed by culture Goals of Care: Will wait for family to arrive to reassess goals of care for patient. They requested to talk overnight to come up with a unified decision for what they think the patient would want if she were making her own decisions. LINES/IV ACCESS - PIV x1 DVT PPx: SCD's F/E/N: NPO for now, will attempt diet if she becomes more alert Dispo: ICU Supervising Physician Co-Signing Physician Notes Dr. Cruz was resident physician during care of patient. I separately evaluated patient for zurita portions of the history and the exam. I was present during the critical portion of medical decision making, and I discussed the case with the resident. I generally agree with the findings and plan. Had extensive discussion with daughter, son, patient, sisters at bedside in the presence of Dr. Ghotra. At this time we will not escalate care beyond intravenous antibiotics and bicarbonate infusion. We specifically discussed advanced venous access with a central venous catheter as well as large and small bore NG tube for supplemental feeding and/or medication administration both are considered contrary to the patient's wishes. Additionally we are allowing the patient to eat a minced and moist diet with thickened liquids and no straws knowing that aspiration is a risk and we are willing to accept aspiration as we are focusing more on comfort. Obviously dialysis would not be indicated as central venous access in any form has been precluded by the patient's desires. We will continue the current level of care, certainly the patient is critically ill however she is not requiring intensive nor advanced therapies nor is she willing to undergo invasive procedures in event of decompensation and therefore will be downgraded out of the ICU. Subjective Spoke with Marco Antonio JUAN who spoke with family, believes they are leaning towards making patient as comfortable as possible and continuing with antibiotic therapy only and IV fluids only. Not desiring NG tube or central line at this time which is consistent with their wishes they expressed to me yesterday. Family not yet in room today, patient awake and alert tells me she is not having any pain and that her only complaint is fatigue. Review of Systems Review of Systems: All systems reviewed & are unremarkable except as noted in HPI & below Physical Exam Eyes: PERRL, conjunctivae normal, anicteric sclerae Respiratory: normal respiratory effort, lungs clear to auscultation Cardiovascular: Rate/Rhythm: regular rate and regular rhythm Heart Sounds: normal S1 and normal S2; no click, no gallop, no murmur and no cardiac rub Vessels: normal peripheral pulses and dorsalis pedis pulses present Gastrointestinal (Abdomen): Inspection/Auscultation: abdomen normal to inspection and + abdomen distended (More distended than it has been, still not tender) Percussion/Palpation: abdomen soft; abdomen nontender Skin: no rashes, warm and dry Results & Data Vital Signs (Past 12 Hours) Vital Signs Pulse Pulse Resp BP 07/17/19 06:00 105 H 07/17/19 05:00 106 H 07/17/19 04:00 95 H 18 07/17/19 03:00 98 H 07/17/19 02:00 96 H 22 07/17/19 01:00 97 H 07/17/19 00:00 92 H 21 07/16/19 23:00 92 H 20 07/16/19 22:00 96 H 26 H 141/92 H 07/16/19 21:22 91 H 23 143/90 H 07/16/19 21:13 101 H 07/16/19 21:00 92 H 23 143/90 H 07/16/19 20:16 91 H 18 153/87 H PG Care Time/CCT Total # of Minutes Spent Total Time Spent with Patient: Total time spent is greater than 50% in coordination of care (as documented) at patient's floor/unit and/or counseling patient: Critical Care Time: Yes Total Critical Care Time: 65 Resident Activity Tracking Resident Involvement: Resident Care Provided Care Provided: Adult Hospital Medicine
--- NOTE | 2019-07-17 07:35 | Nephrology Progress Note ---
Date of Service July 17, 2019 Assessment & Plan (1) Mixed disorder of acid-base balance: she has chronic respiratory alkalosis w/ AG metabolic acidosis, most likely lactic acidosis; need more data to evaluate for other underlying acid/base disorders. She had a basically stable pH this AM to 7.30 despite sigifnicant lactate elevation (2) Acidosis, lactic: -with high K, high phos, severely elevated lactate, most suggestive of occult tissue or sepsis. urine w/ + cx not compelling explanation for elevated lactate; ? relation of lactate to low BG, though cause of that truly unknown; it also recurred again today; ? if she could have had a seizure prior to admission from low BG contributing to lactate elevation now. serum osms wnl; serum bicarb and respiratory status improving/ stabilized but -trend lactate; f/u peripheral smear -abd ct done, not revealing ->>>has never had chest CT despite multiple admissions > low threshold for this; she has had significant respiratory alkaloses on prior admissions >>? if any w/u can be done on this >challenging case > the original question is whether pt needs dialysis > at this point acid base status (to extent we can evaluate w/o ABG) somewhat improved and would not recommend/entertain. family is declining even VS or central IV access and further escalation of care/ invasive procedures. without central vascular access or at least option of intubation to help stabilize her clini will, dialysis is not an appropriate therapy. -at this point would continue bicarbonate rich IVF as tolerated>> consider D5W w/ 75 mEq sodium bicarbonate/ L or continue bicarbonate gtt >> chief indicator for this at this point is increased K and would bicarb fluids will help lower this or at least temporize his -prognosis quite poor w/ lactate in this range - it is continuing to climb -consider adding vanco to antibiotics (3) BRIANDA (acute kidney injury): relatively mild w/ creatiinine 1.5-1.6; monitor; strict I/O (4) Hyperkalemia: lactate / poor perfusion and tissue may have a role -- see above labs -would avoid IV insulin to correct -for now use bicarb gtt if she tolerates (5) Abnormal CBC: worsening of persistently increased WBC w/ large ANC, high plt count, nucleated RBC >f/u peripheral smear Subjective still w/ markedly altered MS; some agitation ON and now getting small morphine doses to cover withdrawal. minimal VS checks now per family request. transaminases climbing to 4 digits now Review of Systems Review of Systems: Unobtainable due to cognitive status pt able to say she is not in pain; cannot answer past that Physical Exam Constitutional: well developed, + thin, + altered mental status and + frail appearing on RA, somewhat agitated Eyes: EOM intact bilaterally ENMT: Ears: no external ear abnormality Nose: no external nose abnormality Mouth: + dry oral mucous membranes Neck: no nuchal rigidity Respiratory: normal respiratory effort Auscultation: + diminished lung sounds (markedly) Cardiovascular: Rate/Rhythm: + tachycardic (in 100s) Extremities: no edema Gastrointestinal (Abdomen): Inspection/Auscultation: normal bowel sounds Percussion/Palpation: abdomen soft; abdomen nontender Musculoskeletal: ceja Skin: no rashes and no lesions some mottling still BLE but less Neurologic: ceja, minimal speech, no tremor Psychiatric: Orientation: alert and oriented to person Eye Contact: + fair eye contact Genitourinary: jiménez w/ scant urine Results & Data Vital Signs (Past 12 Hours) Vital Signs Pulse Pulse Resp BP 07/17/19 06:00 105 H 07/17/19 05:00 106 H 07/17/19 04:00 95 H 18 07/17/19 03:00 98 H 07/17/19 02:00 96 H 22 07/17/19 01:00 97 H 07/17/19 00:00 92 H 21 07/16/19 23:00 92 H 20 07/16/19 22:00 96 H 26 H 141/92 H 07/16/19 21:22 91 H 23 143/90 H 07/16/19 21:13 101 H 07/16/19 21:00 92 H 23 143/90 H 07/16/19 20:16 91 H 18 153/87 H Laboratory Results 07/17/19 04:36 07/17/19 04:36
[2019-07-17 07:44] LABS: Uric Acid Crystals Urine Present (None Prsent)
[2019-07-17] MEDS: THIAMINE HCL 100 MG in SYRINGE 9 ML IV SCH (07:46)
[2019-07-17] MEDS: HEPARIN SOD 5,000 UNIT/0.5 ML VIAL SQ SCH (07:47)
--- NOTE | 2019-07-17 09:26 | Gastroenterology Progress Note ---
Date of Service July 17, 2019 Assessment & Plan (1) Abnormal LFTs (liver function tests): 64 year old female admitted w/ transaminitis thought secondary sepsis or shock liver given hypoprofusion event prior to arrival - her transaminases continue to raise, INR this AM pending. Goals of care were discussed at bedside given other comorbidities and family is considering comfort care. Would recommend trend LFTs, INR. Would check full serology given worsening transaminases. Would use mucomyst if clinically able. Would continue IV hydration and IV ABX use. Thank you for allowing us to participate in the care of this patient. Please call with any acute changes, questions or concerns. Please see addendum below with additional recommendation from my supervising physician. Present on Admission?: Yes Supervising Physician Co-Signing Physician Notes Late Entry: Patient was seen and examined on 07/17 with MIGUELITO Joshi whose note reflects our findings and plan. Subjective Pt was seen and evaluated, chart reviewed Family at bedside who aid in history POA not present at time of discussion Markedly altered MS. unable to provide history Denies pain Suspected shock liver w/ raising LFTs, INR this AM yet to obtained CT: suspected ileus. Liver: Normal morphology. Density consistent with hepatic steatosis. Hypodense lesion along the fissure for the ligamentum teres, indeterminate.Biliary: No gross biliary ductal dilatation allowing for noncontrast technique. Gallbladder not delineated though present on prior exam.Pancreas: Normal noncontrast appearance. Spleen: Normal noncontrast appearance. Review of Systems Review of Systems: Unobtainable due to cognitive status Physical Exam Constitutional: + acute distress, + ill appearing and + thin Neck: trachea midline Gastrointestinal (Abdomen): Inspection/Auscultation: abdomen normal to inspect ion and + hypoactive bowel sounds Percussion/Palpation: abdomen soft; abdomen nontender, no guarding and abdomen not rigid Skin: no rashes, warm and dry Results & Data Vital Signs (Past 12 Hours) Vital Signs Pulse Pulse Resp BP 07/17/19 06:00 105 H 07/17/19 05:00 106 H 07/17/19 04:00 95 H 18 07/17/19 03:00 98 H 07/17/19 02:00 96 H 07/17/19 01:00 97 H 07/17/19 00:00 92 H 07/16/19 23:00 92 H 20 07/16/19 22:00 96 H 26 H 141/92 H Laboratory Results 07/17/19 07/17/19 07/17/19 Range/Units 07:36 06:20 05:26 WBC (4.8-10.8) K/uL RBC (4.2-5.4) M/uL Hgb (12.0-16.0) g/dL Hct (37-47) % MCV (80-100) fL MCH (25-34) pg MCHC (32-36) g/dL RDW Std Deviation (36.4-46.3) fL RDW Coeff of Rock (11.5-14.5) % Plt Count (130-400) K/uL MPV (7.4-10.4) fL Absolute Nucleated RBC (0-0) K/uL Nucleated RBC % (auto) % Peripher Smr Path Cons VBG pH (7.36-7.41) VBG pCO2 (38-50) mmHg VBG pO2 mmHg VBG HCO3 mmol/L VBG O2 Saturation % VBG Base Excess mEq/L Barometric Pressure mm/Hg Sodium (136-145) mmol/L Potassium (3.5-5.1) mmol/L Chloride (98-107) mmol/L Carbon Dioxide (21-32) mmol/L Anion Gap (3-11) BUN (7-18) mg/dl Creatinine (0.6-1.2) mg/dl Est Cr Clr Drug Dosing ml/min Est GFR ( Amer) Est GFR (Non-Af Amer) BUN/Creatinine Ratio (10-20) Glucose (70-99) mg/dl POC Glucose 90 110 H (70-99) Fasting Insulin (3-25) mU/L C-Peptide Osmolality (280-300) mOsm/kg Lactate (0.4-2.0) mmol/L Uric Acid (2.6-7.2) mg/dl Calcium (8.5-10.1) mg/dl Total Bilirubin (0.2-1) mg/dl AST (15-37) U/L ALT (12-78) U/L Alkaline Phosphatase (45-117) U/L Total Creatine Kinase (26-192) U/L Total Protein (6.4-8.2) gm/dl Albumin (3.4-5.0) gm/dl Globulin (2.5-4.0) gm/dl Albumin/Globulin Ratio (0.9-2) Lipase (73-393) U/L Specimen Hemolysis Urine Color Yellow Urine Appearance Turbid A (Clear) Urine pH 5.5 (4.5-7.5) Ur Specific [place] 1.022 (1.000-1.030) Urine Protein 1+ H (Negative) Urine Glucose (UA) Negative (Negative) Urine Ketones Negative (Negative) Urine Blood 3+ H (Negative) Urine Nitrite Negative (Negative) Urine Bilirubin Negative (Negative) Urine Urobilinogen Negative (Negative) Ur Leukocyte Esterase Trace H (Negative) Urine WBC (Auto) 5-10 H (0-5) /hpf Urine RBC (Auto) >30 H (0-4) /hpf U Hyaline Cast (Auto) 1-5 (0-5) /lpf U Epithel Cells (Auto) >30 H (0-5) /lpf Urine Bacteria (Auto) Negative (Negative) Ur Renal Epithelial Cell Not Reportable Uric Acid Crystals Present A (None Prsent) Urine Creatinine 2 Urine Opiates Screen Ur Opiates Confirm Ur Oxycodone Screen Ur Methadone, Qual Ur Methadone Urine Barbiturates Ur Barbiturate Confirm Ur Phencyclidine Scrn Urine PCP Confirm Ur Amphetamines Screen U Amphetamines Confirm U Benzodiazepines Scrn U Benzodiazepine Confm Urine Cocaine U Cocaine Metab Confirm U Marijuana (THC) Screen U Marijuana (THC) Confirm U THC/Creatinine Ratio 07/17/19 07/17/19 07/17/19 Range/Units 04:36 04:36 04:00 WBC 16.50 H (4.8-10.8) K/uL RBC 3.36 L (4.2-5.4) M/uL Hgb 8.5 L (12.0-16.0) g/dL Hct 26.7 L (37-47) % MCV 79.5 L (80-100) fL MCH 25.3 (25-34) pg MCHC 31.8 L (32-36) g/dL RDW Std Deviation 48.1 H (36.4-46.3) fL RDW Coeff of Rock 16.7 H (11.5-14.5) % Plt Count 408 H (130-400) K/uL MPV 10.4 (7.4-10.4) fL Absolute Nucleated RBC 0.22 H (0-0) K/uL Nucleated RBC % (auto) 1.3 % Peripher Smr Path Cons VBG pH (7.36-7.41) VBG pCO2 (38-50) mmHg VBG pO2 mmHg VBG HCO3 mmol/L VBG O2 Saturation % VBG Base Excess mEq/L Barometric Pressure mm/Hg Sodium 134 L (136-145) mmol/L Potassium 4.9 (3.5-5.1) mmol/L Chloride 98 (98-107) mmol/L Carbon Dioxide 23 (21-32) mmol/L Anion Gap 13.0 H (3-11) BUN 40 H (7-18) mg/dl Creatinine 1.64 H (0.6-1.2) mg/dl Est Cr Clr Drug Dosing 29.5 ml/min Est GFR ( Amer) 37.6 Est GFR (Non-Af Amer) 32.5 BUN/Creatinine Ratio 24.7 H (10-20) Glucose 119 H (70-99) mg/dl POC Glucose 100 H (70-99) Fasting Insulin (3-25) mU/L C-Peptide Osmolality (280-300) mOsm/kg Lactate (0.4-2.0) mmol/L Uric Acid (2.6-7.2) mg/dl Calcium 7.9 L (8.5-10.1) mg/dl Total Bilirubin 0.9 (0.2-1) mg/dl AST 2073 H (15-37) U/L ALT 1097 H (12-78) U/L Alkaline Phosphatase 213 H (45-117) U/L Total Creatine Kinase (26-192) U/L Total Protein 4.7 L (6.4-8.2) gm/dl Albumin 2.3 L (3.4-5.0) gm/dl Globulin 2.4 L (2.5-4.0) gm/dl Albumin/Globulin Ratio 1.0 (0.9-2) Lipase (73-393) U/L Specimen Hemolysis Urine Color Urine Appearance (Clear) Urine pH (4.5-7.5) Ur Specific [place] (1.000-1.030) Urine Protein (Negative) Urine Glucose (UA) (Negative) Urine Ketones (Negative) Urine Blood (Negative) Urine Nitrite (Negative) Urine Bilirubin (Negative) Urine Urobilinogen (Negative) Ur Leukocyte Esterase (Negative) Urine WBC (Auto) (0-5) /hpf Urine RBC (Auto) (0-4) /hpf U Hyaline Cast (Auto) (0-5) /lpf U Epithel Cells (Auto) (0-5) /lpf Urine Bacteria (Auto) (Negative) Ur Renal Epithelial Cell Uric Acid Crystals (None Prsent) Urine Creatinine 2 Urine Opiates Screen Ur Opiates Confirm Ur Oxycodone Screen Ur Methadone, Qual Ur Methadone Urine Barbiturates Ur Barbiturate Confirm Ur Phencyclidine Scrn Urine PCP Confirm Ur Amphetamines Screen U Amphetamines Confirm U Benzodiazepines Scrn U Benzodiazepine Confm Urine Cocaine U Cocaine Metab Confirm U Marijuana (THC) Screen U Marijuana (THC) Confirm U THC/Creatinine Ratio 07/17/19 07/17/19 07/16/19 Range/Units 02:54 01:55 23:45 WBC (4.8-10.8) K/uL RBC (4.2-5.4) M/uL Hgb (12.0-16.0) g/dL Hct (37-47) % MCV (80-100) fL MCH (25-34) pg MCHC (32-36) g/dL RDW Std Deviation (36.4-46.3) fL RDW Coeff of Rock (11.5-14.5) % Plt Count (130-400) K/uL MPV (7.4-10.4) fL Absolute Nucleated RBC (0-0) K/uL Nucleated RBC % (auto) % Peripher Smr Path Cons VBG pH (7.36-7.41) VBG pCO2 (38-50) mmHg VBG pO2 mmHg VBG HCO3 mmol/L VBG O2 Saturation % VBG Base Excess mEq/L Barometric Pressure mm/Hg Sodium (136-145) mmol/L Potassium (3.5-5.1) mmol/L Chloride (98-107) mmol/L Carbon Dioxide (21-32) mmol/L Anion Gap (3-11) BUN (7-18) mg/dl Creatinine (0.6-1.2) mg/dl Est Cr Clr Drug Dosing ml/min Est GFR ( Amer) Est GFR (Non-Af Amer) BUN/Creatinine Ratio (10-20) Glucose (70-99) mg/dl POC Glucose 86 106 H 115 H (70-99) Fasting Insulin (3-25) mU/L C-Peptide Osmolality (280-300) mOsm/kg Lactate (0.4-2.0) mmol/L Uric Acid (2.6-7.2) mg/dl Calcium (8.5-10.1) mg/dl Total Bilirubin (0.2-1) mg/dl AST (15-37) U/L ALT (12-78) U/L Alkaline Phosphatase (45-117) U/L Total Creatine Kinase (26-192) U/L Total Protein (6.4-8.2) gm/dl Albumin (3.4-5.0) gm/dl Globulin (2.5-4.0) gm/dl Albumin/Globulin Ratio (0.9-2) Lipase (73-393) U/L Specimen Hemolysis Urine Color Urine Appearance (Clear) Urine pH (4.5-7.5) Ur Specific [place] (1.000-1.030) Urine Protein (Negative) Urine Glucose (UA) (Negative) Urine Ketones (Negative) Urine Blood (Negative) Urine Nitrite (Negative) Urine Bilirubin (Negative) Urine Urobilinogen (Negative) Ur Leukocyte Esterase (Negative) Urine WBC (Auto) (0-5) /hpf Urine RBC (Auto) (0-4) /hpf U Hyaline Cast (Auto) (0-5) /lpf U Epithel Cells (Auto) (0-5) /lpf Urine Bacteria (Auto) (Negative) Ur Renal Epithelial Cell Uric Acid Crystals (None Prsent) Urine Creatinine 2 Urine Opiates Screen Ur Opiates Confirm Ur Oxycodone Screen Ur Methadone, Qual Ur Methadone Urine Barbiturates Ur Barbiturate Confirm Ur Phencyclidine Scrn Urine PCP Confirm Ur Amphetamines Screen U Amphetamines Confirm U Benzodiazepines Scrn U Benzodiazepine Confm Urine Cocaine U Cocaine Metab Confirm U Marijuana (THC) Screen U Marijuana (THC) Confirm U THC/Creatinine Ratio 07/16/19 07/16/19 07/16/19 Range/Units 22:02 21:44 18:36 WBC (4.8-10.8) K/uL RBC (4.2-5.4) M/uL Hgb (12.0-16.0) g/dL Hct (37-47) % MCV (80-100) fL MCH (25-34) pg MCHC (32-36) g/dL RDW Std Deviation (36.4-46.3) fL RDW Coeff of Rock (11.5-14.5) % Plt Count (130-400) K/uL MPV (7.4-10.4) fL Absolute Nucleated RBC (0-0) K/uL Nucleated RBC % (auto) % Peripher Smr Path Cons VBG pH (7.36-7.41) VBG pCO2 (38-50) mmHg VBG pO2 mmHg VBG HCO3 mmol/L VBG O2 Saturation % VBG Base Excess mEq/L Barometric Pressure mm/Hg Sodium (136-145) mmol/L Potassium (3.5-5.1) mmol/L Chloride (98-107) mmol/L Carbon Dioxide (21-32) mmol/L Anion Gap (3-11) BUN (7-18) mg/dl Creatinine (0.6-1.2) mg/dl Est Cr Clr Drug Dosing ml/min Est GFR ( Amer) Est GFR (Non-Af Amer) BUN/Creatinine Ratio (10-20) Glucose (70-99) mg/dl POC Glucose 155 H 55 L* 122 H (70-99) Fasting Insulin (3-25) mU/L C-Peptide Osmolality (280-300) mOsm/kg Lactate (0.4-2.0) mmol/L Uric Acid (2.6-7.2) mg/dl Calcium (8.5-10.1) mg/dl Total Bilirubin (0.2-1) mg/dl AST (15-37) U/L ALT (12-78) U/L Alkaline Phosphatase (45-117) U/L Total Creatine Kinase (26-192) U/L Total Protein (6.4-8.2) gm/dl Albumin (3.4-5.0) gm/dl Globulin (2.5-4.0) gm/dl Albumin/Globulin Ratio (0.9-2) Lipase (73-393) U/L Specimen Hemolysis Urine Color Urine Appearance (Clear) Urine pH (4.5-7.5) Ur Specific [place] (1.000-1.030) Urine Protein (Negative) Urine Glucose (UA) (Negative) Urine Ketones (Negative) Urine Blood (Negative) Urine Nitrite (Negative) Urine Bilirubin (Negative) Urine Urobilinogen (Negative) Ur Leukocyte Esterase (Negative) Urine WBC (Auto) (0-5) /hpf Urine RBC (Auto) (0-4) /hpf U Hyaline Cast (Auto) (0-5) /lpf U Epithel Cells (Auto) (0-5) /lpf Urine Bacteria (Auto) (Negative) Ur Renal Epithelial Cell Uric Acid Crystals (None Prsent) Urine Creatinine 2 Urine Opiates Screen Ur Opiates Confirm Ur Oxycodone Screen Ur Methadone, Qual Ur Methadone Urine Barbiturates Ur Barbiturate Confirm Ur Phencyclidine Scrn Urine PCP Confirm Ur Amphetamines Screen U Amphetamines Confirm U Benzodiazepines Scrn U Benzodiazepine Confm Urine Cocaine U Cocaine Metab Confirm U Marijuana (THC) Screen U Marijuana (THC) Confirm U THC/Creatinine Ratio 07/16/19 07/16/19 07/16/19 Range/Units 18:32 18:32 18:32 WBC (4.8-10.8) K/uL RBC (4.2-5.4) M/uL Hgb (12.0-16.0) g/dL Hct (37-47) % MCV (80-100) fL MCH (25-34) pg MCHC (32-36) g/dL RDW Std Deviation (36.4-46.3) fL RDW Coeff of Rock (11.5-14.5) % Plt Count (130-400) K/uL MPV (7.4-10.4) fL Absolute Nucleated RBC (0-0) K/uL Nucleated RBC % (auto) % Peripher Smr Path Cons Pending VBG pH (7.36-7.41) VBG pCO2 (38-50) mmHg VBG pO2 mmHg VBG HCO3 mmol/L VBG O2 Saturation % VBG Base Excess mEq/L Barometric Pressure mm/Hg Sodium 132 L (136-145) mmol/L Potassium 5.6 H (3.5-5.1) mmol/L Chloride 98 (98-107) mmol/L Carbon Dioxide 11 L (21-32) mmol/L Anion Gap 23.0 H (3-11) BUN 43 H (7-18) mg/dl Creatinine 1.76 H (0.6-1.2) mg/dl Est Cr Clr Drug Dosing 27.5 ml/min Est GFR ( Amer) 34.6 Est GFR (Non-Af Amer) 29.8 BUN/Creatinine Ratio 24.7 H (10-20) Glucose 154 H (70-99) mg/dl POC Glucose (70-99) Fasting Insulin (3-25) mU/L C-Peptide Osmolality (280-300) mOsm/kg Lactate 13.8 H* (0.4-2.0) mmol/L Uric Acid 11.1 H (2.6-7.2) mg/dl Calcium 8.4 L (8.5-10.1) mg/dl Total Bilirubin (0.2-1) mg/dl AST (15-37) U/L ALT (12-78) U/L Alkaline Phosphatase (45-117) U/L Total Creatine Kinase 439 H (26-192) U/L Total Protein (6.4-8.2) gm/dl Albumin (3.4-5.0) gm/dl Globulin (2.5-4.0) gm/dl Albumin/Globulin Ratio (0.9-2) Lipase (73-393) U/L Specimen Hemolysis Urine Color Urine Appearance (Clear) Urine pH (4.5-7.5) Ur Specific [place] (1.000-1.030) Urine Protein (Negative) Urine Glucose (UA) (Negative) Urine Ketones (Negative) Urine Blood (Negative) Urine Nitrite (Negative) Urine Bilirubin (Negative) Urine Urobilinogen (Negative) Ur Leukocyte Esterase (Negative) Urine WBC (Auto) (0-5) /hpf Urine RBC (Auto) (0-4) /hpf U Hyaline Cast (Auto) (0-5) /lpf U Epithel Cells (Auto) (0-5) /lpf Urine Bacteria (Auto) (Negative) Ur Renal Epithelial Cell Uric Acid Crystals (None Prsent) Urine Creatinine 2 Urine Opiates Screen Ur Opiates Confirm Ur Oxycodone Screen Ur Methadone, Qual Ur Methadone Urine Barbiturates Ur Barbiturate Confirm Ur Phencyclidine Scrn Urine PCP Confirm Ur Amphetamines Screen U Amphetamines Confirm U Benzodiazepines Scrn U Benzodiazepine Confm Urine Cocaine U Cocaine Metab Confirm U Marijuana (THC) Screen U Marijuana (THC) Confirm U THC/Creatinine Ratio 07/16/19 07/16/19 07/16/19 Range/Units 18:32 18:14 18:13 WBC (4.8-10.8) K/uL RBC (4.2-5.4) M/uL Hgb (12.0-16.0) g/dL Hct (37-47) % MCV (80-100) fL MCH (25-34) pg MCHC (32-36) g/dL RDW Std Deviation (36.4-46.3) fL RDW Coeff of Rock (11.5-14.5) % Plt Count (130-400) K/uL MPV (7.4-10.4) fL Absolute Nucleated RBC (0-0) K/uL Nucleated RBC % (auto) % Peripher Smr Path Cons VBG pH (7.36-7.41) VBG pCO2 (38-50) mmHg VBG pO2 mmHg VBG HCO3 mmol/L VBG O2 Saturation % VBG Base Excess mEq/L Barometric Pressure mm/Hg Sodium (136-145) mmol/L Potassium (3.5-5.1) mmol/L Chloride (98-107) mmol/L Carbon Dioxide (21-32) mmol/L Anion Gap (3-11) BUN (7-18) mg/dl Creatinine (0.6-1.2) mg/dl Est Cr Clr Drug Dosing ml/min Est GFR ( Amer) Est GFR (Non-Af Amer) BUN/Creatinine Ratio (10-20) Glucose (70-99) mg/dl POC Glucose 47 L* 49 L* (70-99) Fasting Insulin (3-25) mU/L C-Peptide Osmolality 292 (280-300) mOsm/kg Lactate (0.4-2.0) mmol/L Uric Acid (2.6-7.2) mg/dl Calcium (8.5-10.1) mg/dl Total Bilirubin (0.2-1) mg/dl AST (15-37) U/L ALT (12-78) U/L Alkaline Phosphatase (45-117) U/L Total Creatine Kinase (26-192) U/L Total Protein (6.4-8.2) gm/dl Albumin (3.4-5.0) gm/dl Globulin (2.5-4.0) gm/dl Albumin/Globulin Ratio (0.9-2) Lipase (73-393) U/L Specimen Hemolysis Urine Color Urine Appearance (Clear) Urine pH (4.5-7.5) Ur Specific [place] (1.000-1.030) Urine Protein (Negative) Urine Glucose (UA) (Negative) Urine Ketones (Negative) Urine Blood (Negative) Urine Nitrite (Negative) Urine Bilirubin (Negative) Urine Urobilinogen (Negative) Ur Leukocyte Esterase (Negative) Urine WBC (Auto) (0-5) /hpf Urine RBC (Auto) (0-4) /hpf U Hyaline Cast (Auto) (0-5) /lpf U Epithel Cells (Auto) (0-5) /lpf Urine Bacteria (Auto) (Negative) Ur Renal Epithelial Cell Uric Acid Crystals (None Prsent) Urine Creatinine 2 Urine Opiates Screen Ur Opiates Confirm Ur Oxycodone Screen Ur Methadone, Qual Ur Methadone Urine Barbiturates Ur Barbiturate Confirm Ur Phencyclidine Scrn Urine PCP Confirm Ur Amphetamines Screen U Amphetamines Confirm U Benzodiazepines Scrn U Benzodiazepine Confm Urine Cocaine U Cocaine Metab Confirm U Marijuana (THC) Screen U Marijuana (THC) Confirm U THC/Creatinine Ratio 07/16/19 07/16/19 07/16/19 Range/Units 15:19 15:09 13:56 WBC (4.8-10.8) K/uL RBC (4.2-5.4) M/uL Hgb (12.0-16.0) g/dL Hct (37-47) % MCV (80-100) fL MCH (25-34) pg MCHC (32-36) g/dL RDW Std Deviation (36.4-46.3) fL RDW Coeff of Rock (11.5-14.5) % Plt Count (130-400) K/uL MPV (7.4-10.4) fL Absolute Nucleated RBC (0-0) K/uL Nucleated RBC % (auto) % Peripher Smr Path Cons VBG pH (7.36-7.41) VBG pCO2 (38-50) mmHg VBG pO2 mmHg VBG HCO3 mmol/L VBG O2 Saturation % VBG Base Excess mEq/L Barometric Pressure mm/Hg Sodium (136-145) mmol/L Potassium (3.5-5.1) mmol/L Chloride (98-107) mmol/L Carbon Dioxide (21-32) mmol/L Anion Gap (3-11) BUN (7-18) mg/dl Creatinine (0.6-1.2) mg/dl Est Cr Clr Drug Dosing ml/min Est GFR ( Amer) Est GFR (Non-Af Amer) BUN/Creatinine Ratio (10-20) Glucose (70-99) mg/dl POC Glucose 89 95 (70-99) Fasting Insulin (3-25) mU/L C-Peptide Osmolality (280-300) mOsm/kg Lactate (0.4-2.0) mmol/L Uric Acid (2.6-7.2) mg/dl Calcium (8.5-10.1) mg/dl Total Bilirubin (0.2-1) mg/dl AST (15-37) U/L ALT (12-78) U/L Alkaline Phosphatase (45-117) U/L Total Creatine Kinase (26-192) U/L Total Protein (6.4-8.2) gm/dl Albumin (3.4-5.0) gm/dl Globulin (2.5-4.0) gm/dl Albumin/Globulin Ratio (0.9-2) Lipase (73-393) U/L Specimen Hemolysis Urine Color Urine Appearance (Clear) Urine pH (4.5-7.5) Ur Specific [place] (1.000-1.030) Urine Protein (Negative) Urine Glucose (UA) (Negative) Urine Ketones (Negative) Urine Blood (Negative) Urine Nitrite (Negative) Urine Bilirubin (Negative) Urine Urobilinogen (Negative) Ur Leukocyte Esterase (Negative) Urine WBC (Auto) (0-5) /hpf Urine RBC (Auto) (0-4) /hpf U Hyaline Cast (Auto) (0-5) /lpf U Epithel Cells (Auto) (0-5) /lpf Urine Bacteria (Auto) (Negative) Ur Renal Epithelial Cell Uric Acid Crystals (None Prsent) Urine Creatinine 2 Pending Urine Opiates Screen Pending Ur Opiates Confirm Pending Ur Oxycodone Screen Pending Ur Methadone, Qual Pending Ur Methadone Pending Urine Barbiturates Pending Ur Barbiturate Confirm Pending Ur Phencyclidine Scrn Pending Urine PCP Confirm Pending Ur Amphetamines Screen Pending U Amphetamines Confirm Pending U Benzodiazepines Scrn Pending U Benzodiazepine Confm Pending Urine Cocaine Pending U Cocaine Metab Confirm Pending U Marijuana (THC) Screen Pending U Marijuana (THC) Confirm Pending U THC/Creatinine Ratio Pending 07/16/19 07/16/19 07/16/19 Range/Units 13:45 13:41 13:41 WBC (4.8-10.8) K/uL RBC (4.2-5.4) M/uL Hgb (12.0-16.0) g/dL Hct (37-47) % MCV (80-100) fL MCH (25-34) pg MCHC (32-36) g/dL RDW Std Deviation (36.4-46.3) fL RDW Coeff of Rock (11.5-14.5) % Plt Count (130-400) K/uL MPV (7.4-10.4) fL Absolute Nucleated RBC (0-0) K/uL Nucleated RBC % (auto) % Peripher Smr Path Cons VBG pH (7.36-7.41) VBG pCO2 (38-50) mmHg VBG pO2 mmHg VBG HCO3 mmol/L VBG O2 Saturation % VBG Base Excess mEq/L Barometric Pressure mm/Hg Sodium (136-145) mmol/L Potassium (3.5-5.1) mmol/L Chloride (98-107) mmol/L Carbon Dioxide (21-32) mmol/L Anion Gap (3-11) BUN (7-18) mg/dl Creatinine (0.6-1.2) mg/dl Est Cr Clr Drug Dosing ml/min Est GFR ( Amer) Est GFR (Non-Af Amer) BUN/Creatinine Ratio (10-20) Glucose (70-99) mg/dl POC Glucose (70-99) Fasting Insulin 3.3 (3-25) mU/L C-Peptide Pending Osmolality (280-300) mOsm/kg Lactate 12.2 H* (0.4-2.0) mmol/L Uric Acid (2.6-7.2) mg/dl Calcium (8.5-10.1) mg/dl Total Bilirubin (0.2-1) mg/dl AST (15-37) U/L ALT (12-78) U/L Alkaline Phosphatase (45-117) U/L Total Creatine Kinase (26-192) U/L Total Protein (6.4-8.2) gm/dl Albumin (3.4-5.0) gm/dl Globulin (2.5-4.0) gm/dl Albumin/Globulin Ratio (0.9-2) Lipase (73-393) U/L Specimen Hemolysis Urine Color Urine Appearance (Clear) Urine pH (4.5-7.5) Ur Specific [place] (1.000-1.030) Urine Protein (Negative) Urine Glucose (UA) (Negative) Urine Ketones (Negative) Urine Blood (Negative) Urine Nitrite (Negative) Urine Bilirubin (Negative) Urine Urobilinogen (Negative) Ur Leukocyte Esterase (Negative) Urine WBC (Auto) (0-5) /hpf Urine RBC (Auto) (0-4) /hpf U Hyaline Cast (Auto) (0-5) /lpf U Epithel Cells (Auto) (0-5) /lpf Urine Bacteria (Auto) (Negative) Ur Renal Epithelial Cell Uric Acid Crystals (None Prsent) Urine Creatinine 2 Urine Opiates Screen Ur Opiates Confirm Ur Oxycodone Screen Ur Methadone, Qual Ur Methadone Urine Barbiturates Ur Barbiturate Confirm Ur Phencyclidine Scrn Urine PCP Confirm Ur Amphetamines Screen U Amphetamines Confirm U Benzodiazepines Scrn U Benzodiazepine Confm Urine Cocaine U Cocaine Metab Confirm U Marijuana (THC) Screen U Marijuana (THC) Confirm U THC/Creatinine Ratio 07/16/19 07/16/19 07/16/19 Range/Units 12:33 12:10 12:09 WBC (4.8-10.8) K/uL RBC (4.2-5.4) M/uL Hgb (12.0-16.0) g/dL Hct (37-47) % MCV (80-100) fL MCH (25-34) pg MCHC (32-36) g/dL RDW Std Deviation (36.4-46.3) fL RDW Coeff of [place] (11.5-14.5) % Plt Count (130-400) K/uL MPV (7.4-10.4) fL Absolute Nucleated RBC (0-0) K/uL Nucleated RBC % (auto) % Peripher Smr Path Cons VBG pH (7.36-7.41) VBG pCO2 (38-50) mmHg VBG pO2 mmHg VBG HCO3 mmol/L VBG O2 Saturation % VBG Base Excess mEq/L Barometric Pressure mm/Hg Sodium (136-145) mmol/L Potassium (3.5-5.1) mmol/L Chloride (98-107) mmol/L Carbon Dioxide (21-32) mmol/L Anion Gap (3-11) BUN (7-18) mg/dl Creatinine (0.6-1.2) mg/dl Est Cr Clr Drug Dosing ml/min Est GFR ( Amer) Est GFR (Non-Af Amer) BUN/Creatinine Ratio (10-20) Glucose (70-99) mg/dl POC Glucose 115 H 29 L* 32 L* (70-99) Fasting Insulin (3-25) mU/L C-Peptide Osmolality (280-300) mOsm/kg Lactate (0.4-2.0) mmol/L Uric Acid (2.6-7.2) mg/dl Calcium (8.5-10.1) mg/dl Total Bilirubin (0.2-1) mg/dl AST (15-37) U/L ALT (12-78) U/L Alkaline Phosphatase (45-117) U/L Total Creatine Kinase (26-192) U/L Total Protein (6.4-8.2) gm/dl Albumin (3.4-5.0) gm/dl Globulin (2.5-4.0) gm/dl Albumin/Globulin Ratio (0.9-2) Lipase (73-393) U/L Specimen Hemolysis Urine Color Urine Appearance (Clear) Urine pH (4.5-7.5) Ur Specific [place] (1.000-1.030) Urine Protein (Negative) Urine Glucose (UA) (Negative) Urine Ketones (Negative) Urine Blood (Negative) Urine Nitrite (Negative) Urine Bilirubin (Negative) Urine Urobilinogen (Negative) Ur Leukocyte Esterase (Negative) Urine WBC (Auto) (0-5) /hpf Urine RBC (Auto) (0-4) /hpf U Hyaline Cast (Auto) (0-5) /lpf U Epithel Cells (Auto) (0-5) /lpf Urine Bacteria (Auto) (Negative) Ur Renal Epithelial Cell Uric Acid Crystals (None Prsent) Urine Creatinine 2 Urine Opiates Screen Ur Opiates Confirm Ur Oxycodone Screen Ur Methadone, Qual Ur Methadone Urine Barbiturates Ur Barbiturate Confirm Ur Phencyclidine Scrn Urine PCP Confirm Ur Amphetamines Screen U Amphetamines Confirm U Benzodiazepines Scrn U Benzodiazepine Confm Urine Cocaine U Cocaine Metab Confirm U Marijuana (THC) Screen U Marijuana (THC) Confirm U THC/Creatinine Ratio 07/16/19 07/16/19 Range/Units 09:42 08:46 WBC (4.8-10.8) K/uL RBC (4.2-5.4) M/uL Hgb (12.0-16.0) g/dL Hct (37-47) % MCV (80-100) fL MCH (25-34) pg MCHC (32-36) g/dL RDW Std Deviation (36.4-46.3) fL RDW Coeff of [place] (11.5-14.5) % Plt Count (130-400) K/uL MPV (7.4-10.4) fL Absolute Nucleated RBC (0-0) K/uL Nucleated RBC % (auto) % Peripher Smr Path Cons VBG pH 7.27 L (7.36-7.41) VBG pCO2 27 L (38-50) mmHg VBG pO2 31 mmHg VBG HCO3 12 mmol/L VBG O2 Saturation < 60.0 % VBG Base Excess -13.7 mEq/L Barometric Pressure 730.2 mm/Hg Sodium (136-145) mmol/L Potassium (3.5-5.1) mmol/L Chloride (98-107) mmol/L Carbon Dioxide (21-32) mmol/L Anion Gap (3-11) BUN (7-18) mg/dl Creatinine (0.6-1.2) mg/dl Est Cr Clr Drug Dosing ml/min Est GFR ( Amer) Est GFR (Non-Af Amer) BUN/Creatinine Ratio (10-20) Glucose (70-99) mg/dl POC Glucose (70-99) Fasting Insulin (3-25) mU/L C-Peptide Osmolality (280-300) mOsm/kg Lactate (0.4-2.0) mmol/L Uric Acid (2.6-7.2) mg/dl Calcium (8.5-10.1) mg/dl Total Bilirubin (0.2-1) mg/dl AST (15-37) U/L ALT (12-78) U/L Alkaline Phosphatase (45-117) U/L Total Creatine Kinase (26-192) U/L Total Protein (6.4-8.2) gm/dl Albumin (3.4-5.0) gm/dl Globulin (2.5-4.0) gm/dl Albumin/Globulin Ratio (0.9-2) Lipase 130 (73-393) U/L Specimen Hemolysis Urine Color Urine Appearance (Clear) Urine pH (4.5-7.5) Ur Specific [place] (1.000-1.030) Urine Protein (Negative) Urine Glucose (UA) (Negative) Urine Ketones (Negative) Urine Blood (Negative) Urine Nitrite (Negative) Urine Bilirubin (Negative) Urine Urobilinogen (Negative) Ur Leukocyte Esterase (Negative) Urine WBC (Auto) (0-5) /hpf Urine RBC (Auto) (0-4) /hpf U Hyaline Cast (Auto) (0-5) /lpf U Epithel Cells (Auto) (0-5) /lpf Urine Bacteria (Auto) (Negative) Ur Renal Epithelial Cell Uric Acid Crystals (None Prsent) Urine Creatinine 2 Urine Opiates Screen Ur Opiates Confirm Ur Oxycodone Screen Ur Methadone, Qual Ur Methadone Urine Barbiturates Ur Barbiturate Confirm Ur Phencyclidine Scrn Urine PCP Confirm Ur Amphetamines Screen U Amphetamines Confirm U Benzodiazepines Scrn U Benzodiazepine Confm Urine Cocaine U Cocaine Metab Confirm U Marijuana (THC) Screen U Marijuana (THC) Confirm U THC/Creatinine Ratio
[2019-07-17 09:56] LABS: INR 2.5 (0.9-1.1); Prothrombin Time 24.3 Seconds (9.0-12.0)
--- NOTE | 2019-07-17 12:40 | Palliative Care Progress Note ---
Date of Service July 17, 2019 Assessment & Plan (1) Goals of care, counseling/discussion: This is a 64-year-old female who presented to the ED via EMS from [facility] the [facility] after being found unresponsive. Additional PMH includes mood disorder, hyponatremia, CKD III, recent pelvic and lumbar fractures, cardiomyopathy, depression, IBS, HTN, generalized anxiety. The patient was found to be hypothermic and she was placed on a bear hugger. This patient has had multiple admissions over the past year, with most recent discharge on 07/12/19. Patient was started on a D5 infusion and she has started to wake up a little bit and is conversing. a head CT was performed and negative. Additionally, an EEG was performed with pending results. No seizure history noted. Family including daughter, ex- and grandson at the bedside. Palliative Care was consulted to discuss goals of care as patient has had multiple readmissions over the past year. -I met with the patient, daughter Jamee, ex- Tom, son Larry and three other family and friends at the bedside in room 104. -patient was sitting upright in no apparent distress. Appeared to be enjoying having company and was smiling, significantly improved from a few days ago. -The family met with Transition Specialist and Hospitalist earlier today and confirmed that the plan is to continue current care, without escalation as the patient is showing some cognitive improvement and may be returning to baseline cognitive status. The family, specifically the patients son, Larry reiterated that he knows that she is overall not going to improve long-term and we "aren't going to be able to fix all of this", but he knows that she would be comfortable continuing IV antibiotics and current level of care, which I think is reasonable as she is showing improvement towards her baseline. -The plan is to introduce a diet for the patient, including nectar thickened liquids. We confirmed that they will not escalate care and do not want central lines or feeding tubes. -Confirmed patient is DNR/DNI -The patient continues to be on a HCO3 gtt (most recent ABG: pH 7.30, CO2 16, HCO3 8) and we talked about the appropriateness of checking daily labs and continuing to assess her progress with interventions. Patient renal function returning to baseline. BUN 40, Creatinine 1.64. Should the patient decompensate over the next few days, laboratory work will help the providers determine the source, allowing further discussion which could lead towards comfort. Family agreed, OK to continue with daily lab work and blood sugars. Patient is relatively hemodynamically stable, slightly tachycardic in the low 100's. -The patient has been restless at times and has been medicated with Morphine 1 mg Q2 PRN (4) times over the past 24 hours. Continue for now and reassess frequency, appears mostly occurring overnight. -Family wants to continue current treatment, with no aggressive measures or invasive procedures, with ultimate goal of comfort and gently treating her. -A POLST has been started, but has not been completed, would be helpful upon discharge to complete. For now, it states DNR/DNI, trial abx and no artificial nutrition/hydration. She would like time to think about returning to the hospital but is leaning towards limited intervention. -Patient likely to be transferred out of the ICU, will follow on medical to continue to assist with decision making based on the patients progress. -PPS: 20% (2) Metabolic acidosis: (3) Generalized anxiety disorder: (4) Cardiomyopathy: (5) Hyponatremia: (6) Change in mental status: Subjective Patient sitting upright in her bed, smiling at family and friends at the bedside. Increased effort to speak and converse, just smiled at me and just laughed if I asked if she was uncomfortable. Please see A/P for further details Review of Systems Review of Systems: Unobtainable due to cognitive status Physical Exam Constitutional: + ill appearing, + thin and + frail appearing Neck: trachea midline, no thyromegaly Respiratory: normal respiratory effort and + cough; does not use accessory muscles Auscultation: + diminished lung sounds Cardiovascular: Heart Sounds: normal S1 and normal S2 Extremities: normal capillary refill; no edema Gastrointestinal (Abdomen): normal bowel sounds, soft, nontender, no hepatosplenomegaly Skin: no rashes, warm and dry Genitourinary: jiménez catheter in place Lymphatic: no cervical or axillary lymphadenopathy Results & Data Vital Signs (Past 12 Hours) Vital Signs Pulse Pulse Resp 07/17/19 10:00 101 H 07/17/19 09:00 102 H 18 07/17/19 08:00 100 H 17 07/17/19 07:00 97 H 07/17/19 06:00 105 H 24 07/17/19 05:00 106 H 19 07/17/19 04:00 95 H 18 07/17/19 03:00 98 H 21 07/17/19 02:00 96 H 22 07/17/19 01:00 97 H 21 PG Care Time/CCT Total # of Minutes Spent Total Time Spent with Patient: Total time spent is greater than 50% in coordination of care (as documented) at patient's floor/unit and/or counseling patient: 35 Time Spent Midlevel Total time spent 35 minutes with > 50% of that time spent assessing the patient, discussing goals of care, and collaborating with the IDT. (1) Change in mental status Altered mental status type: unspecified Qualified Code(s): R41.82 - Altered mental status, unspecified
[2019-07-17] MEDS: DEXTROSE 50% 50 ML SYRINGE IV PRN (13:41)
--- NOTE | 2019-07-17 15:01 | Hospitalist Progress Note ---
Date of Service July 17, 2019 Assessment & Plan (1) Metabolic encephalopathy: Patient is a 64 yr female with H/O Takotsubo cardiomyopathy with EF: 15- 20% mood disorder, chronic hyponatremia, CKD III, recent pelvic and lumbar fractures presents from [facility] after being found unresponsive and was found to have altered mental status due to metabolic acidosis, hypoglycemia, Hypothermia. H/O recent metabolic encephalopathy Multifactorial:Secondary to UTI, pneumonia, use of multiple anxiolytic and sedatives medications, hypoglycemia and hypothymia, hepatic congestion CT head:There is no hemorrhage, mass effect, or evidence of acute territorial ischemia by CT criteria. CT :Groundglass and reticular infiltrate in the lateral basal left lower lobe is evidence of pneumonia, new from prior. EEG: This is an abnormal awake EEG due to mild background slowing which is suggestive of a mild non specific encephalopathy. No seizures or epileptiform activity is recorded. Venous Doppler:No DVT within the right or left lower extremity. Mental status not at baseline Gabapentin levels pending Toxicology screen pending Monitor (2) Metabolic acidosis: (3) Acidosis, lactic: Anion gap metabolic acidosis, Respiratory alkalosis Lactic acidosis Gentle IV fluids given H/O EF of 15-20% On bicarbonate drip Bicarbonate levels improved Lactate levels trending down Appreciate nephrology/vein pumper input Lactic acidosis also likely due to liver failure (4) Acute UTI: Sepsis UTI Blood culture: No growth to date Urine Culture: Gram-negative bacilli, Enterobacter Continue IV Zosyn Pneumonia left lower lobe Continue Zosyn Aspiration precautions (5) Hypoglycemia: Presented with reported BGs of 13 in setting of known poor PO intake Hypoglycemia protocol Normal Insulin level C-peptide levels:pending Monitor BGs (6) Acute kidney injury superimposed on chronic kidney disease: Volume overload status Poor oral intake ? 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) Diuretics, lisinopril held Monitor volume status (9) Hypothermia: Hypothermic at presentation Resolved (10) Abnormal LFTs (liver function tests): Has had abnormal LFTs during recent admission Worsening LFTs Likely secondary to hepatic congestion and/or shock and or due to use of multiple medications including Tylenol Tylenol level:normal Recent hepatitis panel negative Received N-acetylcysteine Appreciate GI Input Monitor LFTs, INR Avoid hepatotoxic medications as able Code status: DNR/DNI DVT Px: Heparin SQ Disposition: To be determined Subjective Patient is seen and examined at bedside History is limited secondary to patient's mental status Discussed with patient's family, vein pumper today No escalation of treatment as per patient's family Plan to start her on diet as tolerated and continue current management LFTs continue to worsen Urine culture growing gram-negative bacilli, Enterobacter Review of Systems Review of Systems: Unobtainable due to cognitive status Physical Exam Physical Exam: Physical Exam: Vitals signs as noted above General Appearance:Thin, frail, ill appearing Head: normocephalic, Atraumatic Eyes: normal inspection, EOMI Neck: supple, Trachea midline Respiratory/Chest: Normal breath sounds, CTA Cardiovascular: S1, S2, No murmur Abdomen/GI:Soft, Non tender, Bowel sounds present Extremities/Musculoskelatal:normal inspection, RLE edema Neurologic/Psych:grossly movies all extremities, orientation--difficult to assess Skin: normal color, warm Results & Data Vital Signs (Past 12 Hours) Vital Signs Pulse Pulse Resp 07/17/19 10:00 101 H 07/17/19 09:00 102 H 07/17/19 08:00 100 H 17 07/17/19 07:00 97 H 07/17/19 06:00 105 H 24 07/17/19 05:00 106 H 07/17/19 04:00 95 H 07/17/19 03:00 98 H 21 Laboratory Results Short CBC 07/17/19 Range/Units 04:36 WBC 16.50 H (4.8-10.8) K/uL Hgb 8.5 L (12.0-16.0) g/dL Hct 26.7 L (37-47) % Plt Count 408 H (130-400) K/uL BMP 07/16/19 07/17/19 18:32 04:36 Sodium 132 L 134 L Potassium 5.6 H 4.9 Chloride 98 98 Carbon Dioxide 11 L 23 BUN 43 H 40 H Creatinine 1.76 H 1.64 H Glucose 154 H 119 H Calcium 8.4 L 7.9 L Cardiac Enzymes 07/16/19 Range/Units 18:32 Total Creatine Kinase 439 H (26-192) U/L Liver Function 07/17/19 Range/Units 04:36 Total Bilirubin 0.9 (0.2-1) mg/dl AST 2073 H (15-37) U/L ALT 1097 H (12-78) U/L Alkaline Phosphatase 213 H (45-117) U/L Albumin 2.3 L (3.4-5.0) gm/dl Urine 07/17/19 Range/Units 06:20 Urine Color Yellow Urine Appearance Turbid A (Clear) Urine pH 5.5 (4.5-7.5) Ur Specific [place] 1.022 (1.000-1.030) Urine Protein 1+ H (Negative) Urine Glucose (UA) Negative (Negative) (1) Hypothermia Encounter type: initial encounter Qualified Code(s): T68.XXXA - Hypothermia, initial encounter
[2019-07-17 15:33] VITALS: PULSE 110; TEMP 98.4
--- NOTE | 2019-07-17 20:56 | Hospitalist Progress Note ---
Date of Service July 17, 2019 Subjective Family requesting for patient to be transitioned to comfort measures. Results & Data Vital Signs (Past 12 Hours) Vital Signs Temp Pulse Pulse Resp 07/17/19 15:32 36.9 C 110 H 07/17/19 10:00 101 H 19 07/17/19 09:00 102 H 18
[2019-07-17] MEDS: MoRPHine SULFATE 4 MG/ML 1 ML CARP\\VIAL IV PRN (21:52)
[2019-07-17] MEDS: LORazepam 1 MG/2 ML VIAL IV PRN (22:41)
[2019-07-18] MEDS: MoRPHine SULFATE 4 MG/ML 1 ML CARP\\VIAL IV PRN ×4 (00:06→09:58)
[2019-07-18] MEDS: LORazepam 1 MG/2 ML VIAL IV PRN ×6 (00:38→21:54)
[2019-07-18] MEDS ORDERED: SCOPOLAMINE 1.5 MG TDSY TD SCH (09:00)
[2019-07-18] MEDS ORDERED: MoRPHine SULF/NSS 250 MG/250 ML BTL IV PRN (11:11)
[2019-07-18] MEDS ORDERED: MoRPHine SULFATE 4 MG/ML 1 ML CARP\\VIAL IV PRN (11:12)
--- NOTE | 2019-07-18 11:15 | Palliative Care Progress Note ---
Date of Service July 18, 2019 Assessment & Plan (1) Goals of care, counseling/discussion: -Patient was transitioned to FIELD PRODUCER last evening. Sister, Jessi, and ex- , Tom, at bedside. Also spoke to patient's nephew, Santiago, in hallway. -Patient is mostly obtunded, moving in bed somewhat, but not purposeful. -Patient has received 5 doses of 4mg IV morphine since about 9pm last evening, still somewhat restless in bed. Respiratory rate 18/min. -Start continuous morphine infusion at 2mg/hr, titrate by 1mg/hr Q15min PRN pain or SOB. Keep bolus dose of 4mg IV Q1h PRN pain or SOB. Family okay and actually were requesting the morphine infusion as well. -Continue other comfort measures as ordered. -Palliative care will follow and are available for any further needs. (2) Metabolic acidosis: (3) Generalized anxiety disorder: (4) Cardiomyopathy: (5) Hyponatremia: (6) Change in mental status: Subjective Patient was transitioned to FIELD PRODUCER last evening. Sister, Jessi, and ex-, Tom, at bedside. Also spoke to patient's nephew, Santiago, in hallway. Patient is mostly obtunded, moving in bed somewhat, but not purposeful. Physical Exam Constitutional: + thin and + cachectic ENMT: external ear and nose normal, oropharynx normal Respiratory: no labored breathing Auscultation: + rhonchi Cardiovascular: Rate/Rhythm: regular rate and regular rhythm Extremities: no edema Gastrointestinal (Abdomen): Inspection/Auscultation: abdomen normal to inspection Percussion/Palpation: abdomen soft Skin: toes and feet reddened. knees cold and maybe a small amount of mottling present Neurologic: moves all extremities and + obtunded Supervising Physician Co-Signing Physician Notes Chart reviewed, patient seen and examined. Collaborated with MIGUELITO Borja Patient seen and examined-patient's sister and cousin at bedside. Spoke with patient's daughter and son outside the room and provided emotional support to patient's daughter who is having a difficult time. PE: Patient now on a morphine drip, more comfortable, minimal restlessness. Respirations, unlabored CV: Tachycardic Extremities: No edema Skin: Mottling of the toes bilaterally, toes slightly cool to touch Neuro: Unresponsive to voice or touch Agree with above note, assessment and plan as per MIGUELITO Borja. Will continue to follow and provide support to family members at bedside. Assist with comfort meds as needed. PG Care Time/CCT Prolonged Care Time Prolonged Care Time: Yes Total Prolonged Care Time: 30 Time Spent Midlevel 35 minutes with >50% of the time spent at bedside with patient and family discussing EOL care and comfort measures. Attending Spent 30 minutes in addition to the 35 minutes spent by MIGUELITO Yu for a total of 65 minutes with greater than 50% of the time spent at bedside providing emotional support to family as well as discussing end-of-life issues at length. Critical Care Time Prolonged Care Time Prolonged Care Time: Yes Total Prolonged Care Time: 30 65 (1) Change in mental status Altered mental status type: unspecified Qualified Code(s): R41.82 - Altered mental status, unspecified
--- NOTE | 2019-07-18 15:18 | Hospitalist Progress Note ---
Date of Service July 18, 2019 Assessment & Plan (1) Metabolic encephalopathy: Patient is a 64 yr female with H/O Takotsubo cardiomyopathy with EF: 15- 20% mood disorder, chronic hyponatremia, CKD III, recent pelvic and lumbar fractures presents from [facility] after being found unresponsive and was found to have altered mental status due to metabolic acidosis, hypoglycemia, Hypothermia. H/O recent metabolic encephalopathy Multifactorial:Secondary to UTI, pneumonia, use of multiple anxiolytic and sedatives medications, hypoglycemia and hypothymia, hepatic congestion CT head:There is no hemorrhage, mass effect, or evidence of acute territorial ischemia by CT criteria. CT :Groundglass and reticular infiltrate in the lateral basal left lower lobe is evidence of pneumonia, new from prior. EEG: This is an abnormal awake EEG due to mild background slowing which is suggestive of a mild non specific encephalopathy. No seizures or epileptiform activity is recorded. Venous Doppler:No DVT within the right or left lower extremity. Obtunded Transition to comfort measures only (2) Metabolic acidosis: (3) Acidosis, lactic: Anion gap metabolic acidosis, Respiratory alkalosis Lactic acidosis Gentle IV fluids given H/O EF of 15-20% On bicarbonate drip Bicarbonate levels improved Lactate levels trended down Appreciate nephrology/shoe sticks repairer input Lactic acidosis also likely due to liver failure Transition to comfort measures Palliative care following (4) Acute UTI: Sepsis UTI Blood culture: No growth to date Urine Culture: Gram-negative bacilli, Enterobacter Discontinued IV Zosyn As on comfort measures only Pneumonia left lower lobe Aspiration precautions (5) Hypoglycemia: Presented with reported BGs of 13 in setting of known poor PO intake Hypoglycemia protocol Normal Insulin level Normal C-peptide levels (6) Acute kidney injury superimposed on chronic kidney disease: Volume overload status Poor oral intake ? 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) Diuretics, lisinopril held Monitor volume status (9) Hypothermia: Hypothermic at presentation Resolved (10) Abnormal LFTs (liver function tests): Has had abnormal LFTs during recent admission Worsening LFTs Likely secondary to hepatic congestion and/or shock and or due to use of multiple medications including Tylenol Tylenol level:normal Recent hepatitis panel negative Received N-acetylcysteine Appreciate GI Input Avoid hepatotoxic medications as able Code status: DNR/DNI DVT Px: Received Heparin SQ Disposition: On comfort measures only Palliative care following Subjective Patient is seen and examined at bedside Transition to comfort measures only overnight Currently patient is obtunded, could not obtain any history. No apparent distress on exam Family at bedside. Discussed with palliative care today. Review of Systems Review of Systems: Unobtainable due to reduced consciousness Physical Exam Physical Exam: Physical Exam: Vitals signs as noted above General Appearance:Thin, frail, ill appearing, obtunded, no apparent distress Head: normocephalic, Atraumatic Eyes: normal inspection Neck: supple, Trachea midline Respiratory/Chest: Coarse breath sounds Cardiovascular: S1, S2, No murmur, +Tachycardia Abdomen/GI:Soft, Non tender, Bowel sounds present Extremities/Musculoskelatal:normal inspection, RLE edema Neurologic/Psych: Could not assess Skin: normal color, warm (1) Hypothermia Encounter type: initial encounter Qualified Code(s): T68.XXXA - Hypothermia, initial encounter
[2019-07-18] MEDS: CHECK SCOPOLAMINE PATCH PLACEMENT SCH (15:44)
[2019-07-18] MEDS ORDERED: LORazepam 1 MG/2 ML VIAL IV SCH (23:00)
[2019-07-19] MEDS: CHECK SCOPOLAMINE PATCH PLACEMENT SCH
--- NOTE | 2019-07-19 01:19 | Death Summary ---
Date of Service July 19, 2019 Pronouncement Note Date and Time of Date of : 07/19/19 Time of : 01:30 Contributing Factors (1) Goals of care, counseling/discussion: (2) Metabolic acidosis: (3) Generalized anxiety disorder: (4) Cardiomyopathy: (5) Hyponatremia: (6) Change in mental status: Summary Additional details: Discharge summary to be accomplished by Dr. Ghotra. Additional Data Confirmation of : no pulse, no respirations, no heart sounds and pupils fix ed and dilated Family: at bedside Attending/PCP notified?: No Attending physician: Moises Ghotra MD
--- NOTE | 2019-07-19 07:31 | Discharge Summary ---
Date of Service July 19, 2019 Admission HPI Per Admitting Provider This is a 64-year-old female with a PMH of Takotsubo cardiomyopathy with EF: 15- 20% mood disorder, chronic hyponatremia, CKD III, recent pelvic and lumbar fractures and other medical problems listed below who presents today from [facility] after being found unresponsive. History obtained from EMS notes as well as from daughter at bedside. Was noted to be confused yesterday but still alert and able to interact and ambulate with walker. Daughter fed patient meals and boost yesterday after noting that she seemed weak and confused. This morning 0600, [facility] staff found patient unresponsive and hypoglycemic with blood sugar of 13. Also found to be hypothermic with rectal temp of 34 C. Was brought into the ED for further evaluation. Was given 50 g of dextrose via EMS with improved BSG to 80. Upon arrival, placed on dextrose drip with improved blood sugar in the mid 100s. Narcan given without change to mental state. Daylin hugger applied with improved temperature to 35 C with improved cognitive state. Leukocytosis of 18.65. Noted to have hyponatremia 128, hyperkalemia 5.9, anion gap of 21, lactate of 12.3 and positive urinalysis. Started on Rocephin for possible UTI and blood/urine cultures are ordered. ABG with pH of 7.26 and bicarb of 9. Unable to obtain ROS due to cognitive status. Of note, patient has been admitted twice in June with most recent discharge on Jul 12 to [facility]. Was initially admitted at the beginning of June after a fall with pelvic and L5 fractures. Was evaluated orthopedic surgery and surgery was not indicated. Home oxycodone and baclofen were continued and Gresham added for additional pain control. Was admitted to our service again on 07/02 for toxic encephalopathy and weakness secondary to polypharmacy. Oxycodone and G[place]am were discontinued at this time. Gabapentin and Ativan doses were decreased and Ultram was added for with instruction for limited use in pain not controlled with Tylenol. Patient was discharged to [facility] on July 12. Admission Exam Per Admitting Provider Physical Exam Physical Exam: General Appearance: Chronically ill appearing female resting comfortably with daylin hugger. Lethargic but responsive to name, opening eyes spontaneously Head: normocephalic, atraumatic Eyes: normal inspection, PERRL, conjunctivae normal, anicteric sclerae ENT: external ear and nose normal, oropharynx normal Neck: trachea midline, no thyromegaly normal visual inspection Respiratory: lungs clear to auscultation, no wheeze, rales, rhonchi. Normal insp/exp effort, no accessory muscle use Cardiovascular: regular rate, rhythm, no murmur, normal peripheral pulses. Vessels: no JVD or carotid bruit Chest: normal inspection of chest Abdomen/GI: normal bowel sounds, soft, nontender, no hepatosplenomegaly Extremities/Musculoskelatal: no cyanosis or clubbing, extremities motor strength 5/5 Neurologic: Responsive to name, able to identify self and family members. CN's II-XI grossly intact bilaterally and moves all extremities spontaneously. Not able to follow commands at this time Skin: no rashes, normal color, warm/dry Principal Diagnosis Metabolic encephalopathy Hypothermia Hypoglycemia Sepsis, urinary tract infection Congestive heart failure Metabolic acidosis Hepatic failure Discharge Data Allergies Allergy/AdvReac Type Severity Reaction Status Date / Time Barbiturates Allergy Severe Unknown Verified 07/15/19 07:36 belladonna alkaloids Allergy Severe Unknown Verified 07/15/19 07:36 dicyclomine Allergy Severe Unknown Verified 07/15/19 07:36 azithromycin Allergy Mild Hives Unverified 07/15/19 07:36 mivacurium Allergy Mild Unknown Verified 07/15/19 07:36 Penicillins Allergy Mild AMOXICILLIN Verified 07/15/19 07:36 phenobarbital Allergy Mild Unknown Verified 07/15/19 07:36 Quinolones Allergy Mild Unknown Verified 07/15/19 07:36 amoxicillin Allergy Unknown rash Unverified 07/15/19 07:36 Nitrate Analogues Allergy Unknown Unknown Verified 07/15/19 07:36 nitrofurantoin Allergy Unknown Unknown Verified 07/15/19 07:36 nitroglycerin Allergy Unknown Unknown Verified 07/15/19 07:36 Sulfa (Sulfonamide Allergy Unknown sulfa Verified 07/15/19 07:36 Antibiotics) Consultations 07/15/19 08:48 ED Decision to Admit Stat 07/15/19 11:18 Consult Business Development Coordinator Routine Consult Palliative Care Routine Consult Palliative Care Stat 07/16/19 08:46 Consult Gastroenterology Routine Consult Nephrology Routine Procedures Performed CT Head: There is no hemorrhage, mass effect, or evidence of acute territorial ischemia by CT criteria. ABD CT; 1. No CT evidence to suggest ischemic bowel. 2. Mild diffuse gaseous distention of small bowel could represent ileus. No bowel obstruction. 3. Volume overload with cardiomegaly, bilateral effusions, anasarca, and ascites. 4. Groundglass and reticular infiltrate in the lateral basal left lower lobe is evidence of pneumonia, new from prior. 5. Redemonstration of multiple subacute fractures including the right pubis and bilateral sacral ala. Renal USD: 1. Echogenic renal parenchyma suggests medical renal disease. 2. No hydronephrosis. 3. Left pleural effusion. Gall Bladder USD: 1. No cholelithiasis or biliary ductal dilatation. 2. Heterogeneous and hyperechogenic liver parenchyma could indicate underlying fibrosis or steatosis. 3. Right pleural effusion. 4. Body wall edema. CXR: Mild interstitial pulmonary edema and small bilateral pleural effusions, unchanged. Ordered Studies 07/15/19 06:59 CT head/brain wo con Stat 07/16/19 08:46 US gallbladder Urgent 07/16/19 08:54 US renal/blad retro comp Urgent 07/16/19 10:22 CT abd pelvis wo con Urgent Hospital Course (1) Metabolic encephalopathy: Patient is a 64 yr female with H/O Takotsubo cardiomyopathy with EF: 15- 20% mood disorder, chronic hyponatremia, CKD III, recent pelvic and lumbar fractures presents from [facility] after being found unresponsive and was found to have altered mental status due to metabolic acidosis, hypoglycemia, Hypothermia. H/O recent metabolic encephalopathy Multifactorial:Secondary to UTI, pneumonia, use of multiple anxiolytic and sed atives medications, hypoglycemia and hypothymia, hepatic congestion CT head:There is no hemorrhage, mass effect, or evidence of acute territorial ischemia by CT criteria. CT :Groundglass and reticular infiltrate in the lateral basal left lower lobe is evidence of pneumonia, new from prior. EEG: This is an abnormal awake EEG due to mild background slowing which is suggestive of a mild non specific encephalopathy. No seizures or epileptiform activity is recorded. Venous Doppler:No DVT within the right or left lower extremity. Obtunded Transition to comfort measures only (2) Metabolic acidosis: (3) Acidosis, lactic: Anion gap metabolic acidosis, Respiratory alkalosis Lactic acidosis Gentle IV fluids given H/O EF of 15-20% On bicarbonate drip Bicarbonate levels improved Lactate levels trended down Appreciate nephrology/mechanical technical service specialist input Lactic acidosis also likely due to liver failure Transition to comfort measures Palliative care following (4) Acute UTI: Sepsis UTI Blood culture: No growth to date Urine Culture: Gram-negative bacilli, Enterobacter Discontinued IV Zosyn As on comfort measures only Pneumonia left lower lobe Aspiration precautions (5) Hypoglycemia: Presented with reported BGs of 13 in setting of known poor PO intake Hypoglycemia protocol Normal Insulin level Normal C-peptide levels (6) Acute kidney injury superimposed on chronic kidney disease: Volume overload status Poor oral intake ? 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) Diuretics, lisinopril held Monitor volume status (9) Hypothermia: Hypothermic at presentation Resolved (10) Abnormal LFTs (liver function tests): Has had abnormal LFTs during recent admission Worsening LFTs Likely secondary to hepatic congestion and/or shock and or due to use of multiple medications including Tylenol Tylenol level:normal Recent hepatitis panel negative Received N-acetylcysteine Appreciate GI Input Avoid hepatotoxic medications as able Code status: DNR/DNI DVT Px: Received Heparin SQ Disposition: On comfort measures only Palliative care following Patient overnight July 19, 2019 at 1:30 AM Family is made aware by night hospitalist Total Time Total Time Spent Total Time Spent (In Minutes): 25 minutes Total Time Includes: Examination of the Patient, Discharge Planning, Medication Reconciliation, Communication With Other Providers and Other Discharge Plan Discharge Items Patient Disposition: Admission Data Admit Date/Time: 07/15/19 09:37 Other DC Date/Time DO NOT enter until pt leaves facility: 07/19/19 05:05
[2019-07-19 10:40] LABS: Amphetamines, Ur NEGATIVE NG/ML (CUTOFF=500); Amphetemines Ur GC/MS DNR NG/ML (CUTOFF=250); Barbiturates, Urine NEGATIVE NG/ML (CUTOFF=300); Benzodiazepines,Ur POSITIVE NG/ML (CUTOFF=100); Cocaine, Urine NEGATIVE NG/ML (CUTOFF=150); Cocaine,Ur GC/MS DNR NG/ML (CUTOFF=100); Methadone, Ur GC/MS DNR NG/ML (CUTOFF=100); Methadone, Urine NEGATIVE NG/ML (CUTOFF=100); Opiates, Urine POSITIVE NG/ML (CUTOFF=100); Oxycodone,Ur Screen NEGATIVE NG/ML (CUTOFF=100); Phencyclidine, Ur NEGATIVE NG/ML (CUTOFF=25); Phencyclidine,Ur GC/MS DNR NG/ML (CUTOFF=25); THC20, Qual, Urine NEGATIVE NG/ML (CUTOFF=20)
--- NOTE | 2019-07-25 13:45 | Coding Query ---
CONGESTIVE HEART FAILURE To Promote full compliance with coding requirements relating to patient care, physician participation is requested in all cases of surgical coder uncertainty. Please assist us with the following questions. A diagnosis of Congestive Heart Failure is documented in the patient's medical record. To accurately code this diagnosis and to compare patient severity, we ask that you specify the type of heart failure by placing an X within the parenthesis (x). SYSTOLIC HEART FAILURE ( ) Acute ( ) Chronic ( X ) Acute on Chronic ( ) Rheumatic ( ) Unknown DIASTOLIC HEART FAILURE ( ) Acute ( ) Chronic ( ) Acute on Chronic ( ) Rheumatic ( ) Unknown COMBINED SYSTOLIC AND DIASTOLIC HEART FAILURE ( ) Acute ( ) Chronic ( Acute on Chronic ( ) Rheumatic ( ) Unknown Was the CHF Present On Admission? Please check the appropriate box: ( ) Present on Admission ( ) Not Present On Admission ( ) Clinically undetermined Thank you Tania SAENZ
== END 2019-07-19 05:05 | disposition expired | DRG 871 ==
LOC: ED 06:47 → SUATTDRO 09:37 → 1E 09:37 → 4W 07-17 12:20